=== PATIENT | male | born 1935 | race Caucasian/White ===

== ENCOUNTER → 2016-12-26 | Outpatient (CLI) | payer MEDICARE ==
[2016-03-02 09:12] VITALS: BP 169/89
[~2016-12-26] MED LIST: ALBU8.5H3 IH; ALLO300T PO; AMLO5TAB2 PO; ASPI81TA2 PO; AZIT250T6 PO; BAYER ASPIRIN PO; BENZ100C PO; CEFU500T46 PO; CHOL100013 PO; CRESTOR10 MG PO; DOCU-27 PO; GABA-585 PO; HYDR115S2 PO; IOHEXOL 240 MG/ML 50ML VIAL. ONE; IOHEXOL 300 MG/ML 75 ML VIAL. IV ONE; IPRA3AMP IH; ISOS10TA4 PO; ISOS30TA PO; LEVO500T38 PO; LOSA100T6 PO; MAGN250T9 PO; METF500T4 PO; MULT-658 PO; NAPR500T3 PO; NEBI10TA3 PO; NIAC500T PO; NITR0.4T SL; OMEG1CAP38 PO; POLY17PO5 PO; PRED-220 PO; PRED50TA PO; TORS20TA2 PO; ciprofloxin PO; losartan PO
--- NOTE | 2016-12-26 14:20 | RAD ---
Indication: Abdominal pain. Axial imaging through the abdomen was performed after the administration of intravenous contrast. No prior studies are available for comparison. The lung bases are clear. The liver demonstrates generalized low density consistent with fatty infiltration. No discrete mass is identified. There are multiple small stones within the gallbladder. No biliary ductal dilatation is seen. The pancreas and spleen are unremarkable. No adrenal mass is detected. Kidneys are unremarkable apart from vascular calcifications. Aorta is heavily calcified but nonaneurysmal. The small and large bowel loops are normal caliber. There is a midline ventral hernia containing fat. This is not entirely included on this exam. This is in the lower abdomen and upper pelvis. Impression: 1. Cholelithiasis. 2. Fatty infiltration of the liver. 3. Fat-containing midline ventral hernia. PQRS Compliance Statement: One or more of the following individualized dose reduction techniques were utilized for this examination: 1. Automated exposure control 2. Adjustment of the mA and/or kV according to patient size 3. Use of iterative reconstruction technique
== END | disposition home or self-care (01) ==
LOC: CT 11:34
PROVIDERS: ATTEND Physician Assistant Medical
DX: K80.20 Calculus of gallbladder without cholecystitis without obstruction (principal); K76.0 Fatty (change of) liver, not elsewhere classified; K43.9 Ventral hernia without obstruction or gangrene
CPT/HCPCS: 74160; Q9966; Q9967

== ENCOUNTER 2017-01-05 09:06 | Inpatient (IN) | payer MEDICARE ==
[~2017-01-05] VITALS: Ht 180.3 cm; Wt 86.2 kg
[~2017-01-05 09:06] MED LIST changes: -ALBU8.5H3 IH; +ALBU8.5H8 IH; +ASPI-630 PO; -ASPI81TA2 PO; +DOCU-109 PO; -DOCU-27 PO; -IOHEXOL 240 MG/ML 50ML VIAL. ONE; -IOHEXOL 300 MG/ML 75 ML VIAL. IV ONE; -LEVO500T38 PO; +LEVO500T59 PO
[2017-01-05 09:55] LABS: BASO % 0 % (0-3); EOS # 0.1 x10^3/uL (0.0-0.7); EOS % 1 % (0-3); HEMATOCRIT 38.1 % (39.0-53.0); LYMPH # 1.4 x10^3/uL (1.0-4.8); LYMPH % 11 % (24-48); MEAN CORPUSCULAR HEMOGLOBIN 31 pg (25-35); MEAN CORPUSCULAR HGB CONC 34 g/dL (31-37); MEAN CORPUSCULAR VOLUME 92 fL (79-100); MONO # 1.2 x10^3/uL (0.0-1.1); MONO % 9 % (0-9); NEUT # 9.9 x10^3uL (1.8-7.7); NEUT % 79 % (31-73); PLATELET COUNT 270 x10^3/uL (140-400); RED BLOOD COUNT 4.15 x10^6/uL (4.30-5.70); RED CELL DISTRIBUTION WIDTH 14.2 % (11.5-14.5); WHITE BLOOD COUNT 12.6 x10^3/uL (4.0-11.0)
--- NOTE | 2017-01-05 09:58 | ED.ADGEN ---
Past History Past Medical History: CAD, CHF, COPD Past Surgical History: Appendectomy, Coronary Bypass Surgery, Other Smoking: Quit Greater Than 1 Year Alcohol Use: None Drug Use: None Adult General Chief Complaint Chief Complaint Increased shortness of breath HPI HPI Patient is a 81-year-old male with chronic respiratory failure secondary to COPD , congestive heart failure presents with increasing shortness breath for the past 10 days. Patient is normally on 4 L nasal cannula at night and during the daytime with exertion, but has required 24 hours. Patient said previous pneumonia in the past several months. He contacted his chemical analyst's office and prescribed prednisone and doxycycline which the patient has been taking for the past week. He reports nausea this morning, fatigue, and productive cough with yellow tinged sputum. No signs fevers chills, nausea or vomiting. No other acute symptoms or complaints. Review of Systems Review of Systems ROS as per HPI Current Medications Current Medications Current Medications Medications (Trade) Dose Ordered Sig/Shirley Start Time Stop Time Status Last Admin Dose Admin Furosemide (Lasix) 40 mg 1X ONCE 01/05/17 10:30 01/05/17 10:31 UNV Allergies Allergies Allergies Coded Allergies Type Severity Reaction Last Updated Verified sulfamethoxazole Allergy Intermediate rash 12/01/13 Yes trimethoprim Allergy Intermediate rash 12/01/13 Yes quinine Allergy Mild rash 12/01/13 Yes Physical Exam Physical Exam Constitutional: Well developed, well nourished, no acute distress, non-toxic appearance. HENT: Normocephalic, atraumatic, bilateral external ears normal, oropharynx moist, no oral exudates, nose normal. Eyes: PERRL. Neck: Normal range of motion, supple. Cardiovascular:Heart rate regular rhythm, no murmur. Peripheral edema. Lungs & Thorax: Respiration nonlabored, coarse breath sounds bilaterally with expiratory wheezes. Abdomen: Bowel sounds normal, soft, no tenderness. Skin: Warm, dry. Back: No tenderness. Extremities: No tenderness. Neurologic: Alert and oriented X 3, normal motor function, normal sensory function, no focal deficits noted. Psychologic: Affect normal, judgement normal, mood normal. Current Patient Data Vital Signs Vital Signs Date Time Temp Pulse Resp B/P (MAP) Pulse Ox O2 Delivery O2 Flow Rate FiO2 01/05/17 09:30 97.6 69 20 97 3.0 Lab Results Laboratory Tests Test 5/18/17 09:43 White Blood Count 12.6 x10^3/uL (4.0-11.0) H Red Blood Count 4.15 x10^6/uL (4.30-5.70) L Hemoglobin 13.0 g/dL (13.0-17.5) Hematocrit 38.1 % (39.0-53.0) L Mean Corpuscular Volume 92 fL (79-100) Mean Corpuscular Hemoglobin 31 pg (25-35) Mean Corpuscular Hemoglobin Concent 34 g/dL (31-37) Red Cell Distribution Width 14.2 % (11.5-14.5) Platelet Count 270 x10^3/uL (140-400) Neutrophils (%) (Auto) 79 % (31-73) H Lymphocytes (%) (Auto) 11 % (24-48) L Monocytes (%) (Auto) 9 % (0-9) Eosinophils (%) (Auto) 1 % (0-3) Basophils (%) (Auto) 0 % (0-3) Neutrophils # (Auto) 9.9 x10^3uL (1.8-7.7) H Lymphocytes # (Auto) 1.4 x10^3/uL (1.0-4.8) Monocytes # (Auto) 1.2 x10^3/uL (0.0-1.1) H Eosinophils # (Auto) 0.1 x10^3/uL (0.0-0.7) Basophils # (Auto) 0.0 x10^3/uL (0.0-0.2) Sodium Level 124 mmol/L (136-145) L Potassium Level 4.3 mmol/L (3.5-5.1) Chloride Level 90 mmol/L (98-107) L Carbon Dioxide Level 30 mmol/L (21-32) Anion Gap 4 (6-14) L Blood Urea Nitrogen 18 mg/dL (8-26) Creatinine 0.8 mg/dL (0.7-1.3) Estimated GFR (Cockcroft-Gault) 92.5 BUN/Creatinine Ratio 23 (6-20) H Glucose Level 104 mg/dL (70-99) H Lactic Acid Level 1.3 mmol/L (0.4-2.0) Calcium Level 8.6 mg/dL (8.5-10.1) Total Bilirubin 0.8 mg/dL (0.2-1.0) Aspartate Amino Transferase (AST) 14 U/L (15-37) L Alanine Aminotransferase (ALT) 10 U/L (16-63) L Alkaline Phosphatase 57 U/L (46-116) Creatine Kinase 72 U/L (39-308) Troponin I Quantitative < 0.017 ng/mL (0-0.055) BF-Yey-F-Type Natriuretic Peptide 1757 pg/mL (0-449) H Total Protein 6.6 g/dL (6.4-8.2) Albumin 3.8 g/dL (3.4-5.0) Albumin/Globulin Ratio 1.4 (1.0-1.7) EKG EKG [EKG: ] Radiology/Procedures Radiology/Procedures [CXR: NAD per radiology report] Course & Med Decision Making Course & Med Decision Making Pertinent Labs and Imaging studies reviewed. (See chart for details) [Dyspnea likely multifactorial. Symptoms consistent with CHF exacerbation with COPD. Patient reports recently changing diuretics per his electric meter repairer. IV Lasix , albuterol and Solu-Medrol given. Dr. Maldonado to admit. ] Final Impression Final Impression [1. Dyspnea 2. Acute congestive heart failure 3. COPD exacerbation] Problems: Dragon Disclaimer Dragon Disclaimer This electronic medical record was generated, in whole or in part, using a voice recognition dictation system. MITZY DAVIS DO January 05, 2017 09:58
--- NOTE | 2017-01-05 10:02 | RAD ---
Portable chest, 01/05/2017: History: Shortness of breath, congestion Comparison is made to a study from 02/29/2016. There has been a previous median sternotomy. The heart size and pulmonary vascularity are normal. There are minimal parenchymal scars. No acute infiltrate is seen. There is no evidence of pleural fluid. IMPRESSION: No acute cardiopulmonary abnormality is detected.
[2017-01-05] MEDS ORDERED: CARV25TA2 PO (10:10)
[2017-01-05] MEDS ORDERED: CHLO25TA PO (10:10)
[2017-01-05 10:17] LABS: ALBUMIN 3.8 g/dL (3.4-5.0); ALBUMIN/GLOBULIN RATIO 1.4 (1.0-1.7); CALCIUM 8.6 mg/dL (8.5-10.1); CREATININE 0.8 mg/dL (0.7-1.3); GFR 92.5; POTASSIUM 4.3 mmol/L (3.5-5.1); TOTAL BILIRUBIN 0.8 mg/dL (0.2-1.0); TOTAL PROTEIN 6.6 g/dL (6.4-8.2)
[2017-01-05] MEDS ORDERED: FUROSEMIDE 40 MG/4 ML VIAL IVP ONE (10:45)
[2017-01-05] MEDS ORDERED: methylPREDNISolone SOD SUCC PF 125 MG/2 ML VIAL. IV ONE (11:00)
--- NOTE | 2017-01-05 11:21 | EKG ---
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
[2017-01-05] MEDS ORDERED: DOXY100C2 PO (11:28)
[2017-01-05] MEDS ORDERED: PRED50TA PO (11:28)
[2017-01-05] MEDS ORDERED: IPRATRPIUM/ALBUTEROL 0.5/2.5MG 3 ML NEBU. NEB SCH (12:00)
[2017-01-05 12:19] LABS: BGAS PH 7.43 (7.35-7.46)
--- NOTE | 2017-01-05 12:23 | ACF ---
Admission Criteria Forms HEART FAILURE: COMMON COMPLICATIONS Clinical Indications for Inpatient Care (Place 'X' for any and all applicable criteria): Ongoing inpatient care may be indicated for heart failure with ANY ONE of the following (1)(2)(3)(4)(5): [ ]I. Ongoing need for care for primary condition requiring frequent therapy adjustments because of changes in cardiac function (eg, drug dosage changes for drugs that are renally metabolized) [ ]II. New-onset heart failure [ ]III. Heart failure with decreased urine output not responsive to attempts to optimize volume status [ ]IV. Acute cardiac ischemia causing or associated with failure [X]V. Complications of heart failure, including ANY ONE of the following: [ ]a) Pericardial effusion [ ]b) Symptomatic pleural effusion [ ]c) O2 saturation <90% or PO2 < 60 mm Hg (8.0 kPa) on room air or require baseline supplemental O2 [ ]d) Tachypnea [X]e) Dyspnea [ ]f) Syncope [ ]g) Change in mental status [ ]h) Acute renal insufficiency that is severe (reduction of more than 50% in estimated glomerular filtration rate from baseline) or progressive reduction of more than 25% in estimated glomerular filtration rate from baseline, with creatinine continuing to rise) [ ]i) Hemodynamic instability [ ]j) Anasarca [ ]k) Clinically significant metabolic abnormalities due to heart failure (eg, new-onset metabolic acidosis) Extended stay beyond goal length of stay for primary condition may be needed until ALL of the following are present(1)(3): [ ]a) Stable and effective diuretic regimen established (or patient on stable dialysis regimen if in chronic renal failure) [ ]b) Breathing comfortably at rest [ ]c) Saturation of arterial oxygen greater than 90% or at acceptable baseline [ ]d) Pulmonary edema absent or improved [ ]e) Hemodynamic stability [ ]f) Volume status acceptable on oral medication [ ]g) Peripheral or sacral edema absent or improved [ ]h) Renal function stable and manageable at a lower level of care [ ]i) Complications (eg, pleural effusion) resolved or manageable at a lower level of care [ ]j) Patient or caregiver has received written discharge instructions or educational material addressing activity level, diet, discharge medications, follow-up appointment, weight monitoring, and what to do if symptoms worsen The original [email or web address] content created by [employer] has been revised. The portions of the content which have been revised are identified through the use of italic text or in bold, and [facility] has neither reviewed nor approved the modified material.All other unmodified content is copyright [facility]. Please see references footnoted in the original [facility] edition 2016 Admission Criteria Met?: Yes GABRIELLE ABBASI January 05, 2017 12:23
[2017-01-05 12:40] VITALS: BP 155/79
[2017-01-05 14:26] VITALS: BP 173/69
[2017-01-05] MEDS ORDERED: UMEC1DIS IH (14:27)
[2017-01-05] MEDS ORDERED: MAG355OR35 PO (14:33)
[2017-01-05] MEDS ORDERED: ASPI-612 PO (14:33)
[2017-01-05] MEDS ORDERED: GABA-586 PO (14:33)
[2017-01-05] MEDS ORDERED: NITR0.4T SL (14:34)
[2017-01-05] MEDS ORDERED: TIOT18CA IH (14:36)
[2017-01-05] MEDS: methylPREDNISolone SOD SUCC PF 40 MG/ML VIAL. IV SCH ×2 (15:38→21:41)
[2017-01-05] MEDS: guaiFENesin DM 600/30MG 1 TAB TAB.ER.12H PO SCH ×2 (15:38→21:41)
--- NOTE | 2017-01-05 15:42 | HP ---
ADMIT DATE: 01/05/2017 REASON FOR ADMISSION: Shortness of breath, failed outpatient treatment. HISTORY OF PRESENT ILLNESS: This is an 81-year-old gentleman with pulmonary hypertension, history of congestive heart failure and COPD, who failed outpatient treatment with prednisone burst of 50 mg, which he has taken 4 doses and 4 days of doxycycline, which was prescribed by his rn community health. He presented to the Emergency Room complaining of continued shortness of breath. PAST MEDICAL HISTORY: He has history of coronary artery disease, heart failure with preserved ejection fraction, hyponatremia, severe pulmonary hypertension; requiring night oxygen, coronary artery disease, status post bypass, hypertension, hypercholesterolemia, moderate mitral regurge, ischemic cardiomyopathy, type 2 diabetes. PAST SURGICAL HISTORY: PTCA with stent deployment, coronary artery bypass graft, appendectomy, umbilical hernia repair, bilateral cataract extraction, partial right fourth and fifth toe amputations and TURP x 2. ALLERGIES: SULFA and QUININE. MEDICATIONS: Reviewed and updated. New medications were the prednisone 50 mg burst for 5 days and doxycycline 100 mg twice a day. REVIEW OF SYSTEMS: Positive for upset stomach and has been diagnosed with gallstones. The patient denied fever, sore throat. Positive cough, positive clear sputum production. Positive shortness of breath. No chest pain, mild stomach pain, mild lower extremity edema. FAMILY HISTORY: One brother younger with sick sinus syndrome with permanent pacemaker. Four brothers , one sister , all because of coronary artery disease. Father at age 82 of COPD and myocardial infarction. Mother at 56 of myocardial infarction. SOCIAL HISTORY: He is , ex-smoker and states he quit 40 years ago. Used to be a heavy drinker, but quit in 2013. 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 OBJECTIVE: VITAL SIGNS: Blood pressure 173/69, pulse 76, respirations 20, pulse ox is 96% on 3 liters. Height 71 inches, weight 190 pounds. GENERAL: The patient is slightly hard of hearing. HEENT: His eyes are clear. Nose is patent. Throat clear, no exudate. He does have some mild sputum noted in the posterior pharynx. NECK: Supple, without adenopathy. LUNGS: With diffuse expiratory wheezes. CARDIOVASCULAR: Regular rhythm and rate. ABDOMEN: Soft. He has an abdominal ventral hernia. EXTREMITIES: With 1+ edema. SKIN: He has extensive actinic keratosis and aged sun damaged skin. Chest x-ray is clear with no evidence of pneumonia or pulmonary edema. LABORATORY DATA: White blood cell count 12.6, hemoglobin 13.0, hematocrit 38.1. ABG was normal. Chemistry: Sodium 124, chloride 90, BNP was ; slightly elevated from previous BNP of 1100. His troponin was negative. Lactic acid 1.3. No magnesium. ASSESSMENT: 1. Acute on chronic bronchitis. 2. Acute exacerbation of chronic obstructive pulmonary disease. 3. Possible congestive heart failure. 4. Coronary artery disease. 5. Hyponatremia, is on chronic diuretic. 6. Hypertension, mildly elevated. 7. Actinic keratosis and sun damaged skin. 8. Gallstones. PLAN: IV steroids, IV Lasix, IV antibiotic. Sputum culture and breathing treatments. LASHA DOMINGUEZ DO DR: KEISHA/amy JOB#: [id number] / [id number]
[2017-01-05] MEDS ORDERED: DEXTROSE 50% 25 GM / 50ML DISP.SYRIN. IV PRN (17:30)
[2017-01-05 17:51] VITALS: BP 186/72
[2017-01-05] MEDS ORDERED: FUROSEMIDE 40 MG/4 ML VIAL IVP SCH (21:00)
[2017-01-05] MEDS: INSULIN ASPART 300 UNITS/3 ML INSULN.PEN SQ SCH (21:00)
[2017-01-05] MEDS: FUROSEMIDE 40 MG/4 ML VIAL IVP SCH (21:39)
[2017-01-05] MEDS: FAMOTIDINE 20 MG/2 ML VIAL IVP SCH (21:40)
[2017-01-05 22:43] VITALS: BP 180/70
[2017-01-06 04:31] VITALS: BP 193/77
[2017-01-06] MEDS: methylPREDNISolone SOD SUCC PF 40 MG/ML VIAL. IV SCH ×3 (06:20→20:38)
[2017-01-06] MEDS ORDERED: ALBUTEROL SULFATE 8GM INHALER. IH PRN (07:30)
[2017-01-06] MEDS ORDERED: NITROGLYCERIN SUBLINGUAL 0.4 MG BOTTLE OF 25. SL PRN (07:30)
[2017-01-06] MEDS ORDERED: ALBUTEROL SULFATE 2.5 MG/3 ML NEBU. NEB PRN (08:00)
[2017-01-06] MEDS: CARVEDILOL 25 MG TABLET PO SCH ×2 (08:01→16:58)
[2017-01-06] MEDS: OMEGA-3 FATTY ACIDS/FISH OIL 1,000 MG CAPSULE. PO SCH (08:01)
[2017-01-06] MEDS: ASPIRIN ENTERIC COATED 81 MG TABLET.DR. PO SCH (08:01)
[2017-01-06] MEDS: guaiFENesin DM 600/30MG 1 TAB TAB.ER.12H PO SCH ×2 (08:01→20:39)
[2017-01-06] MEDS: metFORMIN 500 MG TABLET PO SCH ×2 (08:01→16:58)
[2017-01-06] MEDS: GABAPENTIN 300 MG CAPSULE. PO SCH ×2 (08:01→20:39)
[2017-01-06] MEDS: CHOLECALCIFEROL (VITAMIN D3) 1,000 UNIT TABLET PO SCH (08:01)
[2017-01-06] MEDS: FUROSEMIDE 40 MG/4 ML VIAL IVP SCH (08:06)
[2017-01-06] MEDS: FAMOTIDINE 20 MG/2 ML VIAL IVP SCH ×2 (08:06→20:38)
[2017-01-06] MEDS: INSULIN ASPART 300 UNITS/3 ML INSULN.PEN SQ SCH ×4 (08:18→20:39)
[2017-01-06] MEDS ORDERED: NON FORMULARY ITEM (Rosuvastatin Calcium (Crestor) 10 MG) PO SCH (09:00)
[2017-01-06] MEDS ORDERED: NON FORMULARY ITEM (Tiotropium Bromide (Spiriva) 1 CAP) IH SCH (09:00)
[2017-01-06] MEDS ORDERED: guaiFENesin/PS-EPHED 600/60MG 1 TAB TAB.ER.12H PO SCH (09:00)
[2017-01-06] MEDS ORDERED: NON FORMULARY ITEM (Umeclidinium Brm/Vilanterol Tr (Anoro Ellipta 62.5-25 Mcg Inh) 1 PUFF) IH SCH (09:00)
[2017-01-06] MEDS: BUDESONIDE 0.5 MG/2 ML NEBU NEB SCH ×2 (09:02→20:54)
[2017-01-06] MEDS: IPRATRPIUM/ALBUTEROL 0.5/2.5MG 3 ML NEBU. IH SCH ×4 (09:03→20:54)
--- NOTE | 2017-01-06 09:24 | PDOC2 ---
ELIA PAUL BRAKE ASSEMBLER 01/06/17 0924: CONSULT Date of Admission DATE: 01/06/17 TIME: 09:07 Reason for Consult: Congestive heart failure Problem List Problems Medical Problems: (1) Congestive heart failure Status: Acute (2) Dyspnea Status: Acute History of Present Illness This is a pleasant 81-year-old white male who presented to the emergency room yesterday with chief complaint of dyspnea. He has a past medical history of coronary artery disease with previous coronary stents followed by coronary artery bypass surgery x2 in July 2008, hyperlipidemia hypertension, COPD and pulmonary hypertension. Over the last 2 months what he has had 2 courses of azithromycin for bronchitis. Ten days ago it came back again and he was having to use his oxygen more regularly and feeling more short of breath. He called his employment and claims aide and was placed on doxycycline and prednisone. He did not improve and yesterday was extremely dyspneic and had to take about 30 minutes to get dressed in the morning. He denies any chest pain or palpitations. He was having wheezing, cough with occasional white sputum and chills at times. His chest x-ray did not show any vascular congestion however his proBNP is elevated so he was given 40 milligrams of Lasix in the emergency room and started on steroids, antibiotics and nebulizer treatments. This morning his breathing is significantly improved and he is back down on 2 liters. He denies any PND or orthopnea he commonly sleeps on 2 pillows and did not notice a change. Surgical History Appendectomy, CABG - 07/25/2008 - CORONARY ARTERY BYPASS SURGERY (07/25/2008): Coronary artery bypass grafting times two with reverse saphenous vein graft to the left anterior descending, reverse saphenous vein graft to the right coronary artery, endoscopic vein harvest, bypass was performed with cannulation of the left femoral artery that required a patch closure with a piece of saphenous vein. Prostate Surgery, Umbilical hernia repair x2 Past Medical History Coronary Artery Disease: Y Hypertension: Y COPD: Y Allergies: BACTRIM: Anaphylaxis (Severe) - tongue swelling, QUININE: Rash ( Severe) Medications Allopurinol 300 mg tablet one tablet by mouth daily Anoro Ellipta 62.5 mcg-25 mcg/actuation powder for inhalation Inhale 1 puff(s) every day by inhalation route. Asprin Ec Low Dose 81 mg tablet,delayed release Take 1 tablet(s) every day by oral route. carvedilol 25 mg tablet TAKE ONE TABLET BY MOUTH TWICE DAILY chlorthalidone 25 mg tablet Take 1 tablet(s) every day by oral route. gabapentin 300 mg capsule one capsule by mouth twice daily losartan 100 mg tablet one tablet by mouth daily magnesium oxide 250 mg tablet Take 1 tablet(s) every day by oral route. metFORMIN 500 mg tablet one tablet by mouth twice daily naproxen 500 mg tablet one tablet by mouth twice daily Proventil HFA 90 mcg/actuation aerosol inhaler Inhale 2 puff(s) every 4 hours by inhalation route. rosuvastatin 10 mg tablet Take 1 tablet(s) every day by oral route. Spiriva with HandiHaler 18 mcg and inhalation capsules Inhale 1 capsule(s) every day by inhalation route. Social History Occupation: Retired Marital status: Number of children: 4 Diet: Regular Exercise level: None Smoking Status: Former smoker (Notes: 1 08/22 ppd x 30 yrs quit more than 20 yrs ago) Alcohol intake: None Family History Father - Heart disease ( age: 82) - History of emphysema ( age: 82) Mother - Myocardial infarction ( age: 56) - Cardiomyopathy - Disorder of coronary artery Brother - History of emphysema - x4 - Family history of cancer - Rheumatoid arthritis - Disorder of coronary artery Daughter - Diabetes mellitus Review of systems - review of 10 organ systems is negative except for as above Procedure: ECHOCARDIOGRAM IMPRESSION (10/17/2016): The left ventricle is normal in size. There is mild concentric left ventricular hypertrophy. There is paradoxical septal motion consistent with a bundle branch block. The left ventricular systolic function is normal with a visually estimated ejection fraction of 55-60%. There is evidence of left ventricular pseudonormalization suggestive of stage II diastolic dysfunction. The left atrium appears severely dilated per left atrial index. The right atrium appears mildly dilated. The inferior vena cava is dilated but does respond normally to respiration, which is consistent with mildly elevated right atrial pressure. There is mild aortic valve sclerosis. There is mild mitral annular calcification. There is mild mitral, pulmonic, and tricuspid regurgitation. The estimated pulmonary artery systolic pressure is 59 mmHg, consistent with moderate pulmonary hypertension. Compared to the report (images were not available for review) of the study dated 10/14/2015, the dilatation of the left atrium has progressed and the left ventricular hypertrophy is a new finding, The dilatation of the right ventricle is not seen and the pulmonary artery pressure has improved. LEXISCAN NUCLEAR STRESS TEST IMPRESSION (10/14/2015): Normal myocardial perfusion scan with inferior diaphragmatic attenuation artifact. The summed differential score was 0 Normal ventricular systolic function. Ejection fraction: 56%. There was no induced left ventricular dilatation or increase in lung to heart ratio. There were occasional PVCs. There was no stress induced chest pain. Compared to the previous study performed on 03/11/2014, there was no significant change. ECHOCARDIOGRAM IMPRESSION (10/14/2015): The left ventricular systolic function is normal with an estimated ejection fraction of 55%. There is evidence of left ventricular pseudonormalization suggestive of stage II diastolic dysfunction. The right ventricle appears mildly dilated but with normal function. There is mild bi-atrial dilatation. There is mild aortic valve sclerosis. There is moderate mitral regurgitation. There is mild tricuspid regurgitation. The estimated pulmonary artery systolic pressure is 65 mmHg, consistent with severe pulmonary hypertension. Compared to the report (images were not available for review) of the study dated 03/19/2014, the right atrial dilatation and the pulmonary hypertension is a new finding. CARDIAC CATHETERIZATION IMPRESSION (12/11/2009): 1. There was no suggestion of progressive coronary artery disease compared to the previous angiogram and after bypass surgery. There was good flow through both vein grafts. PAN graft was not used intraoperatively after harvesting. 2. 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 The proximal tortuous loop of the large ramus/first obtuse marginal branch could not be visualized well in spite of several views. There may be a hidden lesion. 3. [place] LAD and right coronary artery stents had significant in-stent restenosis as noted prior to bypass surgery. 4. Normal size left ventricle with ejection fraction of approximately 50%. It was improved compared to the previous LV-gram. Again, mild inferior hypokinesis was noted. 5. Both common iliac arteries had proximal 40-50% luminal narrowing. The aorta was unremarkable. 6. Both renal arteries appeared to be small caliber vessels with mild intimal disease. CORONARY ARTERY BYPASS SURGERY (07/25/2008): Coronary artery bypass grafting times two with reverse saphenous vein graft to the left anterior descending, reverse saphenous vein graft to the right coronary artery, endoscopic vein harvest, bypass was performed with cannulation of the left femoral artery that required a patch closure with a piece of saphenous vein. Assessment / Plan Acute on chronic diastolic heart failure - mildly decompensated likely due to exacerbation of COPD and severe hypertension. His sodium level is 124 so will plan to put him on a fluid restriction and add Mucinex for his cough. He is on low-dose Lasix will switch him back to oral and continue to treat his COPD. Hyponatremia -plan to restrict his water. Coronary artery disease, status post revascularization. The patient is doing well without any angina. We will continue optimal medical therapy. Hypertension, uncontrolled. Continue losartan and Coreg and will plan to add low-dose Norvasc. Hypercholesterolemia. His goal LDL is < 100 mg/dL. Continue Crestor. Mitral regurgitation, non-rheumatic. This is moderate. This will need to be followed by echocardiogram once a year. Severe pulmonary hypertension - PA pressure 65 mmHg Current Medications Current Medications Furosemide (Lasix) 40 mg 1X ONCE IVP Last administered on 01/05/17 10:52; Start 01/05/17 at 10:45; Stop 01/05/17 at 10:46; Status DC Albuterol/ Ipratropium (Duoneb) 3 ml RTQID NEB Last administered on 01/05/17 10:52; Start 01/05/17 at 12:00; Stop 01/06/17 at 07:48; Status DC Furosemide (Lasix) 40 mg Q12HR IVP ; Start 01/05/17 at 21:00; Stop 01/05/17 at 21:00; Status DC Methylprednisolone Sodium Succinate (SOLU-Medrol 125MG VIAL) 125 mg 1X ONCE IV Last administered on 01/05/17 10:52; Start 01/05/17 at 11:00; Stop 01/05/17 at 11:01; Status DC Furosemide (Lasix) 20 mg Q12HR IVP Last administered on 01/06/17 08:06; Start 01/05/17 at 21:00 Methylprednisolone Sodium Succinate (SOLU-Medrol 40MG VIAL) 60 mg Q8HRS IV Last administered on 01/06/17 06:20; Start 01/05/17 at 15:00 Ceftriaxone Sodium 1 gm/ Sodium Chloride 50 ml @ 100 mls/hr Q24H IV ; Start at 15:15; Stop 01/05/17 at 15:15; Status DC Guaifenesin (MUCINEX ER with DM) 1 tab BID PO Last administered on 01/06/17 08 :01; Start 01/05/17 at 15:15 Famotidine (Pepcid) 20 mg BID IVP Last administered on 01/06/17 08:06; Start 01/05/17 at 21:00 Ceftriaxone Sodium 1 gm/ Sodium Chloride 50 ml @ 100 mls/hr Q24H IV Last administered on 01/05/17 15:39; Start 01/05/17 at 15:00 Insulin Aspart (NovoLOG) 0-5 UNITS QIDACHS SQ Last administered on 01/06/17 08 :18; Start 01/05/17 at 21:00 Dextrose 12.5 gm PRN Q15MIN PRN IV SEE COMMENTS; Start 01/05/17 at 17:30 Albuterol Sulfate (Ventolin Hfa) 2 puff PRN BID PRN IH SHORTNESS OF BREATH; Start 01/06/17 at 07:30; Stop 01/06/17 at 07:53; Status DC Allopurinol (Zyloprim) 300 mg HS PO ; Start 01/06/17 at 21:00 Aspirin (Aspirin Enteric Coated) 81 mg DAILY PO Last administered on 01/06/17 08:01; Start 01/06/17 at 09:00 Carvedilol (Coreg) 25 mg BIDWMEALS PO Last administered on 01/06/17 08:01; Start 01/06/17 at 08:00 Gabapentin (Neurontin) 300 mg BID PO Last administered on 01/06/17 08:01; Start 01/06/17 at 09:00 Albuterol/ Ipratropium (Duoneb) 3 ml RTQID IH Last administered on 01/06/17 09 :03; Start 01/06/17 at 08:00 Metformin HCl (Glucophage) 500 mg BIDWMEALS PO Last administered on 01/06/17 08:01; Start 01/06/17 at 08:00 Nitroglycerin (Nitrostat) 0.4 mg PRN Q5MIN PRN SL CHEST PAIN; Start 01/06/17 at 07:30 Vitamin D (Vitamin D3) 1,000 unit DAILY PO Last administered on 01/06/17 08:01 ; Start 01/06/17 at 09:00 Losartan Potassium (Cozaar) 100 mg HS PO ; Start 01/06/17 at 21:00 Magnesium Oxide (Magnesium Oxide) 400 mg DAILY PO ; Start 01/06/17 at 09:00 Fish Oil (Fish Oil) 1,000 mg DAILY PO Last administered on 01/06/17 08:01; Start 01/06/17 at 09:00 Non-Formulary Medication 10 mg DAILY PO ; Start 01/06/17 at 09:00; Stop at 09:00; Status DC Non-Formulary Medication 1 cap DAILY IH ; Start 01/06/17 at 09:00; Stop at 09:00; Status DC Non-Formulary Medication 1 puff DAILY IH ; Start 01/06/17 at 09:00; Stop at 09:01; Status DC Albuterol Sulfate (Ventolin) 2.5 mg PRN BID PRN NEB SHORTNESS OF BREATH; Start 01/06/17 at 08:00 Atorvastatin Calcium (Lipitor) 40 mg DAILY PO ; Start 01/06/17 at 09:00 Budesonide (Pulmicort) 0.5 mg RTBID NEB Last administered on 01/06/17 09:02; Start 01/06/17 at 08:00 Guaifenesin (Mucinex D Er 600-60 Mg) 1 tab BID PO ; Start 01/06/17 at 09:00; Status UNV Amlodipine Besylate (Norvasc) 2.5 mg DAILY PO ; Start 01/06/17 at 09:00 Active Scripts Active Reported Spiriva (Tiotropium [place]) 18 Mcg Cap.w.dev 1 Cap IH DAILY Nitrostat (Nitroglycerin) 0.4 Mg Tab.subl 1 Tab SL PRN Q5MIN PRN Acid Gone Antacid Liquid (Mag Carb/Al Hydrox/Alginic Ac) 355 Ml Oral.susp 355 Ml PO PRN PRN Aspirin Ec (Aspirin) 81 Mg Tablet.dr 1 Tab PO DAILY Gabapentin 300 Mg Capsule 300 Mg PO BID Anoro Ellipta 62.5-25 Mcg Inh (Umeclidinium Brm/Vilanterol Tr) 1 Each Disk.w.dev 1 Puff IH DAILY Prednisone 50 Mg Tablet 1 Tab PO DAILY Doxycycline Hyclate 100 Mg Capsule 1 Cap PO BID Carvedilol 25 Mg Tablet 25 Mg PO BID Chlorthalidone 25 Mg Tablet 25 Mg PO DAILY Losartan Potassium 100 Mg Tablet 100 Mg PO HS Duoneb 0.5-3(2.5) Mg/3 Ml (Albuterol/Ipratropium) 3 Ml Ampul.neb 3 Ml IH QID for shortness of breath, nebulizer LAST DOSE: 12/22 am next dose as needed Proair Hfa Inhaler (Albuterol Sulfate) 8.5 Gm Hfa.aer.ad 2 Puff IH PRN BID PRN for shortness of breath last dose: 12/22 am next dose: 12/22 pm Magnesium Oxide 250 Mg Tablet 250 Mg PO DAILY supplement last dose: 12/22 am nxt dose: 12/23 am [place] 3 Fish Oil Softgel ([place]-3 Fatty Acids/Fish Oil) 1 Each Capsule.dr 1,000 Mg PO DAILY supplement last dose: 12/22 nxt dose: 12/23 AM Vitamin D (Cholecalciferol (Vitamin D3)) 1,000 Unit Capsule 1,000 Unit PO DAILY supplement last dose: 12/22 nxt dose: 12/23 am Naproxen 500 Mg Tablet 500 Mg PO BID for pain last dose: prior to admit nxt dose: may resume as needed Metformin Hcl 500 Mg Tablet 500 Mg PO BID for diabetes (high blood sugar) stopped during admission may resume tonight, 5 pm Crestor (Rosuvastatin Calcium) 10 Mg Tablet 10 Mg PO DAILY for high cholesterol on Monday, Monday, Monday @ HS last dose: 12/22 AM next dose: 5/ PM Allopurinol 300 Mg Tablet 300 Mg PO HS for gout last dose: 12/22 am nxt dose: 12/23 am Allergies: Coded Allergies: sulfamethoxazole (Verified Allergy, Intermediate, rash, 12/01/13) trimethoprim (Verified Allergy, Intermediate, rash, 12/01/13) quinine (Verified Allergy, Mild, rash, 12/01/13) VITALS Vital Signs Date Time Temp Pulse Resp B/P (MAP) Pulse Ox O2 Delivery O2 Flow Rate FiO2 01/06/17 08:01 75 193/77 01/06/17 04:31 97.5 20 97 Nasal Cannula 3.0 Labs Laboratory Tests Test 01/05/17 09:43 01/05/17 10:37 01/05/17 16:21 01/05/17 22:26 White Blood Count 12.6 x10^3/uL (4.0-11.0) Red Blood Count 4.15 x10^6/uL (4.30-5.70) Hemoglobin 13.0 g/dL (13.0-17.5) Hematocrit 38.1 % (39.0-53.0) Mean Corpuscular Volume 92 fL (79-100) Mean Corpuscular Hemoglobin 31 pg (25-35) Mean Corpuscular Hemoglobin Concent 34 g/dL (31-37) Red Cell Distribution Width 14.2 % (11.5-14.5) Platelet Count 270 x10^3/uL (140-400) Neutrophils (%) (Auto) 79 % (31-73) Lymphocytes (%) (Auto) 11 % (24-48) Monocytes (%) (Auto) 9 % (0-9) Eosinophils (%) (Auto) 1 % (0-3) Basophils (%) (Auto) 0 % (0-3) Neutrophils # (Auto) 9.9 x10^3uL (1.8-7.7) Lymphocytes # (Auto) 1.4 x10^3/uL (1.0-4.8) Monocytes # (Auto) 1.2 x10^3/uL (0.0-1.1) Eosinophils # (Auto) 0.1 x10^3/uL (0.0-0.7) Basophils # (Auto) 0.0 x10^3/uL (0.0-0.2) Sodium Level 124 mmol/L (136-145) Potassium Level 4.3 mmol/L (3.5-5.1) Chloride Level 90 mmol/L (98-107) Carbon Dioxide Level 30 mmol/L (21-32) Anion Gap 4 (6-14) Blood Urea Nitrogen 18 mg/dL (8-26) Creatinine 0.8 mg/dL (0.7-1.3) Estimated GFR (Cockcroft-Gault) 92.5 BUN/Creatinine Ratio 23 (6-20) Glucose Level 104 mg/dL (70-99) Lactic Acid Level 1.3 mmol/L (0.4-2.0) Calcium Level 8.6 mg/dL (8.5-10.1) Total Bilirubin 0.8 mg/dL (0.2-1.0) Aspartate Amino Transf (AST/SGOT) 14 U/L (15-37) Alanine Aminotransferase (ALT/SGPT) 10 U/L (16-63) Alkaline Phosphatase 57 U/L (46-116) Creatine Kinase 72 U/L (39-308) Troponin I Quantitative < 0.017 ng/mL (0-0.055) VG-Khp-Z-Type Natriuretic Peptide 1757 pg/mL (0-449) Total Protein 6.6 g/dL (6.4-8.2) Albumin 3.8 g/dL (3.4-5.0) Albumin/Globulin Ratio 1.4 (1.0-1.7) Blood Gas pH 7.43 (7.35-7.46) Blood Gas PCO2 41 mmHg (35-46) Blood Gas PO2 82 mmHg (71-100) Blood Gas HCO3 27 mmol/L (21-28) Arterial Bld O2 Saturation (Calc) 96 % (92-99) FiO2 32 % Glucose (Fingerstick) 243 mg/dL (70-99) 228 mg/dL (70-99) Test 01/06/17 07:06 Glucose (Fingerstick) 169 mg/dL (70-99) QING CHAVEZ Jr, MD 01/06/17 1027: CONSULT Reason for Consult: Congestive heart failure. History of Present Illness He is a pleasant 81-year-old male who is well known to our service. He has a history of chronic diastolic congestive heart failure. He was actually recently seen in our office due to increasing shortness of breath. He was placed on antibiotics. He did not seem to get much better. He then called his employment and claims aide who placed him on a different antibiotic and also oral steroids. However, his dyspnea on exertion has continued. Therefore, he came to the hospital for further evaluation. He was admitted to the hospital for intravenous steroids and aggressive pulmonary treatments. His breathing is starting to improve but he still has a cough with occasional white sputum. He denies any fever or chills. He denies any chest pain, paroxysmal nocturnal dyspnea, orthopnea, palpitations, lightheadedness or syncope. He has chronic mild ankle edema which is unchanged. He does report that he was drinking a significant amount of water at home to help raise the sputum. Allergies: Coded Allergies: sulfamethoxazole (Verified Allergy, Intermediate, rash, 12/01/13) trimethoprim (Verified Allergy, Intermediate, rash, 12/01/13) quinine (Verified Allergy, Mild, rash, 12/01/13) Review of System Review of 10 organ systems is as per the history of present illness, otherwise negative. Physical Exam General: He is awake and alert. He is in no acute distress. He appears well nourished and appears as stated age. Head and neck: The patient is normocephalic and atraumatic. Carotid pulsations are 2/2 bilaterally without bruits. Jugular venous pressure does not appear elevated. No thyromegaly appreciated. Eyes: Conjunctivae are clear. Extraocular movements are intact. There are no xanthelasma. Lungs: There is good respiratory effort with symmetrical expansion bilaterally. There are scattered wheezes bilaterally. No crackles or rhonchi appreciated. Cardiovascular: Regular rate and rhythm with normal S1 and S2. There is a 1/6 holosystolic murmur. No rubs or gallops appreciated. Point of maximal impulse is not appear displaced. Abdomen: There are normal bowel sounds and the abdomen is soft and nontender. Lower extremities: There is trace edema bilaterally. The posterior tibial pulses are palpable bilaterally. Skin: There is normal skin turgor. There is no pallor Musculoskeletal: I do not appreciate kyphosis or scoliosis. Neurologic: The patient is alert and oriented x3. Cranial nerves 3-12 appear grossly intact. The patient has good motor tone in to strength in the upper and lower extremities bilaterally. Psychologic: The patient is pleasant and has normal affect. Assessment/Plan CHF, acute on chronic, with preserved ejection fraction. He may have some mild decompensation of his congestive heart failure. He has received intravenous Lasix. He does have hyponatremia which could be caused by drinking too much water at home. I recommend we cut back on his Lasix to 20 mg once a day. This should be oral. He should continue on his other cardiac medications. I suspect the majority of his shortness of breath is due to his chronic obstructive pulmonary disease. Coronary artery disease. He is not having any angina. He should continue on the present medications. Hypertension. His blood pressure has been elevated. Some of this may be due to the intravenous steroids. I recommend we add a low dose of amlodipine. We may be able to stop this medication after he gets off the steroids. Hypercholesterolemia. He should be continued on his present dose of statin medication. Problems: ELIA PAUL APRN January 06, 2017 09:24 QING CHAVEZ Jr, MD January 06, 2017 10:27
[2017-01-06] MEDS: MAGNESIUM OXIDE 400 MG TABLET PO SCH (09:46)
[2017-01-06] MEDS: amLODIPine BESYLATE 2.5 MG TABLET PO SCH (09:47)
[2017-01-06] MEDS: ATORVASTATIN CALCIUM 20 MG TABLET PO SCH (09:47)
[2017-01-06 10:43] VITALS: BP 153/71
[2017-01-06 11:27] LABS: BASO % 0 % (0-3); EOS % 0 % (0-3); HEMATOCRIT 40.4 % (39.0-53.0); HEMOGLOBIN 13.7 g/dL (13.0-17.5); LYMPH # 1.1 x10^3/uL (1.0-4.8); LYMPH % 6 % (24-48); MEAN CORPUSCULAR HEMOGLOBIN 31 pg (25-35); MEAN CORPUSCULAR HGB CONC 34 g/dL (31-37); MEAN CORPUSCULAR VOLUME 91 fL (79-100); MONO # 0.6 x10^3/uL (0.0-1.1); MONO % 4 % (0-9); NEUT # 15.2 x10^3uL (1.8-7.7); NEUT % 90 % (31-73); PLATELET COUNT 293 x10^3/uL (140-400); RED BLOOD COUNT 4.42 x10^6/uL (4.30-5.70); RED CELL DISTRIBUTION WIDTH 14.1 % (11.5-14.5); WHITE BLOOD COUNT 16.9 x10^3/uL (4.0-11.0)
[2017-01-06 11:48] LABS: ALBUMIN 3.7 g/dL (3.4-5.0); ALBUMIN/GLOBULIN RATIO 1.2 (1.0-1.7); CALCIUM 8.6 mg/dL (8.5-10.1); CREATININE 1.1 mg/dL (0.7-1.3); GFR 64.1; MAGNESIUM 1.7 mg/dL (1.8-2.4); POTASSIUM 3.8 mmol/L (3.5-5.1); TOTAL BILIRUBIN 0.6 mg/dL (0.2-1.0); TOTAL PROTEIN 6.8 g/dL (6.4-8.2)
[2017-01-06 12:35] LABS: % BANDS 1 % (0-9); % LYMPHS 23 % (24-48); % MONOS 5 % (0-10); % SEGS 71 % (35-66)
[2017-01-06 12:36] LABS: PLATELET CLUMP PRESENT; PLT ESTIMATE ADEQUATE (ADEQUATE)
[2017-01-06 15:36] VITALS: BP 121/66
[2017-01-06 19:32] VITALS: BP 121/57
[2017-01-06] MEDS ORDERED: ALLOPURINOL 300 MG TABLET. PO SCH (21:00)
[2017-01-06] MEDS ORDERED: LOSARTAN 50 MG TABLET. PO SCH (21:00)
[2017-01-06 22:49] VITALS: BP 103/53
--- NOTE | 2017-01-06 23:50 | PN ---
DATE: 01/06/2017 CURRENT PROBLEMS: Requiring hospitalization for greater than 2 days. 1. Acute exacerbation of COPD. 2. Acute on chronic diastolic heart failure. 3. Hyponatremia. 4. Hypertension. 5. Hypercholesterolemia. 6. Moderate mitral regurgitation. 7. Severe pulmonary hypertension. SUBJECTIVE: The patient is doing a little bit better today. He has been getting IV steroids, antibiotics and had a dose of IV Lasix. He will be switched to p.o. Lasix today and placed on fluid restriction for his hyponatremia. His labs are pending. Overall, he is doing better. OBJECTIVE: VITAL SIGNS: Blood pressure 193/77, temperature 97.5, pulse 75, respirations 20 and pulse ox is 97% on 3 liters. GENERAL: The patient is sitting up and is not dyspneic, not tachypneic. NECK: Supple. LUNGS: With distant breath sounds, but no wheezing today. CARDIOVASCULAR: Regular rhythm and rate. ABDOMEN: Soft, nontender, noted large ventral hernia. EXTREMITIES: Without edema. PLAN: Decrease steroids, fluid restriction, started him on Mucinex, give him his home medications, monitor for hyperglycemia and doing well. LASHA DOMINGUEZ DO DR: KEISHA/amy JOB#: [id number] / [id number]
[2017-01-07] MEDS: methylPREDNISolone SOD SUCC PF 40 MG/ML VIAL. IV SCH (05:24)
[2017-01-07] MEDS: IPRATRPIUM/ALBUTEROL 0.5/2.5MG 3 ML NEBU. IH SCH ×2 (05:39→10:15)
[2017-01-07 06:16] VITALS: BP 132/68
[2017-01-07 06:23] LABS: BASO % 0 % (0-3); EOS % 0 % (0-3); HEMATOCRIT 38.5 % (39.0-53.0); LYMPH # 1.2 x10^3/uL (1.0-4.8); LYMPH % 7 % (24-48); MEAN CORPUSCULAR HEMOGLOBIN 31 pg (25-35); MEAN CORPUSCULAR HGB CONC 34 g/dL (31-37); MEAN CORPUSCULAR VOLUME 91 fL (79-100); MONO # 0.6 x10^3/uL (0.0-1.1); MONO % 4 % (0-9); NEUT # 15.1 x10^3uL (1.8-7.7); NEUT % 89 % (31-73); PLATELET COUNT 303 x10^3/uL (140-400); RED BLOOD COUNT 4.21 x10^6/uL (4.30-5.70); RED CELL DISTRIBUTION WIDTH 14.4 % (11.5-14.5)
[2017-01-07 06:29] LABS: ALBUMIN 3.4 g/dL (3.4-5.0); ALBUMIN/GLOBULIN RATIO 1.2 (1.0-1.7); CALCIUM 8.3 mg/dL (8.5-10.1); CREATININE 0.9 mg/dL (0.7-1.3); GFR 80.8; MAGNESIUM 1.9 mg/dL (1.8-2.4); POTASSIUM 3.5 mmol/L (3.5-5.1); TOTAL BILIRUBIN 0.5 mg/dL (0.2-1.0); TOTAL PROTEIN 6.3 g/dL (6.4-8.2)
[2017-01-07] MEDS: guaiFENesin DM 600/30MG 1 TAB TAB.ER.12H PO SCH (08:38)
[2017-01-07] MEDS: MAGNESIUM OXIDE 400 MG TABLET PO SCH (08:38)
[2017-01-07] MEDS: OMEGA-3 FATTY ACIDS/FISH OIL 1,000 MG CAPSULE. PO SCH (08:38)
[2017-01-07] MEDS: CHOLECALCIFEROL (VITAMIN D3) 1,000 UNIT TABLET PO SCH (08:38)
[2017-01-07] MEDS: GABAPENTIN 300 MG CAPSULE. PO SCH (08:38)
[2017-01-07 08:39] VITALS: BP 132/68
[2017-01-07] MEDS: metFORMIN 500 MG TABLET PO SCH (08:39)
[2017-01-07] MEDS: amLODIPine BESYLATE 2.5 MG TABLET PO SCH (08:39)
[2017-01-07] MEDS: ASPIRIN ENTERIC COATED 81 MG TABLET.DR. PO SCH (08:39)
[2017-01-07] MEDS: CARVEDILOL 25 MG TABLET PO SCH (08:39)
[2017-01-07] MEDS: FAMOTIDINE 20 MG/2 ML VIAL IVP SCH (08:40)
[2017-01-07] MEDS: INSULIN ASPART 300 UNITS/3 ML INSULN.PEN SQ SCH (08:51)
[2017-01-07] MEDS ORDERED: GUAI-107 PO (08:54)
[2017-01-07] MEDS ORDERED: PRED-220 PO (08:54)
[2017-01-07] MEDS ORDERED: AMLO2.5T PO (08:54)
[2017-01-07] MEDS ORDERED: FUROSEMIDE 20 MG TABLET PO SCH (09:00)
[2017-01-07] MEDS: ATORVASTATIN CALCIUM 20 MG TABLET PO SCH (09:00)
--- NOTE | 2017-01-07 10:13 | DS ---
DATE OF DISCHARGE: 01/07/2017 DISCHARGE DIAGNOSES: 1. Acute exacerbation of chronic obstructive pulmonary disease. 2. Acute on chronic diastolic heart failure. 3. Hyponatremia. 4. Hypertension. 5. Hypercholesterolemia. 6. Moderate mitral regurgitation. 7. Severe pulmonary hypertension. HOSPITAL COURSE: An 81-year-old male, who failed outpatient treatment with doxycycline and prednisone prescribed his porter luggage. He presented to the Emergency Room acutely short of breath. He was seen in consultation by Dr. Moore. He did receive some Lasix, breathing treatments, IV steroids and IV ceftriaxone. On the day of discharge, he was doing much better, less short of breath and also Mucinex really helped with as a mucolytic agent for him. PHYSICAL EXAMINATION: VITAL SIGNS: On day of discharge blood pressure 132/68, pulse 83, temperature 97.4, pulse ox is 94% on 2 liters. GENERAL: The patient is resting comfortably in bed. HEENT: His tongue was moist. NECK: Supple. LUNGS: With a few scattered wheezes. CARDIOVASCULAR: Regular rhythm and rate. ABDOMEN: Soft, nontender. EXTREMITIES: Without edema. DISPOSITION: To home. He will finish the doxycycline at home, continue with his breathing treatments, will have a prednisone taper, will be on a fluid restriction until he has labs again on Monday for the hyponatremia and type written instructions were done by myself and medications electronically transmitted to the pharmacy. LASHA DOMINGUEZ DO DR: KEISHA/amy JOB#: [id number] / [id number]
[2017-01-07] MEDS: BUDESONIDE 0.5 MG/2 ML NEBU NEB SCH (10:15)
== END 2017-01-07 12:45 | disposition home or self-care (01) | DRG 190 ==
LOC: ER 09:06 → 1 SOUTH 10:41
PROVIDERS: ADMIT Family Medicine; ATTEND Family Medicine
DX: J44.0 Chronic obstructive pulmonary disease with (acute) lower respiratory infection (principal); I50.33 Acute on chronic diastolic (congestive) heart failure; E87.1 Hypo-osmolality and hyponatremia; J96.10 Chronic respiratory failure, unspecified whether with hypoxia or hypercapnia; I11.0 Hypertensive heart disease with heart failure; J44.1 Chronic obstructive pulmonary disease with (acute) exacerbation; E78.00 Pure hypercholesterolemia, unspecified; E78.5 Hyperlipidemia, unspecified; I25.10 Atherosclerotic heart disease of native coronary artery without angina pectoris; E11.9 Type 2 diabetes mellitus without complications; L57.0 Actinic keratosis; J20.9 Acute bronchitis, unspecified; I34.0 Nonrheumatic mitral (valve) insufficiency; I27.2 Other secondary pulmonary hypertension; I25.5 Ischemic cardiomyopathy; K80.20 Calculus of gallbladder without cholecystitis without obstruction; Z82.49 Family history of ischemic heart disease and other diseases of the circulatory system; Z82.5 Family history of asthma and other chronic lower respiratory diseases; Z87.01 Personal history of pneumonia (recurrent); Z87.891 Personal history of nicotine dependence; Z90.49 Acquired absence of other specified parts of digestive tract; Z95.1 Presence of aortocoronary bypass graft; Z95.5 Presence of coronary angioplasty implant and graft; Z98.41 Cataract extraction status, right eye; Z98.42 Cataract extraction status, left eye; Z80.9 Family history of malignant neoplasm, unspecified
CPT/HCPCS: 36415; 71010; 80053; 82550; 82803; 82947; 83605; 83735; 83880; 84484; 85007; 85027; 87205; 93005; 94640; J0696; J1815; J1940; J2920; J2930; J7620; J7626; S0028; 99285-25

== ENCOUNTER 2017-01-28 05:00 | Inpatient (IN) | payer MEDICARE ==
[~2017-01-28] VITALS: Ht 180.3 cm; Wt 83.2 kg
[2017-01-28] VITALS (16 sets, daily range): BP systolic 109–163; BP diastolic 47–71
[~2017-01-28 05:00] MED LIST changes: +AMLO2.5T PO; +ASPI-612 PO; +CARV25TA2 PO; +CHLO25TA PO; +DOXY100C2 PO; +GABA-586 PO; +GUAI-107 PO; +MAG355OR35 PO; +TIOT18CA IH; +UMEC1DIS IH
--- NOTE | 2017-01-28 05:12 | PHYS DOC ---
Past History Past Medical History: CAD, CHF, COPD Past Surgical History: Appendectomy, Coronary Bypass Surgery, Other Smoking: Quit Greater Than 1 Year Alcohol Use: None Drug Use: None Adult General Chief Complaint Chief Complaint: SHORTNESS OF BREATH HPI HPI Patient is a 81 year old M who presents with with acute onset of shortness of breath. Patient woke up short of breath therefore called 911 and when EMS got there patient was oxygenating 85% on his normal 5 L nasal cannula. Patient was transported to the emergency room in acute respiratory distress. Patient states he has a history of CHF and has been having increased leg swelling bilaterally. Patient denies any fevers. Patient denies any chest pain. Patient denies any abdominal pain. Patient denies any nausea/vomiting/diarrhea. Patient has no other complaints. Pertinent exam findings: Decreased breath sounds bilaterally, tachypnea Heart was regular rhythm without murmurs +1 pitting edema to the extremity is bilaterally ED course: Patient was seen and examined upon arrival to emergency room, CBC, CMP, troponin , chest x-ray, and EKG were ordered 0510: Patient was placed on BiPAP to help his work of breathing 0530: Discussed CC/HP/PMH with Dr. Caraballo and recommends admit to the ICU Pertinent results: Chest x-ray shows bilateral pulmonary edema consistent with CHF 0531: EKG shows normal sinus rhythm rate of 74 no STEMI Arterial blood gas shows a pH of 7.4, PCO2 of 38.8, PO2 of 78 MDM: After reviewing the chart, CC/HPI/PMH, physical exam, [lab results], [ radiological results], believe the patient have an acute CHF exacerbation requiring BiPAP and IV Lasix and admission to the ICU. Per the and patient he's had no signs of infectious process so I have a low suspicion for underlying pneumonia. Review of Systems Review of Systems GEN: Denies fevers, chills, sweats HEENT: Denies blurred vision, sore throat CV: Denies chest pain RESP: Shortness of breath GI: Denies n/v/d NEURO: Denies confusion, dizziness MSK: Denies weakness, joint pain/swelling Allergies Allergies Allergies Coded Allergies Type Severity Reaction Last Updated Verified sulfamethoxazole Allergy Intermediate rash 12/01/13 Yes trimethoprim Allergy Intermediate rash 12/01/13 Yes quinine Allergy Mild rash 12/01/13 Yes Physical Exam Physical Exam GEN.: No apparent distress. Alert and oriented. HEENT: Head is normocephalic, atraumatic NECK: Supple. LUNGS: Decreased breath sounds bilaterally, tachypnea HEART: RRR, S1, S2 present. Peripheral pulses intact ABDOMEN: Soft, nontender. Positive bowel sounds. EXTREMITIES: Without any cyanosis, +1 pitting edema to lower show many bilaterally NEUROLOGIC: Normal speech, normal tone PSYCHIATRIC: Normal affect, normal mood. SKIN: No ulcerations Current Patient Data Lab Results Laboratory Tests Test 01/28/17 05:25 Blood Gas pH 7.42 Blood Gas PCO2 39 mmHg Blood Gas PO2 78 mmHg Blood Gas HCO3 25 mmol/L Arterial Bld O2 Saturation (Calc) 96 % FiO2 40 % Current Medications Medications (Trade) Dose Ordered Sig/Shirley Route PRN Reason Start Time Stop Time Status Last Admin Dose Admin Furosemide (Lasix) 80 mg 1X ONCE IVP 01/28/17 05:45 01/28/17 05:46 DC 01/28/17 05:39 Ondansetron HCl (Zofran) 4 mg PRN Q4HRS PRN IV NAUSEA/VOMITING 01/28/17 05:45 01/29/17 05:44 Morphine Sulfate (Morphine 2mg Syringe) 2 mg PRN Q2HR PRN IV SEVERE PAIN 01/28/17 05:45 01/29/17 05:44 Acetaminophen (Tylenol) 650 mg PRN Q4HRS PRN PO FEVER 01/28/17 05:45 01/29/17 05:44 Nitroglycerin (Nitrostat) 0.4 mg PRN Q5MIN PRN SL CHEST PAIN 01/28/17 05:45 01/29/17 05:44 EKG EKG EKG shows normal sinus rhythm rate of 74 no STEMI [] Radiology/Procedures Radiology/Procedures Portable chest x-ray shows bilateral pulmonary edema [] Course & Med Decision Making Course & Med Decision Making Pertinent Labs and Imaging studies reviewed. (See chart for details) Critical care time was 35 minutes exclusive of procedures. [] Dragon Disclaimer Dragon Disclaimer This chart was dictated in whole or in part using Voice Recognition software in a busy, high-work load, and often noisy Emergency Department environment. It may contain unintended and wholly unrecognized errors or omissions. Departure Departure: Impression: Primary Impression: Congestive heart failure Additional Impression: Pulmonary edema Disposition: ADMITTED INPATIENT Admitting Physician: Rogelio Caraballo Condition: IMPROVED Referrals: ERLIN YEH (PCP) Problem Qualifiers Primary Impression: Congestive heart failure Congestive heart failure type: unspecified congestive heart failure type Congestive heart failure chronicity: unspecified congestive heart failure chronicity Qualified Codes: I50.9 - Heart failure, unspecified Additional Impression: Pulmonary edema Chronicity: acute Qualified Codes: J81.0 - Acute pulmonary edema LOY DONALD DO Jan 28, 2017 05:12
[2017-01-28] MEDS ORDERED: NITROGLYCERIN SUBLINGUAL 0.4 MG BOTTLE OF 25. SL PRN ×2 (05:45→13:00)
[2017-01-28] MEDS ORDERED: ACETAMINOPHEN 325 MG TABLET PO PRN (05:45)
[2017-01-28] MEDS ORDERED: MORPHINE SULFATE 2 MG/ML DISP.SYRIN. IV PRN (05:45)
[2017-01-28] MEDS ORDERED: FUROSEMIDE 40 MG/4 ML VIAL IVP ONE (05:45)
[2017-01-28] MEDS ORDERED: ONDANSETRON PF 4 MG/2 ML VIAL. IV PRN (05:45)
[2017-01-28 05:51] LABS: BGAS PH 7.42 (7.35-7.46)
[2017-01-28 05:53] LABS: BASO # 0.1 x10^3/uL (0.0-0.2); BASO % 1 % (0-3); EOS # 0.2 x10^3/uL (0.0-0.7); EOS % 3 % (0-3); HEMATOCRIT 33.2 % (39.0-53.0); HEMOGLOBIN 10.8 g/dL (13.0-17.5); LYMPH # 1.1 x10^3/uL (1.0-4.8); LYMPH % 12 % (24-48); MEAN CORPUSCULAR HEMOGLOBIN 31 pg (25-35); MEAN CORPUSCULAR HGB CONC 33 g/dL (31-37); MEAN CORPUSCULAR VOLUME 95 fL (79-100); MONO # 1.2 x10^3/uL (0.0-1.1); MONO % 14 % (0-9); NEUT # 6.1 x10^3uL (1.8-7.7); NEUT % 71 % (31-73); PLATELET COUNT 215 x10^3/uL (140-400); RED BLOOD COUNT 3.49 x10^6/uL (4.30-5.70); WHITE BLOOD COUNT 8.7 x10^3/uL (4.0-11.0)
[2017-01-28 06:03] LABS: ALBUMIN/GLOBULIN RATIO 0.9 (1.0-1.7); CALCIUM 8.2 mg/dL (8.5-10.1); CREATININE 0.6 mg/dL (0.7-1.3); POTASSIUM 5.1 mmol/L (3.5-5.1); TOTAL BILIRUBIN 0.9 mg/dL (0.2-1.0); TOTAL PROTEIN 6.5 g/dL (6.4-8.2)
--- NOTE | 2017-01-28 07:50 | RAD ---
Indication shortness of air. A single view of the chest was obtained. Comparison is made to an examination 01/05/2017. Postoperative changes are noted.. There is volume loss at the lung bases new relative to the previous exam compatible with atelectasis or pneumonia. IMPRESSION: Patchy areas of volume loss at the lung bases compatible with atelectasis or pneumonia
[2017-01-28] MEDS ORDERED: NEBI10TA3 PO (08:10)
[2017-01-28] MEDS ORDERED: NIAC500T PO (08:10)
[2017-01-28] MEDS ORDERED: TORS20TA2 PO (08:10)
[2017-01-28] MEDS: METOPROLOL TART IMMED RELEASE 50 MG TABLET PO SCH ×2 (09:45→22:03)
[2017-01-28] MEDS: ASPIRIN ENTERIC COATED 81 MG TABLET.DR. PO SCH (09:45)
[2017-01-28] MEDS: GABAPENTIN 300 MG CAPSULE. PO SCH ×2 (09:46→22:02)
[2017-01-28] MEDS: OMEGA-3 FATTY ACIDS/FISH OIL 1,000 MG CAPSULE. PO SCH (09:46)
[2017-01-28] MEDS: NIACIN ER 500 MG TABLET.ER PO SCH ×2 (09:46→22:02)
[2017-01-28] MEDS: IPRATRPIUM/ALBUTEROL 0.5/2.5MG 3 ML NEBU. IH SCH (11:15)
[2017-01-28] MEDS ORDERED: ALBUTEROL SULFATE 8GM INHALER. IH PRN (13:00)
[2017-01-28] MEDS ORDERED: MAGNESIUM CARBONATE PO PRN (13:00)
[2017-01-28] MEDS ORDERED: ALGINIC ACID PO PRN (13:00)
[2017-01-28] MEDS ORDERED: ALUMINUM HYDROXIDE PO PRN (13:00)
--- NOTE | 2017-01-28 13:26 | ACF ---
Admission Criteria Forms HEART FAILURE: COMMON COMPLICATIONS Clinical Indications for Inpatient Care (Place 'X' for any and all applicable criteria): Ongoing inpatient care may be indicated for heart failure with 1 or more of the following (1)(2)(3)(4)(5)(6)(7)(8): [ ]I. New-onset heart failure [ ]II. Acute cardiac ischemia causing or associated with failure [ ]III. Ongoing need for care for primary condition requiring frequent therapy adjustments because of changes in cardiac function (eg, drug dosage changes for drugs that are renally metabolized) [X ]IV. Complications of heart failure, including 1 or more of the following: [ ]a) Hemodynamic instability [ ]b) Pericardial effusion [ ]c) Symptomatic pleural effusion [ ]d) Hypoxemia [ ]e) Tachypnea [X ]f) Dyspnea [ ]g) Syncope [ ]h) Altered mental status [ ]i) Acute renal insufficiency that is severe (reduction of more than 50% in estimated glomerular filtration rate from baseline) or progressive reduction of more than 25% in estimated glomerular filtration rate from baseline, with creatinine continuing to rise) [ ]j) Debilitating anasarca (eg tissue breakdown with infection, inability to void due to edema) (E) [ ]k) Clinically significant metabolic abnormalities due to heart failure (eg, new-onset metabolic acidosis) Extended stay may be needed until ALL of the following are present (1)(3)(18)(41 )(55) [ ]a) Hemodynamic stability [ ]b) Stable and effective diuretic regimen established (or patient on stable dialysis regimen if in chronic renal failure) [ ]c) Volume status acceptable on oral medication [ ]d) Breathing comfortably at rest [ ]e) Saturation of arterial oxygen greater than 90% or at acceptable baseline [ ]f) Pulmonary edema absent or improved [ ]g) Peripheral or sacral edema absent or improved [ ]h) Renal function stable and manageable at a lower level of care [ ]i) Complications (eg, pleural effusion) resolved or manageable at a lower level of care [ ]g) Patient or caregiver has received written discharge instructions or educational material addressing activity level, diet, discharge medications, follow-up appointment, weight monitoring, and what to do if symptoms worsen.(25)(26) The original [facility] [employer] content created by [facility] [employer] has been revised. The portions of the content which have been revised are identified through the use of italic text, and [facility] has neither reviewed nor approved the modified material.All other unmodified content is copyright [facility]. Please see references footnoted in the original [facility] edition 2015 Admission Criteria Met?: Yes FANNY SANTAMARIA Jan 28, 2017 13:26
[2017-01-28] MEDS ORDERED: ALBUTEROL SULFATE 2.5 MG/3 ML NEBU. NEB PRN (13:30)
--- NOTE | 2017-01-28 15:06 | HP ---
ADMIT DATE: 01/28/2017 HISTORY OF PRESENT ILLNESS: The patient is an 81-year-old male patient, who presented to the Emergency Room with acute onset of shortness of breath. He woke up this morning short of breath and therefore he called 911. The Emergency medical services got there the patient was oxygenating only at 85%, while on 5 liters of oxygen by nasal cannula. He was in acute respiratory distress, but denied any chest pain. He did complain of orthopnea and paroxysmal nocturnal dyspnea and he did have marked swelling of both lower extremities. Denied any chills, rigors or fever. He was in the Emergency Room and has had EKG, which showed that he was in normal sinus rhythm at a rate of [address] segment elevation or depression. His chest x-ray was consistent with pulmonary edema. He was given 80 mg of Lasix IV and started on BiPAP because of hypoxemia, was admitted to the ICU for further evaluation to do 2 more sets of cardiac enzymes to rule out myocardial infarction and to consult the cardiology team. PAST MEDICAL HISTORY: Significant for hypertension, type 2 diabetes mellitus, coronary artery disease, status post myocardial infarction treated with PTCA and stent deployment. He eventually had had open heart surgery about 7 years ago. He is known to have hyperlipidemia, chronic obstructive pulmonary disease, recurrent urinary tract infection, benign prostatic hypertrophy, congestive heart failure due to ischemic cardiomyopathy. 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 ALLERGIES: He is allergic to QUININE, SULFAMETHOXAZOLE, TRIMETHOPRIM. MEDICATIONS: He is currently on following medications: He is on albuterol sulfate 2 puffs twice a day, allopurinol 300 mg at bedtime, aspirin 81 mg once a day, cholecalciferol, vitamin D3 1000 units once a day, gabapentin 300 mg p.o. b.i.d., Mucinex DM 600/30 one tablet twice a day, ipratropium bromide, albuterol inhaler 4 times a day, losartan potassium 100 mg p.o. at bedtime, antacid 30 mL as needed, magnesium oxide 250 mg once a day, metformin 500 mg p.o. b.i.d., naproxen 500 mg p.o. b.i.d., Bystolic 10 mg once a day, niacin extended release 500 mg twice a day, nitroglycerin 0.4 mg sublingually every 5 minutes x 3, omega 3 fatty acid 1000 mg daily, Crestor 10 mg at bedtime, torsemide 10 mg once a day and Anoro Ellipta 62.5/25 mcg 1 puff once a day. FAMILY HISTORY: He has one brother younger and known to have sick sinus syndrome for which he has a permanent pacemaker. His 4 brothers and 1 sister , all because of coronary artery disease. His father at the age of 82 because of chronic obstructive pulmonary disease and myocardial infarction. Mother at age of 56 because of myocardial infarction. SOCIAL HISTORY: He is and lives on his own. He is an ex-smoker, quit 20 years ago. He has also used to be a heavy drinker, but quit 2 years ago. 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 REVIEW OF SYSTEMS: The patient denied any blurring of vision, cataract, glaucoma or macular degeneration. Denied any earache, tinnitus or sensorineural deafness. Denied any nosebleeds, stuffy nose or postnasal drip. Denied any sore throat, sore tongue, toothache, hoarseness of voice or difficulty swallowing. No nausea, no vomiting, no diarrhea or constipation. No hematemesis, melena or hematochezia. Denied any dysuria, frequency or hematuria. Denied any chest pain. Did complain of shortness of breath, orthopnea, paroxysmal nocturnal dyspnea. He denied any chest pain, shortness of breath, cough, phlegm or hemoptysis. Denied any chills, rigors or fever. Denied any dizziness, lightheadedness or vertigo. PHYSICAL EXAMINATION: GENERAL: On arrival to the Emergency Room; he was clearly tachypneic, pale, but not jaundiced, cyanosis, or thyromegaly. No jugular distention with marked bilateral lower limb edema. VITAL SIGNS: His heart rate was 75, blood pressure was 95/37, temperature was 97.6, respiratory rate was 36 and oxygen saturation was 91% on 5 liters by nasal cannula. HEAD, EYES, EARS, NOSE AND THROAT: Showed normocephalic, atraumatic. NECK: Supple. HEART: Showed normal first and second heart sounds with no gallop, rub or murmur. CHEST: Showed central trachea, equally reduced expansion, reduced air entry, vesicular sounds. I could not really appreciate any crepitation or rhonchi. ABDOMEN: Distended, soft, nontender. No guarding or rigidity. No organomegaly. All hernial orifices intact. Bowel sounds normal. NEUROLOGIC: He was hard of hearing, but otherwise, all cranial nerves intact. EXTREMITIES: He moves extremities without difficulty. He ambulates with a walker. LABORATORY DATA: On arrival to the Emergency Room, he has lab work done, which showed a white cell count of 8,700, hemoglobin 11, hematocrit 33, MCV 95, and platelet count 215,000. His chemistry showed a serum sodium 136, potassium 5.1, chloride 101, bicarbonate 28, anion gap of 7, BUN 22, creatinine 0.6, estimated GFR was 129 mL per minute. His glucose was 181, calcium was 8.2. Total bilirubin, AST, ALT, alkaline phosphatase were normal. His beta natriuretic peptide was 1743. Total protein was 6.5, albumin 3. His blood gases showed a pH of 7.42, pCO2 of 39, pO2 of 78, bicarbonate was 25 and oxygen saturation was 96% on FiO2 of 40%. He did have an EKG, which showed that he was in sinus rhythm with no evidence of ST segment elevation or depression. His troponin was less than . ASSESSMENT AND PLAN: The patient was given 80 mg of Lasix IV, was started on BiPAP machine, was admitted to ICU to do 2 more sets of cardiac enzymes, check his fasting lipid profile tomorrow and get the Cardiology consult. I am concerned that the naproxen is might be the reason why he is retaining fluid and I did hold that. I am not sure, I was able to convince him to quit that. I will check his uric acid tomorrow and if it is within normal range or low, then we will probably discontinue the naproxen altogether. The other possibility that pushes him into heart failure is probably dietary indiscretion as he cooks his own food and he stated that he used salt only sparingly, but we might have to speak with his family to verify those fact. DEIDRE HANEY MD DR: HUMBERTO/amy JOB#: [id number] / [id number]
--- NOTE | 2017-01-28 15:41 | PDOC2 ---
CONSULT Date of Admission DATE: 01/28/17 TIME: 15:34 Reason for Consult: heart failure Referring Physician: Dr. Caraballo Chief Complaint Shortness of breath Source: Patient Problem List Problems Medical Problems: (1) Congestive heart failure Status: Acute (2) Pulmonary edema Status: Acute History of Present Illness The patient is a pleasant 81-year-old male who is admitted with significantly increased shortness of breath over the past several days. Patient uses 5 L of home oxygen and in the emergency room the patient was treated with IV Lasix. Chest x-ray showed bilateral pulmonary edema. EKG showed no acute ST elevation. The patient was treated with home medications as well as diuresis. This morning he reports feeling much better. His shortness of breath has largely resolved. He denies any chest pain. Cardiovascular: CAD, CHF, HTN, [place] Pulmonary: COPD Musculoskeletal: Osteoarthritis Renal/: Benign prostatic enlarg. Endocrine: Diabetes Past Surgical History: Appendectomy, CABG, Hernia Repair, Other (coronary stents and toe amputations.) Family History: Coronary Artery Disease, Heart Disease Smoke: Quit (the patient was reportedly quit smoking) ALCOHOL: none Current Medications Current Medications Furosemide (Lasix) 80 mg 1X ONCE IVP Last administered on 01/28/17 05:39; Start 01/28/17 at 05:45; Stop 01/28/17 at 05:46; Status DC Ondansetron HCl (Zofran) 4 mg PRN Q4HRS PRN IV NAUSEA/VOMITING; Start 01/28/17 at 05:45; Stop 01/29/17 at 05:44 Morphine Sulfate (Morphine 2mg Syringe) 2 mg PRN Q2HR PRN IV SEVERE PAIN; Start 01/28/17 at 05:45; Stop 01/29/17 at 05:44 Acetaminophen (Tylenol) 650 mg PRN Q4HRS PRN PO FEVER; Start 01/28/17 at 05:45 ; Stop 01/29/17 at 05:44 Nitroglycerin (Nitrostat) 0.4 mg PRN Q5MIN PRN SL CHEST PAIN; Start 01/28/17 at 05:45; Stop 01/29/17 at 05:44 Aspirin (Aspirin Enteric Coated) 81 mg DAILY PO Last administered on 01/28/17 09:45; Start 01/28/17 at 09:00 Gabapentin (Neurontin) 300 mg BID PO Last administered on 01/28/17 09:46; Start 01/28/17 at 09:00 Albuterol/ Ipratropium (Duoneb) 3 ml QID IH Last administered on 01/28/17 11: 15; Start 01/28/17 at 09:00; Stop 01/28/17 at 13:46; Status DC Niacin (Slo-Niacin) 500 mg BID PO Last administered on 01/28/17 09:46; Start 01/28/17 at 09:00 Metoprolol Tartrate (Lopressor) 50 mg BID PO Last administered on 01/28/17 09: 45; Start 01/28/17 at 09:15 Fish Oil (Fish Oil) 1,000 mg DAILY PO Last administered on 01/28/17 09:46; Start 01/28/17 at 09:15 Albuterol Sulfate (Ventolin Hfa) 2 puff PRN BID PRN IH SHORTNESS OF BREATH; Start 01/28/17 at 13:00; Status UNV Allopurinol (Zyloprim) 300 mg HS PO ; Start 01/28/17 at 21:00 Guaifenesin (MUCINEX ER with DM) 1 tab BID PO ; Start 01/28/17 at 21:00 Al Hydroxide/Mg Carbonate (Gaviscon) 30 ml PRN Q4HRS PRN PO HEARTBURN / GAS; Start 01/28/17 at 13:00 Metformin HCl (Glucophage) 500 mg BIDWMEALS PO ; Start 01/28/17 at 17:00 Nitroglycerin (Nitrostat) 0.4 mg PRN Q5MIN PRN SL CHEST PAIN; Start 01/28/17 at 13:00 Vitamin D (Vitamin D3) 1,000 unit DAILY PO ; Start 01/29/17 at 09:00 Magnesium Oxide (Magnesium Oxide) 400 mg DAILY PO ; Start 01/29/17 at 09:00 Atorvastatin Calcium (Lipitor) 40 mg DAILY PO ; Start 01/29/17 at 09:00 Non-Formulary Medication 1 cap DAILY IH ; Start 01/29/17 at 09:00; Status UNV Non-Formulary Medication 1 puff DAILY IH ; Start 01/29/17 at 09:00; Status UNV Albuterol/ Ipratropium (Duoneb) 3 ml RTQID NEB ; Start 01/28/17 at 16:00 Albuterol Sulfate (Ventolin) 2.5 mg PRN Q6HRS PRN NEB SHORTNESS OF BREATH; Start 01/28/17 at 13:30 Budesonide (Pulmicort) 0.5 mg RTBID NEB ; Start 01/28/17 at 20:00 Active Scripts Active Mucinex Dm Er 600-30 Mg Tablet (Guaifenesin/Dextromethorphan) 1 Each Tab.er.12h 1 Tab PO BID 60 Days Reported Torsemide 20 Mg Tablet 0.5 Tab PO DAILY Niaspan (Niacin) 500 Mg Tab.er.24h 1 Tab PO BID Bystolic (Nebivolol Hcl) 10 Mg Tablet 1 Tab PO DAILY Spiriva (Tiotropium [place]) 18 Mcg Cap.w.dev 1 Cap IH DAILY last dose this am next dose 5-21 am Nitrostat (Nitroglycerin) 0.4 Mg Tab.subl 1 Tab SL PRN Q5MIN PRN next dose anytime Acid Gone Antacid Liquid (Mag Carb/Al Hydrox/Alginic Ac) 355 Ml Oral.susp 30 Ml PO PRN PRN next dose anytime Aspirin Ec (Aspirin) 81 Mg Tablet. 1 Tab PO DAILY last dose today next dose tomorrow Gabapentin 300 Mg Capsule 300 Mg PO BID last dose this am next dose this pm Anoro Ellipta 62.5-25 Mcg Inh (Umeclidinium Brm/Vilanterol Tr) 1 Each Disk.w.dev 1 Puff IH DAILY last dose today next dose 5-21 am Losartan Potassium 100 Mg Tablet 100 Mg PO HS last dose yesterday pm next dose this pm Duoneb 0.5-3(2.5) Mg/3 Ml (Albuterol/Ipratropium) 3 Ml Ampul.neb 3 Ml IH QID next dose as needed LAST DOSE: 5/4 am next dose as needed Proair Hfa Inhaler (Albuterol Sulfate) 8.5 Gm Hfa.aer.ad 2 Puff IH PRN BID PRN last dose today next dose this evening or as needed next dose: 5/4 pm Magnesium Oxide 250 Mg Tablet 250 Mg PO DAILY last dose this am next dose 5-21 am nxt dose: 5/5 am [place] 3 Fish Oil Softgel ([place]-3 Fatty Acids/Fish Oil) 1 Each Capsule. 1,000 Mg PO DAILY last dose 5-20 am next dose 01-08 am nxt dose: 12/23 AM Vitamin D (Cholecalciferol (Vitamin D3)) 1,000 Unit Capsule 1,000 Unit PO DAILY last dose today next dose tomorrow nxt dose: 12/23 am Naproxen 500 Mg Tablet 500 Mg PO BID for pain last dose: prior to admit nxt dose: may resume as needed Metformin Hcl 500 Mg Tablet 500 Mg PO BID last dose this am next dose this pm - may resume tonight, 12/22 pm Crestor (Rosuvastatin Calcium) 10 Mg Tablet 10 Mg PO DAILY for high cholesterol on Monday, Monday, Monday @ HS last dose: 01-06 next dose 01-09 Allopurinol 300 Mg Tablet 300 Mg PO HS last dose - pm next dose - pm nxt dose: 12/23 am Allergies: Coded Allergies: sulfamethoxazole (Verified Allergy, Intermediate, rash, 12/01/13) trimethoprim (Verified Allergy, Intermediate, rash, 12/01/13) quinine (Verified Allergy, Mild, rash, 12/01/13) Respiratory: YES: Shortness of breath, SOB with excertion General: mild distress HEENT: Atraumatic Lungs: Other (decreased breath sounds) Heart: Regular rate Abdomen: Normal bowel sounds VITALS Vital Signs Date Time Temp Pulse Resp B/P (MAP) Pulse Ox O2 Delivery O2 Flow Rate FiO2 01/28/17 15:00 58 22 135/56 (82) 96 Nasal Cannula 5.0 01/28/17 07:00 97.1 Labs Laboratory Tests Test 01/28/17 05:20 01/28/17 05:25 01/28/17 07:28 01/28/17 11:33 White Blood Count 8.7 x10^3/uL (4.0-11.0) Red Blood Count 3.49 x10^6/uL (4.30-5.70) Hemoglobin 10.8 g/dL (13.0-17.5) Hematocrit 33.2 % (39.0-53.0) Mean Corpuscular Volume 95 fL (79-100) Mean Corpuscular Hemoglobin 31 pg (25-35) Mean Corpuscular Hemoglobin Concent 33 g/dL (31-37) Red Cell Distribution Width 15.0 % (11.5-14.5) Platelet Count 215 x10^3/uL (140-400) Neutrophils (%) (Auto) 71 % (31-73) Lymphocytes (%) (Auto) 12 % (24-48) Monocytes (%) (Auto) 14 % (0-9) Eosinophils (%) (Auto) 3 % (0-3) Basophils (%) (Auto) 1 % (0-3) Neutrophils # (Auto) 6.1 x10^3uL (1.8-7.7) Lymphocytes # (Auto) 1.1 x10^3/uL (1.0-4.8) Monocytes # (Auto) 1.2 x10^3/uL (0.0-1.1) Eosinophils # (Auto) 0.2 x10^3/uL (0.0-0.7) Basophils # (Auto) 0.1 x10^3/uL (0.0-0.2) Sodium Level 136 mmol/L (136-145) Potassium Level 5.1 mmol/L (3.5-5.1) Chloride Level 101 mmol/L (98-107) Carbon Dioxide Level 28 mmol/L (21-32) Anion Gap 7 (6-14) Blood Urea Nitrogen 22 mg/dL (8-26) Creatinine 0.6 mg/dL (0.7-1.3) Estimated GFR (Cockcroft-Gault) 129.0 BUN/Creatinine Ratio 37 (6-20) Glucose Level 181 mg/dL (70-99) Calcium Level 8.2 mg/dL (8.5-10.1) Total Bilirubin 0.9 mg/dL (0.2-1.0) Aspartate Amino Transf (AST/SGOT) 29 U/L (15-37) Alanine Aminotransferase (ALT/SGPT) 12 U/L (16-63) Alkaline Phosphatase 61 U/L (46-116) Troponin I Quantitative < 0.017 ng/mL (0-0.055) 0.022 ng/mL (0-0.055) FU-[id number]-V-Type Natriuretic Peptide 1743 pg/mL (0-449) Total Protein 6.5 g/dL (6.4-8.2) Albumin 3.0 g/dL (3.4-5.0) Albumin/Globulin Ratio 0.9 (1.0-1.7) Lipase 56 U/L (73-393) Blood Gas pH 7.42 (7.35-7.46) Blood Gas PCO2 39 mmHg (35-46) Blood Gas PO2 78 mmHg (71-100) Blood Gas HCO3 25 mmol/L (21-28) Arterial Bld O2 Saturation (Calc) 96 % (92-99) FiO2 40 % Glucose (Fingerstick) 128 mg/dL (70-99) Test 01/28/17 12:04 Glucose (Fingerstick) 110 mg/dL (70-99) Images Chest x-ray shows bilateral pulmonary edema. Assessment/Plan 1. Acute on chronic probable systolic heart failure. Patient is significantly improved with diuresis. He has a history of bypass surgery and apparently extensive coronary artery disease. However he is feeling much better. At this time will continue present medications and monitor. Patient has been followed a long-term basis by the [facility] cardiology group. 2. Acute respiratory failure on the basis of heart failure and probable underlying pulmonary disease. Patient is significantly improved. Continue present treatments. 3. Coronary artery disease with a history of stenting and bypass surgery. Patient denies chest pain. We'll continue present medications and rule out for myocardial infarction. 4. COPD. Continue pulmonary medications as above. 5. Hypertension. Controlled with present medications. 6. Diabetes mellitus. As per the primary service. 7. Benign prostatic hypertrophy. Continue medical treatment. Thank you for allowing us to participate in the care of your pleasant patient. Problems: JOSY TORRES MD Jan 28, 2017 15:40
[2017-01-28] MEDS: IPRATRPIUM/ALBUTEROL 0.5/2.5MG 3 ML NEBU. NEB SCH ×2 (16:19→20:46)
[2017-01-28] MEDS: metFORMIN 500 MG TABLET PO SCH (16:56)
--- NOTE | 2017-01-28 19:06 | EKG ---
[address] [address] Test Date: 2017-01-28 Test Time: 05:22:40 Pat Name: ANASTASIA MARMOLEJO Department: Room: [facility]03 1 Gender: M [employer]: ELIAN : 1935 Requested By: LOY DONALD Order Number: [id number] Reading MD: Aron Ortiz Measurements Intervals [place] Rate: 74 P: 42 NE: 196 QRS: 122 QRSD: 106 T: 54 QT: 384 QTc: 431 Interpretive Statements SINUS RHYTHM ABNORMAL RIGHT AXIS DEVIATION Electronically Signed On 01-31-2017 8:30:00 CDT by Aron Ortiz
[2017-01-28] MEDS: BUDESONIDE 0.5 MG/2 ML NEBU NEB SCH (20:46)
[2017-01-28] MEDS: guaiFENesin DM 600/30MG 1 TAB TAB.ER.12H PO SCH (22:02)
[2017-01-28] MEDS: ALLOPURINOL 300 MG TABLET. PO SCH (22:02)
[2017-01-29] VITALS (14 sets, daily range): BP systolic 114–168; BP diastolic 49–91
[2017-01-29] MEDS: IPRATRPIUM/ALBUTEROL 0.5/2.5MG 3 ML NEBU. NEB SCH ×4 (05:54→20:38)
[2017-01-29 06:44] LABS: BASO % 1 % (0-3); EOS # 0.2 x10^3/uL (0.0-0.7); EOS % 4 % (0-3); HEMATOCRIT 31.5 % (39.0-53.0); HEMOGLOBIN 10.6 g/dL (13.0-17.5); LYMPH # 1.2 x10^3/uL (1.0-4.8); LYMPH % 24 % (24-48); MEAN CORPUSCULAR HEMOGLOBIN 31 pg (25-35); MEAN CORPUSCULAR HGB CONC 34 g/dL (31-37); MEAN CORPUSCULAR VOLUME 93 fL (79-100); MONO # 0.9 x10^3/uL (0.0-1.1); MONO % 18 % (0-9); NEUT # 2.8 x10^3uL (1.8-7.7); NEUT % 54 % (31-73); PLATELET COUNT 219 x10^3/uL (140-400); RED BLOOD COUNT 3.38 x10^6/uL (4.30-5.70); RED CELL DISTRIBUTION WIDTH 14.9 % (11.5-14.5); WHITE BLOOD COUNT 5.1 x10^3/uL (4.0-11.0)
[2017-01-29 07:10] LABS: ALBUMIN 2.8 g/dL (3.4-5.0); ALBUMIN/GLOBULIN RATIO 0.8 (1.0-1.7); CREATININE 0.8 mg/dL (0.7-1.3); GFR 92.5; POTASSIUM 3.7 mmol/L (3.5-5.1); TOTAL BILIRUBIN 0.6 mg/dL (0.2-1.0); TOTAL PROTEIN 6.2 g/dL (6.4-8.2)
[2017-01-29] MEDS: metFORMIN 500 MG TABLET PO SCH ×2 (07:50→16:49)
[2017-01-29] MEDS: ASPIRIN ENTERIC COATED 81 MG TABLET.DR. PO SCH (08:43)
[2017-01-29] MEDS: OMEGA-3 FATTY ACIDS/FISH OIL 1,000 MG CAPSULE. PO SCH (08:44)
[2017-01-29] MEDS: ATORVASTATIN CALCIUM 20 MG TABLET PO SCH (08:44)
[2017-01-29] MEDS: MAGNESIUM OXIDE 400 MG TABLET PO SCH (08:45)
[2017-01-29] MEDS: METOPROLOL TART IMMED RELEASE 50 MG TABLET PO SCH ×2 (08:45→20:00)
[2017-01-29] MEDS: CHOLECALCIFEROL (VITAMIN D3) 1,000 UNIT TABLET PO SCH (08:46)
[2017-01-29] MEDS: guaiFENesin DM 600/30MG 1 TAB TAB.ER.12H PO SCH ×2 (08:46→20:01)
[2017-01-29] MEDS: GABAPENTIN 300 MG CAPSULE. PO SCH ×2 (08:46→20:00)
[2017-01-29] MEDS: NIACIN ER 500 MG TABLET.ER PO SCH ×2 (08:46→20:01)
[2017-01-29] MEDS ORDERED: NON FORMULARY ITEM (Tiotropium Bromide (Spiriva) 1 CAP) IH SCH (09:00)
[2017-01-29] MEDS ORDERED: NON FORMULARY ITEM (Umeclidinium Brm/Vilanterol Tr (Anoro Ellipta 62.5-25 Mcg Inh) 1 PUFF) IH SCH (09:00)
[2017-01-29] MEDS: BUDESONIDE 0.5 MG/2 ML NEBU NEB SCH ×2 (11:18→20:38)
[2017-01-29] MEDS ORDERED: ENOXAPARIN 40 MG/0.4 ML DISP.SYRIN. SQ SCH (12:00)
[2017-01-29] MEDS ORDERED: FUROSEMIDE 40 MG/4 ML VIAL IVP ONE (12:00)
--- NOTE | 2017-01-29 13:19 | PDOC ---
PROGRESS NOTES Diagnosis Problem Problems Medical Problems: (1) Congestive heart failure Status: Acute (2) Pulmonary edema Status: Acute Assessment Problems Medical Problems: (1) Congestive heart failure Status: Acute (2) Pulmonary edema Status: Acute Assessment/Plan 1. Acute on chronic probable systolic heart failure. Patient continues to improve with diuresis. He has a history of bypass surgery and apparently extensive coronary artery disease. However he continues to feel much better. Will continue present medications and increase activity. Patient has been followed a long-term basis by the [facility] cardiology group. 2. Acute respiratory failure on the basis of heart failure and probable underlying pulmonary disease. Patient is significantly improved. Continue present treatments. 3. Coronary artery disease with a history of stenting and bypass surgery. Patient denies chest pain. We'll continue present medications. 4. COPD. Continue pulmonary medications as above. 5. Hypertension. Controlled with present medications. 6. Diabetes mellitus. As per the primary service. 7. Benign prostatic hypertrophy. Continue medical treatment. Subjective The patient looks and feels better today. No chest pain and less short of breath Objective Vital Signs Date Time Temp Pulse Resp B/P (MAP) Pulse Ox O2 Delivery O2 Flow Rate FiO2 01/29/17 12:10 67 23 143/69 (93) 96 Nasal Cannula 5.0 01/29/17 05:00 98.7 Intake and Output 01/29/17 07:00 Intake Total 695 ml Output Total 2300 ml Balance -1605 ml Intake Oral 695 ml Output Urine Total 2300 ml Physical Exam Neck has no JVD or bruit. Chest has mildly decreased breath sounds in the bases. CV is regular rate and rhythm. Abdomen is soft without mass or tenderness. Review of Relevant I have reviewed the following items maribell (where applicable) has been applied. Labs Laboratory Tests Test 01/28/17 05:20 01/28/17 05:25 01/28/17 07:00 01/28/17 07:28 White Blood Count 8.7 x10^3/uL (4.0-11.0) Red Blood Count 3.49 x10^6/uL (4.30-5.70) Hemoglobin 10.8 g/dL (13.0-17.5) Hematocrit 33.2 % (39.0-53.0) Mean Corpuscular Volume 95 fL (79-100) Mean Corpuscular Hemoglobin 31 pg (25-35) Mean Corpuscular Hemoglobin Concent 33 g/dL (31-37) Red Cell Distribution Width 15.0 % (11.5-14.5) Platelet Count 215 x10^3/uL (140-400) Neutrophils (%) (Auto) 71 % (31-73) Lymphocytes (%) (Auto) 12 % (24-48) Monocytes (%) (Auto) 14 % (0-9) Eosinophils (%) (Auto) 3 % (0-3) Basophils (%) (Auto) 1 % (0-3) Neutrophils # (Auto) 6.1 x10^3uL (1.8-7.7) Lymphocytes # (Auto) 1.1 x10^3/uL (1.0-4.8) Monocytes # (Auto) 1.2 x10^3/uL (0.0-1.1) Eosinophils # (Auto) 0.2 x10^3/uL (0.0-0.7) Basophils # (Auto) 0.1 x10^3/uL (0.0-0.2) Sodium Level 136 mmol/L (136-145) Potassium Level 5.1 mmol/L (3.5-5.1) Chloride Level 101 mmol/L (98-107) Carbon Dioxide Level 28 mmol/L (21-32) Anion Gap 7 (6-14) Blood Urea Nitrogen 22 mg/dL (8-26) Creatinine 0.6 mg/dL (0.7-1.3) Estimated GFR (Cockcroft-Gault) 129.0 BUN/Creatinine Ratio 37 (6-20) Glucose Level 181 mg/dL (70-99) Calcium Level 8.2 mg/dL (8.5-10.1) Total Bilirubin 0.9 mg/dL (0.2-1.0) Aspartate Amino Transf (AST/SGOT) 29 U/L (15-37) Alanine Aminotransferase (ALT/SGPT) 12 U/L (16-63) Alkaline Phosphatase 61 U/L (46-116) Troponin I Quantitative < 0.017 ng/mL (0-0.055) RX-Itq-N-Type Natriuretic Peptide 1743 pg/mL (0-449) Total Protein 6.5 g/dL (6.4-8.2) Albumin 3.0 g/dL (3.4-5.0) Albumin/Globulin Ratio 0.9 (1.0-1.7) Lipase 56 U/L (73-393) Blood Gas pH 7.42 (7.35-7.46) Blood Gas PCO2 39 mmHg (35-46) Blood Gas PO2 78 mmHg (71-100) Blood Gas HCO3 25 mmol/L (21-28) Arterial Bld O2 Saturation (Calc) 96 % (92-99) FiO2 40 % Nasal Screen MRSA (PCR) Negative (Negative) Glucose (Fingerstick) 128 mg/dL (70-99) Test 01/28/17 11:33 01/28/17 12:04 01/28/17 15:45 01/28/17 16:37 Troponin I Quantitative 0.022 ng/mL (0-0.055) 0.020 ng/mL (0-0.055) Glucose (Fingerstick) 110 mg/dL (70-99) 100 mg/dL (70-99) Test 01/29/17 06:25 White Blood Count 5.1 x10^3/uL (4.0-11.0) Red Blood Count 3.38 x10^6/uL (4.30-5.70) Hemoglobin 10.6 g/dL (13.0-17.5) Hematocrit 31.5 % (39.0-53.0) Mean Corpuscular Volume 93 fL (79-100) Mean Corpuscular Hemoglobin 31 pg (25-35) Mean Corpuscular Hemoglobin Concent 34 g/dL (31-37) Red Cell Distribution Width 14.9 % (11.5-14.5) Platelet Count 219 x10^3/uL (140-400) Neutrophils (%) (Auto) 54 % (31-73) Lymphocytes (%) (Auto) 24 % (24-48) Monocytes (%) (Auto) 18 % (0-9) Eosinophils (%) (Auto) 4 % (0-3) Basophils (%) (Auto) 1 % (0-3) Neutrophils # (Auto) 2.8 x10^3uL (1.8-7.7) Lymphocytes # (Auto) 1.2 x10^3/uL (1.0-4.8) Monocytes # (Auto) 0.9 x10^3/uL (0.0-1.1) Eosinophils # (Auto) 0.2 x10^3/uL (0.0-0.7) Basophils # (Auto) 0.0 x10^3/uL (0.0-0.2) Sodium Level 133 mmol/L (136-145) Potassium Level 3.7 mmol/L (3.5-5.1) Chloride Level 97 mmol/L (98-107) Carbon Dioxide Level 29 mmol/L (21-32) Anion Gap 7 (6-14) Blood Urea Nitrogen 19 mg/dL (8-26) Creatinine 0.8 mg/dL (0.7-1.3) Estimated GFR (Cockcroft-Gault) 92.5 BUN/Creatinine Ratio 24 (6-20) Glucose Level 107 mg/dL (70-99) Uric Acid 2.9 mg/dL (3.5-7.2) Calcium Level 8.0 mg/dL (8.5-10.1) Magnesium Level 1.8 mg/dL (1.8-2.4) Total Bilirubin 0.6 mg/dL (0.2-1.0) Aspartate Amino Transf (AST/SGOT) 12 U/L (15-37) Alanine Aminotransferase (ALT/SGPT) 11 U/L (16-63) Alkaline Phosphatase 58 U/L (46-116) Troponin I Quantitative 0.019 ng/mL (0-0.055) Total Protein 6.2 g/dL (6.4-8.2) Albumin 2.8 g/dL (3.4-5.0) Albumin/Globulin Ratio 0.8 (1.0-1.7) Triglycerides Level 56 mg/dL (0-150) Cholesterol Level 117 mg/dL (0-200) LDL Cholesterol, Calculated 67 mg/dL (0-100) VLDL Cholesterol, Calculated 11 mg/dL (0-40) Non-HDL Cholesterol Calculated 78 mg/dL (0-129) HDL Cholesterol 39 mg/dL (40-60) Cholesterol/HDL Ratio 3.0 Microbiology 01/28/17 Blood Culture - Preliminary, Resulted NO GROWTH AFTER 1 DAY Medications Current Medications Furosemide (Lasix) 80 mg 1X ONCE IVP Last administered on 01/28/17t 05:39; Start 01/28/17 at 05:45; Stop 01/28/17 at 05:46; Status DC Ondansetron HCl (Zofran) 4 mg PRN Q4HRS PRN IV NAUSEA/VOMITING; Start 01/28/17 at 05:45; Stop 01/29/17 at 05:45; Status DC Morphine Sulfate (Morphine 2mg Syringe) 2 mg PRN Q2HR PRN IV SEVERE PAIN; Start 01/28/17 at 05:45; Stop 01/29/17 at 05:45; Status DC Acetaminophen (Tylenol) 650 mg PRN Q4HRS PRN PO FEVER; Start 01/28/17 at 05:45 ; Stop 01/29/17 at 05:45; Status DC Nitroglycerin (Nitrostat) 0.4 mg PRN Q5MIN PRN SL CHEST PAIN; Start 01/28/17 at 05:45; Stop 01/29/17 at 05:45; Status DC Aspirin (Aspirin Enteric Coated) 81 mg DAILY PO Last administered on 01/29/17 08:43; Start 01/28/17 at 09:00 Gabapentin (Neurontin) 300 mg BID PO Last administered on 01/29/17 08:46; Start 01/28/17 at 09:00 Albuterol/ Ipratropium (Duoneb) 3 ml QID IH Last administered on 01/28/17 11: 15; Start 01/28/17 at 09:00; Stop 01/28/17 at 13:46; Status DC Niacin (Slo-Niacin) 500 mg BID PO Last administered on 01/29/17 08:46; Start 01/28/17 at 09:00 Metoprolol Tartrate (Lopressor) 50 mg BID PO Last administered on 01/29/17 08: 45; Start 01/28/17 at 09:15 Fish Oil (Fish Oil) 1,000 mg DAILY PO Last administered on 01/29/17 08:44; Start 01/28/17 at 09:15 Albuterol Sulfate (Ventolin Hfa) 2 puff PRN BID PRN IH SHORTNESS OF BREATH; Start 01/28/17 at 13:00; Status UNV Allopurinol (Zyloprim) 300 mg HS PO Last administered on 01/28/17 22:02; Start 01/28/17 at 21:00 Guaifenesin (MUCINEX ER with DM) 1 tab BID PO Last administered on 01/29/17 08 :46; Start 01/28/17 at 21:00 Al Hydroxide/Mg Carbonate (Gaviscon) 30 ml PRN Q4HRS PRN PO HEARTBURN / GAS; Start 01/28/17 at 13:00 Metformin HCl (Glucophage) 500 mg BIDWMEALS PO Last administered on 01/29/17 07:50; Start 01/28/17 at 17:00 Nitroglycerin (Nitrostat) 0.4 mg PRN Q5MIN PRN SL CHEST PAIN; Start 01/28/17 at 13:00 Vitamin D (Vitamin D3) 1,000 unit DAILY PO Last administered on 01/29/17 08:46 ; Start 01/29/17 at 09:00 Magnesium Oxide (Magnesium Oxide) 400 mg DAILY PO Last administered on 08:45; Start 01/29/17 at 09:00 Atorvastatin Calcium (Lipitor) 40 mg DAILY PO Last administered on 01/29/17 08 :44; Start 01/29/17 at 09:00 Non-Formulary Medication 1 cap DAILY IH ; Start 01/29/17 at 09:00; Status UNV Non-Formulary Medication 1 puff DAILY IH ; Start 01/29/17 at 09:00; Status UNV Albuterol/ Ipratropium (Duoneb) 3 ml RTQID NEB Last administered on 01/29/17 11:18; Start 01/28/17 at 16:00 Albuterol Sulfate (Ventolin) 2.5 mg PRN Q6HRS PRN NEB SHORTNESS OF BREATH; Start 01/28/17 at 13:30 Budesonide (Pulmicort) 0.5 mg RTBID NEB Last administered on 01/29/17 11:18; Start 01/28/17 at 20:00 Enoxaparin Sodium (Lovenox) 40 mg Q24H SQ Last administered on 01/29/17 12:24 ; Start 01/29/17 at 12:00 Furosemide (Lasix) 40 mg 1X ONCE IVP Last administered on 01/29/17 12:24; Start 01/29/17 at 12:00; Stop 01/29/17 at 12:02; Status DC Active Scripts Active Mucinex Dm Er 600-30 Mg Tablet (Guaifenesin/Dextromethorphan) 1 Each Tab.er.12h 1 Tab PO BID 60 Days Reported Torsemide 20 Mg Tablet 0.5 Tab PO DAILY Niaspan (Niacin) 500 Mg Tab.er.24h 1 Tab PO BID Bystolic (Nebivolol Hcl) 10 Mg Tablet 1 Tab PO DAILY Spiriva (Tiotropium [facility]) 18 Mcg Cap.w.dev 1 Cap IH DAILY last dose this am next dose 5-21 am Nitrostat (Nitroglycerin) 0.4 Mg Tab.subl 1 Tab SL PRN Q5MIN PRN next dose anytime Acid Gone Antacid Liquid (Mag Carb/Al Hydrox/Alginic Ac) 355 Ml Oral.susp 30 Ml PO PRN PRN next dose anytime Aspirin Ec (Aspirin) 81 Mg Tablet. 1 Tab PO DAILY last dose today next dose tomorrow Gabapentin 300 Mg Capsule 300 Mg PO BID last dose this am next dose this pm Anoro Ellipta 62.5-25 Mcg Inh (Umeclidinium Brm/Vilanterol Tr) 1 Each Disk.w.dev 1 Puff IH DAILY last dose today next dose 5-21 am Losartan Potassium 100 Mg Tablet 100 Mg PO HS last dose yesterday pm next dose this pm Duoneb 0.5-3(2.5) Mg/3 Ml (Albuterol/Ipratropium) 3 Ml Ampul.neb 3 Ml IH QID next dose as needed LAST DOSE: 5/4 am next dose as needed Proair Hfa Inhaler (Albuterol Sulfate) 8.5 Gm Hfa.aer.ad 2 Puff IH PRN BID PRN last dose today next dose this evening or as needed next dose: 5/4 pm Magnesium Oxide 250 Mg Tablet 250 Mg PO DAILY last dose this am next dose 5-21 am nxt dose: 5/5 am Perry 3 Fish Oil Softgel (Perry-3 Fatty Acids/Fish Oil) 1 Each Capsule.dr 1,000 Mg PO DAILY last dose 5-20 am next dose 5-21 am nxt dose: 5/5 AM Vitamin D (Cholecalciferol (Vitamin D3)) 1,000 Unit Capsule 1,000 Unit PO DAILY last dose today next dose tomorrow nxt dose: 5/5 am Naproxen 500 Mg Tablet 500 Mg PO BID for pain last dose: prior to admit nxt dose: may resume as needed Metformin Hcl 500 Mg Tablet 500 Mg PO BID last dose this am next dose this pm 5-20 may resume tonight, 5/ pm Crestor (Rosuvastatin Calcium) 10 Mg Tablet 10 Mg PO DAILY for high cholesterol on Monday, Monday, Monday @ HS last dose: - next dose mon- Allopurinol 300 Mg Tablet 300 Mg PO HS last dose 5- pm next dose 5-20 pm nxt dose: 5 am Vitals/I & O Vital Sign - Last 24 Hours 01/28/17 01/28/17 01/28/17 01/28/17 14:00 15:00 16:00 16:10 Pulse 58 58 72 Resp 25 22 22 B/P (MAP) 137/57 (83) 135/56 (82) 149/62 (91) Pulse Ox 98 96 96 O2 Delivery Nasal Cannula Nasal Cannula Nasal Cannula Nasal Cannula O2 Flow Rate 5.0 5.0 5.0 5.0 01/28/17 01/28/17 01/28/17 01/28/17 16:20 17:00 18:00 19:00 Temp 98.7 Pulse 69 65 68 Resp 22 22 20 B/P (MAP) 140/47 (78) 126/47 (73) 116/53 (74) Pulse Ox 94 95 95 95 O2 Delivery Nasal Cannula Nasal Cannula Nasal Cannula Nasal Cannula O2 Flow Rate 2.5 5.0 5.0 5.0 01/28/17 01/28/17 01/28/17 01/28/17 20:00 20:00 20:45 20:50 Pulse 65 Resp 22 B/P (MAP) 136/62 (86) Pulse Ox 98 93 O2 Delivery Nasal Cannula Nasal Cannula Nasal Cannula Nasal Cannula O2 Flow Rate 5.0 5.0 2.0 2.0 01/28/17 01/28/17 01/28/17 01/28/17 21:00 22:00 22:03 23:00 Pulse 70 72 77 66 Resp 18 18 18 B/P (MAP) 163/66 (98) 150/58 (88) 165/69 133/47 (75) Pulse Ox 95 98 95 O2 Delivery Nasal Cannula Nasal Cannula Nasal Cannula O2 Flow Rate 5.0 5.0 5.0 01/28/17 01/29/17 01/29/17 01/29/17 23:59 00:00 01:00 02:00 Temp 98.5 98.5 Pulse 65 67 65 Resp 22 20 22 B/P (MAP) 126/49 (74) 117/49 (71) 126/49 (74) Pulse Ox 95 95 95 O2 Delivery Nasal Cannula Nasal Cannula Nasal Cannula Nasal Cannula O2 Flow Rate 5.0 5.0 5.0 5.0 01/29/17 01/29/17 01/29/17 01/29/17 03:00 04:00 04:00 05:00 Temp 98.7 Pulse 59 65 66 Resp 20 16 16 B/P (MAP) 114/57 (76) 168/60 (96) 128/64 (85) Pulse Ox 96 96 95 O2 Delivery Nasal Cannula Nasal Cannula Nasal Cannula Nasal Cannula O2 Flow Rate 5.0 5.0 5.0 5.0 01/29/17 01/29/17 01/29/17 01/29/17 05:55 06:00 07:00 08:00 Pulse 72 64 Resp 16 20 B/P (MAP) 128/64 (85) 136/63 (87) Pulse Ox 95 96 96 O2 Delivery Nasal Cannula Nasal Cannula Nasal Cannula Nasal Cannula O2 Flow Rate 2.0 5.0 5.0 5.0 01/29/17 01/29/17 01/29/17 01/29/17 08:10 08:45 09:10 10:10 Pulse 64 71 69 66 Resp 17 16 19 B/P (MAP) 135/54 (81) 135/54 142/91 (108) 119/58 (78) Pulse Ox 96 95 95 O2 Delivery Nasal Cannula Nasal Cannula Nasal Cannula O2 Flow Rate 5.0 5.0 5.0 01/29/17 01/29/17 01/29/17 01/29/17 11:10 11:18 11:20 12:00 Pulse 66 Resp 19 B/P (MAP) 143/62 (89) Pulse Ox 100 96 96 O2 Delivery Nasal Cannula Nasal Cannula Nasal Cannula Nasal Cannula O2 Flow Rate 5.0 2.0 2.0 5.0 01/29/17 12:10 Pulse 67 Resp 23 B/P (MAP) 143/69 (93) Pulse Ox 96 O2 Delivery Nasal Cannula O2 Flow Rate 5.0 Intake and Output 01/28/17 01/28/17 01/29/17 15:00 23:00 07:00 Intake Total 440 ml 180 ml 75 ml Output Total 1400 ml 450 ml 450 ml Balance -960 ml -270 ml -375 ml JOSY TORRES MD Jan 29, 2017 13:19
[2017-01-29] MEDS: ALLOPURINOL 300 MG TABLET. PO SCH (20:00)
--- NOTE | 2017-01-30 02:48 | PN ---
DATE: 01/29/2017 SUBJECTIVE: The patient is resting, slightly propped up in bed, no apparent distress, feeling generally much better. He continued to have bilateral lower extremity edema. His oxygen requirement is somewhat much better. I had a lengthy discussion with him regarding his naproxen. His uric acid was only 2.7, on allopurinol. He is working his pain, it is not due to gout and most likely due to diabetic peripheral neuropathy or osteoarthritis and might attempt to use some other pain medication that does not cause retention of fluid. OBJECTIVE: GENERAL: When I examined him this afternoon, he looked well and was slightly tachypneic but there was no pallor, jaundice, cyanosis, or thyromegaly. No jugular distention, but bilateral lower limb edema. VITAL SIGNS: His heart rate was 66, blood pressure 143/62, temperature was 98.7, respiratory rate was 19, and oxygen saturation was 96% on 2 liters of oxygen. HEAD, EYES, EARS, NOSE AND THROAT: Showed normocephalic, atraumatic. NECK: Supple. HEART: Showed normal first and second heart sounds with no gallop, rub or murmur. CHEST: Showed central trachea, equal ____ entry. There are a few bilateral basal crepitation. I could not appreciate any rhonchi. ABDOMEN: Distended, soft, nontender. NEUROLOGIC: He was hard of hearing. Otherwise, cranial nerves intact. He moves extremities without difficulty. He ambulates without assistance or assistive devices. His intake over the last 24 hours was 695, output was 2300. LABORATORY DATA: As of this morning, his serum white cell count was 5100, hemoglobin 10.6, hematocrit 31.5, MCV 93, and platelet count 119,000. His serum sodium 133, potassium 3.7, chloride 97, bicarbonate 29, anion gap of 7, BUN 19, creatinine 0.8, estimated GFR was 92 mL per minute. His glucose was 107. Uric acid was only 2.9 mg/dL, calcium was 8, magnesium was 1.8. Total bilirubin, AST, ALT, alkaline phosphatase were normal. Total protein was 6.2, albumin was 2.8. Serum triglyceride was 56, total cholesterol was 117, LDL was 67, VLDL was 11, HDL cholesterol was 39, and the ratio was 3. ASSESSMENT: 1. Acute on chronic diastolic congestive heart. 2. Acute hypoxic respiratory failure due to pulmonary edema, improved. Her oxygen requirement is down from 5 L to 2 L. 3. Coronary artery disease, with history of stenting and bypass surgery. The patient is chest pain free. He has 2 sets of cardiac enzymes with troponin that is slightly elevated. 4. Hypertension, currently well controlled. 5. Type 2 diabetes mellitus, also well controlled. 6. Benign prostatic hypertrophy, on Flomax. 7. Hyperlipidemia, on atorvastatin calcium. 8. Chronic obstructive pulmonary disease for which he is on DuoNeb 4 times a day. 9. Gout for which he is on allopurinol and his serum uric acid is only 2.7. I had a lengthy discussion with the patient and explained that he does not need the naproxen as it might be the reason of his fluid retention. Other possibilities obviously include dietary indiscretion. PLAN: My plan is to discontinue naproxen altogether and start him on Tylenol and perhaps Tylenol Arthritis would be a better option when he goes home. We will evaluate him tomorrow and his Cardiology team from [facility] will see him and decide on further management accordingly. DEIDRE HANEY MD DR: HUMBERTO/amy JOB#: [id number] / [id number]
[2017-01-30] MEDS: IPRATRPIUM/ALBUTEROL 0.5/2.5MG 3 ML NEBU. NEB SCH (05:15)
[2017-01-30 06:04] LABS: CREATININE 0.8 mg/dL (0.7-1.3); GFR 92.5; POTASSIUM 3.7 mmol/L (3.5-5.1)
[2017-01-30 06:40] VITALS: BP 132/53
[2017-01-30] MEDS: NIACIN ER 500 MG TABLET.ER PO SCH (08:48)
[2017-01-30] MEDS: MAGNESIUM OXIDE 400 MG TABLET PO SCH (08:48)
[2017-01-30 08:49] VITALS: BP 132/53
[2017-01-30] MEDS: ATORVASTATIN CALCIUM 20 MG TABLET PO SCH (08:49)
[2017-01-30] MEDS: CHOLECALCIFEROL (VITAMIN D3) 1,000 UNIT TABLET PO SCH (08:49)
[2017-01-30] MEDS: OMEGA-3 FATTY ACIDS/FISH OIL 1,000 MG CAPSULE. PO SCH (08:49)
[2017-01-30] MEDS: ASPIRIN ENTERIC COATED 81 MG TABLET.DR. PO SCH (08:49)
[2017-01-30] MEDS: metFORMIN 500 MG TABLET PO SCH (08:49)
[2017-01-30] MEDS: GABAPENTIN 300 MG CAPSULE. PO SCH (08:49)
[2017-01-30] MEDS: guaiFENesin DM 600/30MG 1 TAB TAB.ER.12H PO SCH (08:49)
[2017-01-30] MEDS: METOPROLOL TART IMMED RELEASE 50 MG TABLET PO SCH (08:49)
--- NOTE | 2017-01-30 09:32 | PDOC ---
ELIA PAUL SOLAR APPLICATIONS DEVELOPMENT ENGINEER 01/30/17 0932: PROGRESS NOTES Diagnosis Problem Problems Medical Problems: (1) Congestive heart failure Status: Acute (2) Pulmonary edema Status: Acute Assessment We are seeing the patient for congestive heart failure 1. Chronic systolic heart failure. Clinically back to baseline. Plan for discharge today. He has a follow-up scheduled on the 14 of February 2. Coronary artery disease with a history of stenting and bypass surgery. Asymptomatic. We'll continue present medications. 3. Hypertension. Controlled with present medications. 4. Hyperlipidemia, continue statin therapy 5. Mitral regurgitation, non-rheumatic. This is moderate. This will need to be followed by echocardiogram once a year. 6. Severe pulmonary hypertension - PA pressure 65 mmHg 5. Diabetes mellitus. As per the primary service. Problems: Subjective His breathing has significantly improved and he is up in the room without difficulty. He feels like his breathing is back to baseline and he denies any chest pain or palpitations. Objective Vital Signs Date Time Temp Pulse Resp B/P (MAP) Pulse Ox O2 Delivery O2 Flow Rate FiO2 01/30/17 08:49 62 132/53 01/30/17 06:40 98.0 18 95 Nasal Cannula 2.0 Intake and Output 01/30/17 07:00 Intake Total 710 ml Output Total 1300 ml Balance -590 ml Intake Oral 710 ml Output Urine Total 1300 ml Abdomen: Normal bowel sounds, Soft, No tenderness Heart: Regular rate, Normal S1, Normal S2, No murmurs, Gallops Extremities: No edema, Normal pulses General: Alert, Oriented X3, Cooperative HEENT: Mucous membr. moist/pink Lungs: Clear to auscultation Psych/Mental Status: Mental status NL, Mood NL Review of Relevant I have reviewed the following items maribell (where applicable) has been applied. Labs Laboratory Tests Test 01/28/17 11:33 01/28/17 12:04 01/28/17 15:45 01/28/17 16:37 Troponin I Quantitative 0.022 ng/mL (0-0.055) 0.020 ng/mL (0-0.055) Glucose (Fingerstick) 110 mg/dL (70-99) 100 mg/dL (70-99) Test 01/29/17 06:25 01/29/17 16:43 01/29/17 20:56 6/12/17 05:40 White Blood Count 5.1 x10^3/uL (4.0-11.0) Red Blood Count 3.38 x10^6/uL (4.30-5.70) Hemoglobin 10.6 g/dL (13.0-17.5) Hematocrit 31.5 % (39.0-53.0) Mean Corpuscular Volume 93 fL (79-100) Mean Corpuscular Hemoglobin 31 pg (25-35) Mean Corpuscular Hemoglobin Concent 34 g/dL (31-37) Red Cell Distribution Width 14.9 % (11.5-14.5) Platelet Count 219 x10^3/uL (140-400) Neutrophils (%) (Auto) 54 % (31-73) Lymphocytes (%) (Auto) 24 % (24-48) Monocytes (%) (Auto) 18 % (0-9) Eosinophils (%) (Auto) 4 % (0-3) Basophils (%) (Auto) 1 % (0-3) Neutrophils # (Auto) 2.8 x10^3uL (1.8-7.7) Lymphocytes # (Auto) 1.2 x10^3/uL (1.0-4.8) Monocytes # (Auto) 0.9 x10^3/uL (0.0-1.1) Eosinophils # (Auto) 0.2 x10^3/uL (0.0-0.7) Basophils # (Auto) 0.0 x10^3/uL (0.0-0.2) Sodium Level 133 mmol/L (136-145) 132 mmol/L (136-145) Potassium Level 3.7 mmol/L (3.5-5.1) 3.7 mmol/L (3.5-5.1) Chloride Level 97 mmol/L (98-107) 98 mmol/L (98-107) Carbon Dioxide Level 29 mmol/L (21-32) 28 mmol/L (21-32) Anion Gap 7 (6-14) 6 (6-14) Blood Urea Nitrogen 19 mg/dL (8-26) 15 mg/dL (8-26) Creatinine 0.8 mg/dL (0.7-1.3) 0.8 mg/dL (0.7-1.3) Estimated GFR (Cockcroft-Gault) 92.5 92.5 BUN/Creatinine Ratio 24 (6-20) Glucose Level 107 mg/dL (70-99) 104 mg/dL (70-99) Uric Acid 2.9 mg/dL (3.5-7.2) Calcium Level 8.0 mg/dL (8.5-10.1) 8.0 mg/dL (8.5-10.1) Magnesium Level 1.8 mg/dL (1.8-2.4) Total Bilirubin 0.6 mg/dL (0.2-1.0) Aspartate Amino Transf (AST/SGOT) 12 U/L (15-37) Alanine Aminotransferase (ALT/SGPT) 11 U/L (16-63) Alkaline Phosphatase 58 U/L (46-116) Troponin I Quantitative 0.019 ng/mL (0-0.055) Total Protein 6.2 g/dL (6.4-8.2) Albumin 2.8 g/dL (3.4-5.0) Albumin/Globulin Ratio 0.8 (1.0-1.7) Triglycerides Level 56 mg/dL (0-150) Cholesterol Level 117 mg/dL (0-200) LDL Cholesterol, Calculated 67 mg/dL (0-100) VLDL Cholesterol, Calculated 11 mg/dL (0-40) Non-HDL Cholesterol Calculated 78 mg/dL (0-129) HDL Cholesterol 39 mg/dL (40-60) Cholesterol/HDL Ratio 3.0 Glucose (Fingerstick) 142 mg/dL (70-99) 114 mg/dL (70-99) Test 01/30/17 07:35 Glucose (Fingerstick) 113 mg/dL (70-99) Microbiology 01/28/17 Blood Culture - Preliminary, Resulted NO GROWTH AFTER 2 DAYS Medications Current Medications Furosemide (Lasix) 80 mg 1X ONCE IVP Last administered on 01/28/17t 05:39; Start 01/28/17 at 05:45; Stop 01/28/17 at 05:46; Status DC Ondansetron HCl (Zofran) 4 mg PRN Q4HRS PRN IV NAUSEA/VOMITING; Start 01/28/17 at 05:45; Stop 01/29/17 at 05:45; Status DC Morphine Sulfate (Morphine 2mg Syringe) 2 mg PRN Q2HR PRN IV SEVERE PAIN; Start 01/28/17 at 05:45; Stop 01/29/17 at 05:45; Status DC Acetaminophen (Tylenol) 650 mg PRN Q4HRS PRN PO FEVER; Start 01/28/17 at 05:45 ; Stop 01/29/17 at 05:45; Status DC Nitroglycerin (Nitrostat) 0.4 mg PRN Q5MIN PRN SL CHEST PAIN; Start 01/28/17 at 05:45; Stop 01/29/17 at 05:45; Status DC Aspirin (Aspirin Enteric Coated) 81 mg DAILY PO Last administered on 01/30/17 08:49; Start 01/28/17 at 09:00 Gabapentin (Neurontin) 300 mg BID PO Last administered on 01/30/17 08:49; Start 01/28/17 at 09:00 Albuterol/ Ipratropium (Duoneb) 3 ml QID IH Last administered on 01/28/17 11: 15; Start 01/28/17 at 09:00; Stop 01/28/17 at 13:46; Status DC Niacin (Slo-Niacin) 500 mg BID PO Last administered on 01/30/17 08:48; Start 01/28/17 at 09:00 Metoprolol Tartrate (Lopressor) 50 mg BID PO Last administered on 01/30/17 08: 49; Start 01/28/17 at 09:15 Fish Oil (Fish Oil) 1,000 mg DAILY PO Last administered on 01/30/17 08:49; Start 01/28/17 at 09:15 Albuterol Sulfate (Ventolin Hfa) 2 puff PRN BID PRN IH SHORTNESS OF BREATH; Start 01/28/17 at 13:00; Status UNV Allopurinol (Zyloprim) 300 mg HS PO Last administered on 01/29/17 20:00; Start 01/28/17 at 21:00 Guaifenesin (MUCINEX ER with DM) 1 tab BID PO Last administered on 01/30/17 08 :49; Start 01/28/17 at 21:00 Al Hydroxide/Mg Carbonate (Gaviscon) 30 ml PRN Q4HRS PRN PO HEARTBURN / GAS; Start 01/28/17 at 13:00 Metformin HCl (Glucophage) 500 mg BIDWMEALS PO Last administered on 01/30/17 08:49; Start 01/28/17 at 17:00 Nitroglycerin (Nitrostat) 0.4 mg PRN Q5MIN PRN SL CHEST PAIN; Start 01/28/17 at 13:00 Vitamin D (Vitamin D3) 1,000 unit DAILY PO Last administered on 01/30/17 08:49 ; Start 01/29/17 at 09:00 Magnesium Oxide (Magnesium Oxide) 400 mg DAILY PO Last administered on 08:48; Start 01/29/17 at 09:00 Atorvastatin Calcium (Lipitor) 40 mg DAILY PO Last administered on 01/30/17 08 :49; Start 01/29/17 at 09:00 Non-Formulary Medication 1 cap DAILY IH ; Start 01/29/17 at 09:00; Status UNV Non-Formulary Medication 1 puff DAILY IH ; Start 01/29/17 at 09:00; Status UNV Albuterol/ Ipratropium (Duoneb) 3 ml RTQID NEB Last administered on 01/30/17 05:15; Start 01/28/17 at 16:00 Albuterol Sulfate (Ventolin) 2.5 mg PRN Q6HRS PRN NEB SHORTNESS OF BREATH; Start 01/28/17 at 13:30 Budesonide (Pulmicort) 0.5 mg RTBID NEB Last administered on 01/29/17 20:38; Start 01/28/17 at 20:00 Enoxaparin Sodium (Lovenox) 40 mg Q24H SQ Last administered on 01/29/17 12:24 ; Start 01/29/17 at 12:00 Furosemide (Lasix) 40 mg 1X ONCE IVP Last administered on 01/29/17 12:24; Start 01/29/17 at 12:00; Stop 01/29/17 at 12:02; Status DC Active Scripts Active Mucinex Dm Er 600-30 Mg Tablet (Guaifenesin/Dextromethorphan) 1 Each Tab.er.12h 1 Tab PO BID 60 Days Reported Torsemide 20 Mg Tablet 0.5 Tab PO DAILY Niaspan (Niacin) 500 Mg Tab.er.24h 1 Tab PO BID Bystolic (Nebivolol Hcl) 10 Mg Tablet 1 Tab PO DAILY Spiriva (Tiotropium [place]) 18 Mcg Cap.w.dev 1 Cap IH DAILY last dose this am next dose 5-21 am Nitrostat (Nitroglycerin) 0.4 Mg Tab.subl 1 Tab SL PRN Q5MIN PRN next dose anytime Acid Gone Antacid Liquid (Mag Carb/Al Hydrox/Alginic Ac) 355 Ml Oral.susp 30 Ml PO PRN PRN next dose anytime Aspirin Ec (Aspirin) 81 Mg Tablet.dr 1 Tab PO DAILY last dose today next dose tomorrow Gabapentin 300 Mg Capsule 300 Mg PO BID last dose this am next dose this pm Anoro Ellipta 62.5-25 Mcg Inh (Umeclidinium Brm/Vilanterol Tr) 1 Each Disk.w.dev 1 Puff IH DAILY last dose today next dose 5- am Losartan Potassium 100 Mg Tablet 100 Mg PO HS last dose yesterday pm next dose this pm Duoneb 0.5-3(2.5) Mg/3 Ml (Albuterol/Ipratropium) 3 Ml Ampul.neb 3 Ml IH QID next dose as needed LAST DOSE: 5 am next dose as needed Proair Hfa Inhaler (Albuterol Sulfate) 8.5 Gm Hfa.aer.ad 2 Puff IH PRN BID PRN last dose today next dose this evening or as needed next dose: 5/ pm Magnesium Oxide 250 Mg Tablet 250 Mg PO DAILY last dose this am next dose 5- am nxt dose: 5/5 am Jasper 3 Fish Oil Softgel (Jasper-3 Fatty Acids/Fish Oil) 1 Each Capsule.dr 1,000 Mg PO DAILY last dose 5- am next dose 5- am nxt dose: 5 AM Vitamin D (Cholecalciferol (Vitamin D3)) 1,000 Unit Capsule 1,000 Unit PO DAILY last dose today next dose tomorrow nxt dose: 55 am Naproxen 500 Mg Tablet 500 Mg PO BID for pain last dose: prior to admit nxt dose: may resume as needed Metformin Hcl 500 Mg Tablet 500 Mg PO BID last dose this am next dose this pm 5- may resume tonight, 5/ pm Crestor (Rosuvastatin Calcium) 10 Mg Tablet 10 Mg PO DAILY for high cholesterol on Monday, Monday, Monday @ HS last dose: 01-06 next dose mon- Allopurinol 300 Mg Tablet 300 Mg PO HS last dose 5-19 pm next dose 5-20 pm nxt dose: 5/5 am Vitals/I & O Vital Sign - Last 24 Hours 01/29/17 01/29/17 01/29/17 01/29/17 10:10 11:10 11:18 11:20 Pulse 66 66 Resp 19 19 B/P (MAP) 119/58 (78) 143/62 (89) Pulse Ox 95 100 96 96 O2 Delivery Nasal Cannula Nasal Cannula Nasal Cannula Nasal Cannula O2 Flow Rate 5.0 5.0 2.0 2.0 01/29/17 01/29/17 01/29/17 01/29/17 12:00 12:10 16:23 19:30 Pulse 67 Resp 23 B/P (MAP) 143/69 (93) Pulse Ox 96 96 O2 Delivery Nasal Cannula Nasal Cannula Nasal Cannula Nasal Cannula O2 Flow Rate 5.0 5.0 2.0 2.0 01/29/17 01/29/17 01/29/17 01/29/17 20:00 20:11 20:40 20:44 Temp 98.1 Pulse 67 70 Resp 20 B/P (MAP) 143/69 140/56 (84) Pulse Ox 94 93 O2 Delivery Nasal Cannula Nasal Cannula Nasal Cannula O2 Flow Rate 2.0 2.0 2.0 01/30/17 01/30/17 01/30/17 05:20 06:40 08:49 Temp 98.0 Pulse 62 62 Resp 18 B/P (MAP) 132/53 (79) 132/53 Pulse Ox 94 95 O2 Delivery Nasal Cannula Nasal Cannula O2 Flow Rate 2.0 2.0 Intake and Output 01/29/17 01/29/17 01/30/17 15:00 23:00 07:00 Intake Total 510 ml 200 ml Output Total 400 ml 900 ml Balance 110 ml -900 ml 200 ml QING CHAVEZ Jr, MD 01/30/17 1031: PROGRESS NOTES Assessment CHF, acute on chronic, systolic. He seems to be back at his baseline. This may have been due to dietary indiscretion. I recommend he continue on the present medications. He has a follow-up visit scheduled in our office in the near future. From a cardiac standpoint, the patient can probably be discharged home today. Coronary artery disease. He is not having any angina. He should continue on the present medications. Essential hypertension. Blood pressure appears to be adequately controlled with the present medications. These should be continued. Hypercholesterolemia. Continue statin medication. Respiratory failure, acute, resolved. This may have been due to some component of congestive heart failure as well has his chronic underlying obstructive pulmonary disease. Problems: Subjective We are seeing him for CHF. S: His shortness of breath resolved. He denies chest pain, palpitations, syncope. He has mild ankle edema which is chronic and unchanged. Abdomen: Normal bowel sounds, Soft, No tenderness Heart: Regular rate, Normal S1, Normal S2, Other (1/6 systolic ejection murmur) Extremities: No clubbing, No cyanosis, Normal pulses, Other ( 1+ bilateral pretibial edema) General: Alert, Oriented X3, Cooperative, No acute distress HEENT: Atraumatic, EOMI, Mucous membr. moist/pink Lungs: Clear to auscultation, Normal air movement Neck: No JVD, +2 carotid pulse wo bruit Neuro: Normal gait, Normal speech, Strength at 5/5 X4 ext, Normal tone, Cranial nerves 3-12 NL Psych/Mental Status: Mental status NL, Mood NL Skin: No rashes, No breakdown, No significant lesion ELIA PAUL APRN Jan 30, 2017 09:32 QING CHAVEZ Jr, MD Jan 30, 2017 10:31
--- NOTE | 2017-01-30 20:08 | DS ---
DATE OF DISCHARGE: 01/30/2017 DISCHARGE DIAGNOSES: 1. [id number] diastolic heart failure. 2. Coronary artery disease. 3. Hypertension. 4. Hyperlipidemia. 5. Mitral regurgitation. 6. Severe pulmonary hypertension. 7. Diabetes. 8. Chronic obstructive pulmonary disease. 9. Gout. 10. Chronic use of nonsteroidals. 11. Acute hypoxic respiratory failure due to pulmonary edema. 12. Deep venous thrombosis prophylaxis. HOSPITAL COURSE: An 81-year-old male who became acutely short of breath and was admitted for treatment of congestive heart failure. He received IV Lasix and was seen in consultation by Renée Cohen and and they have already made a followup appointment with him. The IV Lasix relieved lot of his symptoms and he was feeling well enough to be discharged. PHYSICAL EXAMINATION: VITAL SIGNS: On the day of discharge 132/53, pulse 62, respirations 18, pulse ox 95% on 2 liters, temperature 98. GENERAL: His color is good. HEENT: His tongue was moist. NECK: Supple. LUNGS: Clear. CARDIOVASCULAR: Regular rhythm and rate. EXTREMITIES: With about edema. DISPOSITION: To home. DISCHARGE MEDICATIONS: Medications have been reconciled. Follow up with his regular shirt bander and he will no longer be taking naproxen. I discussed that with him as well as Dr. Caraballo. LASHA DOMINGUEZ DO DR: KEISHA/amy JOB#: [id number] / [id number]
== END 2017-01-30 11:23 | disposition home or self-care (01) | DRG 291 ==
LOC: ER 05:00 → ICU 05:41 → 1 SOUTH 01-29 14:52
PROVIDERS: ADMIT Internal Medicine; ATTEND Internal Medicine
PROC: 5A09357 Assistance with Respiratory Ventilation, Less than 24 Consecutive Hours, Continuous Positive Airway Pressure (ICD-10-PCS; principal; 2017-01-28)
DX: I50.43 Acute on chronic combined systolic (congestive) and diastolic (congestive) heart failure (principal); J96.01 Acute respiratory failure with hypoxia; I11.0 Hypertensive heart disease with heart failure; E11.42 Type 2 diabetes mellitus with diabetic polyneuropathy; E78.00 Pure hypercholesterolemia, unspecified; E78.5 Hyperlipidemia, unspecified; I25.10 Atherosclerotic heart disease of native coronary artery without angina pectoris; I25.5 Ischemic cardiomyopathy; I27.2 Other secondary pulmonary hypertension; J44.9 Chronic obstructive pulmonary disease, unspecified; M10.9 Gout, unspecified; M19.90 Unspecified osteoarthritis, unspecified site; I34.0 Nonrheumatic mitral (valve) insufficiency; N40.0 Benign prostatic hyperplasia without lower urinary tract symptoms; Z82.49 Family history of ischemic heart disease and other diseases of the circulatory system; Z82.5 Family history of asthma and other chronic lower respiratory diseases; I25.2 Old myocardial infarction; Z87.440 Personal history of urinary (tract) infections; Z87.891 Personal history of nicotine dependence; Z95.1 Presence of aortocoronary bypass graft; Z95.5 Presence of coronary angioplasty implant and graft; Z98.41 Cataract extraction status, right eye; Z98.42 Cataract extraction status, left eye; Z89.421 Acquired absence of other right toe(s); Z88.2 Allergy status to sulfonamides; Z88.8 Allergy status to other drugs, medicaments and biological substances; Z88.1 Allergy status to other antibiotic agents; Z90.49 Acquired absence of other specified parts of digestive tract; Z79.1 Long term (current) use of non-steroidal anti-inflammatories (NSAID)
CPT/HCPCS: 36415; 36600; 71010; 80048; 80053; 80061; 82803; 82947; 83690; 83735; 83880; 84484; 84550; 85027; 87040; 87641; 93005; 94640; 94660; 96374; J1650; J1940; J7620; J7626; 99291-25

== ENCOUNTER 2017-04-25 21:29 | Emergency (ER) | payer MEDICARE ==
[~2017-04-25] VITALS: Ht 180.3 cm; Wt 83.0 kg
[2017-04-26] MEDS ORDERED: CEPH-264 PO (00:49)
--- NOTE | 2017-04-26 00:49 | PHYS DOC ---
Past History Past Medical History: CHF, COPD, Diabetes, High Cholesterol, Hypertension, Other Past Surgical History: Other Smoking: Quit Greater Than 1 Year Alcohol Use: None Drug Use: None Adult General Chief Complaint Chief Complaint: PENIS PROBLEM HPI HPI Patient is a 81 year old male who presents with lesion on his penis. The patient states last evening he noted a painful sore on his penis. The area is more painful tonight. Denies fevers/chills, nausea/vomiting, dysuria, discharge , difficulty urinating. He has history of BPH. He has a urologist in [facility]. Review of Systems Review of Systems Constitutional: Denies fever or chills Respiratory: Denies cough or shortness of breath Cardiovascular: Denies chest pain GI: Denies abdominal pain, nausea, vomiting : Denies dysuria or hematuria, reports lesion on penis Musculoskeletal: Denies back pain Integument: Reports lesion on penis Neurologic: Denies headache Allergies Allergies Allergies Coded Allergies Type Severity Reaction Last Updated Verified sulfamethoxazole Allergy Intermediate rash 12/01/13 Yes trimethoprim Allergy Intermediate rash 12/01/13 Yes quinine Allergy Mild rash 12/01/13 Yes Physical Exam Physical Exam Constitutional: Well developed, well nourished, no acute distress, non-toxic appearance. HENT: Normocephalic, atraumatic, bilateral external ears normal, oropharynx moist, nose normal. Eyes: conjunctiva normal, no discharge. Cardiovascular: no edema. Lungs & Thorax: wearing oxygen by nasal cannula with home tank, no respiratory distress. Abdomen: nondistended. : over distal foreskin overlying the glans on the left lateral aspect, there is a 2 cm raised area which is mildly erythematous, no surrounding cellulitis, tender with palpation, not fluctuant but slightly indurated. uncircumcised penis. Skin: penile lesion as above Extremities: No deformity Neurologic: Alert and oriented X 3 Current Patient Data Vital Signs Vital Signs Date Time Temp Pulse Resp B/P (MAP) Pulse Ox O2 Delivery O2 Flow Rate FiO2 04/25/17 23:20 97.4 66 20 93 Room Air EKG EKG [] Radiology/Procedures Radiology/Procedures [] Course & Med Decision Making Course & Med Decision Making Pertinent Labs and Imaging studies reviewed. (See chart for details) The patient presents with penile lesion. May be insect bite with local inflammatory reaction. Suggested cautious use of benadryl. I also provided prescription for keflex as this could be early small abscess. Not amenable to drainage in the ED & might require biopsy if persistent. Recommend that he call his urologist in the morning for appointment for further evaluation. Come back for high fever, inability to urinate, spreading erythema/warmth/swelling, any otherwise worsening condition. Discharged home in stable condition. [] Dragon Disclaimer Dragon Disclaimer This chart was dictated in whole or in part using Voice Recognition software in a busy, high-work load, and often noisy Emergency Department environment. It may contain unintended and wholly unrecognized errors or omissions. Departure Departure: Impression: Primary Impression: Sore of penis Disposition: HOME, SELF-CARE Condition: STABLE Referrals: ERLIN YEH (PCP) Patient Instructions: Abscess, [id number], Insect Bite, [id number] Additional Instructions: You were seen in the emergency department today for sore on your penis. This could be an insect bite with a local allergic reaction. Try taking Benadryl. There is a possibility that this could be infection. You may need to have drainage performed by a urologist. Take the prescribed antibiotic. Call your urologist in the morning. You should be seen within one to 2 days for further evaluation. Return to the emergency department for high fever, uncontrolled vomiting, spreading redness/swelling, inability to urinate, any otherwise worsening condition. Scripts Cephalexin (KEFLEX) 500 Mg Capsule 1 CAP PO BID, #14 CAP Prov: SUELLEN WILLIAMSON MD 04/26/17 SUELLEN WILLIAMSON MD Apr 26, 2017 00:49
[2017-04-26] MEDS ORDERED: CEPHALEXIN 250 MG CAPSULE PO ONE (01:00)
[2017-04-26 01:10] VITALS: BP 133/72
== END 2017-04-26 01:25 | disposition home or self-care (01) ==
LOC: ER 21:29
DX: N48.89 Other specified disorders of penis (principal); I11.0 Hypertensive heart disease with heart failure; I50.9 Heart failure, unspecified; E11.9 Type 2 diabetes mellitus without complications; J44.9 Chronic obstructive pulmonary disease, unspecified; E78.00 Pure hypercholesterolemia, unspecified; Z87.891 Personal history of nicotine dependence; Z88.1 Allergy status to other antibiotic agents; Z88.8 Allergy status to other drugs, medicaments and biological substances
CPT/HCPCS: 99283

== ENCOUNTER 2017-11-02 08:15 | Emergency (ER) | payer MEDICARE ==
[~2017-11-02] VITALS: Ht 172.7 cm; Wt 83.5 kg
[~2017-11-02 08:15] MED LIST changes: +CEPH-264 PO; -GUAI-107 PO; +GUAI-108 PO; +NAPR-514 PO; -NAPR500T3 PO
[2017-11-02] MEDS ORDERED: IPRATRPIUM/ALBUTEROL 0.5/2.5MG 3 ML NEBU. NEB ONE (09:00)
--- NOTE | 2017-11-02 09:01 | PHYS DOC ---
General Chief Complaint: SHORTNESS OF BREATH Stated Complaint: DIFFICULTING BREATHING Time Seen by MD: 08:20 Source: patient, old records Exam Limitations: no limitations Problems: History of Present Illness Initial Comments 82-year-old male with chronic respiratory failure uses 3 L of O2 at home comes to the ED complaining of cough. Patient states that the past couple nights he's had a cough primarily at night. He's had mildly increased dyspnea on exertion no increase in dyspnea at rest no chest pain fever chills. He states that "I have a cold, cold always go down into my chest." On arrival his vital signs are stable is 95% on his home O2. He is very talkative and has no conversational dyspnea. He is in no distress denies any pain. Timing/Duration: other Severity: moderate Modifying Factors: worse with movement, improves with rest Associated Symptoms: cough, shortness of breath Allergies: Coded Allergies: sulfamethoxazole (Verified Allergy, Intermediate, rash, 12/01/13) trimethoprim (Verified Allergy, Intermediate, rash, 12/01/13) quinine (Verified Allergy, Mild, rash, 12/01/13) Past Medical History Medical History: COPD, diabetes, heart disease, high cholesterol, hypertension Surgical History: angioplasty, appendectomy, coronary bypass surgery, other Family History Significant Family History: no pertinent family hx Social History Smoker: quit greater than 1 year Alcohol: none Drugs: none Review of Systems Constitutional: denies chills, denies fever Respiratory: see HPI Cardiovascular: see HPI Gastrointestinal: denies abdominal pain, denies nausea, denies vomiting Musculoskeletal: denies back pain, denies joint swelling, denies neck pain Psychiatric/Neurological: denies headache, denies numbness, denies paresthesia Hematologic/Lymphatic: denies blood clots, denies easy bleeding, denies easy bruising Physical Exam General Appearance: WD/WN, no apparent distress Ear, Nose, Throat: hearing grossly normal, normal ENT inspection, normal pharynx Neck: non-tender, supple Respiratory: chest non-tender, other (wheezes bilaterally with good air movement no accessory muscle use no respiratory distress) Cardiovascular: normal peripheral pulses, regular rate, rhythm Gastrointestinal: non tender, soft Extremities: non-tender, normal inspection 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 Interpreted by me Chest x-ray PA and lateral: Mild CHF changes interpreted by me Labs reassuring urine grossly positive for infection Patient rechecked after Solu-Medrol and DuoNeb. He is now sitting up on the edge of the bed obviously feeling much better. He is requesting discharge home. Departure Time of Disposition: 10:45 Disposition: 01 HOME, SELF-CARE Diagnosis: UTI, COPD exac, Mild CHF Condition: IMPROVED Patient Instructions: Urinary Tract Infection, [id number] Additional Instructions: Please review the patient education materials given by ED staff. Continue current medications. Increase current furosemide 10 mg from once daily to twice daily for the next 3 days. Increase albuterol nebulizer treatments from 1-2 daily to one every 4 hours. Prescription: Cefdinir, Paul Hernández Follow-up with Luis Schneider tomorrow for recheck, call today to schedule. Return to ED with new or changing symptoms. HALLIE TOVAR DO Nov 02, 2017 09:01
[2017-11-02] MEDS ORDERED: IPRATRPIUM/ALBUTEROL 0.5/2.5MG 3 ML NEBU. ONE (09:08)
[2017-11-02 09:14] LABS: BASO # 0.1 x10^3/uL (0.0-0.2); BASO % 1 % (0-3); EOS # 0.2 x10^3/uL (0.0-0.7); EOS % 3 % (0-3); HEMATOCRIT 36.7 % (39.0-53.0); HEMOGLOBIN 12.4 g/dL (13.0-17.5); LYMPH # 0.9 x10^3/uL (1.0-4.8); LYMPH % 11 % (24-48); MEAN CORPUSCULAR HEMOGLOBIN 32 pg (25-35); MEAN CORPUSCULAR HGB CONC 34 g/dL (31-37); MEAN CORPUSCULAR VOLUME 94 fL (79-100); MONO # 0.9 x10^3/uL (0.0-1.1); MONO % 12 % (0-9); NEUT # 5.9 x10^3uL (1.8-7.7); NEUT % 74 % (31-73); PLATELET COUNT 193 x10^3/uL (140-400); RED CELL DISTRIBUTION WIDTH 14.6 % (11.5-14.5)
[2017-11-02] MEDS ORDERED: methylPREDNISolone SOD SUCC PF 125 MG/2 ML VIAL. IV ONE (09:30)
[2017-11-02 09:33] LABS: ALBUMIN 3.5 g/dL (3.4-5.0); ALBUMIN/GLOBULIN RATIO 1.1 (1.0-1.7); CALCIUM 8.8 mg/dL (8.5-10.1); CREATININE 0.8 mg/dL (0.7-1.3); GFR 92.3; POTASSIUM 4.4 mmol/L (3.5-5.1); TOTAL BILIRUBIN 0.6 mg/dL (0.2-1.0); TOTAL PROTEIN 6.8 g/dL (6.4-8.2)
--- NOTE | 2017-11-02 09:41 | RAD ---
PA and lateral chest radiographs November 02, 2017 CLINICAL HISTORY: Cough, congestion and shortness of breath. PA and lateral digital radiographs of the chest were obtained. Comparison study is dated 01/28/2017. Surgical changes are seen consistent with a CABG procedure. The cardiac silhouette is borderline enlarged. Atherosclerotic calcification of the thoracic aorta is seen. The thoracic aorta is minimally tortuous. Emphysematous changes are seen involving both lungs. Slight prominence of pulmonary vasculature is seen. Septal lines (David B-lines) are seen within the lung bases suggestive of interstitial pulmonary edema. These findings are felt to most likely reflect CHF. Left midlung subsegmental atelectasis and/or scarring is noted. No area of consolidation is seen. No pleural effusion or pneumothorax is noted. Degenerative changes are seen involving the thoracic spine. IMPRESSION: Findings are seen suggesting CHF. Electronically signed by: Teodoro Goodson MD (11/02/2017 9:38 AM) [id number]
[2017-11-02] MEDS ORDERED: IV NORMAL SALINE 1,000ML 500 ML IV SCH (09:52)
[2017-11-02 09:58] LABS: INFLUENZA A PATIENT NEGATIVE (NEGATIVE); INFLUENZA B PATIENT NEGATIVE (NEGATIVE)
[2017-11-02 10:18] LABS: BACTERIA,URINE 0 /HPF (0-FEW); BILIRUBIN,URINE NEG (NEG); CLARITY,URINE HAZY; COLOR,URINE YELLOW; GLUCOSE,URINE NEG (NEG); NITRITE,URINE NEG (NEG); SQUAMOUS EPITHELIAL CELL,UR FEW /LPF; UROBILINOGEN,URINE 0.2 mg/dL (0.2 mg/dL)
[2017-11-02] MEDS ORDERED: PENICILLIN G BENZATHINE LA 1,200,000 UNIT/2 ML DISP.SYRIN. IM ONE (10:30)
[2017-11-02] MEDS ORDERED: LIDO:MAALOX 1:1 20 ML SINGLE DOSE PO ONE (10:30)
[2017-11-02] MEDS ORDERED: BENZ100C PO (10:43)
[2017-11-02] MEDS ORDERED: CEFD300C PO (10:43)
[2017-11-02 11:00] VITALS: BP 150/47
[2017-11-02] MEDS ORDERED: FUROSEMIDE 40 MG TABLET PO ONE (11:10)
== END 2017-11-02 11:18 | disposition home or self-care (01) ==
LOC: ER 08:15
DX: J44.1 Chronic obstructive pulmonary disease with (acute) exacerbation (principal); I11.0 Hypertensive heart disease with heart failure; I50.9 Heart failure, unspecified; N39.0 Urinary tract infection, site not specified; E11.9 Type 2 diabetes mellitus without complications; E78.00 Pure hypercholesterolemia, unspecified; Z87.891 Personal history of nicotine dependence; Z88.2 Allergy status to sulfonamides; Z88.1 Allergy status to other antibiotic agents; Z88.8 Allergy status to other drugs, medicaments and biological substances
CPT/HCPCS: 36415; 71046; 80053; 81001; 82550; 83880; 84484; 85025; 85610; 85730; 87086; 87186; 87804; 94640; 96361; 96374; 99285; J2930; J7620; J7030

== ENCOUNTER 2017-11-10 21:25 | Inpatient (IN) | payer MEDICARE ==
[~2017-11-10] VITALS: Ht 177.8 cm; Wt 83.0 kg
[~2017-11-10 21:25] MED LIST changes: +CEFD300C PO
[2017-11-10] MEDS ORDERED: methylPREDNISolone SOD SUCC PF 125 MG/2 ML VIAL. IV ONE (22:00)
[2017-11-10] MEDS ORDERED: IPRATRPIUM/ALBUTEROL 0.5/2.5MG 3 ML NEBU. NEB ONE (22:00)
[2017-11-10 22:06] LABS: BASO # 0.1 x10^3/uL (0.0-0.2); BASO % 1 % (0-3); EOS # 0.4 x10^3/uL (0.0-0.7); EOS % 5 % (0-3); HEMATOCRIT 36.9 % (39.0-53.0); HEMOGLOBIN 12.6 g/dL (13.0-17.5); LYMPH # 1.5 x10^3/uL (1.0-4.8); LYMPH % 20 % (24-48); MEAN CORPUSCULAR HEMOGLOBIN 32 pg (25-35); MEAN CORPUSCULAR HGB CONC 34 g/dL (31-37); MEAN CORPUSCULAR VOLUME 94 fL (79-100); MONO # 0.7 x10^3/uL (0.0-1.1); MONO % 10 % (0-9); NEUT # 4.6 x10^3uL (1.8-7.7); NEUT % 63 % (31-73); PLATELET COUNT 213 x10^3/uL (140-400); RED BLOOD COUNT 3.93 x10^6/uL (4.30-5.70); RED CELL DISTRIBUTION WIDTH 14.7 % (11.5-14.5); WHITE BLOOD COUNT 7.2 x10^3/uL (4.0-11.0)
[2017-11-10 22:48] LABS: ALBUMIN 3.2 g/dL (3.4-5.0); CALCIUM 8.6 mg/dL (8.5-10.1); GFR 71.4; MAGNESIUM 1.7 mg/dL (1.8-2.4); TOTAL BILIRUBIN 0.3 mg/dL (0.2-1.0); TOTAL PROTEIN 6.4 g/dL (6.4-8.2)
[2017-11-10] MEDS ORDERED: ONDANSETRON PF 4 MG/2 ML VIAL. IV PRN (23:15)
--- NOTE | 2017-11-10 23:57 | PHYS DOC ---
Past History Past Medical History: CHF, COPD, Diabetes, High Cholesterol, Hypertension, Other Past Surgical History: Coronary Bypass Surgery, Other Smoking: Quit Greater Than 1 Year Alcohol Use: None Drug Use: None Adult General Chief Complaint Chief Complaint: SHORTNESS OF BREATH HPI HPI Patient is an 82-year-old male presenting to the emergency department for evaluation of shortness of breath that has been worsening over the past one week. Patient was seen here on the and diagnosed with fluid overloaded and sent home. Patient says that he has been coughing more although the sputum is nonproductive. He denies any fevers. Patient also denies any chest pain or worsening edema. Patient has a history of COPD for which she uses nebulized treatments in addition he has congestive heart failure. He says he can only walk 10 steps before he becomes severely short of breath and has to stop walking. He lives by himself [place] [address] [place]. Review of Systems Review of Systems Constitutional: Denies fever or chills [] Eyes: Denies change in visual acuity, redness, or eye pain [] HENT: Denies nasal congestion or sore throat [] Respiratory: + cough, shortness of breath [] Cardiovascular: No additional information not addressed in HPI [] GI: Denies abdominal pain, nausea, vomiting, bloody stools or diarrhea [] : Denies dysuria or hematuria [] Musculoskeletal: Denies back pain or joint pain [] Integument: Denies rash or skin lesions [] Neurologic: Denies headache, focal weakness or sensory changes [] All other systems were reviewed and found to be within normal limits, except as documented in this note. Current Medications Current Medications Current Medications Medications (Trade) Dose Ordered Sig/Shirley Start Time Stop Time Status Last Admin Dose Admin Albuterol/ Ipratropium (Duoneb) 3 ml 1X ONCE 11/10/17 22:00 11/10/17 22:01 DC 11/10/17 22:06 3 ML Fentanyl Citrate (Fentanyl 2ml Vial) 50 mcg PRN Q2HR PRN 11/10/17 23:15 11/11/17 23:14 Levofloxacin/ Dextrose 100 ml @ 100 mls/hr 1X ONCE 11/10/17 23:45 11/11/17 00:44 UNV Methylprednisolone Sodium Succinate (SOLU-Medrol 125MG VIAL) 125 mg 1X ONCE 11/10/17 22:00 3/23/18 22:01 DC 11/10/17 22:05 125 MG Ondansetron HCl (Zofran) 4 mg PRN Q4HRS PRN 11/10/17 23:15 11/11/17 23:14 Allergies Allergies Allergies Coded Allergies Type Severity Reaction Last Updated Verified sulfamethoxazole Allergy Intermediate rash 12/01/13 Yes trimethoprim Allergy Intermediate rash 12/01/13 Yes quinine Allergy Mild rash 12/01/13 Yes Physical Exam Physical Exam Constitutional: Well developed, well nourished, no acute distress, non-toxic appearance. [] HENT: Normocephalic, atraumatic, bilateral external ears normal, oropharynx moist, no oral exudates, nose normal. [] Eyes: PERRLA, EOMI, conjunctiva normal, no discharge. [] Neck: Normal range of motion, no tenderness, supple, no stridor. [] Cardiovascular:Heart rate regular rhythm, no murmur [] Lungs & Thorax: Diminished aeration in both lungs with his pictorial expiratory wheezing in addition to crackles at the bases Abdomen: Bowel sounds normal, soft, no tenderness, no masses, no pulsatile masses. [] Skin: Warm, dry, no erythema, no rash. [] Back: No tenderness, no CVA tenderness. [] Extremities: No tenderness, no cyanosis, no clubbing, ROM intact, 1-2+ edema BL. [] Neurologic: Alert and oriented X 3, normal motor function, normal sensory function, no focal deficits noted. [] Current Patient Data Vital Signs Vital Signs Date Time Temp Pulse Resp B/P (MAP) Pulse Ox O2 Delivery O2 Flow Rate FiO2 11/10/17 22:15 94 Nasal Cannula 2.0 11/10/17 21:25 98.1 70 22 Lab Results Laboratory Tests Test 11/10/17 21:50 11/10/17 22:12 White Blood Count 7.2 x10^3/uL (4.0-11.0) Red Blood Count 3.93 x10^6/uL (4.30-5.70) L Hemoglobin 12.6 g/dL (13.0-17.5) L Hematocrit 36.9 % (39.0-53.0) L Mean Corpuscular Volume 94 fL (79-100) Mean Corpuscular Hemoglobin 32 pg (25-35) Mean Corpuscular Hemoglobin Concent 34 g/dL (31-37) Red Cell Distribution Width 14.7 % (11.5-14.5) H Platelet Count 213 x10^3/uL (140-400) Neutrophils (%) (Auto) 63 % (31-73) Lymphocytes (%) (Auto) 20 % (24-48) L Monocytes (%) (Auto) 10 % (0-9) H Eosinophils (%) (Auto) 5 % (0-3) H Basophils (%) (Auto) 1 % (0-3) Neutrophils # (Auto) 4.6 x10^3uL (1.8-7.7) Lymphocytes # (Auto) 1.5 x10^3/uL (1.0-4.8) Monocytes # (Auto) 0.7 x10^3/uL (0.0-1.1) Eosinophils # (Auto) 0.4 x10^3/uL (0.0-0.7) Basophils # (Auto) 0.1 x10^3/uL (0.0-0.2) Sodium Level 133 mmol/L (136-145) L Potassium Level 4.0 mmol/L (3.5-5.1) Chloride Level 97 mmol/L (98-107) L Carbon Dioxide Level 29 mmol/L (21-32) Anion Gap 7 (6-14) Blood Urea Nitrogen 18 mg/dL (8-26) Creatinine 1.0 mg/dL (0.7-1.3) Estimated GFR (Cockcroft-Gault) 71.4 BUN/Creatinine Ratio 18 (6-20) Glucose Level 122 mg/dL (70-99) H Calcium Level 8.6 mg/dL (8.5-10.1) Magnesium Level 1.7 mg/dL (1.8-2.4) L Total Bilirubin 0.3 mg/dL (0.2-1.0) Aspartate Amino Transferase (AST) 15 U/L (15-37) Alanine Aminotransferase (ALT) 10 U/L (16-63) L Alkaline Phosphatase 58 U/L (46-116) Troponin I Quantitative < 0.017 ng/mL (0-0.055) IE-Cjn-I-Type Natriuretic Peptide 666 pg/mL (0-449) H Total Protein 6.4 g/dL (6.4-8.2) Albumin 3.2 g/dL (3.4-5.0) L Albumin/Globulin Ratio 1.0 (1.0-1.7) EKG EKG Sinus rhythm at 63 beats her minutes with normal axis no obvious ST elevation or depression and normal T waves. One PVC noted Radiology/Procedures Radiology/Procedures Normal mediastinum with normal heart size with questionable right perihilar infiltrate but no free air or pneumothorax with pleural effusion on the left Course & Med Decision Making Course & Med Decision Making Patient's BNP is improving and his symptoms are more consistent with COPD exacerbation and he is improved with DuoNeb and soluMedrol. Given patient failed outpatient treatment before and is worsening and not doing well at home he will be admitted for further observation and treatment. Patient admitted in guarded condition. Dragon Disclaimer Dragon Disclaimer This electronic medical record was generated, in whole or in part, using a voice recognition dictation system. Departure Departure: Impression: Primary Impression: COPD exacerbation Additional Impressions: Pneumonia Dyspnea Disposition: ADMITTED INPATIENT Admitting Physician: Alejo Atkins Condition: GUARDED Referrals: PATRICIO MCLEAN (PCP) Problem Qualifiers QING CHAVES DO Nov 10, 2017 23:57
[2017-11-11] VITALS (7 sets, daily range): BP systolic 122–174; BP diastolic 63–74
[2017-11-11] MEDS ORDERED: AMLO2.5T PO (02:02)
[2017-11-11] MEDS ORDERED: ACET325T9 PO (02:02)
[2017-11-11] MEDS ORDERED: ALBU18HF IH (02:02)
[2017-11-11] MEDS ORDERED: TORS20TA2 PO (02:02)
[2017-11-11] MEDS ORDERED: CARV25TA2 PO (02:02)
[2017-11-11] MEDS ORDERED: MAGN400C PO (02:02)
[2017-11-11] MEDS ORDERED: MOME13HF2 IH (02:03)
--- NOTE | 2017-11-11 03:16 | EKG ---
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
[2017-11-11 04:41] LABS: BASO % 0 % (0-3); EOS % 1 % (0-3); HEMATOCRIT 36.7 % (39.0-53.0); HEMOGLOBIN 12.5 g/dL (13.0-17.5); LYMPH # 0.8 x10^3/uL (1.0-4.8); LYMPH % 14 % (24-48); MEAN CORPUSCULAR HEMOGLOBIN 31 pg (25-35); MEAN CORPUSCULAR HGB CONC 34 g/dL (31-37); MEAN CORPUSCULAR VOLUME 93 fL (79-100); MONO # 0.1 x10^3/uL (0.0-1.1); MONO % 1 % (0-9); NEUT # 4.6 x10^3uL (1.8-7.7); NEUT % 84 % (31-73); PLATELET COUNT 187 x10^3/uL (140-400); RED BLOOD COUNT 3.96 x10^6/uL (4.30-5.70); WHITE BLOOD COUNT 5.5 x10^3/uL (4.0-11.0)
[2017-11-11 04:50] LABS: ALBUMIN 3.3 g/dL (3.4-5.0); ALBUMIN/GLOBULIN RATIO 1.2 (1.0-1.7); CALCIUM 8.6 mg/dL (8.5-10.1); CREATININE 0.9 mg/dL (0.7-1.3); GFR 80.6; POTASSIUM 4.2 mmol/L (3.5-5.1); TOTAL BILIRUBIN 0.3 mg/dL (0.2-1.0); TOTAL PROTEIN 6.1 g/dL (6.4-8.2)
[2017-11-11] MEDS: IPRATRPIUM/ALBUTEROL 0.5/2.5MG 3 ML NEBU. NEB SCH ×4 (05:44→21:42)
[2017-11-11] MEDS: DOXYCYCLINE HYCLATE 100 MG TABLET PO SCH ×2 (06:17→17:29)
--- NOTE | 2017-11-11 08:30 | RAD ---
Portable chest, 11/10/2017: History: Shortness of breath Comparison is made to a study from 11/02/2017. There has been a previous median sternotomy. The heart size and pulmonary vascularity are normal. There is calcific plaquing of the aorta. There are scattered parenchymal scars. No acute infiltrate is seen. There is no evidence of pleural fluid. IMPRESSION: No acute cardiopulmonary abnormality is detected.
[2017-11-11] MEDS: methylPREDNISolone SOD SUCC PF 125 MG/2 ML VIAL. IV SCH ×2 (09:01→20:18)
[2017-11-11] MEDS: HEPARIN PF for SUB-Q USE 5,000 UNIT/0.5 ML VIAL. SQ SCH ×2 (09:11→20:28)
--- NOTE | 2017-11-11 11:37 | PDOC1 ---
History of Present Illness Reason for Visit: SOA History of Present Illness Pt states that he had a cold recently. States that he started to feel SOA not long after and his cough got worse. Denies recent weight gain or increased leg swelling. States he sees a studio artist at [place] [address]. He is normally on Anoro and Duoneb. Denies recent abx use. States he wears 4 liters of O2 at home because his tube from his concentrator is so long. Pt states he feels much better this morning, that the IV steroids really helped. He denies n /v, diarrhea, rash, dizzziness, LADD, chest pain, palpitations, vision changes, sore throat, or difficulty sleeping. States he has not smoked in decades. Denies alcohol intake, quit 3 years ago. Chief Complaint: SHORTNESS OF BREATH Allergies: Coded Allergies: sulfamethoxazole (Verified Allergy, Intermediate, rash, 12/01/13) trimethoprim (Verified Allergy, Intermediate, rash, 12/01/13) quinine (Verified Allergy, Mild, rash, 12/01/13) Past Medical History Cardiac: CAD, CHF, HTN, MT, hyperipidemia Pulmonary: COPD Renal/: Benign prostatic enlarg. 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 See HPI for pertinent positives and negative responses, other gupta all other systems are negative, non pertinent or non contributory Allergies: Coded Allergies: sulfamethoxazole (Verified Allergy, Intermediate, rash, 12/01/13) trimethoprim (Verified Allergy, Intermediate, rash, 12/01/13) quinine (Verified Allergy, Mild, rash, 12/01/13) Medications Current Medications Albuterol/ Ipratropium (Duoneb) 3 ml 1X ONCE NEB Last administered on at 22:06; Start 11/10/17 at 22:00; Stop 11/10/17 at 22:01; Status DC Methylprednisolone Sodium Succinate (SOLU-Medrol 125MG VIAL) 125 mg 1X ONCE IV Last administered on 11/10/17at 22:05; Start 11/10/17 at 22:00; Stop 11/10/17 at 22:01; Status DC Ondansetron HCl (Zofran) 4 mg PRN Q4HRS PRN IV NAUSEA/VOMITING; Start 11/10/17 at 23:15; Stop 11/11/17 at 23:14 Fentanyl Citrate (Fentanyl 2ml Vial) 50 mcg PRN Q2HR PRN IV PAIN; Start at 23:15; Stop 11/11/17 at 23:14 Levofloxacin/ Dextrose 100 ml @ 100 mls/hr 1X ONCE IV ; Start 11/10/17 at 23: 45; Stop 11/11/17 at 00:11; Status DC Levofloxacin/ Dextrose 100 ml @ 100 mls/hr 1X ONCE IV Last administered on at 01:11; Start 11/11/17 at 01:00; Stop 11/11/17 at 01:59; Status DC Albuterol/ Ipratropium (Duoneb) 3 ml RTQID NEB Last administered on 11/11/17at 09:39; Start 11/11/17 at 08:00 Methylprednisolone Sodium Succinate (SOLU-Medrol 125MG VIAL) 125 mg Q12HR IV Last administered on 11/11/17at 09:01; Start 11/11/17 at 09:00 Doxycycline Hyclate (Vibra-Tab) 100 mg [id number] PO Last administered on 11/11/17at 06:17; Start 11/11/17 at 07:00 Heparin Sodium (Porcine) (Heparin Sq) 5,000 unit Q12HR SQ Last administered on 11/11/17at 09:11; Start 11/11/17 at 09:00 Lactobacillus Rhamnosus (Culturelle) 1 cap BID PO ; Start 11/11/17 at 09:00 Active Scripts Active Reported Dulera 100 Mcg/5 Mcg Inhaler (Mometasone/Formoterol) 13 Gm Hfa.aer.ad 13 Gm IH Ventolin Hfa Inhaler (Albuterol Sulfate) 18 Gm Hfa.aer.ad 1 Puff IH PRN Q4HRS PRN Magnesium (Magnesium Oxide) 400 Mg Capsule 400 Mg PO DAILY Tylenol (Acetaminophen) 325 Mg Tablet 650 Mg PO BID Torsemide 20 Mg Tablet 20 Mg PO DAILY Carvedilol 25 Mg Tablet 25 Mg PO BID Amlodipine Besylate 2.5 Mg Tablet 2.5 Mg PO DAILY Aspirin Ec (Aspirin) 81 Mg Tablet. 1 Tab PO DAILY last dose today next dose tomorrow Gabapentin 300 Mg Capsule 300 Mg PO BID last dose this am next dose this pm Anoro Ellipta 62.5-25 Mcg Inh (Umeclidinium Brm/Vilanterol Tr) 1 Each Disk.w.dev 1 Puff IH DAILY resume today or tomorrow hospital does not carry Losartan Potassium 100 Mg Tablet 100 Mg PO HS last dose yesterday pm next dose this pm Duoneb 0.5-3(2.5) Mg/3 Ml (Albuterol/Ipratropium) 3 Ml Ampul.neb 3 Ml IH QID next dose as needed LAST DOSE: 5 am next dose as needed Proair Hfa Inhaler (Albuterol Sulfate) 8.5 Gm Hfa.aer.ad 2 Puff IH PRN BID PRN last dose today next dose this evening or as needed [place] 3 Fish Oil Softgel ([place]-3 Fatty Acids/Fish Oil) 1 Each Capsule. 1,000 Mg PO DAILY last dose this morning next dose tomorrow nxt dose: 12/23 AM Vitamin D (Cholecalciferol (Vitamin D3)) 1,000 Unit Capsule 1,000 Unit PO DAILY last dose today next dose tomorrow Metformin Hcl 500 Mg Tablet 500 Mg PO BID last dose this am next dose this pm Crestor (Rosuvastatin Calcium) 10 Mg Tablet 10 Mg PO QM-F last dose this morning (atorvastatin) next dose Monday last dose: 01-06 next dose mon 01-09 Allopurinol 300 Mg Tablet 300 Mg PO DAILY last dose last night next dose tonight nxt dose: 5 am Exam Vital Signs Vital Signs Date Time Temp Pulse Resp B/P (MAP) Pulse Ox O2 Delivery O2 Flow Rate FiO2 11/11/17 10:25 97.8 77 18 149/63 (91) 96 Nasal Cannula 2.0 General Appearance: Alert, Oriented X3, Cooperative, No acute distress HEENT: Atraumatic, PERRLA, EOMI, Mucous membr. moist/pink, Other (Neck supple, no JVD< no LAD, no bruits) Respiratory: Other (Scattered expiratory wheezes, no crackles, resp effort non- labored, on 2 liters O2) Heart: Regular rate, Normal S1, Normal S2 Abdominal: Normal bowel sounds, Soft, No tenderness, No hepatospenomegaly, No masses Extremities: No edema, Normal pulses, No tenderness/swelling Skin: No rashes, No breakdown Neuro: Normal speech, Strength at 5/5 X4 ext, Normal tone, Sensation intact, Cranial nerves 3-12 NL, Reflexes 2+ Psych/Mental Status: Mental status NL, Mood NL Assessment/Plan Assessment/Plan 1. Acute COPD exacerbation: Pt on nebs, O2 (only 2 liters), IV steroids, abx. If still doing well in AM will consider d/c home. 2. CHF: No evidence of heart failure. Stable, euvolemic. 3. CAD: NO chest pain, continue home meds. 4. Mild PEM: Encourage healthy diet. 5. DM2: Cont home meds. Monitor for need of SSI while on steroids. 6. DVT proph: Heparin. 7. Disp: Hopeful for d/c tomorrow if doing well. COURSE Allergies Coded Allergies Type Severity Reaction Last Updated Verified sulfamethoxazole Allergy Intermediate rash 12/01/13 Yes trimethoprim Allergy Intermediate rash 12/01/13 Yes quinine Allergy Mild rash 12/01/13 Yes Laboratory Tests Test 11/10/17 21:50 11/10/17 22:12 11/11/17 04:15 11/11/17 07:38 White Blood Count 7.2 x10^3/uL (4.0-11.0) 5.5 x10^3/uL (4.0-11.0) Red Blood Count 3.93 x10^6/uL (4.30-5.70) 3.96 x10^6/uL (4.30-5.70) Hemoglobin 12.6 g/dL (13.0-17.5) 12.5 g/dL (13.0-17.5) Hematocrit 36.9 % (39.0-53.0) 36.7 % (39.0-53.0) Mean Corpuscular Volume 94 fL (79-100) 93 fL (79-100) Mean Corpuscular Hemoglobin 32 pg (25-35) 31 pg (25-35) Mean Corpuscular Hemoglobin Concent 34 g/dL (31-37) 34 g/dL (31-37) Red Cell Distribution Width 14.7 % (11.5-14.5) 14.0 % (11.5-14.5) Platelet Count 213 x10^3/uL (140-400) 187 x10^3/uL (140-400) Neutrophils (%) (Auto) 63 % (31-73) 84 % (31-73) Lymphocytes (%) (Auto) 20 % (24-48) 14 % (24-48) Monocytes (%) (Auto) 10 % (0-9) 1 % (0-9) Eosinophils (%) (Auto) 5 % (0-3) 1 % (0-3) Basophils (%) (Auto) 1 % (0-3) 0 % (0-3) Neutrophils # (Auto) 4.6 x10^3uL (1.8-7.7) 4.6 x10^3uL (1.8-7.7) Lymphocytes # (Auto) 1.5 x10^3/uL (1.0-4.8) 0.8 x10^3/uL (1.0-4.8) Monocytes # (Auto) 0.7 x10^3/uL (0.0-1.1) 0.1 x10^3/uL (0.0-1.1) Eosinophils # (Auto) 0.4 x10^3/uL (0.0-0.7) 0.0 x10^3/uL (0.0-0.7) Basophils # (Auto) 0.1 x10^3/uL (0.0-0.2) 0.0 x10^3/uL (0.0-0.2) Prothrombin Time 10.1 SEC (9.4-11.4) Prothromb Time International Ratio 1.0 (0.9-1.1) Activated Partial Thromboplast Time 25 SEC (23-33) Sodium Level 133 mmol/L (136-145) 134 mmol/L (136-145) Potassium Level 4.0 mmol/L (3.5-5.1) 4.2 mmol/L (3.5-5.1) Chloride Level 97 mmol/L (98-107) 97 mmol/L (98-107) Carbon Dioxide Level 29 mmol/L (21-32) 26 mmol/L (21-32) Anion Gap 7 (6-14) 11 (6-14) Blood Urea Nitrogen 18 mg/dL (8-26) 18 mg/dL (8-26) Creatinine 1.0 mg/dL (0.7-1.3) 0.9 mg/dL (0.7-1.3) Estimated GFR (Cockcroft-Gault) 71.4 80.6 BUN/Creatinine Ratio 18 (6-20) 20 (6-20) Glucose Level 122 mg/dL (70-99) 173 mg/dL (70-99) Calcium Level 8.6 mg/dL (8.5-10.1) 8.6 mg/dL (8.5-10.1) Magnesium Level 1.7 mg/dL (1.8-2.4) Total Bilirubin 0.3 mg/dL (0.2-1.0) 0.3 mg/dL (0.2-1.0) Aspartate Amino Transf (AST/SGOT) 15 U/L (15-37) 16 U/L (15-37) Alanine Aminotransferase (ALT/SGPT) 10 U/L (16-63) 10 U/L (16-63) Alkaline Phosphatase 58 U/L (46-116) 61 U/L (46-116) Troponin I Quantitative < 0.017 ng/mL (0-0.055) < 0.017 ng/mL (0-0.055) PU-Wxd-T-Type Natriuretic Peptide 666 pg/mL (0-449) Total Protein 6.4 g/dL (6.4-8.2) 6.1 g/dL (6.4-8.2) Albumin 3.2 g/dL (3.4-5.0) 3.3 g/dL (3.4-5.0) Albumin/Globulin Ratio 1.0 (1.0-1.7) 1.2 (1.0-1.7) Glucose (Fingerstick) 189 mg/dL (70-99) Current Medications Medications (Trade) Dose Ordered Sig/Shirley Route PRN Reason Start Time Stop Time Status Last Admin Dose Admin Albuterol/ Ipratropium (Duoneb) 3 ml 1X ONCE NEB 11/10/17 22:00 11/10/17 22:01 DC 11/10/17 22:06 Methylprednisolone Sodium Succinate (SOLU-Medrol 125MG VIAL) 125 mg 1X ONCE IV 11/10/17 22:00 11/10/17 22:01 DC 11/10/17 22:05 Ondansetron HCl (Zofran) 4 mg PRN Q4HRS PRN IV NAUSEA/VOMITING 11/10/17 23:15 11/11/17 23:14 Fentanyl Citrate (Fentanyl 2ml Vial) 50 mcg PRN Q2HR PRN IV PAIN 11/10/17 23:15 11/11/17 23:14 Levofloxacin/ Dextrose 100 ml @ 100 mls/hr 1X ONCE IV 11/10/17 23:45 11/11/17 00:11 DC Levofloxacin/ Dextrose 100 ml @ 100 mls/hr 1X ONCE IV 11/11/17 01:00 11/11/17 01:59 DC 11/11/17 01:11 Albuterol/ Ipratropium (Duoneb) 3 ml RTQID NEB 11/11/17 08:00 11/11/17 09:39 Methylprednisolone Sodium Succinate (SOLU-Medrol 125MG VIAL) 125 mg Q12HR IV 11/11/17 09:00 11/11/17 09:01 Doxycycline Hyclate (Vibra-Tab) 100 mg [id number] PO 11/11/17 07:00 11/11/17 06:17 Heparin Sodium (Porcine) (Heparin Sq) 5,000 unit Q12HR SQ 11/11/17 09:00 11/11/17 09:11 Lactobacillus Rhamnosus (Culturelle) 1 cap BID PO 11/11/17 09:00 Vital Signs Date Time Temp Pulse Resp B/P (MAP) Pulse Ox O2 Delivery O2 Flow Rate FiO2 11/11/17 10:25 97.8 77 18 149/63 (91) 96 Nasal Cannula 2.0 LANDON YBARRA MD Nov 11, 2017 11:37
[2017-11-11] MEDS ORDERED: DEXTROSE 50% 25 GM / 50ML DISP.SYRIN. IV PRN (11:45)
[2017-11-11] MEDS: LACTOBACILLUS RHAMNOSUS GG 1 CAPSULE. PO SCH ×2 (14:46→20:18)
[2017-11-11] MEDS: GABAPENTIN 300 MG CAPSULE. PO SCH ×2 (14:46→20:17)
[2017-11-11] MEDS: TORSEMIDE 20 MG TABLET. PO SCH (14:46)
[2017-11-11] MEDS: MAGNESIUM OXIDE 400 MG TABLET PO SCH (14:47)
[2017-11-11] MEDS: ACETAMINOPHEN 325 MG TABLET PO SCH ×2 (14:47→20:18)
[2017-11-11] MEDS: amLODIPine BESYLATE 2.5 MG TABLET PO SCH (14:48)
[2017-11-11] MEDS: ALLOPURINOL 300 MG TABLET. PO SCH (14:48)
[2017-11-11] MEDS: CHOLECALCIFEROL (VITAMIN D3) 1,000 UNIT TABLET PO SCH (14:48)
[2017-11-11] MEDS: ASPIRIN ENTERIC COATED 81 MG TABLET.DR. PO SCH (14:48)
[2017-11-11] MEDS: ALBUTEROL SULFATE 2.5 MG/3 ML NEBU. NEB SCH ×2 (15:38→23:44)
[2017-11-11] MEDS: CARVEDILOL 12.5 MG TABLET PO SCH (17:28)
[2017-11-11] MEDS: metFORMIN 500 MG TABLET PO SCH (17:28)
[2017-11-11] MEDS: INSULIN ASPART 300 UNITS/3 ML INSULN.PEN SQ SCH ×2 (17:34→20:27)
[2017-11-11] MEDS: BUDESONIDE 0.5 MG/2 ML NEBU NEB SCH (21:42)
[2017-11-12] MEDS: ALBUTEROL SULFATE 2.5 MG/3 ML NEBU. NEB SCH (05:32)
[2017-11-12] MEDS: IPRATRPIUM/ALBUTEROL 0.5/2.5MG 3 ML NEBU. NEB SCH ×2 (05:52→09:38)
[2017-11-12] MEDS: DOXYCYCLINE HYCLATE 100 MG TABLET PO SCH (06:10)
[2017-11-12 06:46] LABS: ALBUMIN 3.3 g/dL (3.4-5.0); CALCIUM 8.7 mg/dL (8.5-10.1); CREATININE 0.9 mg/dL (0.7-1.3); GFR 80.6; TOTAL BILIRUBIN 0.3 mg/dL (0.2-1.0); TOTAL PROTEIN 6.5 g/dL (6.4-8.2)
[2017-11-12 06:51] LABS: BASO % 0 % (0-3); EOS % 0 % (0-3); HEMATOCRIT 36.3 % (39.0-53.0); LYMPH # 1.1 x10^3/uL (1.0-4.8); LYMPH % 7 % (24-48); MEAN CORPUSCULAR HEMOGLOBIN 31 pg (25-35); MEAN CORPUSCULAR HGB CONC 33 g/dL (31-37); MEAN CORPUSCULAR VOLUME 93 fL (79-100); MONO # 0.4 x10^3/uL (0.0-1.1); MONO % 2 % (0-9); NEUT # 15.3 x10^3uL (1.8-7.7); NEUT % 91 % (31-73); PLATELET COUNT 248 x10^3/uL (140-400); RED BLOOD COUNT 3.91 x10^6/uL (4.30-5.70); RED CELL DISTRIBUTION WIDTH 14.2 % (11.5-14.5); WHITE BLOOD COUNT 16.8 x10^3/uL (4.0-11.0)
[2017-11-12 06:58] VITALS: BP 156/73
[2017-11-12] MEDS: ALLOPURINOL 300 MG TABLET. PO SCH (08:17)
[2017-11-12] MEDS: LACTOBACILLUS RHAMNOSUS GG 1 CAPSULE. PO SCH (08:18)
[2017-11-12] MEDS: MAGNESIUM OXIDE 400 MG TABLET PO SCH (08:18)
[2017-11-12] MEDS: GABAPENTIN 300 MG CAPSULE. PO SCH (08:18)
[2017-11-12] MEDS: CHOLECALCIFEROL (VITAMIN D3) 1,000 UNIT TABLET PO SCH (08:18)
[2017-11-12] MEDS: ACETAMINOPHEN 325 MG TABLET PO SCH (08:18)
[2017-11-12 08:19] VITALS: BP 156/73
[2017-11-12] MEDS: amLODIPine BESYLATE 2.5 MG TABLET PO SCH (08:19)
[2017-11-12] MEDS: metFORMIN 500 MG TABLET PO SCH (08:19)
[2017-11-12] MEDS: CARVEDILOL 12.5 MG TABLET PO SCH (08:19)
[2017-11-12] MEDS: TORSEMIDE 20 MG TABLET. PO SCH (08:19)
[2017-11-12] MEDS: ASPIRIN ENTERIC COATED 81 MG TABLET.DR. PO SCH (08:20)
[2017-11-12] MEDS: methylPREDNISolone SOD SUCC PF 125 MG/2 ML VIAL. IV SCH (08:20)
[2017-11-12] MEDS: HEPARIN PF for SUB-Q USE 5,000 UNIT/0.5 ML VIAL. SQ SCH (08:24)
[2017-11-12 08:27] LABS: % BANDS 4 % (0-9); % LYMPHS 11 % (24-48); % MONOS 3 % (0-10); % SEGS 82 % (35-66); ANISOCYTOSIS SLIGHT; MICROCYTOSIS SLIGHT; OVALOCYTES OCC; PLT ESTIMATE ADEQUATE (ADEQUATE); TEAR DROP CELLS OCC
[2017-11-12 08:28] LABS: SMUDGE CELLS PRESENT
[2017-11-12] MEDS: INSULIN ASPART 300 UNITS/3 ML INSULN.PEN SQ SCH (08:35)
[2017-11-12] MEDS ORDERED: LOSARTAN 50 MG TABLET. PO SCH ×2 (09:00→21:00)
[2017-11-12] MEDS ORDERED: NON FORMULARY ITEM (Umeclidinium Brm/Vilanterol Tr (Anoro Ellipta 62.5-25 Mcg Inh) 1 PUFF) IH SCH (09:00)
[2017-11-12] MEDS: BUDESONIDE 0.5 MG/2 ML NEBU NEB SCH (09:38)
--- NOTE | 2017-11-12 09:46 | PDOC ---
PROGRESS NOTES Assessment 1. Acute COPD exacerbation: Pt on nebs, O2 (only 2 liters), IV steroids, abx. Consider d/c if pt feels able. Labs stable. 2. CHF: No evidence of heart failure. Stable, euvolemic. 3. CAD: NO chest pain, continue home meds. 4. Mild PEM: Encourage healthy diet. 5. DM2: Cont home meds. Sugars should improve as steroids are tapered. 6. DVT proph: Heparin. 7. Disp: Will d/w family about discharge planning. Problems: Plan of Care: see other orders Subjective Pt states he is feeling "pretty good." Ate a good breakfast this morning. Breathing is good. Denies chest pain, fever, n/v, diarrhea, rash, or dizziness. Pt states his daughter will be here soon and would like me to speak to her. Objective Vital Signs Date Time Temp Pulse Resp B/P (MAP) Pulse Ox O2 Delivery O2 Flow Rate FiO2 11/12/17 09:40 97 Nasal Cannula 2.0 11/12/17 08:19 92 156/73 11/12/17 06:58 98.2 20 Intake and Output 11/12/17 07:00 Intake Total 1500 ml Balance 1500 ml Intake Oral 1500 ml # Voids 3 Abdomen: Soft, No tenderness, No hepatospenomegaly, No masses Heart: Regular rate, Normal S1, Normal S2, No murmurs Extremities: No edema, Normal pulses, No tenderness/swelling General: Alert, Oriented X3, Cooperative, No acute distress HEENT: PERRLA, EOMI, Mucous membr. moist/pink Lungs: Other (Scattered exp wheezes, no crackles, resp effort non-labored.) Neck: No JVD, No thyromegaly, No LAD Neuro: Normal speech, Normal tone, Cranial nerves 3-12 NL Psych/Mental Status: Mental status NL, Mood NL Skin: No rashes, No breakdown Review of Relevant I have reviewed the following items maribell (where applicable) has been applied. Labs Laboratory Tests Test 11/10/17 21:50 11/10/17 22:12 11/11/17 04:15 11/11/17 07:38 White Blood Count 7.2 x10^3/uL (4.0-11.0) 5.5 x10^3/uL (4.0-11.0) Red Blood Count 3.93 x10^6/uL (4.30-5.70) 3.96 x10^6/uL (4.30-5.70) Hemoglobin 12.6 g/dL (13.0-17.5) 12.5 g/dL (13.0-17.5) Hematocrit 36.9 % (39.0-53.0) 36.7 % (39.0-53.0) Mean Corpuscular Volume 94 fL (79-100) 93 fL (79-100) Mean Corpuscular Hemoglobin 32 pg (25-35) 31 pg (25-35) Mean Corpuscular Hemoglobin Concent 34 g/dL (31-37) 34 g/dL (31-37) Red Cell Distribution Width 14.7 % (11.5-14.5) 14.0 % (11.5-14.5) Platelet Count 213 x10^3/uL (140-400) 187 x10^3/uL (140-400) Neutrophils (%) (Auto) 63 % (31-73) 84 % (31-73) Lymphocytes (%) (Auto) 20 % (24-48) 14 % (24-48) Monocytes (%) (Auto) 10 % (0-9) 1 % (0-9) Eosinophils (%) (Auto) 5 % (0-3) 1 % (0-3) Basophils (%) (Auto) 1 % (0-3) 0 % (0-3) Neutrophils # (Auto) 4.6 x10^3uL (1.8-7.7) 4.6 x10^3uL (1.8-7.7) Lymphocytes # (Auto) 1.5 x10^3/uL (1.0-4.8) 0.8 x10^3/uL (1.0-4.8) Monocytes # (Auto) 0.7 x10^3/uL (0.0-1.1) 0.1 x10^3/uL (0.0-1.1) Eosinophils # (Auto) 0.4 x10^3/uL (0.0-0.7) 0.0 x10^3/uL (0.0-0.7) Basophils # (Auto) 0.1 x10^3/uL (0.0-0.2) 0.0 x10^3/uL (0.0-0.2) Prothrombin Time 10.1 SEC (9.4-11.4) Prothromb Time International Ratio 1.0 (0.9-1.1) Activated Partial Thromboplast Time 25 SEC (23-33) Sodium Level 133 mmol/L (136-145) 134 mmol/L (136-145) Potassium Level 4.0 mmol/L (3.5-5.1) 4.2 mmol/L (3.5-5.1) Chloride Level 97 mmol/L (98-107) 97 mmol/L (98-107) Carbon Dioxide Level 29 mmol/L (21-32) 26 mmol/L (21-32) Anion Gap 7 (6-14) 11 (6-14) Blood Urea Nitrogen 18 mg/dL (8-26) 18 mg/dL (8-26) Creatinine 1.0 mg/dL (0.7-1.3) 0.9 mg/dL (0.7-1.3) Estimated GFR (Cockcroft-Gault) 71.4 80.6 BUN/Creatinine Ratio 18 (6-20) 20 (6-20) Glucose Level 122 mg/dL (70-99) 173 mg/dL (70-99) Calcium Level 8.6 mg/dL (8.5-10.1) 8.6 mg/dL (8.5-10.1) Magnesium Level 1.7 mg/dL (1.8-2.4) Total Bilirubin 0.3 mg/dL (0.2-1.0) 0.3 mg/dL (0.2-1.0) Aspartate Amino Transf (AST/SGOT) 15 U/L (15-37) 16 U/L (15-37) Alanine Aminotransferase (ALT/SGPT) 10 U/L (16-63) 10 U/L (16-63) Alkaline Phosphatase 58 U/L (46-116) 61 U/L (46-116) Troponin I Quantitative < 0.017 ng/mL (0-0.055) < 0.017 ng/mL (0-0.055) YQ-Zkn-[id number]-Type Natriuretic Peptide 666 pg/mL (0-449) Total Protein 6.4 g/dL (6.4-8.2) 6.1 g/dL (6.4-8.2) Albumin 3.2 g/dL (3.4-5.0) 3.3 g/dL (3.4-5.0) Albumin/Globulin Ratio 1.0 (1.0-1.7) 1.2 (1.0-1.7) Glucose (Fingerstick) 189 mg/dL (70-99) Test 11/11/17 11:27 11/11/17 16:22 11/11/17 19:47 11/12/17 06:13 Glucose (Fingerstick) 234 mg/dL (70-99) 171 mg/dL (70-99) 170 mg/dL (70-99) White Blood Count 16.8 x10^3/uL (4.0-11.0) Red Blood Count 3.91 x10^6/uL (4.30-5.70) Hemoglobin 12.0 g/dL (13.0-17.5) Hematocrit 36.3 % (39.0-53.0) Mean Corpuscular Volume 93 fL (79-100) Mean Corpuscular Hemoglobin 31 pg (25-35) Mean Corpuscular Hemoglobin Concent 33 g/dL (31-37) Red Cell Distribution Width 14.2 % (11.5-14.5) Platelet Count 248 x10^3/uL (140-400) Neutrophils (%) (Auto) 91 % (31-73) Lymphocytes (%) (Auto) 7 % (24-48) Monocytes (%) (Auto) 2 % (0-9) Eosinophils (%) (Auto) 0 % (0-3) Basophils (%) (Auto) 0 % (0-3) Neutrophils # (Auto) 15.3 x10^3uL (1.8-7.7) Lymphocytes # (Auto) 1.1 x10^3/uL (1.0-4.8) Monocytes # (Auto) 0.4 x10^3/uL (0.0-1.1) Eosinophils # (Auto) 0.0 x10^3/uL (0.0-0.7) Basophils # (Auto) 0.0 x10^3/uL (0.0-0.2) Segmented Neutrophils % 82 % (35-66) Band Neutrophils % 4 % (0-9) Lymphocytes % 11 % (24-48) Monocytes % 3 % (0-10) Smudge Cells Present Platelet Estimate Adequate (ADEQUATE) Anisocytosis Slight Microcytosis Slight Tear Drop Cells Occ Ovalocytes Occ Sodium Level 134 mmol/L (136-145) Potassium Level 4.0 mmol/L (3.5-5.1) Chloride Level 96 mmol/L (98-107) Carbon Dioxide Level 26 mmol/L (21-32) Anion Gap 12 (6-14) Blood Urea Nitrogen 20 mg/dL (8-26) Creatinine 0.9 mg/dL (0.7-1.3) Estimated GFR (Cockcroft-Gault) 80.6 BUN/Creatinine Ratio 22 (6-20) Glucose Level 175 mg/dL (70-99) Calcium Level 8.7 mg/dL (8.5-10.1) Total Bilirubin 0.3 mg/dL (0.2-1.0) Aspartate Amino Transf (AST/SGOT) 13 U/L (15-37) Alanine Aminotransferase (ALT/SGPT) 10 U/L (16-63) Alkaline Phosphatase 53 U/L (46-116) Total Protein 6.5 g/dL (6.4-8.2) Albumin 3.3 g/dL (3.4-5.0) Albumin/Globulin Ratio 1.0 (1.0-1.7) Test 11/12/17 07:36 Glucose (Fingerstick) 182 mg/dL (70-99) Medications Current Medications Albuterol/ Ipratropium (Duoneb) 3 ml 1X ONCE NEB Last administered on at 22:06; Start 11/10/17 at 22:00; Stop 11/10/17 at 22:01; Status DC Methylprednisolone Sodium Succinate (SOLU-Medrol 125MG VIAL) 125 mg 1X ONCE IV Last administered on 11/10/17at 22:05; Start 11/10/17 at 22:00; Stop 11/10/17 at 22:01; Status DC Ondansetron HCl (Zofran) 4 mg PRN Q4HRS PRN IV NAUSEA/VOMITING; Start 11/10/17 at 23:15; Stop 11/11/17 at 23:14; Status DC Fentanyl Citrate (Fentanyl 2ml Vial) 50 mcg PRN Q2HR PRN IV PAIN; Start at 23:15; Stop 11/11/17 at 23:14; Status DC Levofloxacin/ Dextrose 100 ml @ 100 mls/hr 1X ONCE IV ; Start 11/10/17 at 23: 45; Stop 11/11/17 at 00:11; Status DC Levofloxacin/ Dextrose 100 ml @ 100 mls/hr 1X ONCE IV Last administered on at 01:11; Start 11/11/17 at 01:00; Stop 11/11/17 at 01:59; Status DC Albuterol/ Ipratropium (Duoneb) 3 ml RTQID NEB Last administered on 11/12/17at 09:38; Start 11/11/17 at 08:00 Methylprednisolone Sodium Succinate (SOLU-Medrol 125MG VIAL) 125 mg Q12HR IV Last administered on 11/12/17at 08:20; Start 11/11/17 at 09:00 Doxycycline Hyclate (Vibra-Tab) 100 mg [id number] PO Last administered on 11/12/17at 06:10; Start 11/11/17 at 07:00 Heparin Sodium (Porcine) (Heparin Sq) 5,000 unit Q12HR SQ Last administered on 11/12/17at 08:24; Start 11/11/17 at 09:00 Lactobacillus Rhamnosus (Culturelle) 1 cap BID PO Last administered on at 08:18; Start 11/11/17 at 09:00 Acetaminophen (Tylenol) 650 mg BID PO Last administered on 11/12/17at 08:18; Start 11/11/17 at 13:00 Allopurinol (Zyloprim) 300 mg DAILY PO Last administered on 11/12/17 08:17; Start 11/11/17 at 13:00 Amlodipine Besylate (Norvasc) 2.5 mg DAILY PO Last administered on 11/12/17 08 :19; Start 11/11/17 at 13:00 Aspirin (Aspirin Enteric Coated) 81 mg DAILY PO Last administered on 11/12/17at 08:20; Start 11/11/17 at 13:00 Gabapentin (Neurontin) 300 mg BID PO Last administered on 11/12/17at 08:18; Start 11/11/17 at 13:00 Metformin HCl (Glucophage) 500 mg BIDWMEALS PO Last administered on 11/12/17 08:19; Start 11/11/17 at 17:00 Torsemide (Demadex) 20 mg DAILY PO Last administered on 11/12/17 08:19; Start 11/11/17 at 13:00 Carvedilol (Coreg) 25 mg BIDWMEALS PO Last administered on 11/12/17 08:19; Start 11/11/17 at 17:00 Vitamin D (Vitamin D3) 1,000 unit DAILY PO Last administered on 11/12/17at 08:18 ; Start 11/11/17 at 13:00 Losartan Potassium (Cozaar) 100 mg QHS PO ; Start 11/12/17 at 09:00; Status Cancel Magnesium Oxide (Magnesium Oxide) 400 mg DAILY PO Last administered on at 08:18; Start 11/11/17 at 13:00 Atorvastatin Calcium (Lipitor) 70 mg QM-F PO ; Start 11/13/17 at 16:00 Non-Formulary Medication (Umeclidinium Brm/Vilanterol Tr (Anoro Ellipta 62.5-25 Mcg Inh)) 1 puff DAILY IH ; Start 11/12/17 at 09:00; Status UNV Insulin Aspart (NovoLOG) 0-5 UNITS QIDACHS SQ Last administered on 11/12/17at 08 :35; Start 11/11/17 at 16:30 Dextrose 12.5 gm PRN Q15MIN PRN IV SEE COMMENTS; Start 11/11/17 at 11:45 Albuterol Sulfate (Ventolin) 2.5 mg Q6HRS NEB Last administered on 11/11/17at 23 :44; Start 11/11/17 at 18:00 Budesonide (Pulmicort) 0.5 mg RTBID NEB Last administered on 11/12/17at 09:38; Start 11/11/17 at 20:00 Losartan Potassium (Cozaar) 100 mg QHS PO ; Start 11/12/17 at 21:00 Active Scripts Active Reported Dulera 100 Mcg/5 Mcg Inhaler (Mometasone/Formoterol) 13 Gm Hfa.aer.ad 13 Gm IH Ventolin Hfa Inhaler (Albuterol Sulfate) 18 Gm Hfa.aer.ad 1 Puff IH PRN Q4HRS PRN Magnesium (Magnesium Oxide) 400 Mg Capsule 400 Mg PO DAILY Tylenol (Acetaminophen) 325 Mg Tablet 650 Mg PO BID Torsemide 20 Mg Tablet 20 Mg PO DAILY Carvedilol 25 Mg Tablet 25 Mg PO BID Amlodipine Besylate 2.5 Mg Tablet 2.5 Mg PO DAILY Aspirin Ec (Aspirin) 81 Mg Tablet. 1 Tab PO DAILY last dose today next dose tomorrow Gabapentin 300 Mg Capsule 300 Mg PO BID last dose this am next dose this pm Anoro Ellipta 62.5-25 Mcg Inh (Umeclidinium Brm/Vilanterol Tr) 1 Each Disk.w.dev 1 Puff IH DAILY resume today or tomorrow hospital does not carry Losartan Potassium 100 Mg Tablet 100 Mg PO HS last dose yesterday pm next dose this pm Duoneb 0.5-3(2.5) Mg/3 Ml (Albuterol/Ipratropium) 3 Ml Ampul.neb 3 Ml IH QID next dose as needed LAST DOSE: 5 am next dose as needed Proair Hfa Inhaler (Albuterol Sulfate) 8.5 Gm Hfa.aer.ad 2 Puff IH PRN BID PRN last dose today next dose this evening or as needed [place] 3 Fish Oil Softgel ([place]-3 Fatty Acids/Fish Oil) 1 Each Capsule. 1,000 Mg PO DAILY last dose this morning next dose tomorrow nxt dose: 5 AM Vitamin D (Cholecalciferol (Vitamin D3)) 1,000 Unit Capsule 1,000 Unit PO DAILY last dose today next dose tomorrow Metformin Hcl 500 Mg Tablet 500 Mg PO BID last dose this am next dose this pm Crestor (Rosuvastatin Calcium) 10 Mg Tablet 10 Mg PO QM-F last dose this morning (atorvastatin) next dose Monday last dose: 5- next dose mon- Allopurinol 300 Mg Tablet 300 Mg PO DAILY last dose last night next dose tonight nxt dose: 5/5 am Vitals/I & O Vital Sign - Last 24 Hours 11/11/17 11/11/17 11/11/17 11/11/17 10:25 14:42 14:48 15:39 Temp 97.8 97.4 Pulse 77 84 84 Resp 18 20 B/P (MAP) 149/63 (91) 170/68 (102) 170/68 Pulse Ox 96 95 95 O2 Delivery Nasal Cannula Nasal Cannula Nasal Cannula O2 Flow Rate 2.0 2.0 2.0 11/11/17 11/11/17 11/11/17 11/11/17 17:28 19:15 19:50 20:53 Temp 98.0 Pulse 84 83 Resp 20 B/P (MAP) 170/68 138/71 (93) Pulse Ox 95 98 O2 Delivery Nasal Cannula Nasal Cannula Nasal Cannula O2 Flow Rate 2.0 2.0 2.0 11/11/17 11/12/17 11/12/17 11/12/17 23:27 05:31 06:58 08:19 Temp 97.7 98.2 Pulse 76 92 92 Resp 20 20 B/P (MAP) 143/63 (89) 156/73 (100) 156/73 Pulse Ox 95 94 O2 Delivery Nasal Cannula Nasal Cannula Nasal Cannula O2 Flow Rate 2.0 2.0 2.0 11/12/17 11/12/17 08:19 09:40 Pulse 92 B/P (MAP) 156/73 Pulse Ox 97 O2 Delivery Nasal Cannula O2 Flow Rate 2.0 Intake and Output 11/11/17 11/11/17 11/12/17 15:00 23:00 07:00 Intake Total 960 ml 240 ml 300 ml Balance 960 ml 240 ml 300 ml LANDON YBARRA MD Nov 12, 2017 09:46
[2017-11-12] MEDS ORDERED: PRED-220 PO (09:59)
[2017-11-12] MEDS ORDERED: DOXY100T PO (09:59)
--- NOTE | 2017-11-12 10:01 | DISCH ---
DISCHARGE INSTRUCTIONS-DC Condition on Discharge Condition on Discharge: Stable Problems: Activity after Discharge Activity Instructions for Disc: Activity as tolerated Diet after Discharge Diet after Discharge: Diabetic No Calorie Level Checks after Discharge Checks after discharge: Check blood sugar, ac/hs Contacting the DRMaritza after DC Call your doctor for: If your condition worsens Follow-Up Follow up with: PCP in 1-2 weeks Follow up with: Dr. Morgan (pulmonology) in 1-2 weeks LANDON YBARRA MD Nov 12, 2017 10:01
--- NOTE | 2017-11-12 10:05 | PDOC3 ---
Discharge Summary Discharge Summary Date of Admission Date of Admission: Nov 10, 2017 at 23:12 Admitting Diagnosis 1. Acute COPD exacerbation 2. Diabetes, Type 2 3. CAD 4. Mild PEM 5. HTN 6. Leukocytosis (steroid-induced) Date of Discharge: Nov 12, 2017 Discharge Diagnosis 1. Acute COPD exacerbation 2. Diabetes, Type 2 3. CAD 4. Mild PEM 5. HTN 6. Leukocytosis (steroid-induced) Laboratory Findings Laboratory Tests Test 11/10/17 21:50 11/10/17 22:12 11/11/17 04:15 11/11/17 07:38 White Blood Count 7.2 x10^3/uL (4.0-11.0) 5.5 x10^3/uL (4.0-11.0) Red Blood Count 3.93 x10^6/uL (4.30-5.70) 3.96 x10^6/uL (4.30-5.70) Hemoglobin 12.6 g/dL (13.0-17.5) 12.5 g/dL (13.0-17.5) Hematocrit 36.9 % (39.0-53.0) 36.7 % (39.0-53.0) Mean Corpuscular Volume 94 fL (79-100) 93 fL (79-100) Mean Corpuscular Hemoglobin 32 pg (25-35) 31 pg (25-35) Mean Corpuscular Hemoglobin Concent 34 g/dL (31-37) 34 g/dL (31-37) Red Cell Distribution Width 14.7 % (11.5-14.5) 14.0 % (11.5-14.5) Platelet Count 213 x10^3/uL (140-400) 187 x10^3/uL (140-400) Neutrophils (%) (Auto) 63 % (31-73) 84 % (31-73) Lymphocytes (%) (Auto) 20 % (24-48) 14 % (24-48) Monocytes (%) (Auto) 10 % (0-9) 1 % (0-9) Eosinophils (%) (Auto) 5 % (0-3) 1 % (0-3) Basophils (%) (Auto) 1 % (0-3) 0 % (0-3) Neutrophils # (Auto) 4.6 x10^3uL (1.8-7.7) 4.6 x10^3uL (1.8-7.7) Lymphocytes # (Auto) 1.5 x10^3/uL (1.0-4.8) 0.8 x10^3/uL (1.0-4.8) Monocytes # (Auto) 0.7 x10^3/uL (0.0-1.1) 0.1 x10^3/uL (0.0-1.1) Eosinophils # (Auto) 0.4 x10^3/uL (0.0-0.7) 0.0 x10^3/uL (0.0-0.7) Basophils # (Auto) 0.1 x10^3/uL (0.0-0.2) 0.0 x10^3/uL (0.0-0.2) Prothrombin Time 10.1 SEC (9.4-11.4) Prothromb Time International Ratio 1.0 (0.9-1.1) Activated Partial Thromboplast Time 25 SEC (23-33) Sodium Level 133 mmol/L (136-145) 134 mmol/L (136-145) Potassium Level 4.0 mmol/L (3.5-5.1) 4.2 mmol/L (3.5-5.1) Chloride Level 97 mmol/L (98-107) 97 mmol/L (98-107) Carbon Dioxide Level 29 mmol/L (21-32) 26 mmol/L (21-32) Anion Gap 7 (6-14) 11 (6-14) Blood Urea Nitrogen 18 mg/dL (8-26) 18 mg/dL (8-26) Creatinine 1.0 mg/dL (0.7-1.3) 0.9 mg/dL (0.7-1.3) Estimated GFR (Cockcroft-Gault) 71.4 80.6 BUN/Creatinine Ratio 18 (6-20) 20 (6-20) Glucose Level 122 mg/dL (70-99) 173 mg/dL (70-99) Calcium Level 8.6 mg/dL (8.5-10.1) 8.6 mg/dL (8.5-10.1) Magnesium Level 1.7 mg/dL (1.8-2.4) Total Bilirubin 0.3 mg/dL (0.2-1.0) 0.3 mg/dL (0.2-1.0) Aspartate Amino Transf (AST/SGOT) 15 U/L (15-37) 16 U/L (15-37) Alanine Aminotransferase (ALT/SGPT) 10 U/L (16-63) 10 U/L (16-63) Alkaline Phosphatase 58 U/L (46-116) 61 U/L (46-116) Troponin I Quantitative < 0.017 ng/mL (0-0.055) < 0.017 ng/mL (0-0.055) PV-Bug-L-Type Natriuretic Peptide 666 pg/mL (0-449) Total Protein 6.4 g/dL (6.4-8.2) 6.1 g/dL (6.4-8.2) Albumin 3.2 g/dL (3.4-5.0) 3.3 g/dL (3.4-5.0) Albumin/Globulin Ratio 1.0 (1.0-1.7) 1.2 (1.0-1.7) Glucose (Fingerstick) 189 mg/dL (70-99) Test 11/11/17 11:27 11/11/17 16:22 11/11/17 19:47 11/12/17 06:13 Glucose (Fingerstick) 234 mg/dL (70-99) 171 mg/dL (70-99) 170 mg/dL (70-99) White Blood Count 16.8 x10^3/uL (4.0-11.0) Red Blood Count 3.91 x10^6/uL (4.30-5.70) Hemoglobin 12.0 g/dL (13.0-17.5) Hematocrit 36.3 % (39.0-53.0) Mean Corpuscular Volume 93 fL (79-100) Mean Corpuscular Hemoglobin 31 pg (25-35) Mean Corpuscular Hemoglobin Concent 33 g/dL (31-37) Red Cell Distribution Width 14.2 % (11.5-14.5) Platelet Count 248 x10^3/uL (140-400) Neutrophils (%) (Auto) 91 % (31-73) Lymphocytes (%) (Auto) 7 % (24-48) Monocytes (%) (Auto) 2 % (0-9) Eosinophils (%) (Auto) 0 % (0-3) Basophils (%) (Auto) 0 % (0-3) Neutrophils # (Auto) 15.3 x10^3uL (1.8-7.7) Lymphocytes # (Auto) 1.1 x10^3/uL (1.0-4.8) Monocytes # (Auto) 0.4 x10^3/uL (0.0-1.1) Eosinophils # (Auto) 0.0 x10^3/uL (0.0-0.7) Basophils # (Auto) 0.0 x10^3/uL (0.0-0.2) Segmented Neutrophils % 82 % (35-66) Band Neutrophils % 4 % (0-9) Lymphocytes % 11 % (24-48) Monocytes % 3 % (0-10) Smudge Cells Present Platelet Estimate Adequate (ADEQUATE) Anisocytosis Slight Microcytosis Slight Tear Drop Cells Occ Ovalocytes Occ Sodium Level 134 mmol/L (136-145) Potassium Level 4.0 mmol/L (3.5-5.1) Chloride Level 96 mmol/L (98-107) Carbon Dioxide Level 26 mmol/L (21-32) Anion Gap 12 (6-14) Blood Urea Nitrogen 20 mg/dL (8-26) Creatinine 0.9 mg/dL (0.7-1.3) Estimated GFR (Cockcroft-Gault) 80.6 BUN/Creatinine Ratio 22 (6-20) Glucose Level 175 mg/dL (70-99) Calcium Level 8.7 mg/dL (8.5-10.1) Total Bilirubin 0.3 mg/dL (0.2-1.0) Aspartate Amino Transf (AST/SGOT) 13 U/L (15-37) Alanine Aminotransferase (ALT/SGPT) 10 U/L (16-63) Alkaline Phosphatase 53 U/L (46-116) Total Protein 6.5 g/dL (6.4-8.2) Albumin 3.3 g/dL (3.4-5.0) Albumin/Globulin Ratio 1.0 (1.0-1.7) Test 11/12/17 07:36 Glucose (Fingerstick) 182 mg/dL (70-99) Hospital Course Pt was admitted through the ER w/ shortness of breath. Had c/o a cold a few days prior to presentation. CXR showed scarring in the bases, no pneumonia. Initial WBC (x 2 days) were normal. Pt was afebrile. Treated w/ high dose IV steroids and PO doxycycline. Pt normally wears 4 liters O2 at home, was on 2 liters here. States he wears higher concentration at home because his tubing is so long and it doesn't work as well. Pt did develop a leukocytosis of 15K on 11/12, which was felt to be steroid-induced. Pt has been steadily improving. BG's were in 180's on high dose steroids, should improve as he tapers down. Metformin restarted at discharge. Pt advised to f/u with Dr. Morgan and his PCP. No home meds were changed. Condition at Discharge: Stable. Home Meds Reported Medications Mometasone/Formoterol (DULERA 100 MCG/5 MCG INHALER) 13 Gm Hfa.aer.ad, 13 GM IH , INHALER 11/11/17 Albuterol Sulfate (VENTOLIN HFA INHALER) 18 Gm Hfa.aer.ad, 1 PUFF IH PRN Q4HRS Y for FOR ASTHMA, INHALER 0 Refills 11/11/17 Magnesium Oxide (MAGNESIUM) 400 Mg Capsule, 400 MG PO DAILY, CAP 11/11/17 Acetaminophen (TYLENOL) 325 Mg Tablet, 650 MG PO BID, TAB 11/11/17 Torsemide (TORSEMIDE) 20 Mg Tablet, 20 MG PO DAILY, TAB 11/11/17 Carvedilol (CARVEDILOL) 25 Mg Tablet, 25 MG PO BID, TAB 11/11/17 Amlodipine Besylate (AMLODIPINE BESYLATE) 2.5 Mg Tablet, 2.5 MG PO DAILY, TAB 11/11/17 Aspirin (ASPIRIN EC) 81 Mg Tablet.dr, 1 TAB PO DAILY last dose today next dose tomorrow 01/05/17 Gabapentin (GABAPENTIN) 300 Mg Capsule, 300 MG PO BID for neuropathy last dose this am next dose this pm 01/05/17 Umeclidinium Brm/Vilanterol Tr (ANORO ELLIPTA 62.5-25 MCG INH) 1 Each Disk.w.dev , 1 PUFF IH DAILY resume today or tomorrow hospital does not carry 01/05/17 Losartan Potassium (LOSARTAN POTASSIUM) 100 Mg Tablet, 100 MG PO HS for blood pressure, TAB last dose yesterday pm next dose this pm 03/01/16 Ipratropium/Albuterol Sulfate (DUONEB 0.5-3(2.5) MG/3 ML) 3 Ml Ampul.neb, 3 ML IH QID for shortness of breath next dose as needed LAST DOSE: 12/22 am next dose as needed 05/09/14 Albuterol Sulfate (PROAIR HFA INHALER) 8.5 Gm Hfa.aer.ad, 2 PUFF IH PRN BID Y for SHORTNESS OF BREATH last dose today next dose this evening or as needed 12/01/13 [place]-3 Fatty Acids/Fish Oil (OMEGA 3 FISH OIL SOFTGEL) 1 Each Capsule.dr, 1000 MG PO DAILY for supplement, #1 last dose this morning next dose tomorrow nxt dose: 12/2308/12/13 Cholecalciferol (Vitamin D3) (VITAMIN D) 1,000 Unit Capsule, 1000 UNIT PO DAILY for vitamin, #1 last dose today next dose tomorrow 08/12/13 Metformin Hcl (METFORMIN HCL) 500 Mg Tablet, 500 MG PO BID for diabetes, #1 last dose this am next dose this pm 08/12/13 Rosuvastatin Calcium (CRESTOR) 10 Mg Tablet, 10 MG PO QM-F for high cholesterol last dose this morning (atorvastatin) next dose Monday last dose: 5-19 next dose mon -08/12/13 Allopurinol (ALLOPURINOL) 300 Mg Tablet, 300 MG PO DAILY for gout last dose last night next dose tonight nxt dose: 12/23 am 08/12/13 Discontinued Reported Medications Torsemide (TORSEMIDE) 20 Mg Tablet, 0.5 TAB PO DAILY, #90 TAB 1 Refill resume tomorrow 01/28/17 Niacin (NIASPAN) 500 Mg Tab.er.24h, 1 TAB PO BID, #30 TAB 5 Refills last dose this morning next dose tonight 01/28/17 Nebivolol Hcl (BYSTOLIC) 10 Mg Tablet, 1 TAB PO DAILY, #90 TAB 1 Refill last dose this morning (metoprolol) nest dose tomorrow 01/28/17 Tiotropium Filer (SPIRIVA) 18 Mcg Cap.w.dev, 1 CAP IH DAILY for shortness of breath last dose this am next dose tomorrow 01/05/17 Nitroglycerin (NITROSTAT) 0.4 Mg Tab.subl, 1 TAB SL PRN Q5MIN Y for CHEST PAIN next dose anytime 01/05/17 Mag Carb/Al Hydrox/Alginic Ac (ACID GONE ANTACID LIQUID) 355 Ml Oral.susp, 30 ML PO PRN Y for HEARTBURN / GAS next dose anytime 01/05/17 Magnesium Oxide (MAGNESIUM OXIDE) 250 Mg Tablet, 250 MG PO DAILY for supplement last dose this am next dose tomorrow nxt dose: 12/23 am 08/12/13 Inpatient Meds Current Medications Albuterol/ Ipratropium (Duoneb) 3 ml 1X ONCE NEB Last administered on at 22:06; Start 11/10/17 at 22:00; Stop 11/10/17 at 22:01; Status DC Methylprednisolone Sodium Succinate (SOLU-Medrol 125MG VIAL) 125 mg 1X ONCE IV Last administered on 11/10/17at 22:05; Start 11/10/17 at 22:00; Stop 11/10/17 at 22:01; Status DC Ondansetron HCl (Zofran) 4 mg PRN Q4HRS PRN IV NAUSEA/VOMITING; Start 11/10/17 at 23:15; Stop 11/11/17 at 23:14; Status DC Fentanyl Citrate (Fentanyl 2ml Vial) 50 mcg PRN Q2HR PRN IV PAIN; Start at 23:15; Stop 11/11/17 at 23:14; Status DC Levofloxacin/ Dextrose 100 ml @ 100 mls/hr 1X ONCE IV ; Start 11/10/17 at 23: 45; Stop 11/11/17 at 00:11; Status DC Levofloxacin/ Dextrose 100 ml @ 100 mls/hr 1X ONCE IV Last administered on at 01:11; Start 11/11/17 at 01:00; Stop 11/11/17 at 01:59; Status DC Albuterol/ Ipratropium (Duoneb) 3 ml RTQID NEB Last administered on 11/12/17at 09:38; Start 11/11/17 at 08:00 Methylprednisolone Sodium Succinate (SOLU-Medrol 125MG VIAL) 125 mg Q12HR IV Last administered on 11/12/17 08:20; Start 11/11/17 at 09:00 Doxycycline Hyclate (Vibra-Tab) 100 mg [id number] PO Last administered on 11/12/17 06:10; Start 11/11/17 at 07:00 Heparin Sodium (Porcine) (Heparin Sq) 5,000 unit Q12HR SQ Last administered on 11/12/17 08:24; Start 11/11/17 at 09:00 Lactobacillus Rhamnosus (Culturelle) 1 cap BID PO Last administered on 08:18; Start 11/11/17 at 09:00 Acetaminophen (Tylenol) 650 mg BID PO Last administered on 11/12/17 08:18; Start 11/11/17 at 13:00 Allopurinol (Zyloprim) 300 mg DAILY PO Last administered on 11/12/17 08:17; Start 11/11/17 at 13:00 Amlodipine Besylate (Norvasc) 2.5 mg DAILY PO Last administered on 11/12/17 08 :19; Start 11/11/17 at 13:00 Aspirin (Aspirin Enteric Coated) 81 mg DAILY PO Last administered on 11/12/17 08:20; Start 11/11/17 at 13:00 Gabapentin (Neurontin) 300 mg BID PO Last administered on 11/12/17 08:18; Start 11/11/17 at 13:00 Metformin HCl (Glucophage) 500 mg BIDWMEALS PO Last administered on 11/12/17 08:19; Start 11/11/17 at 17:00 Torsemide (Demadex) 20 mg DAILY PO Last administered on 11/12/17 08:19; Start 11/11/17 at 13:00 Carvedilol (Coreg) 25 mg BIDWMEALS PO Last administered on 11/12/17 08:19; Start 11/11/17 at 17:00 Vitamin D (Vitamin D3) 1,000 unit DAILY PO Last administered on 11/12/17 08:18 ; Start 11/11/17 at 13:00 Losartan Potassium (Cozaar) 100 mg QHS PO ; Start 11/12/17 at 09:00; Status Cancel Magnesium Oxide (Magnesium Oxide) 400 mg DAILY PO Last administered on 08:18; Start 11/11/17 at 13:00 Atorvastatin Calcium (Lipitor) 70 mg QM-F PO ; Start 11/13/17 at 16:00 Non-Formulary Medication (Umeclidinium Brm/Vilanterol Tr (Anoro Ellipta 62.5-25 Mcg Inh)) 1 puff DAILY IH ; Start 11/12/17 at 09:00; Status UNV Insulin Aspart (NovoLOG) 0-5 UNITS QIDACHS SQ Last administered on 11/12/17at 08 :35; Start 11/11/17 at 16:30 Dextrose 12.5 gm PRN Q15MIN PRN IV SEE COMMENTS; Start 11/11/17 at 11:45 Albuterol Sulfate (Ventolin) 2.5 mg Q6HRS NEB Last administered on 11/11/17at 23 :44; Start 11/11/17 at 18:00 Budesonide (Pulmicort) 0.5 mg RTBID NEB Last administered on 11/12/17at 09:38; Start 11/11/17 at 20:00 Losartan Potassium (Cozaar) 100 mg QHS PO ; Start 11/12/17 at 21:00 Active Scripts Active Reported Dulera 100 Mcg/5 Mcg Inhaler (Mometasone/Formoterol) 13 Gm Hfa.aer.ad 13 Gm IH Ventolin Hfa Inhaler (Albuterol Sulfate) 18 Gm Hfa.aer.ad 1 Puff IH PRN Q4HRS PRN Magnesium (Magnesium Oxide) 400 Mg Capsule 400 Mg PO DAILY Tylenol (Acetaminophen) 325 Mg Tablet 650 Mg PO BID Torsemide 20 Mg Tablet 20 Mg PO DAILY Carvedilol 25 Mg Tablet 25 Mg PO BID Amlodipine Besylate 2.5 Mg Tablet 2.5 Mg PO DAILY Aspirin Ec (Aspirin) 81 Mg Tablet.dr 1 Tab PO DAILY last dose today next dose tomorrow Gabapentin 300 Mg Capsule 300 Mg PO BID last dose this am next dose this pm Anoro Ellipta 62.5-25 Mcg Inh (Umeclidinium Brm/Vilanterol Tr) 1 Each Disk.w.dev 1 Puff IH DAILY resume today or tomorrow hospital does not carry Losartan Potassium 100 Mg Tablet 100 Mg PO HS last dose yesterday pm next dose this pm Duoneb 0.5-3(2.5) Mg/3 Ml (Albuterol/Ipratropium) 3 Ml Ampul.neb 3 Ml IH QID next dose as needed LAST DOSE: 5/4 am next dose as needed Proair Hfa Inhaler (Albuterol Sulfate) 8.5 Gm Hfa.aer.ad 2 Puff IH PRN BID PRN last dose today next dose this evening or as needed [place] 3 Fish Oil Softgel ([place]-3 Fatty Acids/Fish Oil) 1 Each Capsule. 1,000 Mg PO DAILY last dose this morning next dose tomorrow nxt dose: 55 AM Vitamin D (Cholecalciferol (Vitamin D3)) 1,000 Unit Capsule 1,000 Unit PO DAILY last dose today next dose tomorrow Metformin Hcl 500 Mg Tablet 500 Mg PO BID last dose this am next dose this pm Crestor (Rosuvastatin Calcium) 10 Mg Tablet 10 Mg PO QM-F last dose this morning (atorvastatin) next dose Monday last dose: 5- next dose mon - Allopurinol 300 Mg Tablet 300 Mg PO DAILY last dose last night next dose tonight nxt dose: 5 am Activity: as tolerated Diet: Consistent Carbohydrate Follow-up Plan F/u with PCP in 1-2 weeks F/u with Pulmonology (Dr. Morgan) in 1-2 weeks LANDON YBARRA MD Nov 12, 2017 10:05
[2017-11-13] MEDS ORDERED: ATORVASTATIN CALCIUM 20 MG TABLET PO SCH (16:00)
== END 2017-11-12 11:05 | disposition home or self-care (01) | DRG 191 ==
LOC: ER 21:25 → 1 SOUTH 23:12 → ER 11-11 00:10
PROVIDERS: ADMIT Family Medicine; ATTEND Family Medicine
DX: J44.1 Chronic obstructive pulmonary disease with (acute) exacerbation (principal); E44.1 Mild protein-calorie malnutrition; E11.40 Type 2 diabetes mellitus with diabetic neuropathy, unspecified; I11.0 Hypertensive heart disease with heart failure; I50.9 Heart failure, unspecified; I25.10 Atherosclerotic heart disease of native coronary artery without angina pectoris; E78.00 Pure hypercholesterolemia, unspecified; M10.9 Gout, unspecified; E78.5 Hyperlipidemia, unspecified; D72.828 Other elevated white blood cell count; T38.0X5A Adverse effect of glucocorticoids and synthetic analogues, initial encounter; Z99.81 Dependence on supplemental oxygen; Z79.82 Long term (current) use of aspirin; Z79.84 Long term (current) use of oral hypoglycemic drugs; Z79.899 Other long term (current) drug therapy; Z87.891 Personal history of nicotine dependence; Z95.1 Presence of aortocoronary bypass graft; Z95.5 Presence of coronary angioplasty implant and graft; Z88.2 Allergy status to sulfonamides; Z88.1 Allergy status to other antibiotic agents; Z88.8 Allergy status to other drugs, medicaments and biological substances; Z89.421 Acquired absence of other right toe(s); Z90.79 Acquired absence of other genital organ(s); Z68.26 Body mass index [BMI] 26.0-26.9, adult; I25.2 Old myocardial infarction; Z98.42 Cataract extraction status, left eye; Z98.41 Cataract extraction status, right eye; Y92.239 Unspecified place in hospital as the place of occurrence of the external cause
CPT/HCPCS: 36415; 71045; 80053; 82947; 83735; 83880; 84484; 85007; 85025; 85610; 85730; 93005; 94640; 96374; J1815; J1956; J2930; J7613; J7620; J7626; 99285-25

== ENCOUNTER 2017-12-20 07:30 | Inpatient (IN) | payer MEDICARE ==
[~2017-12-20] VITALS: Ht 180.3 cm; Wt 81.6 kg
[~2017-12-20 07:30] MED LIST changes: +ACET325T9 PO; +ALBU18HF IH; +DOXY100T PO; +MAGN400C PO; -METF500T4 PO; +METF500T5 PO; +MOME13HF2 IH
--- NOTE | 2017-12-20 07:55 | EKG ---
[address] [address] Test Date: 2017-12-20 Test Time: 07:51:11 Pat Name: ANASTASIA MARMOLEJO Department: Room: Gender: M Group Therapist: : 1935 Requested By: GRIS KHANNA Order Number: [id number] Reading MD: Aron Ortiz MD Measurements Intervals [place] Rate: 88 P: -90 PA: 192 QRS: 75 QRSD: 104 T: 14 QT: 338 QTc: 412 Interpretive Statements SINUS RHYTHM PVC 1ST DEGREE AVB Electronically Signed On 12-28-2017 11:40:49 CDT by rAon Ortiz MD
[2017-12-20 08:20] LABS: BASO # 0.1 x10^3/uL (0.0-0.2); BASO % 1 % (0-3); EOS # 0.1 x10^3/uL (0.0-0.7); EOS % 2 % (0-3); HEMATOCRIT 35.8 % (39.0-53.0); HEMOGLOBIN 11.8 g/dL (13.0-17.5); LYMPH # 0.8 x10^3/uL (1.0-4.8); LYMPH % 9 % (24-48); MEAN CORPUSCULAR HEMOGLOBIN 31 pg (25-35); MEAN CORPUSCULAR HGB CONC 33 g/dL (31-37); MEAN CORPUSCULAR VOLUME 94 fL (79-100); MONO # 1.1 x10^3/uL (0.0-1.1); MONO % 12 % (0-9); NEUT # 7.1 x10^3uL (1.8-7.7); NEUT % 77 % (31-73); PLATELET COUNT 226 x10^3/uL (140-400); RED BLOOD COUNT 3.81 x10^6/uL (4.30-5.70); RED CELL DISTRIBUTION WIDTH 15.2 % (11.5-14.5); WHITE BLOOD COUNT 9.2 x10^3/uL (4.0-11.0)
[2017-12-20] MEDS ORDERED: IPRATRPIUM/ALBUTEROL 0.5/2.5MG 3 ML NEBU. NEB ONE (08:20)
[2017-12-20] MEDS ORDERED: methylPREDNISolone SOD SUCC PF 125 MG/2 ML VIAL. IV ONE (08:20)
--- NOTE | 2017-12-20 08:29 | RAD ---
PORTABLE CHEST 1V History: Shortness of breath Comparison: November 10, 2017 Findings: Single view of the chest is submitted. There again has been median sternotomy. Pericardial cardiac silhouette is similar, not significantly enlarged. There is suspected emphysema. There is no significant pleural fluid or pneumothorax. There is mild opacity along the left heart border, also mild interstitial opacity such as near lung bases probably slightly greater. Impression: 1. There is mild opacity along the left heart border which may be due to mild infiltrate or atelectasis or edema. There is also mild increased interstitial opacity which could be due to mild interstitial edema. Electronically signed by: Sebastian Shaikh MD (12/20/2017 8:26 AM) [id number]
[2017-12-20] MEDS ORDERED: LOSA100T6 PO (08:31)
[2017-12-20 08:48] LABS: ALBUMIN 2.8 g/dL (3.4-5.0); ALBUMIN/GLOBULIN RATIO 0.7 (1.0-1.7); ALK PHOS 53 U/L (46-116); ALT (SGPT) 11 U/L (16-63); ANION GAP 7 (6-14); AST (SGOT) 13 U/L (15-37); BLOOD UREA NITROGEN 13 mg/dL (8-26); BUN/CREATININE RATIO 19 (6-20); CALCIUM 8.5 mg/dL (8.5-10.1); CARBON DIOXIDE 29 mmol/L (21-32); CHLORIDE 101 mmol/L (98-107); CREATININE 0.7 mg/dL (0.7-1.3); GFR 107.7; GLUCOSE 110 mg/dL (70-99); MAGNESIUM 1.8 mg/dL (1.8-2.4); POTASSIUM 3.8 mmol/L (3.5-5.1); SODIUM 137 mmol/L (136-145); TOTAL BILIRUBIN 0.6 mg/dL (0.2-1.0); TOTAL PROTEIN 6.7 g/dL (6.4-8.2)
--- NOTE | 2017-12-20 08:54 | PHYS DOC ---
Past History Past Medical History: CHF, COPD, Diabetes, High Cholesterol, Hypertension, Other Past Surgical History: Coronary Bypass Surgery, Other Smoking: Quit Greater Than 1 Year Alcohol Use: None Drug Use: None Adult General Chief Complaint Chief Complaint: SHORTNESS OF BREATH HPI HPI 82-year-old female patient with multiple medical problems including COPD on 3 L of home oxygen, CHF on daily diuretic, no acute disease, hypertension and dyslipidemia and diabetes complaining of increasing shortness of breath for the last 4 days with nonproductive cough. Patient states his shortness of breath getting more constant since yesterday. Patient complaining of substernal aching pain with activity as a marked pain without palpitation. Patient denies extremity edema, fever, nausea and vomiting, urinary symptom. Patient states he was sweaty this morning and his son-in-law had to increase his oxygen to 6 L. Patient had recent hospitalization 1 month ago with diagnosis of COPD exacerbation. Review of Systems Review of Systems Constitutional: Denies fever , reports chills [] Eyes: Denies change in visual acuity, redness, or eye pain [] HENT: Reports nasal congestion, denies sore throat [] Respiratory: Reports cough and shortness of breath [] Cardiovascular: No additional information not addressed in HPI [] GI: Denies abdominal pain, nausea, vomiting, bloody stools or diarrhea [] : Denies dysuria or hematuria [] Musculoskeletal: Denies back pain or joint pain [] Integument: Denies rash or skin lesions [] Neurologic: Denies headache, focal weakness or sensory changes [] Endocrine: Denies polyuria or polydipsia [] All other systems were reviewed and found to be within normal limits, except as documented in this note. Current Medications Current Medications Current Medications Medications (Trade) Dose Ordered Sig/Shirley Start Time Stop Time Status Last Admin Dose Admin Albuterol/ Ipratropium (Duoneb) 3 ml 1X ONCE 12/20/17 08:20 12/20/17 08:21 DC 12/20/17 08:19 3 ML Azithromycin 500 mg/Sodium Chloride 250 ml @ 250 mls/hr 1X ONCE 12/20/17 09:00 12/20/17 09:59 Ceftriaxone Sodium 1 gm/ Sodium Chloride 50 ml @ 100 mls/hr 1X ONCE 12/20/17 08:45 12/20/17 09:14 UNV Ceftriaxone Sodium (Rocephin) 1 gm 1X ONCE 12/20/17 09:00 12/20/17 09:01 Furosemide (Lasix) 40 mg 1X ONCE 12/20/17 09:00 12/20/17 09:01 Methylprednisolone Sodium Succinate (SOLU-Medrol 125MG VIAL) 125 mg 1X ONCE 12/20/17 08:20 12/20/17 08:21 DC 12/20/17 08:13 125 MG Allergies Allergies Allergies Coded Allergies Type Severity Reaction Last Updated Verified sulfamethoxazole Allergy Intermediate rash 12/20/17 Yes trimethoprim Allergy Intermediate rash 12/20/17 Yes quinine Allergy Mild rash 12/20/17 Yes Physical Exam Physical Exam Constitutional: Well developed, mild distress, non-toxic appearance. [] HENT: Normocephalic, atraumatic, oropharynx moist, no oral exudates, nose normal. [] Eyes: PERRLA, EOMI, conjunctiva normal, no discharge. [] Neck: Normal range of motion, no tenderness, supple, no stridor. [] Cardiovascular:Heart rate regular rhythm, no murmur [] Lungs & Thorax: Mild respiratory distress, decrease of air movement, basilar rales and rhonchi Abdomen: Bowel sounds normal, soft, no tenderness, no masses, no pulsatile masses. [] Skin: Warm, dry, no erythema, no rash. [] Back: No tenderness, no CVA tenderness. [] Extremities: No tenderness, no cyanosis, no clubbing, ROM intact, no edema. [] Neurologic: Alert and oriented X 3, normal motor function, normal sensory function, no focal deficits noted. [] Psychologic: Affect normal, judgement normal, mood normal. [] Current Patient Data Lab Results Laboratory Tests Test 12/20/17 08:02 White Blood Count 9.2 x10^3/uL (4.0-11.0) Red Blood Count 3.81 x10^6/uL (4.30-5.70) L Hemoglobin 11.8 g/dL (13.0-17.5) L Hematocrit 35.8 % (39.0-53.0) L Mean Corpuscular Volume 94 fL (79-100) Mean Corpuscular Hemoglobin 31 pg (25-35) Mean Corpuscular Hemoglobin Concent 33 g/dL (31-37) Red Cell Distribution Width 15.2 % (11.5-14.5) H Platelet Count 226 x10^3/uL (140-400) Neutrophils (%) (Auto) 77 % (31-73) H Lymphocytes (%) (Auto) 9 % (24-48) L Monocytes (%) (Auto) 12 % (0-9) H Eosinophils (%) (Auto) 2 % (0-3) Basophils (%) (Auto) 1 % (0-3) Neutrophils # (Auto) 7.1 x10^3uL (1.8-7.7) Lymphocytes # (Auto) 0.8 x10^3/uL (1.0-4.8) L Monocytes # (Auto) 1.1 x10^3/uL (0.0-1.1) Eosinophils # (Auto) 0.1 x10^3/uL (0.0-0.7) Basophils # (Auto) 0.1 x10^3/uL (0.0-0.2) Troponin I Quantitative < 0.017 ng/mL (0-0.055) EKG EKG EKG interpreted by me. EKG at 0 751 showed sinus rhythm at rate of 88, low voltage QRS, poor R-wave progress in anteroseptal leads, multiple artifacts, no acute ST and T wave abnormality[] Radiology/Procedures Radiology/Procedures [] [place] [address] IMAGING REPORT Signed PATIENT: ANASTASIA MARMOLEJO ACCOUNT: [id number] : 1935 LOCATION: ER AGE: 82 SEX: M EXAM STATUS: REG ER ORD. PHYSICIAN: GRIS KHANNA MD REASON: shortness of breath PROCEDURE: PORTABLE CHEST 1V PORTABLE CHEST 1V History: Shortness of breath Comparison: November 10, 2017 Findings: Single view of the chest is submitted. There again has been median sternotomy. Pericardial cardiac silhouette is similar, not significantly enlarged. There is suspected emphysema. There is no significant pleural fluid or pneumothorax. There is mild opacity along the left heart border, also mild interstitial opacity such as near lung bases probably slightly greater. Impression: 1. There is mild opacity along the left heart border which may be due to mild infiltrate or atelectasis or edema. There is also mild increased interstitial opacity which could be due to mild interstitial edema. Electronically signed by: Hallie Shaikh MD (12/20/2017 8:26 AM) [id number] DICTATED AND SIGNED BY: HALLIE SHAIKH MD DATE: 12/20/17 0825 CC: GRIS KHANNA MD; PATRICIO MCLEAN ~ Course & Med Decision Making Course & Med Decision Making Pertinent Labs and Imaging studies reviewed. (See chart for details) Evaluation of patient in ER showed 82-year-old male patient with history of COPD and CHF on home oxygen complaining of increasing shortness of breath and intermittent episodes of chest pain. Patient was afebrile in ER and had O2 sat of 97% on 3 L of oxygen with decrease of air movement and bibasilar rales. Chest x-ray showed infiltrate and CHF. Labs showed elevation of BNP without leukocytosis or lactic acidemia. Rocephin and Zithromax was started in ER and patient had [address] Caraballo informed at 0843 and accepted admission. Patient and his family informed about plan of care and agreed with hospitalization. Dragon Disclaimer Dragon Disclaimer This electronic medical record was generated, in whole or in part, using a voice recognition dictation system. Departure Departure: Impression: Primary Impression: Congestive heart failure Additional Impressions: COPD exacerbation Pneumonia Dyspnea Disposition: ADMITTED INPATIENT (At 0843) Admitting Physician: Rogelio Caraballo Condition: IMPROVED Referrals: PATRICIO MCLEAN (PCP) Problem Qualifiers GRIS KHANNA MD December 20, 2017 08:54
[2017-12-20] MEDS ORDERED: FUROSEMIDE 40 MG/4 ML VIAL IVP ONE (09:00)
[2017-12-20] MEDS ORDERED: AZITHROMYCIN 500 MG in IV NORMAL SALINE 250ML 250 ML IV ONE (09:00)
[2017-12-20] MEDS ORDERED: cefTRIAXone IV Push 1 GM VIAL. IVP ONE (09:00)
[2017-12-20] MEDS ORDERED: AZITHROMYCIN 500 MG VIAL. IV ONE (09:04)
[2017-12-20] MEDS ORDERED: IV NORMAL SALINE 250ML 250 ML ONE ×2 (09:04)
[2017-12-20] MEDS ORDERED: DEXTROSE 50% 25 GM / 50ML DISP.SYRIN. IV PRN (10:15)
[2017-12-20 11:39] VITALS: BP 147/73
[2017-12-20] MEDS: INSULIN LISPRO 300 UNITS/3 ML INSULN.PEN. SQ SCH ×2 (12:00→17:00)
[2017-12-20] MEDS ORDERED: ALBUTEROL SULFATE 8GM INHALER. IH PRN (14:30)
[2017-12-20] MEDS ORDERED: ALBUTEROL SULFATE 2.5 MG/3 ML NEBU. NEB PRN (14:45)
[2017-12-20] MEDS: methylPREDNISolone SOD SUCC PF 40 MG/ML VIAL. IV SCH ×2 (15:11→23:04)
--- NOTE | 2017-12-20 15:50 | HP ---
ADMIT DATE: 12/20/2017 HISTORY OF PRESENT ILLNESS: The patient is an 82-year-old male patient who came to the Emergency Room complaining of shortness of breath that has been progressing over the last 4 days with nonproductive cough. He stated that his shortness of breath getting more constant since yesterday with some substernal aching pain with activity, especially when he coughs. He was diaphoretic this morning, but denied any fever, chills, or rigors. Denied any swelling of the legs. He was actually hospitalized here about a month ago for COPD exacerbation. He was extensively investigated in the Emergency Room and was found to have normal white cell count of 9200. His lactic acid was normal. His first set of cardiac enzyme was normal at less than 0.017 and apparently his chest x-ray showed that he has mild opacity along with the left heart border, which may be due to mild infiltrate and/or atelectasis or edema. There is also mild increased interstitial opacity, which could be due to mild facial edema. The patient was admitted with COPD exacerbation, community-acquired pneumonia, and acute hypoxic respiratory failure and was started on IV Rocephin and Zithromax together with steroids and albuterol and Atrovent nebulized treatment. PAST MEDICAL HISTORY: Significant for hypertension, type 2 diabetes mellitus, coronary artery disease status post myocardial infarction treated with PTCA and stent deployment. He eventually had had open heart surgery about 8 years ago. He is known to have hyperlipidemia, chronic obstructive pulmonary disease, recurrent urinary tract infection, benign prostatic hypertrophy, congestive heart failure due to ischemic cardiomyopathy. 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 ALLERGIES: He is allergic to QUININE, SULFAMETHOXAZOLE, and TRIMETHOPRIM. FAMILY HISTORY: He has 1 brother, younger, known to have sick sinus syndrome for which he has a permanent pacemaker. His 4 brothers are and 1 sister , all because of coronary artery disease. His father at the age of 82 because of chronic obstructive pulmonary disease and myocardial infarction. Mother at the age of 56 because of myocardial infarction. SOCIAL HISTORY: He is and lives on his own. He is an ex-smoker, quit 20 years ago. He also used to be a heavy drinker, but quit about 3 years ago. 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 REVIEW OF SYSTEMS: The patient denied any blurring of vision, cataract, glaucoma, or macular degeneration. Denied any earache, tinnitus, or sensorineural deafness. Denied any nosebleeds, stuffy nose, or postnasal drip. Denied any sore throat, sore tongue, toothache, hoarseness of voice, or difficulty swallowing. He denied any nausea, vomiting, diarrhea, or constipation. Denied any hematemesis, melena, or hematochezia. Denied any dysuria, frequency, or hematuria. Denied any chest pain. Did complain of shortness of breath and cough with whitish sputum. He denied any chills, rigors, or fever. Denied any dizziness, lightheadedness, or vertigo. PHYSICAL EXAMINATION: GENERAL: On arrival to the Emergency Room, he looked pale, but no jaundice, cyanosis, or thyromegaly. No jugular venous distension. No lower limb edema. VITAL SIGNS: His heart rate was 94, blood pressure was 126/38, temperature was 98.6, respiratory rate was 24, and oxygen saturation was 98% on 4 liters of oxygen. HEAD, EYES, EARS, NOSE, AND THROAT: Showed he is normocephalic, atraumatic. NECK: Supple. HEART: Showed normal first and second heart sounds with no gallop, rub, or murmur. CHEST: Showed central trachea, equally reduced expansion and reduced air entry. I could not really appreciate any crepitation or rhonchi. ABDOMEN: Distended, soft, nontender. NEUROLOGIC: He is awake, alert, very hard of hearing. Otherwise, cranial nerves are intact. He moves extremities without difficulty. He ambulates without assistance or assistive devices. LABORATORY DATA: His lab work on admission showed a white cell count of 9200, hemoglobin 11.8, hematocrit 35.8, MCV 94 and platelet count 226,000. His chemistry showed a serum sodium of 137, potassium 3.8, chloride 101, bicarbonate 29, anion gap of 7, BUN 13, creatinine 0.7. Estimated GFR was 107 mL per minute. His glucose was 110, calcium was 8.5, magnesium was 1.8. Total bilirubin, AST, ALT, alkaline phosphatase were normal. Total protein was 6.7 and albumin was 2.8. His first set of cardiac enzymes showed troponin to be less than 0.017. His chest x-ray showed that there is a median sternotomy. Cardiac silhouette is similar, not significantly enlarged. There is suspected emphysema. There is no significant pleural fluid or pneumothorax. There is mild opacity along the left border of the heart, also mild interstitial opacity such as near lung bases probably slightly greater with the impression that there is mild opacity along the left heart border, which may be due to mild infiltrate, atelectasis, or edema. There is also mild increased interstitial opacity, which could be due to mild interstitial edema. ASSESSMENT AND PLAN: The patient was admitted with community-acquired pneumonia, chronic obstructive pulmonary disease exacerbation, and acute hypoxic respiratory failure. Continue with IV antibiotic, IV Solu-Medrol, bronchodilator and do 2 more sets of cardiac enzyme and consult the cardiology team. DEIDRE HANEY MD DR: HUMBERTO/amy JOB#: [id number] / [id number]
[2017-12-20] MEDS: IPRATRPIUM/ALBUTEROL 0.5/2.5MG 3 ML NEBU. IH SCH ×2 (16:58→20:58)
[2017-12-20] MEDS: metFORMIN 500 MG TABLET PO SCH (17:48)
[2017-12-20] MEDS: CARVEDILOL 12.5 MG TABLET PO SCH (17:49)
[2017-12-20 17:56] VITALS: BP 149/71
[2017-12-20] MEDS: DOXYCYCLINE HYCLATE 100 MG TABLET PO SCH (18:18)
[2017-12-20] MEDS: BUDESONIDE 0.5 MG/2 ML NEBU NEB SCH (20:58)
[2017-12-20 21:30] VITALS: BP 138/55
[2017-12-20] MEDS: GABAPENTIN 300 MG CAPSULE. PO SCH (21:43)
[2017-12-20] MEDS: LOSARTAN 50 MG TABLET. PO SCH (21:44)
[2017-12-20] MEDS: ACETAMINOPHEN 325 MG TABLET PO SCH (21:44)
[2017-12-21 03:10] VITALS: BP 123/61
[2017-12-21] MEDS: IPRATRPIUM/ALBUTEROL 0.5/2.5MG 3 ML NEBU. IH SCH ×4 (05:37→21:05)
[2017-12-21] MEDS: methylPREDNISolone SOD SUCC PF 40 MG/ML VIAL. IV SCH ×3 (05:52→22:04)
[2017-12-21 06:12] VITALS: BP 140/59
[2017-12-21 06:26] LABS: HEMATOCRIT 35.3 % (39.0-53.0); HEMOGLOBIN 11.8 g/dL (13.0-17.5); RED BLOOD COUNT 3.8 x10^6/uL (4.30-5.70); RED CELL DISTRIBUTION WIDTH 15.8 % (11.5-14.5)
[2017-12-21 06:42] LABS: ALBUMIN 2.8 g/dL (3.4-5.0); ALBUMIN/GLOBULIN RATIO 0.7 (1.0-1.7); CALCIUM 8.5 mg/dL (8.5-10.1); CREATININE 0.8 mg/dL (0.7-1.3); GFR 92.3; POTASSIUM 3.6 mmol/L (3.5-5.1); TOTAL BILIRUBIN 0.4 mg/dL (0.2-1.0); TOTAL PROTEIN 6.8 g/dL (6.4-8.2)
[2017-12-21] MEDS: OMEGA-3 FATTY ACIDS/FISH OIL 1,000 MG CAPSULE. PO SCH (08:39)
[2017-12-21] MEDS: CARVEDILOL 12.5 MG TABLET PO SCH ×2 (08:39→18:00)
[2017-12-21] MEDS: ALLOPURINOL 300 MG TABLET. PO SCH (08:39)
[2017-12-21] MEDS: amLODIPine BESYLATE 2.5 MG TABLET PO SCH (08:39)
[2017-12-21] MEDS: MAGNESIUM OXIDE 400 MG TABLET PO SCH (08:40)
[2017-12-21] MEDS: GABAPENTIN 300 MG CAPSULE. PO SCH ×2 (08:40→22:03)
[2017-12-21] MEDS: DOXYCYCLINE HYCLATE 100 MG TABLET PO SCH ×2 (08:40→18:00)
[2017-12-21] MEDS: ATORVASTATIN CALCIUM 20 MG TABLET PO SCH (08:40)
[2017-12-21] MEDS: ACETAMINOPHEN 325 MG TABLET PO SCH ×2 (08:40→22:03)
[2017-12-21] MEDS: predniSONE 10 MG TABLET PO SCH (08:40)
[2017-12-21] MEDS: metFORMIN 500 MG TABLET PO SCH ×2 (08:40→17:59)
[2017-12-21] MEDS: CHOLECALCIFEROL (VITAMIN D3) 1,000 UNIT TABLET PO SCH (08:40)
[2017-12-21] MEDS: ASPIRIN ENTERIC COATED 81 MG TABLET.DR. PO SCH (08:40)
[2017-12-21] MEDS: TORSEMIDE 20 MG TABLET. PO SCH (08:40)
[2017-12-21] MEDS: INSULIN LISPRO 300 UNITS/3 ML INSULN.PEN. SQ SCH ×3 (08:41→17:00)
[2017-12-21] MEDS ORDERED: NON FORMULARY ITEM (Losartan Potassium 100 MG) PO SCH (09:00)
[2017-12-21] MEDS ORDERED: NON FORMULARY ITEM (Umeclidinium Brm/Vilanterol Tr (Anoro Ellipta 62.5-25 Mcg Inh) 1 PUFF) IH SCH (09:00)
[2017-12-21] MEDS: BUDESONIDE 0.5 MG/2 ML NEBU NEB SCH ×2 (09:22→21:05)
[2017-12-21 15:00] VITALS: BP 148/58
[2017-12-21] MEDS ORDERED: cefTRIAXone IV Push 1 GM VIAL. IVP SCH (16:00)
[2017-12-21 19:48] VITALS: BP 135/53
[2017-12-21] MEDS: LOSARTAN 50 MG TABLET. PO SCH (22:04)
[2017-12-21] MEDS: LACTOBACILLUS RHAMNOSUS GG 1 CAPSULE. PO SCH (22:04)
[2017-12-21 23:07] VITALS: BP_SYST 136; BP_SYST 93; BP_DIAS 55; BP_DIAS 60
--- NOTE | 2017-12-21 23:43 | PN ---
DATE: 12/21/2017 SUBJECTIVE: The patient is sitting up in his bed, in no apparent distress, continued to have cough with scanty whitish sputum, mild chest tightness, but generally much better. PHYSICAL EXAMINATION: GENERAL: When I saw him this afternoon, he looked pale, but no jaundice, cyanosis or thyromegaly. No jugular venous distention. No lower limb edema. VITAL SIGNS: His heart rate was 76, blood pressure 140/59, temperature was 97.5, respiratory rate was 17 and oxygen saturation was 98% on 2 liters of oxygen. HEAD, EYES, EARS, NOSE AND THROAT: Showed normocephalic, atraumatic. NECK: Supple. HEART: Showed normal first and second heart sounds with no gallop, rub or murmur. CHEST: Clear to auscultation. No crepitation. Very few scattered rhonchi. ABDOMEN: Distended, soft, nontender. No guarding or rigidity. No organomegaly. All hernial orifice intact. Bowel sounds normal. NEUROLOGIC: He was awake, alert, responding appropriately. All cranial nerves intact. He moves extremities without difficulty. He ambulates without assistance or assistive devices. His intake over the last 24 hours was 1045, output was 1200. LABORATORY DATA: As of this morning showed a white cell count 14,000, hemoglobin 12, hematocrit 35, MCV 93 and platelet count 250,000. His chemistry showed a serum sodium 135, potassium 3.6, chloride 98, bicarbonate 27, anion gap of 10, BUN of 19, creatinine 0.8. Estimated GFR was 92 mL per minute. His glucose was 188. Calcium was 8.5. Total bilirubin, AST, ALT, alkaline phosphatase were normal. Total protein was 6.8. Albumin 2.8. ASSESSMENT AND PLAN: 1. Community-acquired pneumonia. 2. Chronic obstructive pulmonary disease exacerbation. 3. Acute hypoxic respiratory failure. We will continue with IV antibiotic. Continue with IV Solu-Medrol. Continue with bronchodilator. Continue with Lasix and all other medications. Did have 3 sets of cardiac enzymes that were negative for myocardial infarction. His chest x-ray was more in keeping with mild opacity along the left heart border, which may be due to mild infiltrate, atelectasis or edema. There is also mild increase interstitial opacity, which could be due to interstitial edema. DEIDRE HANEY MD DR: Murray JOB#: [id number] / [id number]
[2017-12-22] MEDS: IPRATRPIUM/ALBUTEROL 0.5/2.5MG 3 ML NEBU. IH SCH ×2 (05:41→10:35)
[2017-12-22 05:48] VITALS: BP 144/63
[2017-12-22] MEDS: methylPREDNISolone SOD SUCC PF 40 MG/ML VIAL. IV SCH ×2 (06:33→13:59)
[2017-12-22] MEDS: DOXYCYCLINE HYCLATE 100 MG TABLET PO SCH (06:33)
[2017-12-22] MEDS: ASPIRIN ENTERIC COATED 81 MG TABLET.DR. PO SCH (08:16)
[2017-12-22] MEDS: metFORMIN 500 MG TABLET PO SCH (08:16)
[2017-12-22] MEDS: OMEGA-3 FATTY ACIDS/FISH OIL 1,000 MG CAPSULE. PO SCH (08:17)
[2017-12-22] MEDS: LACTOBACILLUS RHAMNOSUS GG 1 CAPSULE. PO SCH (08:17)
[2017-12-22] MEDS: GABAPENTIN 300 MG CAPSULE. PO SCH (08:17)
[2017-12-22] MEDS: CHOLECALCIFEROL (VITAMIN D3) 1,000 UNIT TABLET PO SCH (08:17)
[2017-12-22] MEDS: CARVEDILOL 12.5 MG TABLET PO SCH (08:17)
[2017-12-22] MEDS: ALLOPURINOL 300 MG TABLET. PO SCH (08:18)
[2017-12-22] MEDS: ACETAMINOPHEN 325 MG TABLET PO SCH (08:18)
[2017-12-22] MEDS: ATORVASTATIN CALCIUM 20 MG TABLET PO SCH (08:18)
[2017-12-22] MEDS: MAGNESIUM OXIDE 400 MG TABLET PO SCH (08:19)
[2017-12-22] MEDS: TORSEMIDE 20 MG TABLET. PO SCH (08:20)
[2017-12-22] MEDS: amLODIPine BESYLATE 2.5 MG TABLET PO SCH (08:20)
[2017-12-22] MEDS: predniSONE 10 MG TABLET PO SCH (08:20)
[2017-12-22] MEDS: INSULIN LISPRO 300 UNITS/3 ML INSULN.PEN. SQ SCH ×2 (08:27→12:40)
--- NOTE | 2017-12-22 08:57 | PDOC2 ---
CONSULT Date of Admission DATE: 12/22/17 TIME: 08:43 Reason for Consult: Congestive heart failure Problem List Problems Medical Problems: (1) Congestive heart failure Status: Acute (2) COPD exacerbation Status: Acute (3) Dyspnea Status: Acute (4) Pneumonia Status: Acute History of Present Illness This is a 82 year old male who presented to the ER with chief complaint of shortness of breath. He has a past medical history of coronary artery disease with previous coronary stents followed by coronary artery bypass surgery X 2 in July 2008, hyperlipidemia, hypertension, COPD and pulmonary hypertension. Over the last 4 days he developed progressive dyspnea and on Monday felt so poorly could not go to [facility]. He had been admitted here one month ago and then again on a [facility] two weeks ago for exacerbation of COPD. He denies any cough but was waking up with diaphoresis and clammy. Denies fever, weight gain, lower extremity edema, orthopnea, PND, palpitations or chest pain. He has had three sets of negative enzymes and his BNP is in the 900 range. This morning he is feeling better and wants to discharge home. PAST MEDICAL HISTORY: 1. Hypertension. 2. Type 2 diabetes. 3. Coronary artery disease, s/p VT with PCI/Stent, followed by CABG 4. Hyperlipidemia. 5. Chronic obstructive pulmonary disease. 6. Recurrent urinary tract infection. 7. Benign prostatic hypertrophy. 8. Congestive heart failure due to ischemic cardiomyopathy. PAST SURGICAL HISTORY: 1. Significant for PTCA and stent deployment. 2. Coronary artery bypass surgery. 3. Appendectomy. 4. Umbilical hernia repair. 5. Bilateral cataract extraction. 6. 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 7. Transurethral resection of the prostate x2. FAMILY HISTORY: He has one brother younger and known to have sick sinus syndrome, for which he has a permanent pacemaker. He has four brothers and one sister , all because of coronary artery disease. His father at age of 82 because of chronic obstructive pulmonary disease, and myocardial infarction. His mother at the age of 56 because of myocardial infarction. SOCIAL HISTORY: He is and lives on his own. He is an ex-smoker, quit 20 years ago. He also used to be a heavy drinker, but quit two years ago. He used to work for an [employer] company, currently retired since 1994. REVIEW OF SYSTEMS: Review of 10 organ systems is negative except for as in HPI ALLERGIES: Severe Quinine Sulfate (quinine) oral tablet allergy resulting in Rash - generalized Severe Bactrim (sulfamethoxazole-trimethoprim) oral tablet allergy resulting in Tongue swelling, Anaphylaxsis MEDICATIONS: Allopurinol 300 mg oral tablet 1 tablet (300 mg) orally daily amlodipine 2.5mg daily coreg 25 BID Torsemide 20 mg oral tablet 1 tablet daily MetFORMIN Hydrochloride 500 mg oral tablet 1 tablet (500 mg) orally 2 times per day with meals Crestor 10 mg oral tablet once a day on Monday, Monday and Monday Magnesium Oxide 250 mg oral tablet once a day Aspirin Low Strength 81 mg oral delayed release tablet 1 tablet (81 mg) orally daily Nitrostat 0.4 mg sublingual tablet one tablet as needed for chest pain Fish Oil 1000 mg oral capsule 1 capsule (1,000 mg) orally daily Losartan Potassium 100 mg oral tablet 1 tablet (100 mg) orally daily Gabapentin 300 mg oral capsule 2 times a day PHYSICAL EXAM GENERAL: This is a well developed, well nourished male. No apparent distress. SKIN: Warm and dry with normal skin turgor. Negative for pallor. No lesions or rashes noted. EYES: Conjunctiva are clear. Extraocular movements are intact. No xanthelasma. HEAD AND NECK: Oral mucosa is moist. There is no cyanosis. Neck is supple. Jugular venous pressure is flat. Carotid pulses are 2/2 bilaterally. No carotid bruits. There is no obvious thyromegaly. HEART: Regular rate and rhythm. Normal S1 and S2. No S3. No S4. No significant murmur. No rub. PMI is not displaced. LUNGS: Effort is pronounced, using intercostal muscles to breath. Very diminished auscultation bilaterally. ABDOMEN: Normal active bowel sounds. Soft. Nontender. EXTREMITIES: No clubbing. No cyanosis. No edema of lower extremities. Palpable pedal pulses. MUSCULOSKELETAL: No kyphosis. No scoliosis. No localized tenderness or stiffness. Gait appears normal. NEUROLOGIC: Alert and oriented times three. Cranial nerves III-XII are grossly intact. Good motor tone and strength in the upper and lower extremities bilaterally. PSYCHOLOGIC: This is a pleasant patient with a normal affect. ECHOCARDIOGRAM - September 2017 Ejection fraction 50-55% mild mr/tr pap 43 stage 2 diastolic dysfunction LEXISCAN NUCLEAR STRESS TEST IMPRESSION (10/14/2015): Normal myocardial perfusion scan with inferior diaphragmatic attenuation artifact. The summed differential score was 0 Normal ventricular systolic function. Ejection fraction: 56%. There was no induced left ventricular dilitation or increase in lung to heart rario. There were occasional PVCs. There was no stress induced chest pain. Compared to the previous study performed on 03/11/2014, there was no significant change. ECHOCARDIOGRAM IMPRESSION (10/14/2015): The left ventricular systolic function is normal with an estimated ejection fraction of 55%. There is evidence of left ventricular pseudonormalization suggestive of stage II diastolic dysfunction. The right ventricle appears mildly dilated but with normal function. There is mild bi-atrial dilatation. There is mild aortic valve sclerosis. There is moderate mitral regurgitation. There is mild tricuspid regurgitation. The estimated pulmonary artery systolic pressure is 65 mmHg, consistent with severe pulmonary hypertension. Compared to the report (images were not available for review) of the study dated 03/19/2014, the right atrial dilatation and the pulmonary hypertension is a new finding. CARDIAC CATHETERIZATION IMPRESSION (12/11/2009): 1. There was no suggestion of progressive coronary artery disease compared to the previous angiogram and after bypass surgery. There was good flow through both vein grafts. PAN graft was not used intraoperatively after harvesting. 2. 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 The proximal tortuous loop of the large ramus/first obtuse marginal branch could not be visualized well in spite of several views. There may be a hidden lesion. 3. Chitina LAD and right coronary artery stents had significant in-stent restenosis as noted prior to bypass surgery. 4. Normal size left ventricle with ejection fraction of approximately 50%. It was improved compared to the previous LV-gram. Again, mild inferior hypokinesis was noted. 5. Both common iliac arteries had proximal 40-50% luminal narrowing. The aorta was unremarkable. 6. Both renal arteries appeared to be small caliber vessels with mild intimal disease. CORONARY ARTERY BYPASS SURGERY (07/25/2008): Coronary artery bypass grafting times two with reverse saphenous vein graft to the left anterior descending, reverse saphenous vein graft to the right coronary artery, endoscopic vein harvest, bypass was performed with cannulation of the left femoral artery that required a patch closure with a piece of saphenous vein. IMPRESSION AND PLAN HFpEF with EF of 50-55%. Clinically compensated. Continue current medications , stable for discharge. Coronary artery disease, status post revascularization. The patient is doing well without any angina. We will continue optimal medical therapy. Essential hypertension, controlled. Continue the patients anti-hypertensive medications. Pure hypercholesterolemia. His goal LDL is < 70 mg/dL. Continue Crestor. Current Medications Current Medications Albuterol/ Ipratropium (Duoneb) 3 ml 1X ONCE NEB Last administered on at 08:19; Start 12/20/17 at 08:20; Stop 12/20/17 at 08:21; Status DC Methylprednisolone Sodium Succinate (SOLU-Medrol 125MG VIAL) 125 mg 1X ONCE IV Last administered on 12/20/17at 08:13; Start 12/20/17 at 08:20; Stop 12/20/17 at 08:21; Status DC Ceftriaxone Sodium 1 gm/ Sodium Chloride 50 ml @ 100 mls/hr 1X ONCE IV ; Start 12/20/17 at 08:45; Stop 12/20/17 at 09:14; Status UNV Azithromycin 500 mg/Sodium Chloride 250 ml @ 250 mls/hr 1X ONCE IV Last administered on 12/20/17at 09:38; Start 12/20/17 at 09:00; Stop 12/20/17 at 09:59; Status DC Furosemide (Lasix) 40 mg 1X ONCE IVP Last administered on 12/20/17at 09:22; Start 12/20/17 at 09:00; Stop 12/20/17 at 09:01; Status DC Ceftriaxone Sodium (Rocephin) 1 gm 1X ONCE IVP Last administered on 12/20/17at 09:36; Start 12/20/17 at 09:00; Stop 12/20/17 at 09:01; Status DC Sodium Chloride 250 ml @ As Directed STK-MED ONCE .ROUTE ; Start 12/20/17 at 09: 04; Stop 12/20/17 at 09:05; Status DC Azithromycin (Zithromax) 500 mg STK-MED ONCE IV ; Start 12/20/17 at 09:04; Stop 12/20/17 at 09:05; Status DC Sodium Chloride 250 ml @ As Directed STK-MED ONCE .ROUTE ; Start 12/20/17 at 09: 04; Stop 12/20/17 at 09:05; Status DC Insulin Human Lispro (HumaLOG) 0-5 UNITS TIDWMEALS SQ Last administered on 08:27; Start 12/20/17 at 12:00 Dextrose 12.5 gm PRN Q15MIN PRN IV SEE COMMENTS; Start 12/20/17 at 10:15 Methylprednisolone Sodium Succinate (SOLU-Medrol 40MG VIAL) 40 mg Q8HRS IV Last administered on 12/22/17 06:33; Start 12/20/17 at 14:00 Acetaminophen (Tylenol) 650 mg BID PO Last administered on 12/22/17 08:18; Start 12/20/17 at 21:00 Albuterol Sulfate (Ventolin Hfa) 2 puff PRN BID PRN IH SHORTNESS OF BREATH; Start 12/20/17 at 14:30; Status UNV Albuterol Sulfate (Ventolin) 2.5 mg PRN Q4HRS PRN NEB SHORTNESS OF BREATH; Start 12/20/17 at 14:45 Allopurinol (Zyloprim) 300 mg DAILY PO Last administered on 12/22/17 08:18; Start 12/21/17 at 09:00 Amlodipine Besylate (Norvasc) 2.5 mg DAILY PO Last administered on 12/22/17 08: 20; Start 12/21/17 at 09:00 Aspirin (Aspirin Enteric Coated) 81 mg DAILY PO Last administered on 12/22/17 08:16; Start 12/21/17 at 09:00 Doxycycline Hyclate (Vibra-Tab) 100 mg [id number] PO Last administered on 12/22/17 06:33; Start 12/20/17 at 18:00 Gabapentin (Neurontin) 300 mg BID PO Last administered on 12/22/17 08:17; Start 12/20/17 at 21:00 Albuterol/ Ipratropium (Duoneb) 3 ml QID IH Last administered on 12/22/17 05:41 ; Start 12/20/17 at 17:00 Metformin HCl (Glucophage) 500 mg BIDWMEALS PO Last administered on 12/22/17 08 :16; Start 12/20/17 at 17:00 Prednisone (Prednisone) 10 mg DAILY PO Last administered on 12/22/17 08:20; Start 12/21/17 at 09:00 Torsemide (Demadex) 20 mg DAILY PO Last administered on 5/4/18at 08:20; Start 12/21/17 at 09:00 Carvedilol (Coreg) 25 mg BIDWMEALS PO Last administered on 12/22/17 08:17; Start 12/20/17 at 17:00 Vitamin D (Vitamin D3) 1,000 unit DAILY PO Last administered on 12/22/17 08:17 ; Start 12/21/17 at 09:00 Non-Formulary Medication (Losartan Potassium ) 100 mg DAILY PO ; Start 12/21/17 at 09:00; Status UNV Losartan Potassium (Cozaar) 100 mg QHS PO Last administered on 12/21/17 22:04; Start 12/20/17 at 21:00 Magnesium Oxide (Magnesium Oxide) 400 mg DAILY PO Last administered on 08:19; Start 12/21/17 at 09:00 Fish Oil (Fish Oil) 1,000 mg DAILY PO Last administered on 12/22/17 08:17; Start 12/21/17 at 09:00 Atorvastatin Calcium (Lipitor) 40 mg QM-F@0900 PO Last administered on 08:18; Start 12/21/17 at 09:00 Non-Formulary Medication (Umeclidinium Brm/Vilanterol Tr (Anoro Ellipta 62.5-25 Mcg Inh)) 1 puff DAILY IH ; Start 12/21/17 at 09:00; Status UNV Budesonide (Pulmicort) 0.5 mg RTBID NEB Last administered on 12/21/17at 21:05; Start 12/20/17 at 20:00 Lactobacillus Rhamnosus (Culturelle) 1 cap BID PO Last administered on 08:17; Start 12/21/17 at 21:00 Ceftriaxone Sodium 1 gm/ Sodium Chloride 50 ml @ 100 mls/hr Q24H IV ; Start 12/21/17 at 15:45; Status UNV Azithromycin (Zithromax) 250 mg DAILY PO Last administered on 12/22/17 08:22; Start 12/22/17 at 09:00 Ceftriaxone Sodium (Rocephin) 1 gm Q24H IVP Last administered on 12/21/17at 18:01 ; Start 12/21/17 at 16:00 Active Scripts Active Prednisone 10 Mg Tablet 10 Mg PO DAILY Take 4 tabs daily with food x 4 D, then 3 tabs daily x 4 D, then 2 tabs daily x 4 D, then 1 tab daily x 4 D, then STOP. Doxycycline Hyclate 100 Mg Tablet 100 Mg PO [id number] Reported Losartan Potassium 100 Mg Tablet 100 Mg PO DAILY Ventolin Hfa Inhaler (Albuterol Sulfate) 18 Gm Hfa.aer.ad 1 Puff IH PRN Q4HRS PRN Magnesium (Magnesium Oxide) 400 Mg Capsule 400 Mg PO DAILY LAST DOSE GIVEN: DATE: TODAY TIME: AM NEXT DOSE DUE: DATE: TOMORROW TIME: PM Tylenol (Acetaminophen) 325 Mg Tablet 650 Mg PO BID LAST DOSE GIVEN: DATE: TODAY TIME: AM NEXT DOSE DUE: DATE: TONIGHT TIME: PM Torsemide 20 Mg Tablet 20 Mg PO DAILY LAST DOSE GIVEN: DATE: TIME: AM NEXT DOSE DUE: DATE: TOMORR TIME: AM Carvedilol 25 Mg Tablet 25 Mg PO BID LAST DOSE GIVEN: DATE: TIME: AM NEXT DOSE DUE: DATE: TONIGHT TIME: PM Amlodipine Besylate 2.5 Mg Tablet 2.5 Mg PO DAILY LAST DOSE GIVEN: DATE: TODAY TIME: AM NEXT DOSE DUE: DATE: TOMORROW TIME: AM Aspirin Ec (Aspirin) 81 Mg Tablet.dr 1 Tab PO DAILY LAST DOSE GIVEN: DATE: TODAY TIME: AM NEXT DOSE DUE: DATE: ORR TIME: AM Gabapentin 300 Mg Capsule 300 Mg PO BID LAST DOSE GIVEN: DATE: TIME: AM NEXT DOSE DUE: DATE: TONIGHT TIME: PM Anoro Ellipta 62.5-25 Mcg Inh (Umeclidinium Brm/Vilanterol Tr) 1 Each Disk.w.dev 1 Puff IH DAILY resume today or tomorrow hospital does not carry Losartan Potassium 100 Mg Tablet 100 Mg PO HS LAST DOSE GIVEN: DATE: TIME: NEXT DOSE DUE: DATE: TONIGHT TIME: PM Duoneb 0.5-3(2.5) Mg/3 Ml (Albuterol/Ipratropium) 3 Ml Ampul.neb 3 Ml IH QID next dose as needed LAST DOSE: 5/4 am next dose as needed Proair Hfa Inhaler (Albuterol Sulfate) 8.5 Gm Hfa.aer.ad 2 Puff IH PRN BID PRN last dose today next dose this evening or as needed Lowman 3 Fish Oil Softgel (Lowman-3 Fatty Acids/Fish Oil) 1 Each Capsule.dr 1,000 Mg PO DAILY LAST DOSE GIVEN: DATE: TIME: NEXT DOSE DUE: DATE: TOMORROW TIME: AM Vitamin D (Cholecalciferol (Vitamin D3)) 1,000 Unit Capsule 1,000 Unit PO DAILY LAST DOSE GIVEN: DATE: TODAY TIME: AM NEXT DOSE DUE: DATE: TOMORROW TIME: PM Metformin Hcl 500 Mg Tablet 500 Mg PO BID LAST DOSE GIVEN: DATE: TODAY TIME: AM NEXT DOSE DUE: DATE: TIME: PM Crestor (Rosuvastatin Calcium) 10 Mg Tablet 10 Mg PO QM-F LAST DOSE GIVEN: DATE: TIME: NEXT DOSE DUE: DATE: MONDAY TIME: PM Allopurinol 300 Mg Tablet 300 Mg PO DAILY LAST DOSE GIVEN: DATE: TODAY TIME: AM NEXT DOSE DUE: DATE: TOMORR TIME: AM Allergies: Coded Allergies: sulfamethoxazole (Verified Allergy, Intermediate, rash, 12/20/17) trimethoprim (Verified Allergy, Intermediate, rash, 12/20/17) quinine (Verified Allergy, Mild, rash, 12/20/17) VITALS Vital Signs Date Time Temp Pulse Resp B/P (MAP) Pulse Ox O2 Delivery O2 Flow Rate FiO2 12/22/17 08:20 73 144/63 12/22/17 07:40 Nasal Cannula 2.0 12/22/17 05:48 97.7 16 100 Labs Laboratory Tests Test 12/20/17 08:45 12/20/17 11:06 12/20/17 12:04 12/20/17 12:11 Lactic Acid Level 1.0 mmol/L (0.4-2.0) Nasal Screen MRSA (PCR) Negative (Negative) Glucose (Fingerstick) 173 mg/dL (70-99) Troponin I Quantitative < 0.017 ng/mL (0-0.055) Test 12/20/17 15:17 12/20/17 21:35 12/21/17 05:43 12/21/17 08:09 Troponin I Quantitative < 0.017 ng/mL (0-0.055) Glucose (Fingerstick) 201 mg/dL (70-99) 163 mg/dL (70-99) White Blood Count 14.0 x10^3/uL (4.0-11.0) Red Blood Count 3.80 x10^6/uL (4.30-5.70) Hemoglobin 11.8 g/dL (13.0-17.5) Hematocrit 35.3 % (39.0-53.0) Mean Corpuscular Volume 93 fL (79-100) Mean Corpuscular Hemoglobin 31 pg (25-35) Mean Corpuscular Hemoglobin Concent 34 g/dL (31-37) Red Cell Distribution Width 15.8 % (11.5-14.5) Platelet Count 250 x10^3/uL (140-400) Sodium Level 135 mmol/L (136-145) Potassium Level 3.6 mmol/L (3.5-5.1) Chloride Level 98 mmol/L (98-107) Carbon Dioxide Level 27 mmol/L (21-32) Anion Gap 10 (6-14) Blood Urea Nitrogen 19 mg/dL (8-26) Creatinine 0.8 mg/dL (0.7-1.3) Estimated GFR (Cockcroft-Gault) 92.3 BUN/Creatinine Ratio 24 (6-20) Glucose Level 188 mg/dL (70-99) Calcium Level 8.5 mg/dL (8.5-10.1) Total Bilirubin 0.4 mg/dL (0.2-1.0) Aspartate Amino Transf (AST/SGOT) 11 U/L (15-37) Alanine Aminotransferase (ALT/SGPT) 11 U/L (16-63) Alkaline Phosphatase 53 U/L (46-116) Total Protein 6.8 g/dL (6.4-8.2) Albumin 2.8 g/dL (3.4-5.0) Albumin/Globulin Ratio 0.7 (1.0-1.7) Test 12/21/17 11:43 12/21/17 17:21 12/22/17 07:41 Glucose (Fingerstick) 164 mg/dL (70-99) 144 mg/dL (70-99) 169 mg/dL (70-99) ELIA PAUL APRN December 22, 2017 08:57
[2017-12-22] MEDS ORDERED: AZITHROMYCIN 250 MG TABLET. PO SCH (09:00)
[2017-12-22] MEDS: BUDESONIDE 0.5 MG/2 ML NEBU NEB SCH (10:35)
[2017-12-22 10:46] VITALS: BP 128/64
[2017-12-22] MEDS ORDERED: AZIT250T PO (14:40)
[2017-12-22] MEDS ORDERED: CEFP200T PO (14:40)
[2017-12-22 14:49] VITALS: BP 134/64
--- NOTE | 2017-12-22 21:15 | DS ---
DATE OF DISCHARGE: 12/22/2017 HOSPITAL COURSE: The patient is an 82-year-old male patient who yet again came with acute hypoxic respiratory failure manifested by increasing shortness of breath, cough with scanty whitish sputum. Initial investigation showed he has infiltrate in the left side of the heart. He was admitted with community-acquired pneumonia, COPD exacerbation as well as acute hypoxic respiratory failure. The patient was treated with IV antibiotic, IV steroids, and he did actually very well, has had no chest tightness, no wheezing. PHYSICAL EXAMINATION: GENERAL: When I examined him this afternoon, he looked well and was clearly in no apparent respiratory distress. VITAL SIGNS: His heart rate was 72, blood pressure was 128/64, temperature was 97.6, respiratory rate 20, and oxygen saturation was 98% on 2 liters of oxygen by nasal cannula. HEAD, EYES, EARS, NOSE, AND THROAT: Showed normocephalic, atraumatic. NECK: Supple. HEART: Showed normal first and second heart sounds. No gallop, rub, or murmur. CHEST: Clear to auscultation. No crepitation or rhonchi. ABDOMEN: Slightly distended, soft, nontender. NEUROLOGIC: He is awake, alert, responding appropriately. All cranial nerves intact. He moves extremities without difficulty, ambulates without assistance or assistive devices. His intake over the last 24 hours was 1050, output was 1200. LABORATORY DATA: Lab work this morning showed a white cell count 14,000, hemoglobin 11.8, hematocrit 35, MCV 93, and platelet count 250,000. His chemistry showed a serum sodium 135, potassium 3.6, chloride 98, bicarbonate 27, anion gap of 10, BUN 19, creatinine 0.8, estimated GFR was 92 mL per minute. His total bilirubin, AST, ALT, alkaline phosphatase were normal. Total protein 6.8, albumin 2.8. DISCHARGE MEDICATIONS: He was discharged home to continue on Vantin 200 mg twice a day for 7 days, Zithromax 250 mg once a day for 7 days as well as tapering course of steroids together with all his other home medication. FINAL DISCHARGE DIAGNOSES: 1. Healthcare-associated pneumonia. 2. Chronic obstructive pulmonary disease exacerbation. 3. Acute hypoxic respiratory failure. 4. Hypertension. 5. Type 2 diabetes. 6. Hyperlipidemia. 7. Gout. DEIDRE HANEY MD DR: Murray JOB#: [id number] / [id number]
== END 2017-12-22 15:30 | disposition home or self-care (01) | DRG 871 ==
LOC: ER 07:30 → ICU 08:50 → 1 SOUTH 12-21 11:30
PROVIDERS: ADMIT Internal Medicine; ATTEND Internal Medicine
DX: A41.9 Sepsis, unspecified organism (principal); J18.9 Pneumonia, unspecified organism; J96.01 Acute respiratory failure with hypoxia; I11.0 Hypertensive heart disease with heart failure; J44.0 Chronic obstructive pulmonary disease with (acute) lower respiratory infection; I50.9 Heart failure, unspecified; I27.20 Pulmonary hypertension, unspecified; J44.1 Chronic obstructive pulmonary disease with (acute) exacerbation; E11.9 Type 2 diabetes mellitus without complications; E78.2 Mixed hyperlipidemia; I25.10 Atherosclerotic heart disease of native coronary artery without angina pectoris; I25.5 Ischemic cardiomyopathy; M10.9 Gout, unspecified; N40.0 Benign prostatic hyperplasia without lower urinary tract symptoms; Y95 Nosocomial condition; Z82.49 Family history of ischemic heart disease and other diseases of the circulatory system; Z82.5 Family history of asthma and other chronic lower respiratory diseases; Z87.891 Personal history of nicotine dependence; Z95.1 Presence of aortocoronary bypass graft; Z99.81 Dependence on supplemental oxygen; Z87.440 Personal history of urinary (tract) infections; I25.2 Old myocardial infarction; Z95.5 Presence of coronary angioplasty implant and graft; Z98.41 Cataract extraction status, right eye; Z98.42 Cataract extraction status, left eye; Z88.1 Allergy status to other antibiotic agents; Z88.2 Allergy status to sulfonamides; Z88.8 Allergy status to other drugs, medicaments and biological substances; Z79.899 Other long term (current) drug therapy; Z90.49 Acquired absence of other specified parts of digestive tract
CPT/HCPCS: 36415; 71045; 80053; 82553; 82947; 83605; 83735; 83880; 84484; 85025; 85027; 87040; 87641; 93005; 94640; 96365; 96375; J0456; J0696; J1815; J1940; J2920; J2930; J7050; J7512; J7620; J7626; 99285-25

== ENCOUNTER 2018-01-19 20:55 | Emergency (ER) | payer MEDICARE ==
[~2018-01-19] VITALS: Ht 180.3 cm; Wt 86.4 kg
[~2018-01-19 20:55] MED LIST changes: +AZIT250T PO; +CEFP200T PO
[2018-01-19] MEDS ORDERED: IPRATRPIUM/ALBUTEROL 0.5/2.5MG 3 ML NEBU. NEB ONE (21:15)
--- NOTE | 2018-01-19 21:25 | ED.ADGEN ---
Past History Past Medical History: Arthritis, CAD, COPD, Diabetes, High Cholesterol, Heart Disease, Hypertension, Other Past Surgical History: Coronary Bypass Surgery, Other Smoking: Quit Greater Than 1 Year Alcohol Use: None Drug Use: None Adult General [facility] HPI Patient is a 82 year old male who presents with dyspnea. The patient is known to have COPD. At baseline, he uses 3 L of oxygen only at night. He also uses 4 times a day albuterol nebulized treatments. This evening, he presents to the emergency department complaining of worsening shortness of breath. His symptoms have been over the last 12-24 hours. He states he uses normal medications today but did not have relief of symptoms. He also increased his oxygen use to include oxygen throughout the course of the day. He does have an increased cough that is intermittently productive of sputum. Complains also of some heaviness in his chest which has also been present over the last 12-24 hours. No overt chest pain. He sleeps normally on 2 pillows and this has not changed. He does have some bilateral lower extremity edema which she states is normal for this time of day. The edema normally resolves by morning and recurs by the end of the day. The symptoms are not worse compared to baseline. Denies fever or chills. Denies palpitations. He is not on any anticoagulation medications other than aspirin. Review of Systems Review of Systems Constitutional: Denies fever or chills Eyes: Denies change in visual acuity, redness, or eye pain HENT: Denies nasal congestion or sore throat Respiratory: as documented in HPI Cardiovascular: No additional information not addressed in HPI GI: Denies abdominal pain, nausea, vomiting : Denies dysuria or hematuria Musculoskeletal: Denies back pain or joint pain Integument: Denies rash or skin lesions Neurologic: Denies headache, focal weakness or sensory changes Endocrine: Denies polyuria or polydipsia All other systems were reviewed and found to be within normal limits, except as documented in this note. Current Medications Current Medications Current Medications Medications (Trade) Dose Ordered Sig/Shirley Start Time Stop Time Status Last Admin Dose Admin Albuterol Sulfate (Ventolin) 2.5 mg 1X ONCE 01/19/18 23:00 01/19/18 23:01 DC 01/19/18 22:57 2.5 MG Albuterol/ Ipratropium (Duoneb) 3 ml 1X ONCE 01/19/18 21:15 01/19/18 21:16 DC 01/19/18 22:23 3 ML Levofloxacin (Levaquin) 500 mg 1X ONCE 01/19/18 23:00 01/19/18 23:01 DC 01/19/18 23:02 500 MG Prednisone (Prednisone) 20 mg STK-MED ONCE 01/19/18 22:56 01/19/18 22:57 DC Allergies Allergies Allergies Coded Allergies Type Severity Reaction Last Updated Verified sulfamethoxazole Allergy Intermediate rash 01/19/18 Yes trimethoprim Allergy Intermediate rash 01/19/18 Yes quinine Allergy Mild rash 01/19/18 Yes Physical Exam Physical Exam Constitutional: Well developed, well nourished, mild increased work of breathin HENT: Normocephalic, atraumatic, bilateral external ears normal, oropharynx moist Eyes: normal Neck: Normal range of motion, no tenderness, supple, no JVD, no carotid bruits Cardiovascular:Heart rate regular rhythm Lungs & Thorax: Sounds are diminished bilaterally, no wheezes or crackles heard Abdomen: Bowel sounds normal, soft, no tenderness, no masses Skin: Warm, dry, no erythema, no rash. Back: No tenderness, no CVA tenderness. Extremities: Trace edema bilateral lower extremities Neurologic: Alert and oriented X 3 Psychologic: Affect normal, judgement normal, mood normal Current Patient Data Vital Signs Vital Signs Date Time Temp Pulse Resp B/P (MAP) Pulse Ox O2 Delivery O2 Flow Rate FiO2 01/19/18 22:58 Nasal Cannula 2.0 01/19/18 22:25 96 01/19/18 21:30 89 22 110/45 (66) 01/19/18 21:00 98.3 Lab Results Laboratory Tests Test 01/19/18 21:25 01/19/18 23:47 White Blood Count 5.0 x10^3/uL (4.0-11.0) Red Blood Count 3.70 x10^6/uL (4.30-5.70) L Hemoglobin 11.8 g/dL (13.0-17.5) L Hematocrit 34.8 % (39.0-53.0) L Mean Corpuscular Volume 94 fL (79-100) Mean Corpuscular Hemoglobin 32 pg (25-35) Mean Corpuscular Hemoglobin Concent 34 g/dL (31-37) Red Cell Distribution Width 16.8 % (11.5-14.5) H Platelet Count 234 x10^3/uL (140-400) Neutrophils (%) (Auto) 51 % (31-73) Lymphocytes (%) (Auto) 30 % (24-48) Monocytes (%) (Auto) 12 % (0-9) H Eosinophils (%) (Auto) 6 % (0-3) H Basophils (%) (Auto) 1 % (0-3) Neutrophils # (Auto) 2.5 x10^3uL (1.8-7.7) Lymphocytes # (Auto) 1.5 x10^3/uL (1.0-4.8) Monocytes # (Auto) 0.6 x10^3/uL (0.0-1.1) Eosinophils # (Auto) 0.3 x10^3/uL (0.0-0.7) Basophils # (Auto) 0.0 x10^3/uL (0.0-0.2) Prothrombin Time 10.1 SEC (9.4-11.4) Prothrombin Time INR 1.0 (0.9-1.1) PTT 25 SEC (23-33) Sodium Level 136 mmol/L (136-145) Potassium Level 4.2 mmol/L (3.5-5.1) Chloride Level 97 mmol/L (98-107) L Carbon Dioxide Level 32 mmol/L (21-32) Anion Gap 7 (6-14) Blood Urea Nitrogen 15 mg/dL (8-26) Creatinine 1.0 mg/dL (0.7-1.3) Estimated GFR (Cockcroft-Gault) 71.4 Glucose Level 106 mg/dL (70-99) H Lactic Acid Level 1.3 mmol/L (0.4-2.0) Calcium Level 8.7 mg/dL (8.5-10.1) Troponin I Quantitative < 0.017 ng/mL (0-0.055) OX-Mlq-T-Type Natriuretic Peptide 573 pg/mL (0-449) H POC Troponin I 0.01 ng/ml (<0.08) EKG EKG EKG reveals a sinus rhythm with a rate of 59. There are occasional PVCs present. No acute ST elevation or depression. Radiology/Procedures Radiology/Procedures CXR: No acute process Course & Med Decision Making Course & Med Decision Making Pertinent Labs and Imaging studies reviewed. (See chart for details) Patient is seen and examined. He does have very mild increased work of breathing. This does resolve when he is resting on the gurney. I did not appreciate wheezes or crackles but he does have globally diminished air movement. DuoNeb is ordered. Standard ACS workup is also ordered. The patient states he was admitted to the hospital 2 weeks earlier for pneumonia. He does not report fevers or chills lately. 22:50: Patient is currently improved. His EKG is nonacute. His troponin is not elevated. BNP is not elevated. The rest of his labs are normal range. He feels improved after 1 DuoNeb treatment. He does continue to have a few wheezes bilaterally. Additional nebulized albuterol treatment is ordered. Plan will be to repeat troponin at the 2 hour maribell as long with EKG. If the patient continues to improve, and troponin is not elevated, patient can be discharged home. He is ordered to have prednisone in the ER. Patient was observed in the ER for several hours. He had troponin x 2 that were normal. EKG x 2 were normal. His symptoms were entirely resolved after two breathing treatments. Lungs were clear and with improved air flow. No acute findings on CXR. Patient is discharged to home. He is placed on levaquin x 5 days and prednisone x 5 days. initial doses given in the ER. He is agreeable to the plan of care. Final Impression Final Impression Dyspnea Dragsmitha Disclaimer Dragon Disclaimer This electronic medical record was generated, in whole or in part, using a voice recognition dictation system. DIANE LIM DO Jan 19, 2018 21:24
[2018-01-19 22:16] LABS: BASO % 1 % (0-3); EOS # 0.3 x10^3/uL (0.0-0.7); EOS % 6 % (0-3); HEMATOCRIT 34.8 % (39.0-53.0); HEMOGLOBIN 11.8 g/dL (13.0-17.5); LYMPH # 1.5 x10^3/uL (1.0-4.8); LYMPH % 30 % (24-48); MEAN CORPUSCULAR HEMOGLOBIN 32 pg (25-35); MEAN CORPUSCULAR HGB CONC 34 g/dL (31-37); MEAN CORPUSCULAR VOLUME 94 fL (79-100); MONO # 0.6 x10^3/uL (0.0-1.1); MONO % 12 % (0-9); NEUT # 2.5 x10^3uL (1.8-7.7); NEUT % 51 % (31-73); PLATELET COUNT 234 x10^3/uL (140-400); RED CELL DISTRIBUTION WIDTH 16.8 % (11.5-14.5)
[2018-01-19 22:21] LABS: CALCIUM 8.7 mg/dL (8.5-10.1); GFR 71.4; POTASSIUM 4.2 mmol/L (3.5-5.1)
--- NOTE | 2018-01-19 22:31 | RAD ---
PORTABLE CHEST 1V dated 01/19/2018 9:02 PM. Comparison: 12/20/2017 Clinical Indication: Dyspnea, cough. Hx open heart surgery 10 years ago. Hx COPD. Findings: Single upright portable exam performed. Heart and mediastinal contours are stable. Patient is status post median sternotomy. Lungs are hyperinflated but otherwise clear. No consolidation or pleural effusion. No pneumothorax. Mildly prominent perihilar linear markings are unchanged from prior exam. Impression: No acute radiographic abnormality. Findings consistent with COPD, unchanged from prior study. Electronically signed by: Juan Albrecht MD (01/19/2018 10:27 PM) [facility]
[2018-01-19] MEDS ORDERED: predniSONE 20 MG TABLET ONE (22:56)
[2018-01-19] MEDS ORDERED: levoFLOXacin 500 MG TABLET PO ONE (23:00)
[2018-01-19] MEDS ORDERED: ALBUTEROL SULFATE 2.5 MG/3 ML NEBU. NEB ONE (23:00)
[2018-01-19] MEDS ORDERED: predniSONE 10 MG TABLET PO ONE (23:00)
--- NOTE | 2018-01-19 23:26 | EKG ---
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
[2018-01-20 00:05] VITALS: BP 158/70
[2018-01-20] MEDS ORDERED: LEVO500T59 PO (00:07)
[2018-01-20] MEDS ORDERED: PRED50TA PO (00:07)
--- NOTE | 2018-01-20 00:16 | EKG ---
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
== END 2018-01-20 00:20 | disposition home or self-care (01) ==
LOC: ER 20:55
DX: R06.00 Dyspnea, unspecified (principal); M19.90 Unspecified osteoarthritis, unspecified site; J44.9 Chronic obstructive pulmonary disease, unspecified; E78.00 Pure hypercholesterolemia, unspecified; I11.9 Hypertensive heart disease without heart failure; I25.810 Atherosclerosis of coronary artery bypass graft(s) without angina pectoris; E11.9 Type 2 diabetes mellitus without complications; Z87.891 Personal history of nicotine dependence; Z88.1 Allergy status to other antibiotic agents; Z88.2 Allergy status to sulfonamides; Z88.8 Allergy status to other drugs, medicaments and biological substances
CPT/HCPCS: 36415; 71045; 80048; 83605; 83880; 84145; 84484; 85025; 85610; 85730; 93005; 94640; 99285; J7512; J7613; J7620

== ENCOUNTER 2018-03-16 23:02 | Inpatient (IN) | payer MEDICARE ==
[~2018-03-16] VITALS: Ht 180.3 cm; Wt 83.2 kg
[~2018-03-16 23:02] MED LIST changes: -IPRA3AMP IH; +IPRA3AMP29 IH
--- NOTE | 2018-03-16 23:05 | ED.ADGEN ---
Past History Past Medical History: Arthritis, CAD, CHF, COPD, Diabetes, High Cholesterol, Heart Disease, Hypertension, Pneumonia, Other Past Surgical History: Coronary Bypass Surgery, Other Smoking: Quit Greater Than 1 Year Alcohol Use: None Drug Use: None Adult General Chief Complaint Chief Complaint "... I got bad COPD....I ve been off Prednisone..for 3 to 4 weeks now.. but I woke up with severe shortness of breath... I am a little better .. now...." HPI HPI Patient is a 82 year old male who presents with above hx and complaints increased dyspnea, hypoxia, and dysrhythmia. Patient has known COPD, coronary artery disease, CHF, diabetes, elevated cholesterol, hypertension, DM, arthritis. Pt. denies travel, ill contacts, changes in meds, or Review of Systems Review of Systems Constitutional: Denies fever or chills [] Eyes: Denies change in visual acuity, redness, or eye pain [] HENT: Denies nasal congestion or sore throat [] Respiratory: Complaints of marked shortness of breath [] Cardiovascular: No additional information not addressed in HPI [] GI: Denies abdominal pain, nausea, vomiting, bloody stools or diarrhea [] : Denies dysuria or hematuria [] Musculoskeletal: Denies back pain or joint pain [] Integument: Denies rash or skin lesions [] Neurologic: Denies headache, focal weakness or sensory changes [] Endocrine: Denies polyuria or polydipsia [] All other systems were reviewed and found to be within normal limits, except as documented in this note. Family History Family History Non-contributory Current Medications Current Medications Current Medications Medications (Trade) Dose Ordered Sig/Shirley Start Time Stop Time Status Last Admin Dose Admin Albuterol/ Ipratropium (Duoneb) 3 ml 1X ONCE 03/16/18 23:15 03/16/18 23:16 DC 03/17/18 00:05 3 ML Aspirin (Children'S Aspirin) 324 mg 1X ONCE 03/16/18 23:15 03/16/18 23:16 DC 03/16/18 23:50 324 MG Azithromycin (Zithromax) 500 mg 1X ONCE 03/16/18 23:55 03/16/18 23:56 DC 03/17/18 00:16 500 MG Enoxaparin Sodium (Lovenox 80mg Syringe) 80 mg 1X ONCE 03/16/18 23:55 03/16/18 23:56 DC 03/17/18 00:16 80 MG Methylprednisolone Sodium Succinate (SOLU-Medrol 125MG VIAL) 125 mg 1X ONCE 03/16/18 23:15 03/16/18 23:16 DC 03/16/18 23:49 125 MG Allergies Allergies Allergies Coded Allergies Type Severity Reaction Last Updated Verified sulfamethoxazole Allergy Intermediate rash 01/19/18 Yes trimethoprim Allergy Intermediate rash 01/19/18 Yes quinine Allergy Mild rash 01/19/18 Yes Physical Exam Physical Exam Constitutional:,moderately acute distress, non-toxic appearance. [] HENT: Normocephalic, atraumatic, bilateral external ears normal, oropharynx moist, no oral exudates, nose normal. [] Eyes: PERRLA, EOMI, conjunctiva normal, no discharge. Glasses. Neck: Normal range of motion, no tenderness, supple, no stridor. [] Cardiovascular: Irregular rate and rhythm, PMI to Lt. Lungs & Thorax: Bilateral breath sounds equal at apex with scattered wheezes on auscultation []Old surgery scars Abdomen: Bowel sounds normal, soft, no tenderness, no masses, no pulsatile masses. Old surgery scars. Skin: Warm, dry, no erythema, no rash. Poor turgor. Back: No tenderness, no CVA tenderness. [] Extremities: No tenderness, no cyanosis, no clubbing, ROM intact, ankle edema. Arthritic changes. Neurologic: Alert and oriented X 3, moves all ext. on request, distal sensory, no gross focal deficits noted. [] Psychologic: Affect normal, judgement normal, mood normal. [] Current Patient Data Vital Signs Vital Signs Date Time Temp Pulse Resp B/P (MAP) Pulse Ox O2 Delivery O2 Flow Rate FiO2 03/16/18 23:20 98.2 67 21 97 Nasal Cannula 2.0 Lab Results Laboratory Tests Test 03/16/18 01:35 03/16/18 23:35 Urine Collection Type Unknown Urine Color Straw Urine Clarity Clear Urine pH 7.0 Urine Specific [place] 1.015 Urine Protein Neg (NEG-TRACE) Urine Glucose (UA) Neg mg/dL (NEG) Urine Ketones (Stick) Neg mg/dL (NEG) Urine Blood Neg (NEG) Urine Nitrite Neg (NEG) Urine Bilirubin Neg (NEG) Urine Urobilinogen Dipstick 0.2 mg/dL (0.2 mg/dL) Urine Leukocyte Esterase Neg (NEG) Urine RBC Occ /HPF (0-2) Urine WBC Rare /HPF (0-4) Urine Squamous Epithelial Cells Occ /LPF Urine Amorphous Sediment Present /HPF Urine Bacteria Few /HPF (0-FEW) Urine Mucus Slight /LPF Urine Opiates Screen Neg (NEG) Urine Methadone Screen Neg (NEG) Urine Barbiturates Neg (NEG) Urine Phencyclidine Screen Neg (NEG) Urine Amphetamine/Methamphetamine Neg (NEG) Urine Benzodiazepines Screen Neg (NEG) Urine Cocaine Screen Neg (NEG) Urine Cannabinoids Screen Neg (NEG) Urine Ethyl Alcohol Neg (NEG) White Blood Count 9.3 x10^3/uL (4.0-11.0) Red Blood Count 3.83 x10^6/uL (4.30-5.70) L Hemoglobin 12.1 g/dL (13.0-17.5) L Hematocrit 36.1 % (39.0-53.0) L Mean Corpuscular Volume 94 fL (79-100) Mean Corpuscular Hemoglobin 32 pg (25-35) Mean Corpuscular Hemoglobin Concent 34 g/dL (31-37) Red Cell Distribution Width 14.7 % (11.5-14.5) H Platelet Count 242 x10^3/uL (140-400) Neutrophils (%) (Auto) 62 % (31-73) Lymphocytes (%) (Auto) 23 % (24-48) L Monocytes (%) (Auto) 13 % (0-9) H Eosinophils (%) (Auto) 2 % (0-3) Basophils (%) (Auto) 1 % (0-3) Neutrophils # (Auto) 5.7 x10^3uL (1.8-7.7) Lymphocytes # (Auto) 2.1 x10^3/uL (1.0-4.8) Monocytes # (Auto) 1.2 x10^3/uL (0.0-1.1) H Eosinophils # (Auto) 0.2 x10^3/uL (0.0-0.7) Basophils # (Auto) 0.1 x10^3/uL (0.0-0.2) Prothrombin Time 9.9 SEC (9.4-11.4) Prothrombin Time INR 1.0 (0.9-1.1) PTT 24 SEC (23-33) D-Dimer (Charline) 0.74 mg/L (0.00-0.50) H Sodium Level 134 mmol/L (136-145) L Potassium Level 4.1 mmol/L (3.5-5.1) Chloride Level 96 mmol/L (98-107) L Carbon Dioxide Level 35 mmol/L (21-32) H Anion Gap 3 (6-14) L Blood Urea Nitrogen 25 mg/dL (8-26) Creatinine 1.0 mg/dL (0.7-1.3) Estimated GFR (Cockcroft-Gault) 71.4 Glucose Level 122 mg/dL (70-99) H Calcium Level 9.1 mg/dL (8.5-10.1) Magnesium Level 1.9 mg/dL (1.8-2.4) Total Bilirubin 0.4 mg/dL (0.2-1.0) Direct Bilirubin 0.1 mg/dL (0.0-0.2) Aspartate Amino Transferase (AST) 11 U/L (15-37) L Alanine Aminotransferase (ALT) 9 U/L (16-63) L Alkaline Phosphatase 44 U/L (46-116) L Creatine Kinase 23 U/L (39-308) L Creatine Kinase MB (Mass) < 0.5 ng/mL (0.0-3.6) Creatine Kinase MB Relative Index 2.2 % (0-4) Troponin I Quantitative < 0.017 ng/mL (0-0.055) JA-Idy-H-Type Natriuretic Peptide 306 pg/mL (0-449) Total Protein 6.4 g/dL (6.4-8.2) Albumin 3.5 g/dL (3.4-5.0) Lipase 134 U/L (73-393) EKG EKG My interpretation of EKG shows a sinus rhythm with frequent PVCs and PACs. Has left axis. Nonspecific T-wave changes. Does have slightly prolonged QT interval in excess of 500 ms.[] Radiology/Procedures Radiology/Procedures My interpretation of chest x-ray shows chronic COPD changes. Flattening of diaphragm. Some blunting of left phrenic angle. Has findings of prior closure from previous coronary artery bypass graft. Degenerative joint changes.[] Course & Med Decision Making Course & Med Decision Making Pertinent Labs and Imaging studies reviewed. (See chart for details) Pt. to be admitted to Dr. Caraballo- [] Final Impression Final Impression 1. Dyspnea[] 2. COPD Exacerbation 3. Dysrhythmia- PVC, PAC's 4. Anemia 5. Elevate D-Dimer 6. Pul. fibrosis Dragon Disclaimer Dragon Disclaimer This electronic medical record was generated, in whole or in part, using a voice recognition dictation system. REBECCA LAINEZ MD Mar 16, 2018 23:05
[2018-03-16] MEDS ORDERED: methylPREDNISolone SOD SUCC PF 125 MG/2 ML VIAL. IV ONE (23:15)
[2018-03-16] MEDS ORDERED: ASPIRIN 81 MG TAB.CHEW PO ONE (23:15)
[2018-03-16] MEDS ORDERED: IPRATRPIUM/ALBUTEROL 0.5/2.5MG 3 ML NEBU. NEB ONE (23:15)
--- NOTE | 2018-03-16 23:35 | RAD ---
Exam: AP portable chest History: Congestive heart failure, COPD. Comparison: January 19, 2018. Findings: The heart and mediastinal structures are within normal limits for size. Lungs are without infiltrate. No pleural effusion or pneumothorax is identified. Median sternotomy wires are present. Aortic atherosclerosis is seen. Impression: 1. No acute cardiopulmonary process. Electronically signed by: Juan Fajardo MD (03/16/2018 11:31 PM) [facility]
[2018-03-16] MEDS ORDERED: AZITHROMYCIN 250 MG TABLET. PO ONE (23:55)
[2018-03-16] MEDS ORDERED: ENOXAPARIN ** NOTE DOSE ** SYRINGE SQ ONE (23:55)
[2018-03-17 00:15] LABS: BASO # 0.1 x10^3/uL (0.0-0.2); BASO % 1 % (0-3); EOS # 0.2 x10^3/uL (0.0-0.7); EOS % 2 % (0-3); HEMATOCRIT 36.1 % (39.0-53.0); HEMOGLOBIN 12.1 g/dL (13.0-17.5); LYMPH # 2.1 x10^3/uL (1.0-4.8); LYMPH % 23 % (24-48); MEAN CORPUSCULAR HEMOGLOBIN 32 pg (25-35); MEAN CORPUSCULAR HGB CONC 34 g/dL (31-37); MEAN CORPUSCULAR VOLUME 94 fL (79-100); MONO # 1.2 x10^3/uL (0.0-1.1); MONO % 13 % (0-9); NEUT # 5.7 x10^3uL (1.8-7.7); NEUT % 62 % (31-73); PLATELET COUNT 242 x10^3/uL (140-400); RED BLOOD COUNT 3.83 x10^6/uL (4.30-5.70); RED CELL DISTRIBUTION WIDTH 14.7 % (11.5-14.5); WHITE BLOOD COUNT 9.3 x10^3/uL (4.0-11.0)
[2018-03-17 00:34] LABS: ALBUMIN 3.5 g/dL (3.4-5.0); ALK PHOS 44 U/L (46-116); ALT (SGPT) 9 U/L (16-63); ANION GAP 3 (6-14); AST (SGOT) 11 U/L (15-37); BLOOD UREA NITROGEN 25 mg/dL (8-26); CALCIUM 9.1 mg/dL (8.5-10.1); CARBON DIOXIDE 35 mmol/L (21-32); CHLORIDE 96 mmol/L (98-107); DIRECT BILIRUBIN 0.1 mg/dL (0.0-0.2); GFR 71.4; GLUCOSE 122 mg/dL (70-99); LIPASE 134 U/L (73-393); MAGNESIUM 1.9 mg/dL (1.8-2.4); POTASSIUM 4.1 mmol/L (3.5-5.1); SODIUM 134 mmol/L (136-145); TOTAL BILIRUBIN 0.4 mg/dL (0.2-1.0); TOTAL PROTEIN 6.4 g/dL (6.4-8.2)
[2018-03-17] MEDS ORDERED: ONDANSETRON PF 4 MG/2 ML VIAL. IV PRN (01:15)
[2018-03-17] MEDS ORDERED: IOHEXOL 300 MG/ML 75 ML VIAL. IV ONE (01:30)
[2018-03-17] MEDS ORDERED: CONTRAST GIVEN MC PRN (01:30)
[2018-03-17 02:00] LABS: BARBITURATES NEG (NEG); BENZODIAZEPINES NEG (NEG); CANNABINOIDS NEG (NEG); COCAINE NEG (NEG); METHADONE NEG (NEG); OPIATES NEG (NEG); PHENCYCLIDINE NEG (NEG)
[2018-03-17 02:07] LABS: AMPHETAMINE/METHAMPHETAMINE NEG (NEG)
[2018-03-17 02:13] LABS: BILIRUBIN,URINE NEG (NEG); CLARITY,URINE CLEAR; COLOR,URINE STRAW; GLUCOSE,URINE NEG (NEG); NITRITE,URINE NEG (NEG); UROBILINOGEN,URINE 0.2 mg/dL (0.2 mg/dL)
[2018-03-17 02:14] LABS: AMORPHOUS SEDIMENT,UR PRESENT /HPF; BACTERIA,URINE FEW /HPF (0-FEW); RBC,URINE OCC /HPF (0-2); SQUAMOUS EPITHELIAL CELL,UR OCC /LPF; WBC,URINE RARE /HPF (0-4)
--- NOTE | 2018-03-17 02:17 | RAD ---
CT arteriogram of the chest. HISTORY: Dyspnea, hypoxia, elevated d-dimer, COPD CT arteriogram of the chest was done using 73 mL Omnipaque 300 contrast. Thyroid is homogeneous. There is no mediastinal adenopathy or pleural effusion. Visualized portions of the liver and spleen are normal. Adrenal glands are normal. There are gallstones in the gallbladder. There is atherosclerotic change in the aorta without an aneurysm. Sagittal and coronal MIP images were reconstructed. There is mild pulmonary fibrosis and changes of COPD. There is a calcified granuloma in the right lower lobe is linear scarring in the right lower lobe. There is mild biapical scarring. There is a 5 mm nodule in the left lung apex on image #36 CT series 5. There is linear scarring or atelectasis in the lingula. No other pulmonary nodules noted. There is mild respiratory motion artifact partially the lung bases. This study is negative for evidence of a pulmonary embolus. IMPRESSION: 1. Negative for pulmonary embolus. 2. Mild atelectasis. 3. Mild fibrosis and COPD. 4. 5 mm nodule left apex follow-up in 6 months to one year would be of benefit. 5. Cholelithiasis. RS Compliance Statement: One or more of the following individualized dose reduction techniques were utilized for this examination: 1. Automated exposure control 2. Adjustment of the mA and/or kV according to patient size 3. Use of iterative reconstruction technique Electronically signed by: Reinaldo Larios MD (03/17/2018 2:13 AM) [facility]
--- NOTE | 2018-03-17 02:29 | EKG ---
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
[2018-03-17 04:23] VITALS: BP 159/71
[2018-03-17] MEDS: IPRATRPIUM/ALBUTEROL 0.5/2.5MG 3 ML NEBU. NEB SCH ×4 (05:02→20:09)
[2018-03-17 05:31] VITALS: BP 109/61
[2018-03-17] MEDS ORDERED: DEXTROSE 50% 25 GM / 50ML DISP.SYRIN. IV PRN (08:00)
[2018-03-17] MEDS: methylPREDNISolone SOD SUCC PF 125 MG/2 ML VIAL. IV SCH (08:30)
[2018-03-17] MEDS: ASPIRIN 81 MG TAB.CHEW PO SCH (08:31)
[2018-03-17] MEDS: LACTOBACILLUS RHAMNOSUS GG 1 CAPSULE. PO SCH ×2 (08:31→20:47)
[2018-03-17] MEDS: ENOXAPARIN ** NOTE DOSE ** SYRINGE SQ SCH ×2 (08:31→20:48)
[2018-03-17] MEDS: AZITHROMYCIN 250 MG TABLET. PO SCH (08:31)
[2018-03-17] MEDS: INSULIN LISPRO 300 UNITS/3 ML INSULN.PEN. SQ SCH ×3 (08:32→16:59)
[2018-03-17 11:48] VITALS: BP 144/73
--- NOTE | 2018-03-17 14:00 | PDOC1 ---
History of Present Illness History of Present Illness Patient is an 82-year-old male with history of severe COPD and uses 2 L of O2 nasal cannula continuous at all times who presented to the emergency department yesterday evening with a COPD exacerbation. Patient states approximately 10 PM yesterday he was having a bowel movement on the toilet and after getting up and walking to his bed was wheezing with dyspnea. He turned his fan on which did not help, he turned his O2 up to 3 L but ultimately decided to call family to bring him into the emergency department. He had recently discontinued prednisone, he feels that not being on prednisone is what leads to frequent COPD exacerbations. He was extensively evaluated in the emergency department Chief Complaint: SHORTNESS OF BREATH Allergies: Coded Allergies: sulfamethoxazole (Verified Allergy, Intermediate, rash, 01/19/18) trimethoprim (Verified Allergy, Intermediate, rash, 01/19/18) quinine (Verified Allergy, Mild, rash, 01/19/18) Past Medical History Cardiac: CAD, CHF, HTN, ND, hyperipidemia Review of Systems Review Of Systems Fourteen system , review of systems has been reviewed. See HPI for pertinent positives and negative responses, other gupta all other systems are negative, non pertinent or non contributory Medications Current Medications Aspirin (Children'S Aspirin) 324 mg 1X ONCE PO Last administered on 03/16/18at 23:50; Admin Dose 324 MG; Start 03/16/18 at 23:15; Stop 03/16/18 at 23:16; Status DC Methylprednisolone Sodium Succinate (SOLU-Medrol 125MG VIAL) 125 mg 1X ONCE IV Last administered on 03/16/18at 23:49; Admin Dose 125 MG; Start 03/16/18 at 23: 15; Stop 03/16/18 at 23:16; Status DC Albuterol/ Ipratropium (Duoneb) 3 ml 1X ONCE NEB Last administered on at 00:05; Admin Dose 3 ML; Start 03/16/18 at 23:15; Stop 03/16/18 at 23:16; Status DC Enoxaparin Sodium (Lovenox 80mg Syringe) 80 mg 1X ONCE SQ Last administered on 03/17/18at 00:16; Admin Dose 80 MG; Start 03/16/18 at 23:55; Stop 03/16/18 at 23:56; Status DC Azithromycin (Zithromax) 500 mg 1X ONCE PO Last administered on 03/17/18at 00: 16; Admin Dose 500 MG; Start 03/16/18 at 23:55; Stop 03/16/18 at 23:56; Status DC Iohexol (Omnipaque 300 Mg/ml) 75 ml 1X ONCE IV Last administered on 03/17/18at 01:41; Admin Dose 75 ML; Start 03/17/18 at 01:30; Stop 03/17/18 at 01:31; Status DC Ondansetron HCl (Zofran) 4 mg PRN Q4HRS PRN IV NAUSEA/VOMITING; Start 03/17/18 at 01:15; Stop 03/18/18 at 01:14 Albuterol/ Ipratropium (Duoneb) 3 ml RTQID NEB Last administered on 03/17/18at 09:30; Admin Dose 3 ML; Start 03/17/18 at 08:00; Stop 03/18/18 at 07:59 Enoxaparin Sodium (Lovenox 80mg Syringe) 80 mg BID SQ Last administered on 03/17at 08:31; Admin Dose 80 MG; Start 03/17/18 at 09:00 Aspirin (Children'S Aspirin) 81 mg DAILY PO Last administered on 03/17/18at 08: 31; Admin Dose 81 MG; Start 03/17/18 at 09:00 Azithromycin (Zithromax) 250 mg DAILY PO Last administered on 03/17/18at 08:31; Admin Dose 250 MG; Start 03/17/18 at 09:00 Methylprednisolone Sodium Succinate (SOLU-Medrol 125MG VIAL) 125 mg DAILY IV Last administered on 03/17/18at 08:30; Admin Dose 125 MG; Start 03/17/18 at 09:00 Info (Do NOT chart on this entry -- for MONITORING) 1 each PRN DAILY PRN MC SEE COMMENTS; Start 03/17/18 at 01:30; Stop 03/19/18 at 01:29 Insulin Human Lispro (HumaLOG) 0-7 UNITS TIDWMEALS SQ Last administered on 03/17at 11:55; Admin Dose 4 UNITS; Start 03/17/18 at 08:00 Dextrose 12.5 gm PRN Q15MIN PRN IV SEE COMMENTS; Start 03/17/18 at 08:00 Lactobacillus Rhamnosus (Culturelle) 1 cap BID PO Last administered on at 08:31; Admin Dose 1 CAP; Start 03/17/18 at 09:00 Active Scripts Active Reported Ventolin Hfa Inhaler (Albuterol Sulfate) 18 Gm Hfa.aer.ad 1 Puff IH PRN Q4HRS PRN NOT GIVEN IN THE HOSPITAL RESUME TODAY IF NEEDED Magnesium (Magnesium Oxide) 400 Mg Capsule 400 Mg PO DAILY LAST DOSE GIVEN: DATE: TODAY TIME: AM NEXT DOSE DUE: DATE: TOMORROW TIME: PM Tylenol (Acetaminophen) 325 Mg Tablet 650 Mg PO BID LAST DOSE GIVEN: DATE: TODAY TIME: AM NEXT DOSE DUE: DATE: TONIGHT TIME: PM Torsemide 20 Mg Tablet 20 Mg PO DAILY LAST DOSE GIVEN: DATE: TODAY TIME: AM NEXT DOSE DUE: DATE: TOMORROW TIME: AM Carvedilol 25 Mg Tablet 25 Mg PO BID LAST DOSE GIVEN: DATE: TODAY TIME: AM NEXT DOSE DUE: DATE: TODAY TIME: PM Amlodipine Besylate 2.5 Mg Tablet 2.5 Mg PO DAILY LAST DOSE GIVEN: DATE: TODAY TIME: AM NEXT DOSE DUE: DATE: TOMORROW TIME: AM Aspirin Ec (Aspirin) 81 Mg Tablet.dr 1 Tab PO DAILY LAST DOSE GIVEN: DATE: TODAY TIME: AM NEXT DOSE DUE: DATE: TOMORROW TIME: AM Gabapentin 300 Mg Capsule 300 Mg PO BID LAST DOSE GIVEN: DATE: TODAY TIME: AM NEXT DOSE DUE: DATE: TONIGHT TIME: PM Anoro Ellipta 62.5-25 Mcg Inh (Umeclidinium Brm/Vilanterol Tr) 1 Each Disk.w.dev 1 Puff IH DAILY NOT GIVEN IN THE HOSPITAL RESUME TODAY WHEN YOU GET HOME Losartan Potassium 100 Mg Tablet 100 Mg PO HS LAST DOSE GIVEN: DATE: YESTERDAY TIME: AT BEDTIME NEXT DOSE DUE: DATE: TONIGHT TIME: AT BEDTIME Duoneb 0.5-3(2.5) Mg/3 Ml (Albuterol/Ipratropium) 3 Ml Ampul.neb 3 Ml IH QID LAST DOSE GIVEN: DATE: TODAY TIME: AM NEXT DOSE DUE: DATE: TODAY TIME: AFTERNOON Proair Hfa Inhaler (Albuterol Sulfate) 8.5 Gm Hfa.aer.ad 2 Puff IH PRN BID PRN NOT GIVEN IN THE HOSPITAL RESUME TODAY IF NEEDED Vandervoort 3 Fish Oil Softgel (Vandervoort-3 Fatty Acids/Fish Oil) 1 Each Capsule.dr 1,000 Mg PO DAILY LAST DOSE GIVEN: DATE:N TODAY TIME: AM NEXT DOSE DUE: DATE: TOMORR TIME: AM Vitamin D (Cholecalciferol (Vitamin D3)) 1,000 Unit Capsule 1,000 Unit PO DAILY LAST DOSE GIVEN: DATE: TODAY TIME: AM NEXT DOSE DUE: DATE: TOMORROW TIME: PM Metformin Hcl 500 Mg Tablet 500 Mg PO BID LAST DOSE GIVEN: DATE: TODAY TIME: WITH BREAKFAST NEXT DOSE DUE: DATE: TIME: WITH DINNER Crestor (Rosuvastatin Calcium) 10 Mg Tablet 10 Mg PO QM-F LAST DOSE GIVEN: DATE: TIME: NEXT DOSE DUE: DATE: MONDAY TIME: PM Allopurinol 300 Mg Tablet 300 Mg PO DAILY LAST DOSE GIVEN: DATE: TODAY TIME: AM NEXT DOSE DUE: DATE: TIME: AM Exam Vital Signs Vital Signs Date Time Temp Pulse Resp B/P (MAP) Pulse Ox O2 Delivery O2 Flow Rate FiO2 03/17/18 11:48 88 144/73 (96) 96 Nasal Cannula 2.0 03/17/18 05:31 97.7 18 Assessment/Plan Assessment/Plan Acute on chronic respiratory failure COPD COURSE Allergies Coded Allergies Type Severity Reaction Last Updated Verified sulfamethoxazole Allergy Intermediate rash 01/19/18 Yes trimethoprim Allergy Intermediate rash 01/19/18 Yes quinine Allergy Mild rash 01/19/18 Yes Laboratory Tests Test 03/16/18 23:35 03/17/18 07:58 03/17/18 11:42 White Blood Count 9.3 x10^3/uL (4.0-11.0) Red Blood Count 3.83 x10^6/uL (4.30-5.70) Hemoglobin 12.1 g/dL (13.0-17.5) Hematocrit 36.1 % (39.0-53.0) Mean Corpuscular Volume 94 fL (79-100) Mean Corpuscular Hemoglobin 32 pg (25-35) Mean Corpuscular Hemoglobin Concent 34 g/dL (31-37) Red Cell Distribution Width 14.7 % (11.5-14.5) Platelet Count 242 x10^3/uL (140-400) Neutrophils (%) (Auto) 62 % (31-73) Lymphocytes (%) (Auto) 23 % (24-48) Monocytes (%) (Auto) 13 % (0-9) Eosinophils (%) (Auto) 2 % (0-3) Basophils (%) (Auto) 1 % (0-3) Neutrophils # (Auto) 5.7 x10^3uL (1.8-7.7) Lymphocytes # (Auto) 2.1 x10^3/uL (1.0-4.8) Monocytes # (Auto) 1.2 x10^3/uL (0.0-1.1) Eosinophils # (Auto) 0.2 x10^3/uL (0.0-0.7) Basophils # (Auto) 0.1 x10^3/uL (0.0-0.2) Prothrombin Time 9.9 SEC (9.4-11.4) Prothromb Time International Ratio 1.0 (0.9-1.1) Activated Partial Thromboplast Time 24 SEC (23-33) D-Dimer (Charline) 0.74 mg/L (0.00-0.50) Sodium Level 134 mmol/L (136-145) Potassium Level 4.1 mmol/L (3.5-5.1) Chloride Level 96 mmol/L (98-107) Carbon Dioxide Level 35 mmol/L (21-32) Anion Gap 3 (6-14) Blood Urea Nitrogen 25 mg/dL (8-26) Creatinine 1.0 mg/dL (0.7-1.3) Estimated GFR (Cockcroft-Gault) 71.4 Glucose Level 122 mg/dL (70-99) Calcium Level 9.1 mg/dL (8.5-10.1) Magnesium Level 1.9 mg/dL (1.8-2.4) Total Bilirubin 0.4 mg/dL (0.2-1.0) Direct Bilirubin 0.1 mg/dL (0.0-0.2) Aspartate Amino Transf (AST/SGOT) 11 U/L (15-37) Alanine Aminotransferase (ALT/SGPT) 9 U/L (16-63) Alkaline Phosphatase 44 U/L (46-116) Creatine Kinase 23 U/L (39-308) Creatine Kinase MB (Mass) < 0.5 ng/mL (0.0-3.6) Creatine Kinase MB Relative Index 2.2 % (0-4) Troponin I Quantitative < 0.017 ng/mL (0-0.055) WX-Xia-X-Type Natriuretic Peptide 306 pg/mL (0-449) Total Protein 6.4 g/dL (6.4-8.2) Albumin 3.5 g/dL (3.4-5.0) Lipase 134 U/L (73-393) Thyroid Stimulating Hormone (TSH) 2.737 uIU/mL (0.358-3.740) Glucose (Fingerstick) 228 mg/dL (70-99) 243 mg/dL (70-99) Current Medications Medications (Trade) Dose Ordered Sig/Shirley Route PRN Reason Start Time Stop Time Status Last Admin Dose Admin Aspirin (Children'S Aspirin) 324 mg 1X ONCE PO 03/16/18 23:15 03/16/18 23:16 DC 03/16/18 23:50 324 MG Methylprednisolone Sodium Succinate (SOLU-Medrol 125MG VIAL) 125 mg 1X ONCE IV 03/16/18 23:15 03/16/18 23:16 DC 03/16/18 23:49 125 MG Albuterol/ Ipratropium (Duoneb) 3 ml 1X ONCE NEB 03/16/18 23:15 03/16/18 23:16 DC 03/17/18 00:05 3 ML Enoxaparin Sodium (Lovenox 80mg Syringe) 80 mg 1X ONCE SQ 03/16/18 23:55 03/16/18 23:56 DC 03/17/18 00:16 80 MG Azithromycin (Zithromax) 500 mg 1X ONCE PO 03/16/18 23:55 03/16/18 23:56 DC 03/17/18 00:16 500 MG Iohexol (Omnipaque 300 Mg/ml) 75 ml 1X ONCE IV 03/17/18 01:30 03/17/18 01:31 DC 03/17/18 01:41 75 ML Ondansetron HCl (Zofran) 4 mg PRN Q4HRS PRN IV NAUSEA/VOMITING 03/17/18 01:15 03/18/18 01:14 Albuterol/ Ipratropium (Duoneb) 3 ml RTQID NEB 03/17/18 08:00 03/18/18 07:59 03/17/18 09:30 3 ML Enoxaparin Sodium (Lovenox 80mg Syringe) 80 mg BID SQ 03/17/18 09:00 03/17/18 08:31 80 MG Aspirin (Children'S Aspirin) 81 mg DAILY PO 03/17/18 09:00 03/17/18 08:31 81 MG Azithromycin (Zithromax) 250 mg DAILY PO 03/17/18 09:00 03/17/18 08:31 250 MG Methylprednisolone Sodium Succinate (SOLU-Medrol 125MG VIAL) 125 mg DAILY IV 03/17/18 09:00 03/17/18 08:30 125 MG Info (Do NOT chart on this entry -- for MONITORING) 1 each PRN DAILY PRN MC SEE COMMENTS 03/17/18 01:30 03/19/18 01:29 Insulin Human Lispro (HumaLOG) 0-7 UNITS TIDWMEALS SQ 03/17/18 08:00 03/17/18 11:55 4 UNITS Dextrose 12.5 gm PRN Q15MIN PRN IV SEE COMMENTS 03/17/18 08:00 Lactobacillus Rhamnosus (Culturelle) 1 cap BID PO 03/17/18 09:00 03/17/18 08:31 1 CAP Orders Procedure Category Date Status Time Vital Signs ER 03/16/18 Transmitted 23:07 Bp Monitoring ER 03/16/18 Transmitted 23:07 Retail Delivery Driver ER 03/16/18 Transmitted 23:07 Continuous Pulse ER 03/16/18 Transmitted Oximetry 23:07 Temperature Monitoring ER 03/16/18 Transmitted 23:07 Saline Lock ER 03/16/18 Transmitted 23:07 Basic Metabolic Panel LAB 03/16/18 Complete 23:07 Cbc W Autodiff LAB 03/16/18 Complete 23:07 Troponin I LAB 03/16/18 Complete 23:07 Protime LAB 03/16/18 Complete 23:07 Ckmb Isoenzymes LAB 03/16/18 Complete 23:07 Creatine Kinase LAB 03/16/18 Complete 23:07 Lipase LAB 03/16/18 Complete 23:07 Hepatic Panel LAB 03/16/18 Complete 23:07 Magnesium LAB 03/16/18 Complete 23:07 Thyroid Stim Hormone LAB 03/16/18 Complete (Tsh) 23:07 D-Dimer LAB 03/16/18 Complete 23:07 Ua, Cult If Indicated LAB 03/16/18 Complete 23:07 Nt-Pro Bnp LAB 03/16/18 Complete 23:07 Drugs Of Abuse Ur LAB 03/16/18 Complete 23:07 Portable Chest 1v RAD 03/16/18 Resulted 23:07 Aspirin (Children's PHA 03/16/18 Complete Aspirin) 23:15 Airway Inhalation RT 03/16/18 Complete Treatment 12 Lead Ekg EKG 03/16/18 Complete 23:07 Partial LAB 03/16/18 Complete Thromboplastin Time 23:07 Pulse Oximetry: BEBETO 03/16/18 In Process Standing Order 23:07 Methylprednisolone PHA 03/16/18 Complete 125mg Vial (Solu-Medr 23:15 Ipratrpium/Albuterol PHA 03/16/18 Complete 0.5/2.5mg (Duoneb) 23:15 Airway Inhalation RT 03/16/18 Complete Treatment 23:07 Blood Culture SCOUT 03/16/18 In Process 23:11 Enoxaparin 80mg PHA 03/16/18 Complete Syringe (Lovenox 80mg 23:55 Azithromycin PHA 03/16/18 Complete (Zithromax) 23:55 Airway Inhalation RT 03/17/[address] Angiography Chest CT 03/17/18 Resulted 01:03 Iohexol 300 Mg/Ml PHA 03/17/18 Complete (Omnipaque 300 Mg/Ml) 01:30 [place] Order ADT 03/17/18 Transmitted 01:07 Code Status CODE 03/17/18 Transmitted 01:07 Vital Signs, Per [facility] 03/17/18 In Process Protocol 01:07 Oxygen BEBETO 03/17/18 In Process 01:07 Ambulate With [facility] 03/17/18 In Process Assistance 01:07 Fall Precautions [facility] 03/17/18 In Process 01:07 Cbc W Autodiff LAB 03/18/18 Verified 06:00 Basic Metabolic Panel LAB 03/18/18 Verified 06:00 Ondansetron Pf PHA 03/17/18 In Process (Zofran) 01:15 Neuro Check Q 4 Hrs BEBETO 03/17/18 In Process 01:07 Ipratrpium/Albuterol PHA 03/17/18 In Process 0.5/2.5mg (Duoneb) 08:00 Incentive Spirometer RT 03/17/18 Complete Incentive Spirometry BEBETO 03/17/18 In Process 01:07 Venous Lower Ext US 03/17/18 Taken Bilateral 08:00 Airway Inhalation RT 03/17/18 Complete Treatment 01:07 Enoxaparin 80mg PHA 03/17/18 In Process Syringe (Lovenox 80mg 09:00 Aspirin (Children's PHA 03/17/18 In Process Aspirin) 09:00 Azithromycin PHA 03/17/18 In Process (Zithromax) 09:00 Methylprednisolone PHA 03/17/18 In Process 125mg Vial (Solu-Medr 09:00 Contrast Given (Do PHA 03/17/18 In Process Not Chart On This Ent 01:30 Admit Orders ADT 03/17/18 Transmitted Airway Inhalation RT 03/17/18 Complete Treatment Incentive Spirometer RT 03/17/18 Complete Blood Culture SCOUT 03/17/18 In Process 06:52 Cardiac DIET 03/17/18 Transmitted Breakfast Glucose Poct Achs BEBETO 03/17/18 In Process 07:49 Insulin Lispro PHA 03/17/18 In Process (Humalog) 08:00 Dextrose 50% PHA 03/17/18 In Process 08:00 Lactobacillus PHA 03/17/18 In Process Rhamnosus Gg 09:00 Airway Inhalation RT 03/17/18 Logged Treatment 17:00 Airway Inhalation RT 03/17/18 Logged Treatment 21:00 Airway Inhalation RT 03/18/18 Logged Treatment 09:00 Airway Inhalation RT 03/18/18 Logged Treatment 13:00 Airway Inhalation RT 03/18/18 Logged Treatment 17:00 Airway Inhalation RT 03/18/18 Logged Treatment 21:00 Airway Inhalation RT 03/19/18 Logged Treatment 09:00 Airway Inhalation RT 03/19/18 Logged Treatment 13:00 Airway Inhalation RT 03/19/18 Logged Treatment 17:00 Airway Inhalation RT 03/19/18 Logged Treatment 21:00 Airway Inhalation RT 03/20/18 Logged Treatment 09:00 Airway Inhalation RT 03/20/18 Logged Treatment 13:00 Airway Inhalation RT 03/20/18 Logged Treatment 17:00 Airway Inhalation RT 03/20/18 Logged Treatment 21:00 Airway Inhalation RT 03/21/18 Logged Treatment 09:00 Airway Inhalation RT 03/21/18 Logged Treatment 13:00 Airway Inhalation RT 03/21/18 Logged Treatment 17:00 Airway Inhalation RT 03/21/18 Logged Treatment 21:00 Airway Inhalation RT 03/22/18 Logged Treatment 09:00 Airway Inhalation RT 03/22/18 Logged Treatment 13:00 Airway Inhalation RT 03/22/18 Logged Treatment 17:00 Airway Inhalation RT 03/22/18 Logged Treatment 21:00 Airway Inhalation RT 03/23/18 Logged Treatment 09:00 Airway Inhalation RT 03/23/18 Logged Treatment 13:00 Airway Inhalation RT 03/23/18 Logged Treatment 17:00 Airway Inhalation RT 03/23/18 Logged Treatment 21:00 Airway Inhalation RT 03/24/18 Logged Treatment 09:00 Airway Inhalation RT 03/24/18 Logged Treatment 13:00 Airway Inhalation RT 03/24/18 Logged Treatment 17:00 Airway Inhalation RT 03/24/18 Logged Treatment 21:00 Airway Inhalation RT 03/25/18 Logged Treatment 09:00 Airway Inhalation RT 03/25/18 Logged Treatment 13:00 Airway Inhalation RT 03/25/18 Logged Treatment 17:00 Airway Inhalation RT 03/25/18 Logged Treatment 21:00 Airway Inhalation RT 03/26/18 Logged Treatment 09:00 Airway Inhalation RT 03/26/18 Logged Treatment 13:00 Airway Inhalation RT 03/26/18 Logged Treatment 17:00 Airway Inhalation RT 03/26/18 Logged Treatment 21:00 Vital Signs Date Time Temp Pulse Resp B/P (MAP) Pulse Ox O2 Delivery O2 Flow Rate FiO2 03/17/18 11:48 88 144/73 (96) 96 Nasal Cannula 2.0 03/17/18 05:31 97.7 18 HALLIE TOVAR DO Mar 17, 2018 14:00
--- NOTE | 2018-03-17 14:33 | RAD ---
Bilateral Lower Extremity Venous Doppler Ultrasound History: Lower extremity edema and elevated d-dimer Comparison: None Procedure: Color flow, duplex, spectral analysis and 2D images are obtained with and without compression in the area of the common femoral vein, superficial femoral vein - femoral vein junction, main femoral vein (superficial femoral vein) and popliteal vein. Veins of the proximal calf are also imaged. Findings: There is normal duplex flow, color flow and compressibility of all visualized vein segments. No evidence of deep venous thrombus is present. 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 Impression: No evidence of DVT. Electronically signed by: Dragan Gleason III, MD (03/17/2018 2:30 PM) [facility]
[2018-03-17 15:56] VITALS: BP 132/65
[2018-03-17] MEDS: CARVEDILOL 12.5 MG TABLET PO SCH (16:59)
[2018-03-17 19:47] VITALS: BP 150/66
[2018-03-17] MEDS: ACETAMINOPHEN 325 MG TABLET PO SCH (20:47)
[2018-03-17] MEDS: GABAPENTIN 300 MG CAPSULE. PO SCH (20:47)
[2018-03-17] MEDS ORDERED: LOSARTAN 50 MG TABLET. PO SCH (21:00)
[2018-03-17 22:30] VITALS: BP 123/65
[2018-03-18] MEDS: IPRATRPIUM/ALBUTEROL 0.5/2.5MG 3 ML NEBU. NEB SCH ×2 (05:05→09:21)
[2018-03-18 05:25] VITALS: BP 147/69
[2018-03-18 07:02] LABS: CALCIUM 8.5 mg/dL (8.5-10.1); CREATININE 0.7 mg/dL (0.7-1.3); GFR 107.7; POTASSIUM 3.8 mmol/L (3.5-5.1)
[2018-03-18 07:06] LABS: BASO % 0 % (0-3); EOS % 0 % (0-3); HEMATOCRIT 35.1 % (39.0-53.0); HEMOGLOBIN 11.9 g/dL (13.0-17.5); LYMPH # 0.8 x10^3/uL (1.0-4.8); LYMPH % 5 % (24-48); MEAN CORPUSCULAR HEMOGLOBIN 32 pg (25-35); MEAN CORPUSCULAR HGB CONC 34 g/dL (31-37); MEAN CORPUSCULAR VOLUME 93 fL (79-100); MONO # 0.6 x10^3/uL (0.0-1.1); MONO % 3 % (0-9); NEUT # 16.9 x10^3uL (1.8-7.7); NEUT % 92 % (31-73); PLATELET COUNT 243 x10^3/uL (140-400); RED BLOOD COUNT 3.78 x10^6/uL (4.30-5.70); WHITE BLOOD COUNT 18.3 x10^3/uL (4.0-11.0)
[2018-03-18] MEDS ORDERED: ASPIRIN ENTERIC COATED 81 MG TABLET.DR. PO SCH (08:00)
[2018-03-18] MEDS: INSULIN LISPRO 300 UNITS/3 ML INSULN.PEN. SQ SCH (08:00)
[2018-03-18 08:11] LABS: % BANDS 1 % (0-9); % BASOS 0 % (0-3); % EOS 0 % (0-5); % LYMPHS 7 % (24-48); % MONOS 4 % (0-10); % SEGS 88 % (35-66); PLT ESTIMATE ADEQUATE (ADEQUATE)
[2018-03-18] MEDS ORDERED: MAGNESIUM OXIDE 400 MG TABLET PO SCH (09:00)
[2018-03-18] MEDS: ASPIRIN 81 MG TAB.CHEW PO SCH (09:00)
[2018-03-18] MEDS ORDERED: ALLOPURINOL 300 MG TABLET. PO SCH (09:00)
[2018-03-18] MEDS ORDERED: CHOLECALCIFEROL (VITAMIN D3) 1,000 UNIT TABLET PO SCH (09:00)
[2018-03-18] MEDS ORDERED: TORSEMIDE 20 MG TABLET. PO SCH (09:00)
[2018-03-18] MEDS ORDERED: amLODIPine BESYLATE 2.5 MG TABLET PO SCH (09:00)
[2018-03-18] MEDS ORDERED: OMEGA-3 FATTY ACIDS/FISH OIL 1,000 MG CAPSULE. PO SCH (09:00)
[2018-03-18] MEDS: methylPREDNISolone SOD SUCC PF 125 MG/2 ML VIAL. IV SCH (09:18)
[2018-03-18] MEDS: ENOXAPARIN ** NOTE DOSE ** SYRINGE SQ SCH (09:19)
[2018-03-18] MEDS: AZITHROMYCIN 250 MG TABLET. PO SCH (09:36)
[2018-03-18] MEDS: LACTOBACILLUS RHAMNOSUS GG 1 CAPSULE. PO SCH (09:36)
[2018-03-18] MEDS: CARVEDILOL 12.5 MG TABLET PO SCH (09:36)
[2018-03-18] MEDS: GABAPENTIN 300 MG CAPSULE. PO SCH (09:36)
[2018-03-18] MEDS: ACETAMINOPHEN 325 MG TABLET PO SCH (09:36)
[2018-03-18 09:37] VITALS: BP 147/69
[2018-03-19] MEDS ORDERED: ATORVASTATIN CALCIUM 20 MG TABLET PO SCH (16:00)
== END 2018-03-18 11:42 | disposition home or self-care (01) | DRG 189 ==
LOC: ER 23:02 → 1 SOUTH 23:59
PROVIDERS: ADMIT Internal Medicine; ATTEND Internal Medicine
DX: J96.20 Acute and chronic respiratory failure, unspecified whether with hypoxia or hypercapnia (principal); J44.1 Chronic obstructive pulmonary disease with (acute) exacerbation; E11.9 Type 2 diabetes mellitus without complications; E78.00 Pure hypercholesterolemia, unspecified; I11.0 Hypertensive heart disease with heart failure; I25.10 Atherosclerotic heart disease of native coronary artery without angina pectoris; I50.9 Heart failure, unspecified; I49.9 Cardiac arrhythmia, unspecified; D64.9 Anemia, unspecified; J84.10 Pulmonary fibrosis, unspecified; M19.90 Unspecified osteoarthritis, unspecified site; Z87.891 Personal history of nicotine dependence; Z95.1 Presence of aortocoronary bypass graft; Z87.01 Personal history of pneumonia (recurrent); Z88.1 Allergy status to other antibiotic agents; Z88.2 Allergy status to sulfonamides; Z88.8 Allergy status to other drugs, medicaments and biological substances; I25.2 Old myocardial infarction
CPT/HCPCS: 36415; 71045; 71275; 80048; 80076; 80307; 81001; 82553; 82947; 83690; 83735; 83880; 84443; 84484; 85007; 85025; 85379; 85610; 85730; 87040; 93005; 93970; 94640; 96372; 96374; G0238; J0456; J1650; J1815; J2930; J7620; Q9967; 99285-25; G0479

== ENCOUNTER 2018-05-24 16:32 | Emergency (ER) | payer MEDICARE ==
[~2018-05-24 16:32] MED LIST changes: -AMLO2.5T PO; +AMLO2.5T3 PO; -AMLO5TAB2 PO; +AMLO5TAB7 PO; -LOSA100T6 PO; +LOSA100T7 PO; +METF500T16 PO; -METF500T5 PO
--- NOTE | 2018-05-24 17:09 | RAD ---
PA and lateral chest radiographs 05/24/2018 CLINICAL HISTORY: Shortness of breath. COPD. Two PA and a lateral digital radiographs of the chest were obtained. Comparison study is dated 03/16/2018. The patient is post CABG procedure. The cardiac silhouette is normal in size. The thoracic aorta is tortuous. Atherosclerotic calcification of the thoracic aorta is seen. No acute pulmonary infiltrate is seen. No pneumothorax or pleural effusion is noted. The osseous structures are unchanged. IMPRESSION: No acute abnormality is seen. Electronically signed by: Teodoro Goodson MD (05/24/2018 5:05 PM) [facility]
[2018-05-24 17:23] LABS: BASO % 0 % (0-3); EOS # 0.1 x10^3/uL (0.0-0.7); EOS % 1 % (0-3); HEMATOCRIT 37.3 % (39.0-53.0); HEMOGLOBIN 12.6 g/dL (13.0-17.5); LYMPH # 1.4 x10^3/uL (1.0-4.8); LYMPH % 18 % (24-48); MEAN CORPUSCULAR HEMOGLOBIN 32 pg (25-35); MEAN CORPUSCULAR HGB CONC 34 g/dL (31-37); MEAN CORPUSCULAR VOLUME 95 fL (79-100); MONO % 12 % (0-9); NEUT # 5.3 x10^3uL (1.8-7.7); NEUT % 68 % (31-73); PLATELET COUNT 184 x10^3/uL (140-400); RED BLOOD COUNT 3.92 x10^6/uL (4.30-5.70); RED CELL DISTRIBUTION WIDTH 15.6 % (11.5-14.5); WHITE BLOOD COUNT 7.8 x10^3/uL (4.0-11.0)
[2018-05-24 17:36] LABS: ALBUMIN 3.3 g/dL (3.4-5.0); CALCIUM 8.5 mg/dL (8.5-10.1); GFR 71.4; POTASSIUM 3.7 mmol/L (3.5-5.1)
--- NOTE | 2018-05-24 17:56 | PHYS DOC ---
Past History Past Medical History: COPD, Diabetes, Hypertension, Other Past Surgical History: Appendectomy, Other Smoking: Quit Greater Than 1 Year Alcohol Use: None Drug Use: None Adult General Chief Complaint Chief Complaint: SHORTNESS OF BREATH [facility] HPI 82-year-old male presents with shortness of breath. The patient has COPD at baseline. He normally is on 1-2 L of oxygen all the time. Today the patient had to go to podiatry appointment and he was feeling short of breath when he woke up. Throughout the appointment, he felt like he was more short of breath usually. After returning home, he continued to feel like he was not getting enough oxygen so he came to the emergency room. Patient has not had a change in his cough or sputum. Patient denies fever or chills. He has not had any increased swelling, but does admit to a history of CHF. Review of Systems Review of Systems Constitutional: Denies fever or chills [] Eyes: Denies change in visual acuity, redness, or eye pain [] HENT: Denies nasal congestion or sore throat [] Respiratory: Denies cough or shortness of breath [] Cardiovascular: No additional information not addressed in HPI [] GI: Denies abdominal pain, nausea, vomiting, bloody stools or diarrhea [] : Denies dysuria or hematuria [] Musculoskeletal: Denies back pain or joint pain [] Integument: Denies rash or skin lesions [] Neurologic: Denies headache, focal weakness or sensory changes [] Endocrine: Denies polyuria or polydipsia [] All other systems were reviewed and found to be within normal limits, except as documented in this note. Allergies Allergies Allergies Coded Allergies Type Severity Reaction Last Updated Verified sulfamethoxazole Allergy Intermediate rash 01/19/18 Yes trimethoprim Allergy Intermediate rash 01/19/18 Yes quinine Allergy Mild rash 01/19/18 Yes Physical Exam Physical Exam Constitutional: Well developed, well nourished, no acute distress, non-toxic appearance. [] HENT: Normocephalic, atraumatic, bilateral external ears normal, oropharynx moist, no oral exudates, nose normal. [] Eyes: PERRLA, EOMI, conjunctiva normal, no discharge. [] Neck: Normal range of motion, no tenderness, supple, no stridor. [] Cardiovascular:Heart rate regular rhythm, no murmur [] Lungs & Thorax: Bilateral breath sounds diminished, no wheezing.[] Abdomen: Bowel sounds normal, soft, no tenderness, no masses, no pulsatile masses. [] Skin: Warm, dry, no erythema, no rash. [] Back: No tenderness, no CVA tenderness. [] Extremities: No tenderness, no cyanosis, no clubbing, ROM intact, no edema. [] Neurologic: Alert and oriented X 3, normal motor function, normal sensory function, no focal deficits noted. [] Psychologic: Affect normal, judgement normal, mood normal. [] Current Patient Data Vital Signs Vital Signs Date Time Temp Pulse Resp B/P (MAP) Pulse Ox O2 Delivery O2 Flow Rate FiO2 05/24/18 16:45 69 24 95 Nasal Cannula 2.0 Lab Results Laboratory Tests Test 05/24/18 16:50 White Blood Count 7.8 x10^3/uL (4.0-11.0) Red Blood Count 3.92 x10^6/uL (4.30-5.70) L Hemoglobin 12.6 g/dL (13.0-17.5) L Hematocrit 37.3 % (39.0-53.0) L Mean Corpuscular Volume 95 fL (79-100) Mean Corpuscular Hemoglobin 32 pg (25-35) Mean Corpuscular Hemoglobin Concent 34 g/dL (31-37) Red Cell Distribution Width 15.6 % (11.5-14.5) H Platelet Count 184 x10^3/uL (140-400) Neutrophils (%) (Auto) 68 % (31-73) Lymphocytes (%) (Auto) 18 % (24-48) L Monocytes (%) (Auto) 12 % (0-9) H Eosinophils (%) (Auto) 1 % (0-3) Basophils (%) (Auto) 0 % (0-3) Neutrophils # (Auto) 5.3 x10^3uL (1.8-7.7) Lymphocytes # (Auto) 1.4 x10^3/uL (1.0-4.8) Monocytes # (Auto) 1.0 x10^3/uL (0.0-1.1) Eosinophils # (Auto) 0.1 x10^3/uL (0.0-0.7) Basophils # (Auto) 0.0 x10^3/uL (0.0-0.2) Sodium Level 138 mmol/L (136-145) Potassium Level 3.7 mmol/L (3.5-5.1) Chloride Level 100 mmol/L (98-107) Carbon Dioxide Level 35 mmol/L (21-32) H Anion Gap 3 (6-14) L Blood Urea Nitrogen 17 mg/dL (8-26) Creatinine 1.0 mg/dL (0.7-1.3) Estimated GFR (Cockcroft-Gault) 71.4 BUN/Creatinine Ratio 17 (6-20) Glucose Level 171 mg/dL (70-99) H Calcium Level 8.5 mg/dL (8.5-10.1) Total Bilirubin Pending Aspartate Amino Transferase (AST) 12 U/L (15-37) L Alanine Aminotransferase (ALT) 15 U/L (16-63) L Alkaline Phosphatase Pending Total Protein Pending Albumin 3.3 g/dL (3.4-5.0) L Albumin/Globulin Ratio Pending EKG EKG Sinus rhythm, rate 66, low voltage, no ST elevations or depressions.[] Radiology/Procedures Radiology/Procedures [] Impressions: PA and lateral chest radiographs 05/24/2018 CLINICAL HISTORY: Shortness of breath. COPD. Two PA and a lateral digital radiographs of the chest were obtained. Comparison study is dated 03/16/2018. The patient is post CABG procedure. The cardiac silhouette is normal in size. The thoracic aorta is tortuous. Atherosclerotic calcification of the thoracic aorta is seen. No acute pulmonary infiltrate is seen. No pneumothorax or pleural effusion is noted. The osseous structures are unchanged. IMPRESSION: No acute abnormality is seen. Electronically signed by: Teodoro Goodson MD (05/24/2018 5:05 PM) [facility] DICTATED AND SIGNED BY: TEODORO GOODSON MD DATE: 05/24/18 1700 CC: MITZY MALDONADO DO; PATRICIO MCLEAN PA Course & Med Decision Making Course & Med Decision Making Pertinent Labs and Imaging studies reviewed. (See chart for details) The patient's EKG is unremarkable. His chest x-ray is unremarkable. His labs are pending as there is a delay in the lab machines. I will sign the patient out to Dr. Weston for final disposition. [] Dragon Disclaimer Dragon Disclaimer This electronic medical record was generated, in whole or in part, using a voice recognition dictation system. Departure Departure: Referrals: PATRICIO MCLEAN (PCP) MITZY MALDONADO DO May 24, 2018 17:56
--- NOTE | 2018-05-24 17:56 | EKG ---
[address] [address] Test Date: 2018-05-24 Test Time: 16:56:21 Pat Name: ANASTASIA MARMOLEJO Department: Room: Gender: M Cottage Supervisor: : 1935 Requested By: MITZY MALDONADO Order Number: [id number] Reading MD: Aron Ortiz MD Measurements Intervals [place] Rate: 66 P: -90 NE: 198 QRS: -8 QRSD: 110 T: 39 QT: 392 QTc: 413 Interpretive Statements SINUS RHYTHM LOW VOLTAGE LIMB LEADS Electronically Signed On 05-28-2018 11:00:37 CDT by Aron Ortiz MD
[2018-05-24 19:59] VITALS: BP 126/56
[2018-05-24 20:21] LABS: ALBUMIN/GLOBULIN RATIO 1.2 (1.0-1.7)
[2018-05-24 20:22] LABS: TOTAL BILIRUBIN 0.4 mg/dL (0.2-1.0)
== END 2018-05-24 20:19 | disposition home or self-care (01) ==
LOC: ER 16:32
DX: R06.02 Shortness of breath (principal); D64.9 Anemia, unspecified; E11.9 Type 2 diabetes mellitus without complications; J44.9 Chronic obstructive pulmonary disease, unspecified; I10 Essential (primary) hypertension; Z87.891 Personal history of nicotine dependence; Z88.1 Allergy status to other antibiotic agents; Z88.2 Allergy status to sulfonamides; Z88.8 Allergy status to other drugs, medicaments and biological substances
CPT/HCPCS: 36415; 71046; 80053; 83880; 84484; 85025; 93005; 99285

== ENCOUNTER 2018-06-01 08:41 | Emergency (ER) | payer MEDICARE ==
[~2018-06-01] VITALS: Ht 177.8 cm; Wt 86.4 kg
--- NOTE | 2018-06-01 08:56 | EKG ---
[address] [address] Test Date: 2018-06-01 Test Time: 08:52:44 Pat Name: ANASTASAI MARMOLEJO Department: Room: Gender: M Dye Blender: : 1935 Requested By: MITZY MALDONADO Order Number: [id number] Reading MD: Aron Ortiz MD Measurements Intervals [place] Rate: 86 P: -24 IA: 186 QRS: -24 QRSD: 110 T: 49 QT: 324 QTc: 390 Interpretive Statements SINUS RHYTHM VENTRICULAR PREMATURE COMPLEX(ES) Electronically Signed On 06-04-2018 8:49:48 CDT by Aron Ortiz MD
[2018-06-01] MEDS ORDERED: IPRATRPIUM/ALBUTEROL 0.5/2.5MG 3 ML NEBU. ONE (08:58)
[2018-06-01] MEDS ORDERED: ALBUTEROL SULFATE 2.5 MG/3 ML NEBU. NEB ONE (09:00)
[2018-06-01] MEDS ORDERED: IPRATRPIUM/ALBUTEROL 0.5/2.5MG 3 ML NEBU. NEB ONE (09:00)
--- NOTE | 2018-06-01 09:02 | PHYS DOC ---
Past History Past Medical History: COPD, Diabetes, Hypertension, Other Past Surgical History: Appendectomy, Other Smoking: Quit Greater Than 1 Year Alcohol Use: None Drug Use: None Adult General Chief Complaint Chief Complaint: SHORTNESS OF BREATH HPI HPI 82-year-old male returns to the emergency room with shortness of breath. The patient was seen 8 days ago in this ER. He tells me that over the last 3-4 days he has had increased shortness of breath. He is usually on 1-2 L of oxygen. He has turned up his portable tank to 4 L. His home concentrator only goes to 4 L. He always has it on 4 L because it has a long tube so he can walk around. He doesn't feel it is getting enough air even at 4 L. Patient denies fever or chills. He denies change in his cough or sputum. He denies chest pain, nausea, vomiting. He has been taking his breathing treatments as prescribed. He uses his albuterol nebulizer about 3-4 times a day. Review of Systems Review of Systems Constitutional: Denies fever or chills [] Eyes: Denies change in visual acuity, redness, or eye pain [] HENT: Denies nasal congestion or sore throat [] Respiratory: Shortness of breath [] Cardiovascular: No additional information not addressed in HPI [] GI: Denies abdominal pain, nausea, vomiting, bloody stools or diarrhea [] : Denies dysuria or hematuria [] Musculoskeletal: Denies back pain or joint pain [] Integument: Denies rash or skin lesions [] Neurologic: Denies headache, focal weakness or sensory changes [] Endocrine: Denies polyuria or polydipsia [] All other systems were reviewed and found to be within normal limits, except as documented in this note. Allergies Allergies Allergies Coded Allergies Type Severity Reaction Last Updated Verified sulfamethoxazole Allergy Intermediate rash 01/19/18 Yes trimethoprim Allergy Intermediate rash 01/19/18 Yes quinine Allergy Mild rash 01/19/18 Yes Physical Exam Physical Exam Constitutional: Well developed, well nourished, no acute distress, non-toxic appearance. [] HENT: Normocephalic, atraumatic, bilateral external ears normal, oropharynx moist, no oral exudates, nose normal. [] Eyes: PERRLA, EOMI, conjunctiva normal, no discharge. [] Neck: Normal range of motion, no tenderness, supple, no stridor. [] Cardiovascular:Heart rate regular rhythm, no murmur [] Lungs & Thorax: Bilateral breath sounds are severely decreased[] Abdomen: Bowel sounds normal, soft, no tenderness, no masses, no pulsatile masses. [] Skin: Warm, dry, no erythema, no rash. [] Back: No tenderness, no CVA tenderness. [] Extremities: No tenderness, no cyanosis, no clubbing, ROM intact, no edema. [] Neurologic: Alert and oriented X 3, normal motor function, normal sensory function, no focal deficits noted. [] Psychologic: Affect normal, judgement normal, mood normal. [] EKG EKG Sinus rhythm, rate 86, left axis deviation, no ST elevations or depressions.[] Radiology/Procedures Radiology/Procedures [] Impressions: EXAM: AP View of the chest DATE: 06/01/2018 8:10 AM INDICATION: MIDSTERNAL CHEST PAIN COMPARISON: No Prior FINDINGS: The heart is not enlarged. Mediastinal and hilar contours are normal. No focal parenchymal airspace opacity. No pleural effusion or pneumothorax. IMPRESSION: 1. No radiographic evidence for acute cardiopulmonary process. Electronically signed by: Nicolas Jordan MD (06/01/2018 8:58 AM) [id number] DICTATED AND SIGNED BY: NICOLAS JORDAN MD DATE: 06/01/18 0857 CC: MITZY MALDONADO DO; ERLIN YEH Course & Med Decision Making Course & Med Decision Making Pertinent Labs and Imaging studies reviewed. (See chart for details) The patient's labs are unremarkable. His EKG is unremarkable. His troponin is negative. His chest x-ray does show increased interstitial opacity at the right lung base which could be edema or infiltrate. Given the patient's oxygen dependent status and his subjective feeling of shortness of breath, I will treat him with azithromycin despite having no fever and no elevated white count. He was given 125 Solu-Medrol in the ED. I will only do this as a single dose and not discharge him with steroids. He is stable for discharge at this time. [] Dragon Disclaimer Dragon Disclaimer This electronic medical record was generated, in whole or in part, using a voice recognition dictation system. Departure Departure: Referrals: PATRICIO MCLEAN (PCP) Scripts Azithromycin (AZITHROMYCIN TABLET) 250 Mg Tablet 1 PKG PO UD, #6 TAB take 2 tabs 1st day, then take 1 tab a day for 4 more days Prov: MITZY MALDONADO DO 06/01/18 MITZY MALDONADO DO Jun 01, 2018 09:02
[2018-06-01 09:14] LABS: BASO % 1 % (0-3); EOS # 0.1 x10^3/uL (0.0-0.7); EOS % 1 % (0-3); HEMOGLOBIN 11.4 g/dL (13.0-17.5); LYMPH % 13 % (24-48); MEAN CORPUSCULAR HEMOGLOBIN 32 pg (25-35); MEAN CORPUSCULAR HGB CONC 34 g/dL (31-37); MEAN CORPUSCULAR VOLUME 94 fL (79-100); MONO % 13 % (0-9); NEUT # 5.6 x10^3uL (1.8-7.7); NEUT % 73 % (31-73); PLATELET COUNT 250 x10^3/uL (140-400); RED BLOOD COUNT 3.61 x10^6/uL (4.30-5.70); RED CELL DISTRIBUTION WIDTH 14.7 % (11.5-14.5); WHITE BLOOD COUNT 7.7 x10^3/uL (4.0-11.0)
--- NOTE | 2018-06-01 09:16 | RAD ---
CHEST AP ONLY History: Shortness of air Comparison: 05/24/2018 Findings: 2 AP portable views of the chest are submitted. There again has been a median sternotomy. Pericardial cardiac silhouette is stable, within normal limits. There is atherosclerotic calcification near aortic arch. There is no pneumothorax or significant pleural fluid. There is interstitial opacity with basilar predominance greater on the right which is greater. Impression: 1. There is increased interstitial opacity most notable of the right lung base may be due to interstitial edema or infiltrate. Electronically signed by: Sebastian Shaikh MD (06/01/2018 9:13 AM) [id number]
[2018-06-01 09:27] LABS: ALBUMIN 2.8 g/dL (3.4-5.0); ALBUMIN/GLOBULIN RATIO 0.8 (1.0-1.7); CALCIUM 8.6 mg/dL (8.5-10.1); CREATININE 0.7 mg/dL (0.7-1.3); GFR 107.7; TOTAL BILIRUBIN 0.6 mg/dL (0.2-1.0); TOTAL PROTEIN 6.5 g/dL (6.4-8.2)
[2018-06-01 10:45] VITALS: BP 156/82
[2018-06-01] MEDS ORDERED: methylPREDNISolone SOD SUCC PF 125 MG/2 ML VIAL. IV ONE (11:00)
[2018-06-01] MEDS ORDERED: AZIT250T6 PO (11:04)
== END 2018-06-01 11:20 | disposition home or self-care (01) ==
LOC: ER 08:41
DX: R06.02 Shortness of breath (principal); J44.9 Chronic obstructive pulmonary disease, unspecified; E11.9 Type 2 diabetes mellitus without complications; I10 Essential (primary) hypertension; Z87.891 Personal history of nicotine dependence; Z88.1 Allergy status to other antibiotic agents; Z88.2 Allergy status to sulfonamides; Z88.8 Allergy status to other drugs, medicaments and biological substances
CPT/HCPCS: 36415; 71045; 80053; 84484; 85025; 93005; 94640; 96374; 99285; J2930; J7613; J7620

== ENCOUNTER 2018-11-05 18:22 | Inpatient (IN) | payer MEDICARE ==
[~2018-11-05] VITALS: Ht 180.3 cm; Wt 76.0 kg
[~2018-11-05 18:22] MED LIST changes: -ALBU18HF IH; +ALBU2.5V8 IH; -ALBU8.5H8 IH; -AMLO2.5T3 PO; +AMLO2.5T5 PO; +AMLO5TAB10 PO; -AMLO5TAB7 PO; -CHLO25TA PO; +CHLO25TA9 PO; +LOSA100T14 PO; -LOSA100T7 PO
[2018-11-05] MEDS ORDERED: IV NORMAL SALINE 1,000ML 1,000 ML IV SCH (18:43)
--- NOTE | 2018-11-05 18:47 | PHYS DOC ---
Past History Past Medical History: COPD, Diabetes, Hypertension, Other Past Surgical History: Appendectomy, Coronary Bypass Surgery, Other Smoking: Quit Greater Than 1 Year Alcohol Use: None Drug Use: None Adult General Chief Complaint Chief Complaint: SHORTNESS OF BREATH HPI HPI Patient is an 83-year-old male who presents with complaint of cough and shortness of breath that started last night. Patient states that he is normally on 3 L of oxygen at home and states that he was up coughing most of the night last night and had to turn his oxygen up to 4 L. He states that his cough has not been productive of any sputum. He denies any fever. Patient states the shortness of breath is worsened with exertion. Review of Systems Review of Systems Constitutional: Denies fever or chills [] Respiratory: Complains of cough and shortness of breath [] Cardiovascular: No additional information not addressed in HPI [] GI: Denies abdominal pain, nausea, vomiting or diarrhea [] Integument: Denies rash or skin lesions [] Neurologic: Denies headache, focal weakness or sensory changes [] All other systems were reviewed and found to be within normal limits, except as documented in this note. Allergies Allergies Allergies Coded Allergies Type Severity Reaction Last Updated Verified sulfamethoxazole Allergy Intermediate rash 01/19/18 Yes trimethoprim Allergy Intermediate rash 01/19/18 Yes quinine Allergy Mild rash 01/19/18 Yes Physical Exam Physical Exam Constitutional: Well developed, well nourished, no acute distress, non-toxic appearance. [] HENT: Normocephalic, atraumatic, bilateral external ears normal, oropharynx moist, no oral exudates, nose normal. [] Eyes: PERRLA, EOMI, conjunctiva normal, no discharge. [] Neck: Normal range of motion, no tenderness, supple, no stridor. [] Cardiovascular: Regular rate and rhythm[] Lungs & Thorax: Slightly diminished breath sounds are noted bilaterally with fine inspiratory wheezes to auscultation [] Abdomen: Bowel sounds normal, soft, no tenderness. [] Skin: Warm, dry, no erythema, no rash. [] Extremities: No tenderness, no cyanosis, no clubbing, ROM intact, no edema. [] Neurologic: Alert and oriented X 3, no focal deficits noted. [] Current Patient Data Vital Signs Vital Signs Date Time Temp Pulse Resp B/P (MAP) Pulse Ox O2 Delivery O2 Flow Rate FiO2 3/18/19 18:40 98.3 86 16 96 Nasal Cannula 4.0 EKG EKG [] Radiology/Procedures Radiology/Procedures [] Course & Med Decision Making Course & Med Decision Making Pertinent Labs and Imaging studies reviewed. (See chart for details) [] Dragon Disclaimer Dragon Disclaimer This electronic medical record was generated, in whole or in part, using a voice recognition dictation system. Departure Departure: Impression: Primary Impression: COPD exacerbation Disposition: ADMITTED INPATIENT Admitting Physician: Shaq Padron Condition: IMPROVED Referrals: PATRICIO MCLEAN (PCP) CALLI JACK Jr. DO Nov 05, 2018 18:47
[2018-11-05] MEDS ORDERED: IPRATRPIUM/ALBUTEROL 0.5/2.5MG 3 ML NEBU. NEB ONE (19:00)
[2018-11-05] MEDS ORDERED: methylPREDNISolone SOD SUCC PF 125 MG/2 ML VIAL. IV ONE (19:00)
[2018-11-05 19:33] LABS: BASO # 0.1 x10^3/uL (0.0-0.2); BASO % 1 % (0-3); EOS # 0.1 x10^3/uL (0.0-0.7); EOS % 1 % (0-3); HEMATOCRIT 35.9 % (39.0-53.0); HEMOGLOBIN 11.9 g/dL (13.0-17.5); LYMPH # 1.3 x10^3/uL (1.0-4.8); LYMPH % 14 % (24-48); MEAN CORPUSCULAR HEMOGLOBIN 30 pg (25-35); MEAN CORPUSCULAR HGB CONC 33 g/dL (31-37); MEAN CORPUSCULAR VOLUME 91 fL (79-100); MONO # 0.8 x10^3/uL (0.0-1.1); MONO % 8 % (0-9); NEUT % 76 % (31-73); PLATELET COUNT 237 x10^3/uL (140-400); RED BLOOD COUNT 3.93 x10^6/uL (4.30-5.70); WHITE BLOOD COUNT 9.2 x10^3/uL (4.0-11.0)
[2018-11-05 19:54] LABS: ALBUMIN 3.5 g/dL (3.4-5.0); ALBUMIN/GLOBULIN RATIO 1.1 (1.0-1.7); CALCIUM 8.9 mg/dL (8.5-10.1); GFR 71.2; POTASSIUM 4.1 mmol/L (3.5-5.1); TOTAL BILIRUBIN 0.3 mg/dL (0.2-1.0); TOTAL PROTEIN 6.6 g/dL (6.4-8.2)
[2018-11-05 19:58] LABS: INFLUENZA A PATIENT NEGATIVE (NEGATIVE); INFLUENZA B PATIENT NEGATIVE (NEGATIVE)
[2018-11-05] MEDS ORDERED: ACETAMINOPHEN 325 MG TABLET PO PRN (21:15)
[2018-11-05 22:45] VITALS: BP 142/64
--- NOTE | 2018-11-05 22:49 | RAD ---
PORTABLE CHEST 1V History: Short of air Comparison: 06/01/2018 Findings: AP portable view of the chest is submitted. There again has been median sternotomy. There is no pneumothorax, pleural fluid, lobar consolidation. There is suspected emphysema. Heart size is stable. There is atherosclerotic calcification near the aortic arch. Impression: 1. There is suspected emphysema, no significant infiltrate. Electronically signed by: Sebastian Shaikh MD (11/05/2018 10:46 PM) [facility]
[2018-11-06] MEDS ORDERED: methylPREDNISolone SOD SUCC PF 125 MG/2 ML VIAL. IV SCH
[2018-11-06] MEDS ORDERED: UMEC62.5 IH (00:29)
--- NOTE | 2018-11-06 00:39 | EKG ---
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
[2018-11-06 04:53] VITALS: BP 135/67
[2018-11-06] MEDS: methylPREDNISolone SOD SUCC PF 40 MG/ML VIAL. IV SCH ×3 (05:32→19:44)
[2018-11-06] MEDS: IPRATRPIUM/ALBUTEROL 0.5/2.5MG 3 ML NEBU. NEB SCH ×4 (05:43→20:34)
[2018-11-06 06:25] LABS: BASO % 0 % (0-3); EOS % 0 % (0-3); HEMATOCRIT 37.1 % (39.0-53.0); HEMOGLOBIN 12.2 g/dL (13.0-17.5); LYMPH # 1.1 x10^3/uL (1.0-4.8); LYMPH % 16 % (24-48); MEAN CORPUSCULAR HEMOGLOBIN 30 pg (25-35); MEAN CORPUSCULAR HGB CONC 33 g/dL (31-37); MEAN CORPUSCULAR VOLUME 92 fL (79-100); MONO # 0.1 x10^3/uL (0.0-1.1); MONO % 1 % (0-9); NEUT # 5.4 x10^3uL (1.8-7.7); NEUT % 82 % (31-73); PLATELET COUNT 241 x10^3/uL (140-400); RED BLOOD COUNT 4.04 x10^6/uL (4.30-5.70); RED CELL DISTRIBUTION WIDTH 15.3 % (11.5-14.5); WHITE BLOOD COUNT 6.6 x10^3/uL (4.0-11.0)
[2018-11-06 06:30] LABS: CALCIUM 8.8 mg/dL (8.5-10.1); CREATININE 0.8 mg/dL (0.7-1.3); GFR 92.1
[2018-11-06 10:15] VITALS: BP 137/54
[2018-11-06] MEDS ORDERED: ASPI-630 PO (11:02)
[2018-11-06] MEDS ORDERED: CHOL10003 PO (11:02)
[2018-11-06] MEDS ORDERED: FISH12002 PO (11:02)
[2018-11-06] MEDS ORDERED: MAGN400C PO (11:02)
[2018-11-06 15:00] VITALS: BP 174/71
[2018-11-06] MEDS: CHOLECALCIFEROL (VITAMIN D3) 1,000 UNIT TABLET PO SCH (15:03)
[2018-11-06] MEDS: OMEGA-3 FATTY ACIDS/FISH OIL 1,000 MG CAPSULE. PO SCH (15:03)
[2018-11-06] MEDS: GABAPENTIN 300 MG CAPSULE. PO SCH ×2 (15:03→19:44)
[2018-11-06] MEDS: ASPIRIN 81 MG TAB.CHEW PO SCH (15:03)
[2018-11-06] MEDS: amLODIPine BESYLATE 2.5 MG TABLET PO SCH (15:03)
[2018-11-06] MEDS: TORSEMIDE 20 MG TABLET. PO SCH (15:04)
[2018-11-06] MEDS: ALLOPURINOL 300 MG TABLET. PO SCH (15:04)
[2018-11-06] MEDS: MAGNESIUM OXIDE 400 MG TABLET PO SCH (15:04)
--- NOTE | 2018-11-06 15:08 | HP ---
ADMIT DATE: 11/05/2018 HISTORY OF PRESENT ILLNESS: The patient is an 83-year-old male patient who came to the Emergency Room complaining of a cough with shortness of breath that started the night before. He is normally on 3 liters of oxygen at home and stated he was up coughing most of the night, last night and had to turn his oxygen up to 4 liters. He states his cough has not been productive of any sputum. He denied any fever. He said that his shortness of breath worsened with exertion, but denied any orthopnea or paroxysmal nocturnal dyspnea. Denied any swelling of the legs. Denied any chest pain. He was extensively evaluated in the Emergency Room, was admitted with COPD exacerbation and was started on IV steroids as well as his bronchodilator and obviously continued all his other medications. PAST MEDICAL HISTORY: Significant for hypertension, type 2 diabetes mellitus, coronary artery disease, status post myocardial infarction, treated with PTCA with stent deployment. He apparently eventually had had open heart surgery about 8 years ago. He is known to have hyperlipidemia, chronic obstructive pulmonary disease, recurrent urinary tract infection, benign prostatic hypertrophy, congestive heart failure and ischemic cardiomyopathy. 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 ALLERGIES: HE IS ALLERGIC TO QUININE, SULFAMETHOXAZOLE AND TRIMETHOPRIM. FAMILY HISTORY: He has one brother younger, known to have sick sinus syndrome for which he has a permanent pacemaker. Has 4 brothers that are and one sister all because of coronary artery disease. His father at the age of 82 because of chronic obstructive pulmonary disease and myocardial infarction. Mother at the age of 56 with myocardial infarction. SOCIAL HISTORY: He is and lives on his own. He is an ex-smoker, quit 20 years ago. He also used to be a heavy smoker, quit about 3 years ago. He used to work for an [employer] company, currently retired since 1994. MEDICATIONS: He is currently on following medications: He is on Incruse Ellipta 1 inhalation daily, Crestor 10 mg Monday, Monday, Monday; carvedilol 25 mg p.o. b.i.d., amlodipine 2.5 mg once a day, losartan potassium 100 mg daily, aspirin 81 mg once a day, gabapentin 300 mg 3 times a day, torsemide 20 mg daily, magnesium oxide 400 mg once a day, metformin 500 mg twice a day, cholecalciferol, vitamin D3 1000 International unit once a day, allopurinol 300 mg daily, omega 3 fatty acid 1200 mg once a day. REVIEW OF SYSTEMS: The patient had bilateral cataract extraction, but denied any glaucoma or macular degeneration. Denied any earache, tinnitus or sensorineural deafness. Denied any nosebleeds, stuffy nose or postnasal drip. Denied any sore throat, sore tongue, toothache, hoarseness of voice or difficulty swallowing. Denied any nausea, vomiting, diarrhea or constipation. Denied any hematemesis, melena or hematochezia. Denied any dysuria, frequency or hematuria. Denied any chest pain. Did complain of shortness of breath, cough with scanty sputum. PHYSICAL EXAMINATION: GENERAL: On arrival, the patient looked somewhat pale, but no jaundice, cyanosis, or thyromegaly. No jugular venous distension. No lower limb edema. VITAL SIGNS: His heart rate was 86, blood pressure was 114/58, temperature was 98.3, respiratory rate was 16, and oxygen saturation was 97% on 4 liters of oxygen. HEAD, EYES, EARS, NOSE AND THROAT: Showed normocephalic, atraumatic. NECK: Supple. HEART: Showed normal first and second heart sounds with no gallop or murmur. CHEST: Clear to auscultation. No crepitation or rhonchi. ABDOMEN: Distended, soft, nontender. NEUROLOGIC: He is hard of hearing, has bilateral hearing aid, but otherwise all other cranial nerves are intact. EXTREMITIES: He moves extremities without difficulty, ambulates without assistance or assistive devices. LABORATORY DATA: His lab work on admission showed a white cell count 9200, hemoglobin 12, hematocrit 36, MCV 91, and platelet count 237,000. Serum sodium was 136, potassium 4.1, chloride 97, bicarbonate 31, anion gap of 8, BUN 22, creatinine 1. Estimated GFR was 71 mL per minute. His glucose was 149, calcium was 8.9. Total bilirubin, AST, ALT, alkaline phosphatase were normal. Beta natriuretic peptide was 654. Total protein was 6.6, albumin was 3.5. His influenza A and B were negative. SUMMARY: This is an 83-year-old male patient was admitted with COPD exacerbation. He will continue with steroids as well as bronchodilator. We will continue all his other medication. Follow him closely and decide on further management accordingly. DEIDRE HANEY MD DR: HUMBERTO/amy JOB#: [id number] / [id number]
[2018-11-06] MEDS: metFORMIN 500 MG TABLET PO SCH (17:01)
[2018-11-06] MEDS: CARVEDILOL 12.5 MG TABLET PO SCH ×2 (17:01→19:43)
[2018-11-06 19:27] VITALS: BP 147/69
[2018-11-06] MEDS ORDERED: MONTELUKAST 10 MG TABLET. PO SCH (21:00)
[2018-11-06] MEDS ORDERED: LOSARTAN 50 MG TABLET. PO SCH (21:00)
[2018-11-06 22:15] VITALS: BP 125/62
--- NOTE | 2018-11-06 23:40 | PN ---
DATE: 11/06/2018 SUBJECTIVE: The patient was admitted yesterday with COPD exacerbation. I saw him today, he was resting, slightly propped up in bed, continued to complain of cough that is mostly dry. Denied any chest pain. He did complain of shortness of breath, but denied any orthopnea or paroxysmal nocturnal dyspnea. PHYSICAL EXAMINATION: GENERAL: When I examined him, he looked well and was clearly in no apparent respiratory distress, slightly pale, no jaundice, cyanosis or thyromegaly. No jugular venous distention. No limb edema. VITAL SIGNS: His heart rate was 72, blood pressure was 137/54, temperature was 97.4, respiratory rate was 18 and oxygen saturation was 98% on 4 liters of oxygen by nasal cannula. HEAD, EYES, EARS, NOSE AND THROAT: Normocephalic, atraumatic. NECK: Supple. HEART: Showed normal first and second heart sounds. No gallop, rub or murmur. CHEST: Clear to auscultation. No crepitation or rhonchi. ABDOMEN: Distended, soft, nontender. NEUROLOGIC: He is more awake, alert, responding appropriately. All cranial nerves are intact. He moves extremities without difficulty. LABORATORY WORK: Showed a white cell count 6600, hemoglobin 12, hematocrit 37, MCV 92, and platelet count 241,000. His chemistry showed a serum sodium 138, potassium 4, chloride 100, bicarbonate 27, anion gap of 11, BUN 21, creatinine 0.8, estimated GFR was 92 mL per minute, his glucose 161, calcium was 8.8. ASSESSMENT: Chronic obstructive pulmonary disease exacerbation. PLAN: To continue with the bronchodilator. Continue with steroids. Other medical problems include hypertension, hyperlipidemia, type 2 diabetes. DEIDRE HANEY MD DR: HUMBERTO/amy JOB#: [id number] / [id number]
[2018-11-07] MEDS: methylPREDNISolone SOD SUCC PF 40 MG/ML VIAL. IV SCH ×2 (05:30→14:07)
[2018-11-07 05:33] VITALS: BP 132/66
[2018-11-07] MEDS: IPRATRPIUM/ALBUTEROL 0.5/2.5MG 3 ML NEBU. NEB SCH (05:53)
[2018-11-07] MEDS: ALLOPURINOL 300 MG TABLET. PO SCH (07:42)
[2018-11-07] MEDS: CHOLECALCIFEROL (VITAMIN D3) 1,000 UNIT TABLET PO SCH (07:42)
[2018-11-07] MEDS: ASPIRIN 81 MG TAB.CHEW PO SCH (07:42)
[2018-11-07] MEDS: amLODIPine BESYLATE 2.5 MG TABLET PO SCH (07:42)
[2018-11-07] MEDS: MAGNESIUM OXIDE 400 MG TABLET PO SCH (07:42)
[2018-11-07] MEDS: OMEGA-3 FATTY ACIDS/FISH OIL 1,000 MG CAPSULE. PO SCH (07:42)
[2018-11-07] MEDS: GABAPENTIN 300 MG CAPSULE. PO SCH ×2 (07:42→14:06)
[2018-11-07] MEDS: metFORMIN 500 MG TABLET PO SCH (07:42)
[2018-11-07] MEDS: TORSEMIDE 20 MG TABLET. PO SCH (07:42)
[2018-11-07] MEDS: CARVEDILOL 12.5 MG TABLET PO SCH (07:43)
[2018-11-07] MEDS ORDERED: UMECLIDINIUM BROMIDE IH SCH (09:00)
[2018-11-07 10:18] VITALS: BP 122/65
--- NOTE | 2018-11-07 18:53 | DS ---
DATE OF DISCHARGE: 11/07/2018 HOSPITAL COURSE: The patient is sitting on the edge of the bed, comfortably in no apparent distress. On questioning him, he stated that he is feeling generally much better, has been up and about. No chest tightness. Cough is much improved and a decision was made to discharge him home to continue on his tapering course of steroids as well as bronchodilators and oxygen supplementation. PHYSICAL EXAMINATION: GENERAL: When I saw him, he looked well and was clearly in no apparent respiratory distress, slightly pale, but no jaundice, cyanosis, or thyromegaly. No jugular venous distension. No limb edema. VITAL SIGNS: His heart rate was 69, blood pressure was 122/65, temperature was 97.4, respiratory rate 20, and oxygen saturation was 100% on 4 liters of oxygen by nasal cannula. HEAD, EYES, EARS, NOSE AND THROAT: Showed normocephalic, atraumatic. NECK: Supple. CARDIAC: Normal first and second heart sounds. No gallop or murmur. CHEST: Central trachea, equally reduced expansion, reduced air entry, vesicular breath sounds. I could not appreciate any crepitation or rhonchi. ABDOMEN: Distended, soft, nontender. NEUROLOGIC: He was awake, alert, responding appropriately. All cranial nerves intact. He moves extremities without difficulty, ambulates without assistance or assistive devices. His intake was 1200 and output was 1700. LABORATORY DATA: Lab work showed a white cell count of 6600, hemoglobin was 12, hematocrit 37, MCV 92, and platelet count of 241,000. His chemistry showed a serum sodium 138, potassium 4, chloride 100, bicarbonate 27, anion gap of 11, BUN 21, creatinine 0.8, estimated GFR was 92 mL per minute, his glucose 161, calcium was 8.8. His influenza A and B were negative. DISCHARGE MEDICATIONS: He was discharged home to continue on allopurinol 300 mg once a day, amlodipine 2.5 mg once a day, aspirin 81 mg once a day, carvedilol 25 mg twice a day, cholecalciferol for vitamin D3 1000 International unit once a day, fish oil 1200 mg daily, gabapentin 300 mg 3 times a day, losartan potassium 100 mg once a day, magnesium oxide 400 mg daily, metformin 500 mg twice a day, Crestor 10 mg on Monday, Monday, Monday; furosemide 20 mg daily and Incruse Ellipta 1 inhalation daily. FINAL DISCHARGE DIAGNOSES: 1. Erexi-ea-npiayii hypoxic respiratory failure. 2. Chronic obstructive pulmonary disease exacerbation. 3. Hypertension. 4. Hyperlipidemia. 5. Type 2 diabetes mellitus. 6. Congestive heart failure due to ischemic cardiomyopathy. 7. Benign prostatic hypertrophy. 8. Coronary artery disease, status post myocardial infarction, status post PCI with stent deployment. DEIDRE HANEY MD DR: HUMBERTO/amy JOB#: [id number] / [id number]
[2018-11-07] MEDS ORDERED: ATORVASTATIN CALCIUM 20 MG TABLET PO SCH (21:00)
== END 2018-11-07 16:18 | disposition home or self-care (01) | DRG 189 ==
LOC: ER 18:22 → 1 SOUTH 21:01
PROVIDERS: ADMIT Internal Medicine; ATTEND Internal Medicine
DX: J96.21 Acute and chronic respiratory failure with hypoxia (principal); J44.1 Chronic obstructive pulmonary disease with (acute) exacerbation; E11.9 Type 2 diabetes mellitus without complications; E78.5 Hyperlipidemia, unspecified; I11.0 Hypertensive heart disease with heart failure; I25.10 Atherosclerotic heart disease of native coronary artery without angina pectoris; I25.5 Ischemic cardiomyopathy; I50.9 Heart failure, unspecified; N40.0 Benign prostatic hyperplasia without lower urinary tract symptoms; Z82.49 Family history of ischemic heart disease and other diseases of the circulatory system; Z82.5 Family history of asthma and other chronic lower respiratory diseases; Z87.891 Personal history of nicotine dependence; Z87.440 Personal history of urinary (tract) infections; I25.2 Old myocardial infarction; Z79.899 Other long term (current) drug therapy; Z89.429 Acquired absence of other toe(s), unspecified side; Z90.49 Acquired absence of other specified parts of digestive tract; Z95.1 Presence of aortocoronary bypass graft; Z95.5 Presence of coronary angioplasty implant and graft; Z98.41 Cataract extraction status, right eye; Z98.42 Cataract extraction status, left eye; Z99.81 Dependence on supplemental oxygen; Z88.2 Allergy status to sulfonamides; Z88.8 Allergy status to other drugs, medicaments and biological substances
CPT/HCPCS: 36415; 71045; 80048; 80053; 83880; 84484; 85025; 87804; 93005; 94640; 96361; 96374; J2920; J2930; J7620; 99285-25; J7030

== ENCOUNTER 2019-07-12 18:03 | Inpatient (IN) | payer MEDICARE ==
[~2019-07-12] VITALS: Ht 180.3 cm; Wt 72.6 kg
[~2019-07-12 18:03] MED LIST changes: +CHOL10003 PO; +FISH12002 PO; -NITR0.4T SL; +NITR0.4T24 SL; +UMEC62.5 IH
--- NOTE | 2019-07-12 18:17 | EKG ---
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
--- NOTE | 2019-07-12 18:33 | PHYS DOC ---
Past History Past Medical History: COPD, Diabetes, Hypertension, Other Past Surgical History: Appendectomy, Coronary Bypass Surgery, Other Smoking: Quit Greater Than 1 Year Alcohol Use: None Drug Use: None Adult General Chief Complaint Chief Complaint: SHORTNESS OF BREATH [facility] HPI 84-year-old male presents with shortness of breath. The patient has had increased cough and sputum for the last 3 days. He feels like his been getting worse. He has had chills but no measured fever. Patient has a history of COPD. He is on oxygen all the time. He is already on an antibiotic and oral prednisone. He is currently unsure of the dose, will check with his family. Patient has had to be admitted for COPD exacerbations in the past. He denies chest pain or diaphoresis. He has no other complaints this time. Review of Systems Review of Systems Constitutional: chills [] Eyes: Denies change in visual acuity, redness, or eye pain [] HENT: Denies nasal congestion or sore throat [] Respiratory: Cough with shortness of breath [] Cardiovascular: No additional information not addressed in HPI [] GI: Denies abdominal pain, nausea, vomiting, bloody stools or diarrhea [] : Denies dysuria or hematuria [] Musculoskeletal: Denies back pain or joint pain [] Integument: Denies rash or skin lesions [] Neurologic: Denies headache, focal weakness or sensory changes [] Endocrine: Denies polyuria or polydipsia [] All other systems were reviewed and found to be within normal limits, except as documented in this note. Allergies Allergies Allergies Coded Allergies Type Severity Reaction Last Updated Verified sulfamethoxazole Allergy Intermediate rash 01/19/18 Yes trimethoprim Allergy Intermediate rash 01/19/18 Yes quinine Allergy Mild rash 01/19/18 Yes Physical Exam Physical Exam Constitutional: Well developed, well nourished, mild acute distress, non-toxic appearance. [] HENT: Normocephalic, atraumatic, bilateral external ears normal, oropharynx moist, no oral exudates, nose normal. [] Eyes: PERRLA, EOMI, conjunctiva normal, no discharge. [] Neck: Normal range of motion, no tenderness, supple, no stridor. [] Cardiovascular:Heart rate regular rhythm, no murmur [] Lungs & Thorax: Cough. Bilateral breath sounds are severely diminished[] Abdomen: Bowel sounds normal, soft, no tenderness, no masses, no pulsatile masses. [] Skin: Warm, dry, no erythema, no rash. [] Back: No tenderness, no CVA tenderness. [] Extremities: No tenderness, no cyanosis, no clubbing, ROM intact, no edema. [] Neurologic: Alert and oriented X 3, normal motor function, normal sensory function, no focal deficits noted. [] Psychologic: Affect normal, judgement normal, mood normal. [] EKG EKG Sinus rhythm, rate 64, normal axis, PVC, no ST elevations or depressions.[] Radiology/Procedures Radiology/Procedures [] Course & Med Decision Making Course & Med Decision Making Pertinent Labs and Imaging studies reviewed. (See chart for details) The patient's EKG is unremarkable. He was requiring additional supplemental oxygen arrival. After 125 of Solu-Medrol, DuoNeb, and an albuterol treatment; the patient still has significantly decreased breath sounds. He has a wet sounding cough. His chest x-ray does not suggest pneumonia at this time. I believe this is a COPD exacerbation. The patient will get additional breathing treatments and I will admit him to the hospital. I spoke with Dr. Caraballo and he has accepted patient for admission. The patient is in agreement with this plan. 32 minutes of critical care time was spent on this patient exclusive of other billable procedures. [] Dragon Disclaimer Dragon Disclaimer This electronic medical record was generated, in whole or in part, using a voice recognition dictation system. Departure Departure: Impression: Primary Impression: COPD exacerbation Disposition: ADMITTED INPATIENT Admitting Physician: Rogelio Caraballo Condition: GUARDED Referrals: PATRICIO MCLEAN (PCP) MITZY MALDONADO DO Jul 12, 2019 18:33
[2019-07-12] MEDS ORDERED: ALBUTEROL SULFATE 2.5 MG/3 ML NEBU. NEB ONE (18:45)
[2019-07-12] MEDS ORDERED: IPRATRPIUM/ALBUTEROL 0.5/2.5MG 3 ML NEBU. NEB ONE (18:45)
[2019-07-12 18:51] LABS: BASO % 1 % (0-3); EOS # 0.1 x10^3/uL (0.0-0.7); EOS % 1 % (0-3); HEMATOCRIT 34.9 % (39.0-53.0); HEMOGLOBIN 11.4 g/dL (13.0-17.5); LYMPH # 1.1 x10^3/uL (1.0-4.8); LYMPH % 10 % (24-48); MEAN CORPUSCULAR HEMOGLOBIN 31 pg (25-35); MEAN CORPUSCULAR HGB CONC 33 g/dL (31-37); MEAN CORPUSCULAR VOLUME 94 fL (79-100); MONO # 1.1 x10^3/uL (0.0-1.1); MONO % 10 % (0-9); NEUT # 8.5 x10^3uL (1.8-7.7); NEUT % 79 % (31-73); PLATELET COUNT 251 x10^3/uL (140-400); RED BLOOD COUNT 3.73 x10^6/uL (4.30-5.70); WHITE BLOOD COUNT 10.8 x10^3/uL (4.0-11.0)
[2019-07-12 19:11] LABS: ALBUMIN 3.5 g/dL (3.4-5.0); ALBUMIN/GLOBULIN RATIO 1.3 (1.0-1.7); CALCIUM 8.4 mg/dL (8.5-10.1); CREATININE 0.6 mg/dL (0.7-1.3); POTASSIUM 4.3 mmol/L (3.5-5.1); TOTAL BILIRUBIN 0.3 mg/dL (0.2-1.0); TOTAL PROTEIN 6.2 g/dL (6.4-8.2)
[2019-07-12] MEDS ORDERED: ONDANSETRON PF 4 MG/2 ML VIAL. IV PRN (20:00)
[2019-07-12 21:07] LABS: BILIRUBIN,URINE NEG (NEG); CLARITY,URINE CLEAR; COLOR,URINE YELLOW; GLUCOSE,URINE NEG (NEG); NITRITE,URINE NEG (NEG); UROBILINOGEN,URINE 0.2 mg/dL (0.2 mg/dL)
[2019-07-12 21:08] LABS: BACTERIA,URINE FEW /HPF (0-FEW); HYALINE CASTS, URINE OCC /HPF; SQUAMOUS EPITHELIAL CELL,UR OCC /LPF; WBC,URINE OCC /HPF (0-4)
--- NOTE | 2019-07-12 23:25 | NUR ---
The patient, ANASTASIA MARMOLEJO, 84 y/o, M admitted by DEIDRE HANEY MD, was given written information regarding hospital policies, unit procedures and contact persons. Valuables were checked and logged. Call light in reach. Will continue to monitor.
--- NOTE | 2019-07-12 23:29 | RAD ---
Indication: Shortness of breath TECHNIQUE:Portable AP chest X-ray COMPARISON: 11/05/2018 FINDINGS: Heart is normal in size. Lungs are hyperinflated with bilateral mild interstitial opacities. No focal consolidation. No pneumothorax or pleural effusion. Visualized bony thorax within normal limits. IMPRESSION: COPD changes. Superimposed atypical/viral infection not ruled out. Electronically signed by: Radames Allen DO (07/12/2019 11:27 PM) [facility]
[2019-07-12 23:39] VITALS: BP 168/63
[2019-07-13] MEDS: IPRATRPIUM/ALBUTEROL 0.5/2.5MG 3 ML NEBU. NEB SCH ×6 (00:59→20:00)
[2019-07-13] MEDS ORDERED: methylPREDNISolone SOD SUCC PF 125 MG/2 ML VIAL. IV ONE (01:00)
[2019-07-13 05:22] VITALS: BP 116/58
[2019-07-13 07:36] LABS: CALCIUM 8.4 mg/dL (8.5-10.1); CREATININE 0.7 mg/dL (0.7-1.3); GFR 107.2
[2019-07-13 07:43] LABS: BASO % 0 % (0-3); EOS % 0 % (0-3); HEMATOCRIT 32.5 % (39.0-53.0); HEMOGLOBIN 10.5 g/dL (13.0-17.5); LYMPH # 0.7 x10^3/uL (1.0-4.8); LYMPH % 6 % (24-48); MEAN CORPUSCULAR HEMOGLOBIN 30 pg (25-35); MEAN CORPUSCULAR HGB CONC 32 g/dL (31-37); MEAN CORPUSCULAR VOLUME 93 fL (79-100); MONO # 0.3 x10^3/uL (0.0-1.1); MONO % 2 % (0-9); NEUT # 12.1 x10^3uL (1.8-7.7); NEUT % 92 % (31-73); PLATELET COUNT 228 x10^3/uL (140-400); RED BLOOD COUNT 3.49 x10^6/uL (4.30-5.70); RED CELL DISTRIBUTION WIDTH 15.1 % (11.5-14.5); WHITE BLOOD COUNT 13.2 x10^3/uL (4.0-11.0)
[2019-07-13 10:57] VITALS: BP 123/49
[2019-07-13 15:18] VITALS: BP 128/53
--- NOTE | 2019-07-13 15:42 | HP ---
ADMIT DATE: 07/12/2019 HISTORY OF PRESENT ILLNESS: The patient is an 84-year-old male patient who came to the Emergency Room with severe intractable cough that has been going on for the last 3 days, states that he feels that his cough is getting worse. It is dry. He also complained of shortness of breath. He had some chills, but no measured fever. He is known to have COPD and he is on oxygen all the time and he was already on antibiotic and oral prednisone. He is currently unsure of the dose. He was admitted before with COPD exacerbation. He denied, however, any chest pain, orthopnea, or paroxysmal nocturnal dyspnea. Denied any diaphoresis. He was extensively investigated in the Emergency Room. His white cell count was normal. His chemistry was also unremarkable. His chest x-ray showed that the heart size is normal. Lungs are hyperinflated with bilateral mild interstitial opacities. No focal consolidation, no pneumothorax or pleural effusion visualized. Bony thorax within normal limits and the patient was treated with IV Solu-Medrol as well as nebulized treatment, was admitted for further evaluation and treatment. PAST MEDICAL HISTORY: Significant for hypertension, type 2 diabetes mellitus, coronary artery disease, status post myocardial infarction treated with PTCA and stent deployment. He had eventually had an open heart surgery about 8 years ago. He is known to have hyperlipidemia, chronic obstructive pulmonary disease, recurrent urinary tract infection, benign prostatic hypertrophy, congestive heart failure due to ischemic cardiomyopathy. 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 ALLERGIES: HE IS ALLERGIC TO QUININE, SULFAMETHOXAZOLE AND TRIMETHOPRIM. FAMILY HISTORY: He has one brother, younger, known to have sick sinus syndrome for which he has a permanent pacemaker. His 4 brothers are , 1 sister , all because of coronary artery disease. His father at the age of 92 because of chronic obstructive pulmonary disease and myocardial infarction. Mother at age of 56 because of myocardial infarction. SOCIAL HISTORY: He is and lives on his own. He is an ex-smoker, quit 20 years ago. He also used to be a heavy drinker, but quit about 3 years ago. He used to work for an [employer] company, currently retired since 1994. He has 3 daughters who live around this area. REVIEW OF SYSTEMS: The patient denied any blurring of vision, cataract, glaucoma, or macular degeneration. Denied any earache, tinnitus, or sensorineural deafness. Denied any nosebleeds, stuffy nose, or postnasal drip. Denied any sore throat, sore tongue, toothache, hoarseness of voice, or difficulty swallowing. Denied any nausea, vomiting, diarrhea, or constipation. Denied any hematemesis, melena, hematochezia. Denied any dysuria, frequency, or hematuria. Denied any chest pain. Did complain of shortness of breath and dry hacking cough. Denied any chills, rigors, or fever. Denied any dizziness, lightheadedness, or vertigo. MEDICATIONS: He is currently on following medications: He is on Incruse Ellipta 1 inhalation once a day, Crestor 10 mg on Monday, Monday, and Monday; carvedilol 25 mg twice a day, amlodipine besylate 2.5 mg daily, losartan potassium 100 mg at bedtime, aspirin 81 mg chewable tablet once a day, gabapentin 300 mg 3 times a day, torsemide 20 mg daily, magnesium oxide 400 mg daily, metformin 500 mg twice a day, cholecalciferol vitamin D3 1000 International Units once a day, allopurinol 300 mg daily, and omega-3 fatty acid 1200 mg once a day. PHYSICAL EXAMINATION: GENERAL: On arrival to the Emergency Room, the patient was pale, but no jaundice, cyanosis, or thyromegaly. No jugular venous distention, no limb edema. VITAL SIGNS: His heart rate was 66, blood pressure was 143/48, temperature was 98.4, respiratory rate 20, and oxygen saturation was 95% on 4 liters of oxygen by nasal cannula. HEAD, EYES, EARS, NOSE, AND THROAT: Normocephalic, atraumatic. NECK: Supple. HEART: Showed normal first and second heart sounds with no gallop or murmur. CHEST: Clear to auscultation. No crepitation or rhonchi. ABDOMEN: Distended, soft, nontender. NEUROLOGIC: He was awake, alert, oriented x 3 with normal motor and sensory function. His affect, judgment, and mood were normal. DIAGNOSTIC DATA: His EKG showed he was in sinus rhythm with heart rate of 64 beats per minute. LABORATORY DATA: His chest x-ray showed that he has COPD changes, superimposed atypical/viral infection not ruled out. PLAN: He was admitted. We will reconcile all his medications, continue with steroids, and follow him closely. DEIDRE HANEY MD DR: HUMBERTO/amy JOB#: [id number] / [id number]
[2019-07-13] MEDS ORDERED: AZITHROMYCIN 250 MG TABLET. PO ONE (16:00)
[2019-07-13] MEDS: CARVEDILOL 12.5 MG TABLET PO SCH (16:13)
[2019-07-13] MEDS: metFORMIN 500 MG TABLET PO SCH (16:14)
[2019-07-13 19:00] VITALS: BP 125/77
[2019-07-13] MEDS ORDERED: LOSARTAN 50 MG TABLET. PO SCH (21:00)
[2019-07-13] MEDS: methylPREDNISolone SOD SUCC PF 40 MG/ML VIAL. IV SCH (21:59)
[2019-07-13] MEDS: GABAPENTIN 300 MG CAPSULE. PO SCH (21:59)
[2019-07-14 05:36] VITALS: BP 156/75
[2019-07-14] MEDS: IPRATRPIUM/ALBUTEROL 0.5/2.5MG 3 ML NEBU. NEB SCH ×2 (05:42→09:10)
[2019-07-14] MEDS: methylPREDNISolone SOD SUCC PF 40 MG/ML VIAL. IV SCH (05:51)
[2019-07-14 06:57] LABS: HEMATOCRIT 33.4 % (39.0-53.0); RED BLOOD COUNT 3.59 x10^6/uL (4.30-5.70); RED CELL DISTRIBUTION WIDTH 14.9 % (11.5-14.5); WHITE BLOOD COUNT 15.4 x10^3/uL (4.0-11.0)
[2019-07-14 07:03] LABS: CALCIUM 8.5 mg/dL (8.5-10.1); CREATININE 0.5 mg/dL (0.7-1.3); POTASSIUM 4.2 mmol/L (3.5-5.1)
[2019-07-14] MEDS: metFORMIN 500 MG TABLET PO SCH (08:24)
[2019-07-14] MEDS: CARVEDILOL 12.5 MG TABLET PO SCH (08:25)
[2019-07-14] MEDS: GABAPENTIN 300 MG CAPSULE. PO SCH (08:25)
[2019-07-14] MEDS ORDERED: amLODIPine BESYLATE 2.5 MG TABLET PO SCH (09:00)
[2019-07-14] MEDS ORDERED: UMECLIDINIUM BROMIDE IH SCH (09:00)
[2019-07-14] MEDS ORDERED: TORSEMIDE 20 MG TABLET. PO SCH (09:00)
[2019-07-14] MEDS ORDERED: MAGNESIUM OXIDE 400 MG TABLET PO SCH (09:00)
[2019-07-14] MEDS ORDERED: OMEGA-3 FATTY ACIDS/FISH OIL 1,000 MG CAPSULE. PO SCH (09:00)
[2019-07-14] MEDS ORDERED: CHOLECALCIFEROL (VITAMIN D3) 1,000 UNIT TABLET PO SCH (09:00)
[2019-07-14] MEDS ORDERED: ASPIRIN 81 MG TAB.CHEW PO SCH (09:00)
[2019-07-14] MEDS ORDERED: ALLOPURINOL 300 MG TABLET. PO SCH (09:00)
[2019-07-14 11:46] VITALS: BP 131/54
[2019-07-14] MEDS ORDERED: AZIT250T PO (12:56)
[2019-07-14] MEDS ORDERED: PRED20TA PO (12:56)
--- NOTE | 2019-07-14 13:25 | DS ---
DATE OF DISCHARGE: 07/14/2019 HOSPITAL COURSE: The patient is sitting on the edge of the bed comfortably, in no apparent distress. His cough has largely subsided. He continues to have scanty whitish sputum. Denied any chest pain, shortness of breath, chest tightness, orthopnea or paroxysmal nocturnal dyspnea. I did start him on Zithromax and steroids. PHYSICAL EXAMINATION: GENERAL: When I saw him this afternoon, he looked well and was clearly in no apparent respiratory distress, slightly pale, but no jaundice, cyanosis or thyromegaly. No jugular venous distension. No lower limb edema. VITAL SIGNS: Her heart rate was 68, blood pressure was 131/54, temperature 97.3, respiratory rate was 18 and oxygen saturation was 98% on 3.5 liters of oxygen. HEAD, EYES, EARS, NOSE AND THROAT: Showed normocephalic, atraumatic. NECK: Supple. HEART: Showed normal first and second heart sounds. No gallop or murmur. CHEST: Shows central trachea, equally reduced chest expansion, reduced air entry, vesicular sounds. I could not really appreciate any crepitation or rhonchi. ABDOMEN: Slightly distended, soft, nontender. NEUROLOGIC: He is awake, alert, responding appropriately. All cranial nerves are intact. He moves extremities without difficulty. His intake and output were incompletely recorded. LABORATORY DATA: This morning showed a white cell count 15,400, hemoglobin 11, hematocrit 33, MCV 93 and platelet count 282,000. Her serum sodium was 130, potassium 4.2, chloride 97, bicarbonate 26, anion gap of 7, BUN 15, creatinine 0.5, estimated GFR was 158 mL per minute, glucose 151, calcium was 8.5. DISCHARGE MEDICATIONS: He was discharged home to continue on azithromycin 250 mg once a day for 4 more days and prednisone 40 mg in a tapering fashion. He should continue also on allopurinol 300 mg once a day, amlodipine 2.5 mg daily, aspirin 81 mg once a day, carvedilol 25 mg twice a day, cholecalciferol for vitamin D3 1000 International Units once a day, fish oil 1200 mg daily, gabapentin 300 mg 3 times a day, losartan potassium 100 mg once a day, magnesium oxide 400 mg once a day, metformin 500 mg twice a day, Crestor 10 mg Monday, Monday, Monday; torsemide 20 mg daily and Incruse Ellipta 1 inhalation once a day. FINAL DISCHARGE DIAGNOSES: 1. Acute bronchitis. 2. Chronic obstructive pulmonary disease. 3. Chronic hypoxic respiratory failure. 4. Hypertension. 5. Type 2 diabetes mellitus. 6. Coronary artery disease, status post myocardial infarction, treated with percutaneous transluminal coronary angioplasty and stent deployment. 7. Benign prostatic hypertrophy. 8. Congestive heart failure due to ischemic cardiomyopathy. DEIDRE HANEY MD DR: HUMBERTO/amy JOB#: [id number] / [id number]
--- NOTE | 2019-07-14 14:04 | NUR ---
Discharge Note: GEOVANNI MARMOLEJO [facility] Discharge instructions and discharge home medications reviewed with Patient and a copy given. All questions have been answered and understanding verbalized. Patient left the unit with his belongings via wheelchair accompanied by family member. The following instructions and handouts were given: medication information handouts Discontinued lines and drains: IV lines were discontinued. Patient discharged to: Home
[2019-07-15] MEDS ORDERED: ATORVASTATIN CALCIUM 20 MG TABLET PO SCH (16:00)
== END 2019-07-14 14:08 | disposition home or self-care (01) | DRG 202 ==
LOC: ER 18:03 → 1 SOUTH 20:00
PROVIDERS: ADMIT Internal Medicine; ATTEND Internal Medicine
DX: J20.9 Acute bronchitis, unspecified (principal); J44.0 Chronic obstructive pulmonary disease with (acute) lower respiratory infection; J96.11 Chronic respiratory failure with hypoxia; J44.1 Chronic obstructive pulmonary disease with (acute) exacerbation; E11.9 Type 2 diabetes mellitus without complications; I25.10 Atherosclerotic heart disease of native coronary artery without angina pectoris; E78.5 Hyperlipidemia, unspecified; N40.0 Benign prostatic hyperplasia without lower urinary tract symptoms; I11.0 Hypertensive heart disease with heart failure; I50.9 Heart failure, unspecified; I25.5 Ischemic cardiomyopathy; I25.2 Old myocardial infarction; Z87.440 Personal history of urinary (tract) infections; Z95.5 Presence of coronary angioplasty implant and graft; Z87.891 Personal history of nicotine dependence; Z99.81 Dependence on supplemental oxygen; Z88.8 Allergy status to other drugs, medicaments and biological substances; Z98.42 Cataract extraction status, left eye; Z98.41 Cataract extraction status, right eye; Z90.49 Acquired absence of other specified parts of digestive tract; Z89.421 Acquired absence of other right toe(s); Z82.5 Family history of asthma and other chronic lower respiratory diseases; Z82.49 Family history of ischemic heart disease and other diseases of the circulatory system
CPT/HCPCS: 36415; 71045; 80048; 80053; 81001; 82947; 83880; 84484; 85025; 85027; 93005; 94640; 94760; J0456; J2920; J2930; J7620; 99285-25

== ENCOUNTER 2019-08-23 18:36 | Inpatient (IN) | payer MEDICARE ==
[~2019-08-23] VITALS: Ht 180.3 cm; Wt 75.7 kg
[~2019-08-23 18:36] MED LIST changes: +PRED20TA PO
[2019-08-23] MEDS ORDERED: IV RINGERS SOLUTION,LACTATED 1,000 ML IV SCH (18:42)
--- NOTE | 2019-08-23 18:42 | PHYS DOC ---
Past History Past Medical History: CAD, COPD, Diabetes, Hypertension, Lung Disease, GA, Prostatitis, Other Past Surgical History: Appendectomy, Coronary Bypass Surgery, Other Smoking: Quit Greater Than 1 Year Alcohol Use: None Drug Use: None Adult General Chief Complaint Chief Complaint: ".. It my COPD.. been more short of breath.. coughing.. just completely winded..." HPI HPI Patient is a 84 year old male who presents with above hx and complaints increased dyspnea, cough, congestion, and malaise. Patient feels it is exacerbation of his COPD/bronchitis. Patient has significant past medical history for hypertension, diabetes, coronary artery disease, and COPD -chronic oxygen dependent. Patient has had stent placement coronary artery bypass grafting, appendectomy, hernia repair, cataract removal, partial amputation of toes and a TURP. Patient denies any specific ill contacts or recent travel. Patient normally follows with [facility]. Patient reports he quit smoking approximately year ago. Review of Systems Review of Systems Constitutional: Subjective complaints of fever or chills [] Eyes: Denies change in visual acuity, redness, or eye pain [] HENT: Complaints of nasal congestion Respiratory: Has complaints of increase cough and shortness of breath [] Cardiovascular: No additional information not addressed in HPI [] GI: Denies abdominal pain, nausea, vomiting, bloody stools or diarrhea [] : Denies dysuria or hematuria [] Musculoskeletal: Some generalized myalgia and chronic back pain or joint pain [] Integument: Denies rash or skin lesions [] Neurologic: Denies headache, focal weakness or sensory changes [] Endocrine: Denies polyuria or polydipsia [] All other systems were reviewed and found to be within normal limits, except as documented in this note. Family History Family History There is family history of brother was sick sinus syndrome one brother with sick sinus syndrome, one sister of coronary artery disease, and 4 brothers that of coronary disease. Father in the 90s due to COPD and mother in the 56 because of GA. Current Medications Current Medications See nursing for home meds Allergies Allergies Allergies Coded Allergies Type Severity Reaction Last Updated Verified sulfamethoxazole Allergy Intermediate rash 01/19/18 Yes trimethoprim Allergy Intermediate rash 01/19/18 Yes quinine Allergy Mild rash 01/19/18 Yes Physical Exam Physical Exam Constitutional: in acute distress, non-toxic appearance. [] HENT: Normocephalic, atraumatic, bilateral external ears normal, oropharynx moist, no oral exudates, nose normal. [] Eyes: PERRLA, EOMI, conjunctiva pale, no discharge. [] Neck: Normal range of motion, no tenderness, supple, no stridor. [] Cardiovascular: Bradycardia Heart rate regular rhythm, no murmur [] Lungs & Thorax: Bilateral breath sounds equal at apexes with scattered wheezing throughout auscultation . Bibasilar crackles. The patient []becomes very dyspneic with minimal activity. Midline scar. Abdomen: Bowel sounds decreased, soft, no tenderness, no masses, no pulsatile masses. [] Midline scar Skin: Warm, dry, no erythema, no rash. Poor turgor Back: No tenderness, no CVA tenderness. [] Extremities: No tenderness, no cyanosis, no clubbing, ROM intact, ankle edema. [] Arthritic changes Neurologic: Alert and oriented X 3, moves all extremities on request, has distal sensory,, no focal deficits noted. [] Psychologic: Affect anxious, judgement normal, mood depressed EKG EKG My interpretation EKG shows a sinus rhythm at 61 bpm. Low voltage limb leads. No findings of acute STEMI with contralateral changes[] Radiology/Procedures Radiology/Procedures [][address] [address] IMAGING REPORT Signed PATIENT: ANASTASIA MARMOLEJO ACCOUNT: [id number] : 1935 LOCATION: ER AGE: 84 SEX: M EXAM STATUS: REG ER ORD. PHYSICIAN: REBECCA LAINEZ MD REASON: dyspnea PROCEDURE: PORTABLE CHEST 1V Chest AP portable at 1915: Reason for examination: Dyspnea. Comparison is made to previous study dated 07/12/2019. Postop changes seen in the sternum and mediastinum. Heart and mediastinum are unremarkable. There is flattening of the hemidiaphragms which is unchanged. The lung marino show mild increase in interstitial markings at the bases which may reflect some interstitial fibrosis but is unchanged. There is no acute congestion or infiltrates. No acute bony abnormalities are seen. IMPRESSION: COPD with some increased interstitial markings at the base which may reflect fibrosis but appears to be unchanged. No acute cardiopulmonary disease evident. Electronically signed by: Magda Ngo MD (08/23/2019 9:27 PM) [facility] DICTATED AND SIGNED BY: MAGDA NGO MD DATE: 08/23/192126 CC: REBECCA LAINEZ MD; PATRICIO MCLEAN ~ Course & Med Decision Making Course & Med Decision Making Pertinent Labs and Imaging studies reviewed. (See chart for details) Patient admitted to Dr. Caraballo for further evaluation and treatment. We will obtain cardiology consult for his CHF. Impression: 1. COPD Exacerbation 2. Anemia 3. Increase Hypoxia 4. CHF- systolic dysfunction (BNP 1709) 5. Anemia Hgb 11.7 6. Malnutrition Alb. 3.2 7. DM = Glu . 124 8. Mild Elevation D-dimer 0.81 [] Dragon Disclaimer Dragon Disclaimer This electronic medical record was generated, in whole or in part, using a voice recognition dictation system. Departure Departure: Disposition: 01 HOME/RESIDENCE PRIOR TO ADM Condition: STABLE Referrals: PATRICIO MCLEAN (PCP) Dragon Disclaimer This chart was dictated in whole or in part using Voice Recognition software in a busy, high-work load, and often noisy Emergency Department environment. It may contain unintended and wholly unrecognized errors or omissions. REBECCA LAINEZ MD Aug 23, 2019 18:42
[2019-08-23] MEDS ORDERED: ASPIRIN 81 MG TAB.CHEW PO ONE (18:45)
[2019-08-23] MEDS ORDERED: AZITHROMYCIN 250 MG TABLET. PO ONE ×2 (19:15→21:15)
[2019-08-23] MEDS ORDERED: methylPREDNISolone SOD SUCC PF 125 MG/2 ML VIAL. IV ONE (19:15)
[2019-08-23 19:37] LABS: BGAS PH 7.4 (7.35-7.46)
[2019-08-23 20:28] LABS: BASO % 1 % (0-3); EOS # 0.1 x10^3/uL (0.0-0.7); EOS % 1 % (0-3); HEMATOCRIT 35.7 % (39.0-53.0); HEMOGLOBIN 11.7 g/dL (13.0-17.5); LYMPH % 15 % (24-48); MEAN CORPUSCULAR HEMOGLOBIN 31 pg (25-35); MEAN CORPUSCULAR HGB CONC 33 g/dL (31-37); MEAN CORPUSCULAR VOLUME 94 fL (79-100); MONO # 0.9 x10^3/uL (0.0-1.1); MONO % 14 % (0-9); NEUT # 4.3 x10^3uL (1.8-7.7); NEUT % 69 % (31-73); PLATELET COUNT 202 x10^3/uL (140-400); RED BLOOD COUNT 3.78 x10^6/uL (4.30-5.70); RED CELL DISTRIBUTION WIDTH 15.3 % (11.5-14.5); WHITE BLOOD COUNT 6.3 x10^3/uL (4.0-11.0)
[2019-08-23 20:35] LABS: CALCIUM 8.5 mg/dL (8.5-10.1); POTASSIUM 4.2 mmol/L (3.5-5.1)
[2019-08-23 20:48] LABS: ALBUMIN 3.2 g/dL (3.4-5.0); DIRECT BILIRUBIN 0.1 mg/dL (0.0-0.2); TOTAL BILIRUBIN 0.2 mg/dL (0.2-1.0); TOTAL PROTEIN 6.4 g/dL (6.4-8.2)
[2019-08-23 21:12] LABS: BARBITURATES NEG (NEG); BENZODIAZEPINES NEG (NEG); CANNABINOIDS NEG (NEG); COCAINE NEG (NEG); METHADONE NEG (NEG); OPIATES NEG (NEG); PHENCYCLIDINE NEG (NEG)
[2019-08-23] MEDS ORDERED: ENOXAPARIN ** NOTE DOSE ** SYRINGE SQ ONE (21:15)
[2019-08-23] MEDS ORDERED: FUROSEMIDE 40 MG/4 ML VIAL IVP ONE (21:15)
[2019-08-23 21:18] LABS: AMPHETAMINE/METHAMPHETAMINE NEG (NEG)
--- NOTE | 2019-08-23 21:30 | RAD ---
Chest AP portable at 1915: Reason for examination: Dyspnea. Comparison is made to previous study dated 07/12/2019. Postop changes seen in the sternum and mediastinum. Heart and mediastinum are unremarkable. There is flattening of the hemidiaphragms which is unchanged. The lung marino show mild increase in interstitial markings at the bases which may reflect some interstitial fibrosis but is unchanged. There is no acute congestion or infiltrates. No acute bony abnormalities are seen. IMPRESSION: COPD with some increased interstitial markings at the base which may reflect fibrosis but appears to be unchanged. No acute cardiopulmonary disease evident. Electronically signed by: Magda León MD (08/23/2019 9:27 PM) [facility]
[2019-08-23 21:36] LABS: INFLUENZA A PATIENT NEGATIVE (NEGATIVE); INFLUENZA B PATIENT NEGATIVE (NEGATIVE)
[2019-08-23] MEDS ORDERED: IV NORMAL SALINE 50ML 50 ML ONE (21:40)
[2019-08-23] MEDS ORDERED: cefTRIAXone SODIUM 1 GM VIAL ONE (21:40)
[2019-08-23 21:46] LABS: BACTERIA,URINE 0 /HPF (0-FEW); BILIRUBIN,URINE NEG (NEG); CLARITY,URINE CLEAR; COLOR,URINE YELLOW; GLUCOSE,URINE NEG (NEG); NITRITE,URINE NEG (NEG); RBC,URINE 0 /HPF (0-2); SQUAMOUS EPITHELIAL CELL,UR OCC /LPF; UROBILINOGEN,URINE 0.2 mg/dL (0.2 mg/dL); WBC,URINE 0 /HPF (0-4)
[2019-08-23] MEDS ORDERED: ONDANSETRON PF 4 MG/2 ML VIAL. IV PRN (22:00)
[2019-08-23] MEDS ORDERED: ACETAMINOPHEN 325 MG TABLET PO PRN (22:00)
--- NOTE | 2019-08-23 23:22 | NUR ---
The patient, ANASTASIA MARMOLEJO, 84 y/o, M admitted by DEIDRE HANEY MD, was given written information regarding hospital policies, unit procedures and contact persons. Valuables were checked and logged. Call light at bedside. Will continue to monitor.
[2019-08-23 23:29] VITALS: BP 169/61
--- NOTE | 2019-08-24 01:14 | EKG ---
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
[2019-08-24] MEDS: IPRATRPIUM/ALBUTEROL 0.5/2.5MG 3 ML NEBU. NEB SCH ×4 (04:38→20:00)
[2019-08-24 04:51] VITALS: BP 164/66
[2019-08-24 06:59] LABS: BASO % 0 % (0-3); EOS % 0 % (0-3); HEMATOCRIT 35.2 % (39.0-53.0); HEMOGLOBIN 11.7 g/dL (13.0-17.5); LYMPH # 0.6 x10^3/uL (1.0-4.8); LYMPH % 16 % (24-48); MEAN CORPUSCULAR HEMOGLOBIN 31 pg (25-35); MEAN CORPUSCULAR HGB CONC 33 g/dL (31-37); MEAN CORPUSCULAR VOLUME 94 fL (79-100); MONO # 0.1 x10^3/uL (0.0-1.1); MONO % 2 % (0-9); NEUT % 82 % (31-73); PLATELET COUNT 182 x10^3/uL (140-400); RED BLOOD COUNT 3.74 x10^6/uL (4.30-5.70); RED CELL DISTRIBUTION WIDTH 14.8 % (11.5-14.5); WHITE BLOOD COUNT 3.6 x10^3/uL (4.0-11.0)
[2019-08-24 07:05] LABS: CALCIUM 8.1 mg/dL (8.5-10.1); CREATININE 0.7 mg/dL (0.7-1.3); GFR 107.2; POTASSIUM 4.1 mmol/L (3.5-5.1)
[2019-08-24 08:13] VITALS: BP 173/99
[2019-08-24] MEDS: ENOXAPARIN ** NOTE DOSE ** SYRINGE SQ SCH ×2 (08:42→20:47)
[2019-08-24] MEDS ORDERED: ASPIRIN 81 MG TAB.CHEW PO SCH (09:00)
[2019-08-24] MEDS ORDERED: methylPREDNISolone SOD SUCC PF 125 MG/2 ML VIAL. IV SCH (09:00)
--- NOTE | 2019-08-24 10:10 | RAD ---
Bilateral lower extremity venous ultrasound, : History: Lower extremity edema, dyspnea, elevated d-dimer Sonographic evaluation including grayscale, color flow and spectral Doppler analysis of the deep veins of the lower extremities was performed. The femoral and popliteal veins demonstrate normal compressibility and normal responses to distal augmentation maneuvers. Color imaging of those vessels shows no evidence of intraluminal clot. The visualized deep veins in both calves are patent. IMPRESSION: There is no sonographic evidence of deep vein thrombosis in either lower extremity. Electronically signed by: Reinaldo Larios MD (08/24/2019 10:08 AM) [facility]
[2019-08-24] MEDS ORDERED: FLUT12AE IH (11:28)
[2019-08-24] MEDS ORDERED: IPRA3AMP29 NEB (11:28)
[2019-08-24 11:44] VITALS: BP 182/68
[2019-08-24] MEDS: MAGNESIUM OXIDE 400 MG TABLET PO SCH (12:00)
[2019-08-24] MEDS: OMEGA-3 FATTY ACIDS/FISH OIL 1,000 MG CAPSULE. PO SCH (12:00)
[2019-08-24] MEDS: ALLOPURINOL 300 MG TABLET. PO SCH (12:00)
[2019-08-24] MEDS ORDERED: amLODIPine BESYLATE 2.5 MG TABLET PO SCH (12:00)
[2019-08-24 12:20] LABS: % ATYL 5 % (0-0); % BANDS 10 % (0-9); % LYMPHS 8 % (24-48); % MONOS 2 % (0-10); % MYELOS 2 % (0-0); % SEGS 73 % (35-66); PLT ESTIMATE ADEQUATE (ADEQUATE)
[2019-08-24] MEDS: GABAPENTIN 300 MG CAPSULE. PO SCH ×2 (14:00→20:45)
--- NOTE | 2019-08-24 14:33 | PDOC2 ---
CONSULT Date of Admission DATE: 08/24/19 TIME: 14:33 Reason for Consult: Congestive heart failure Referring Physician: Dr. Caraballo Chief Complaint Shortness of breath Source: Chart review, Patient History of Present Illness 84-year-old male presented complaining of persistent cough and dyspnea on exertion. He denied any orthopnea/PND, palpitations or syncope. He has history of COPD and uses oxygen per nasal cannula. He also has history of coronary artery disease and has undergone CABG in the past. He usually follows with [facility] cardiology who apparently did stress test and echocardiogram on him 2 months ago. Past Medical History Coronary artery disease s/p CABG in 2007 (SVG to LAD and SVG to RCA) Hypertension COPD Diabetes mellitus type 2 Hyperlipidemia Past Surgical History Appendectomy Coronary artery bypass surgery Family History not contributory Social History Patient quit smoking several years ago and denied any alcohol or drug use Current Medications Current Medications Aspirin (Children'S Aspirin) 324 mg 1X ONCE PO Last administered on 08/23/19at 20:16; Start 08/23/19 at 18:45; Stop 08/23/19 at 18:46; Status DC Lactated Ringer's 1,000 ml @ 100 mls/hr Q10H IV Last administered on 08/23/19at 20:19; Start 08/23/19 at 18:42; Stop 08/24/19 at 04:41; Status DC Methylprednisolone Sodium Succinate (SOLU-Medrol 125MG VIAL) 125 mg 1X ONCE IV Last administered on 08/23/19at 20:18; Start 08/23/19 at 19:15; Stop 08/23/19 at 19:19; Status DC Azithromycin (Zithromax) 500 mg 1X ONCE PO Last administered on 08/23/19at 20:17; Start 08/23/19 at 19:15; Stop 08/23/19 at 19:19; Status DC Furosemide (Lasix) 40 mg 1X ONCE IVP Last administered on 08/23/19at 21:47; Start 08/23/19 at 21:15; Stop 08/23/19 at 21:16; Status DC Enoxaparin Sodium (Lovenox 80mg Syringe) 70 mg 1X ONCE SQ Last administered on 08/23/19at 21:51; Start 08/23/19 at 21:15; Stop 08/23/19 at 21:16; Status DC Ceftriaxone Sodium 1 gm/ Sodium Chloride 50 ml @ 100 mls/hr 1X ONCE IV Last administered on 08/23/19at 21:50; Start 08/23/19 at 21:15; Stop 08/23/19 at 21:44; Status DC Azithromycin (Zithromax) 500 mg 1X ONCE PO ; Start 08/23/19 at 21:15; Stop 08/23/19 at 21:13; Status DC Sodium Chloride 50 ml @ As Directed STK-MED ONCE .ROUTE ; Start 08/23/19 at 21:40; Stop 08/23/19 at 21:41; Status DC Ceftriaxone Sodium (Rocephin) 1 gm STK-MED ONCE .ROUTE ; Start 08/23/19 at 21:40; Stop 08/23/19 at 21:41; Status DC Ondansetron HCl (Zofran) 4 mg PRN Q4HRS PRN IV NAUSEA/VOMITING; Start 08/23/19 at 22:00; Stop 08/24/19 at 21:59 Acetaminophen (Tylenol) 650 mg PRN Q4HRS PRN PO FEVER; Start 08/23/19 at 22:00; Stop 08/24/19 at 21:59 Albuterol/ Ipratropium (Duoneb) 3 ml RTQID NEB Last administered on 08/24/19at 0 9:43; Start 08/24/19 at 08:00; Stop 08/24/19 at 12:21; Status DC Enoxaparin Sodium (Lovenox 60mg Syringe) 70 mg BID SQ Last administered on 08/24/19at 08:42; Start 08/24/19 at 09:00 Aspirin (Children'S Aspirin) 81 mg DAILY PO Last administered on 08/24/19at 08 :40; Start 08/24/19 at 09:00; Stop 08/24/19 at 12:21; Status DC Ceftriaxone Sodium 1 gm/ Sodium Chloride 50 ml @ 100 mls/hr Q24H IV ; Start 08/24/19 at 22:00 Azithromycin (Zithromax) 250 mg Q24H PO ; Start 08/24/19 at 20:00 Methylprednisolone Sodium Succinate (SOLU-Medrol 125MG VIAL) 125 mg DAILY IV Last administered on 08/24/19at 08:40; Start 08/24/19 at 09:00 Allopurinol (Zyloprim) 300 mg DAILY PO Last administered on 08/24/19at 12:00; Start 08/24/19 at 12:00 Amlodipine Besylate (Norvasc) 2.5 mg DAILY PO Last administered on 08/24/19at 12:00; Start 08/24/19 at 12:00 Aspirin (Children'S Aspirin) 81 mg DAILY PO ; Start 08/25/19 at 09:00 Gabapentin (Neurontin) 300 mg TID PO Last administered on 08/24/19at 14:00; Start 08/24/19 at 14:00 Metformin HCl (Glucophage) 500 mg BIDWMEALS PO ; Start 08/24/19 at 17:00 Torsemide (Demadex) 20 mg DAILY PO ; Start 08/25/19 at 12:00 Carvedilol (Coreg) 25 mg BIDWMEALS PO ; Start 08/24/19 at 17:00 Fish Oil (Fish Oil) 1,000 mg DAILY PO Last administered on 08/24/19at 12:00; Start 08/24/19 at 12:00 Losartan Potassium (Cozaar) 100 mg HS PO ; Start 08/24/19 at 21:00 Vitamin D (Vitamin D3) 1,000 unit DAILY PO ; Start 08/25/19 at 09:00 Prednisone (Prednisone) 20 mg DAILY PO ; Start 08/25/19 at 09:00; Status UNV Magnesium Oxide (Magnesium Oxide) 400 mg DAILY PO Last administered on 08/24/19at 12:00; Start 08/24/19 at 12:00 Atorvastatin Calcium (Lipitor) 40 mg QHS PO ; Start 08/24/19 at 21:00 Albuterol/ Ipratropium (Duoneb) 3 ml RTQID NEB ; Start 08/24/19 at 16:00 Non-Formulary Medication (Fluticasone Propionate (Flovent 110MCG Hfa)) 2 puff BID IH ; Start 08/24/19 at 21:00; Status UNV Budesonide (Pulmicort) 0.5 mg RTBID NEB ; Start 08/24/19 at 20:00 Active Scripts Active Prednisone 20 Mg Tablet 1 Tab PO DAILY 1 Days Zithromax (Azithromycin) 250 Mg Tablet 250 Mg PO DAILY 4 Days Reported Duoneb 0.5-3(2.5) Mg/3 Ml (Albuterol/Ipratropium) 3 Ml Ampul.neb 3 Ml NEB QID Flovent 110MCG Hfa (Fluticasone Propionate) 12 Gm Aer.w.adap 2 Puff IH BID Magnesium (Magnesium Oxide) 400 Mg Capsule 1 Cap PO DAILY [place] 3-6-9 1,200 mg Softgel (Fish Oil/Borage/Flax/Om3,6,9#1) 1,200 Mg Capsule 1,200 Mg PO DAILY Vitamin D3 (Cholecalciferol (Vitamin D3)) 1,000 Unit Tablet 1 Tab PO DAILY Aspirin 81 Mg Tab.chew 81 Mg PO DAILY Torsemide 20 Mg Tablet 20 Mg PO DAILY LAST DOSE GIVEN: DATE: TODAY TIME: AM NEXT DOSE DUE: DATE: TOMORROW TIME: AM Carvedilol 25 Mg Tablet 25 Mg PO BID LAST DOSE GIVEN: DATE: TODAY TIME: AM NEXT DOSE DUE: DATE: TODAY TIME: PM Amlodipine Besylate 2.5 Mg Tablet 2.5 Mg PO DAILY LAST DOSE GIVEN: DATE: TODAY TIME: AM NEXT DOSE DUE: DATE: TOMORROW TIME: AM Gabapentin (Gabapentin) 300 Mg Capsule 300 Mg PO TID Losartan Potassium 100 Mg Tablet 100 Mg PO HS Metformin Hcl 500 Mg Tablet 500 Mg PO BID LAST DOSE GIVEN: DATE: TODAY TIME: WITH BREAKFAST NEXT DOSE DUE: DATE: TON TIME: WITH DINNER Crestor (Rosuvastatin Calcium) 10 Mg Tablet 10 Mg PO HS Allopurinol 300 Mg Tablet 300 Mg PO DAILY LAST DOSE GIVEN: DATE: TODAY TIME: AM NEXT DOSE DUE: DATE: TOMORROW TIME: AM Allergies: Coded Allergies: sulfamethoxazole (Verified Allergy, Intermediate, rash, 01/19/18) trimethoprim (Verified Allergy, Intermediate, rash, 01/19/18) quinine (Verified Allergy, Mild, rash, 01/19/18) PSYCHOLOGICAL ROS: No: Hallucinations Eyes: No: Loss of vision HEENT: No: Epistaxis Respiratory: YES: Cough, Shortness of breath Cardiovascular: No: Chest Pain Gastrointestinal: No: Vomiting Genitourinary: No: Hen[place]ia Neurological: No: Seizures Skin: No: Rash General: Alert, Oriented X3 HEENT: Atraumatic Lungs: Other (bilateral scattered crepitations) Heart: Regular rate Abdomen: Soft Extremities: No edema Psych/Mental Status: Mood NL VITALS Vital Signs Date Time Temp Pulse Resp B/P (MAP) Pulse Ox O2 Delivery O2 Flow Rate FiO2 08/24/19 12:00 85 182/68 08/24/19 11:44 98.0 20 96 Nasal Cannula 2.0 Labs Laboratory Tests Test 08/23/19 19:30 08/23/19 20:00 08/23/19 20:12 08/24/19 06:12 Blood Gas pH 7.40 (7.35-7.46) Blood Gas PCO2 42 mmHg (35-46) Blood Gas PO2 85 mmHg (71-100) Blood Gas HCO3 26 mmol/L (21-28) Arterial Bld O2 Saturation (Calc) 96 % (92-99) FiO2 28 % White Blood Count 6.3 x10^3/uL (4.0-11.0) 3.6 x10^3/uL (4.0-11.0) Red Blood Count 3.78 x10^6/uL (4.30-5.70) 3.74 x10^6/uL (4.30-5.70) Hemoglobin 11.7 g/dL (13.0-17.5) 11.7 g/dL (13.0-17.5) Hematocrit 35.7 % (39.0-53.0) 35.2 % (39.0-53.0) Mean Corpuscular Volume 94 fL (79-100) 94 fL (79-100) Mean Corpuscular Hemoglobin 31 pg (25-35) 31 pg (25-35) Mean Corpuscular Hemoglobin Concent 33 g/dL (31-37) 33 g/dL (31-37) Red Cell Distribution Width 15.3 % (11.5-14.5) 14.8 % (11.5-14.5) Platelet Count 202 x10^3/uL (140-400) 182 x10^3/uL (140-400) Neutrophils (%) (Auto) 69 % (31-73) 82 % (31-73) Lymphocytes (%) (Auto) 15 % (24-48) 16 % (24-48) Monocytes (%) (Auto) 14 % (0-9) 2 % (0-9) Eosinophils (%) (Auto) 1 % (0-3) 0 % (0-3) Basophils (%) (Auto) 1 % (0-3) 0 % (0-3) Neutrophils # (Auto) 4.3 x10^3uL (1.8-7.7) 3.0 x10^3uL (1.8-7.7) Lymphocytes # (Auto) 1.0 x10^3/uL (1.0-4.8) 0.6 x10^3/uL (1.0-4.8) Monocytes # (Auto) 0.9 x10^3/uL (0.0-1.1) 0.1 x10^3/uL (0.0-1.1) Eosinophils # (Auto) 0.1 x10^3/uL (0.0-0.7) 0.0 x10^3/uL (0.0-0.7) Basophils # (Auto) 0.0 x10^3/uL (0.0-0.2) 0.0 x10^3/uL (0.0-0.2) Prothrombin Time 9.9 SEC (9.4-11.4) Prothromb Time International Ratio 1.0 (0.9-1.1) Activated Partial Thromboplast Time 26 SEC (23-33) D-Dimer (Charline) 0.81 mg/L (0.00-0.50) Sodium Level 135 mmol/L (136-145) 136 mmol/L (136-145) Potassium Level 4.2 mmol/L (3.5-5.1) 4.1 mmol/L (3.5-5.1) Chloride Level 98 mmol/L (98-107) 99 mmol/L (98-107) Carbon Dioxide Level 29 mmol/L (21-32) 28 mmol/L (21-32) Anion Gap 8 (6-14) 9 (6-14) Blood Urea Nitrogen 17 mg/dL (8-26) 16 mg/dL (8-26) Creatinine 1.0 mg/dL (0.7-1.3) 0.7 mg/dL (0.7-1.3) Estimated GFR (Cockcroft-Gault) 71.0 107.2 Glucose Level 124 mg/dL (70-99) 153 mg/dL (70-99) Calcium Level 8.5 mg/dL (8.5-10.1) 8.1 mg/dL (8.5-10.1) Magnesium Level 2.0 mg/dL (1.8-2.4) Total Bilirubin 0.2 mg/dL (0.2-1.0) Direct Bilirubin 0.1 mg/dL (0.0-0.2) Aspartate Amino Transf (AST/SGOT) 15 U/L (15-37) Alanine Aminotransferase (ALT/SGPT) 10 U/L (16-63) Alkaline Phosphatase 58 U/L (46-116) Creatine Kinase 32 U/L (39-308) Troponin I Quantitative 0.027 ng/mL (0-0.055) BX-Ulv-A-Type Natriuretic Peptide 1709 pg/mL (0-449) Total Protein 6.4 g/dL (6.4-8.2) Albumin 3.2 g/dL (3.4-5.0) Lipase 102 U/L (73-393) Thyroid Stimulating Hormone (TSH) 2.776 uIU/mL (0.358-3.740) Urine Collection Type Unknown Urine Color Yellow Urine Clarity Clear Urine pH 6.0 Urine Specific [place] 1.020 Urine Protein Neg (NEG-TRACE) Urine Glucose (UA) Neg mg/dL (NEG) Urine Ketones (Stick) Neg mg/dL (NEG) Urine Blood Neg (NEG) Urine Nitrite Neg (NEG) Urine Bilirubin Neg (NEG) Urine Urobilinogen Dipstick 0.2 mg/dL (0.2 mg/dL) Urine Leukocyte Esterase Neg (NEG) Urine RBC 0 /HPF (0-2) Urine WBC 0 /HPF (0-4) Urine Squamous Epithelial Cells Occ /LPF Urine Bacteria 0 /HPF (0-FEW) Urine Opiates Screen Neg (NEG) Urine Methadone Screen Neg (NEG) Urine Barbiturates Neg (NEG) Urine Phencyclidine Screen Neg (NEG) Urine Amphetamine/Methamphetamine Neg (NEG) Urine Benzodiazepines Screen Neg (NEG) Urine Cocaine Screen Neg (NEG) Urine Cannabinoids Screen Neg (NEG) Urine Ethyl Alcohol Neg (NEG) Influenza Type A (Rapid) Negative (NEGATIVE) Influenza Type B (Rapid) Negative (NEGATIVE) Segmented Neutrophils % 73 % (35-66) Band Neutrophils % 10 % (0-9) Lymphocytes % 8 % (24-48) Atypical Lymphocytes % (Manual) 5 % (0-0) Monocytes % 2 % (0-10) Myelocytes % 2 % (0-0) Platelet Estimate Adequate (ADEQUATE) Test 08/24/19 08:02 08/24/19 12:04 Glucose (Fingerstick) 153 mg/dL (70-99) 225 mg/dL (70-99) Assessment/Plan 1. Acute respiratory failure secondary to acute COPD exacerbation. BNP level elevated but chest x-ray and clinical exam without any evidence for overt congestive heart failure. Continue current treatment for COPD per primary team. 2. Chronic diastolic heart failure: Clinically well compensated. We will obtain records from primary conservation engineer office regarding recent 2-D echo/stress test. Continue current medical regimen. 3. CAD s/p CABG, stable and chest pain-free. Continue current secondary pr evention measures. 4. Elevated d-dimer: Lower extremity venous duplex scan negative for DVT. 5. Accelerated hypertension: Blood pressure elevated. Increase amlodipine dose for better control. 6. Hyperlipidemia: Statins therapy 7. Diabetes mellitus type 2: Treat per IM Thank you for your consultation DINORA HERRERA MD Aug 24, 2019 14:33
[2019-08-24] MEDS: methylPREDNISolone SOD SUCC PF 40 MG/ML VIAL. IV SCH ×2 (15:00→21:34)
[2019-08-24] MEDS: amLODIPine BESYLATE 10 MG TABLET PO SCH (15:15)
[2019-08-24] MEDS ORDERED: IOHEXOL 350 MG/ML 100 ML VIAL. IV ONE (15:30)
--- NOTE | 2019-08-24 15:44 | HP ---
ADMIT DATE: HISTORY OF PRESENT ILLNESS: The patient is an 84-year-old male patient who presented to the Emergency Room complaining of shortness of breath, cough with sputum that is yellowish in color. He also complained of malaise, was evaluated extensively in the Emergency Room. His influenza A and B were negative. White cell count was normal. His blood gases were actually unremarkable. His chemistry was also unremarkable except for elevated beta-natriuretic peptide of 1700. His D-dimer, however, was elevated at 0.81. He was treated with antibiotic and steroids as well as bronchodilators. Venous Doppler ultrasound of both lower extremities was negative for DVT; however, he was continued on Lovenox 1 mg/kg subcutaneously twice a day and was admitted for further evaluation and treatment. PAST MEDICAL HISTORY: Significant for hypertension; type 2 diabetes mellitus; coronary artery disease, status post myocardial infarction, treated with PTCA and stent deployment, eventually had an open heart surgery about 8 years ago. He is known to have hyperlipidemia, chronic obstructive pulmonary disease, recurrent urinary tract infection, benign prostatic hypertrophy, congestive heart failure, ischemic cardiomyopathy. 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 ALLERGIES: He is allergic to QUININE, SULFAMETHOXAZOLE and TRIMETHOPRIM. FAMILY HISTORY: He has one brother younger known to have sick sinus syndrome for which he has a permanent pacemaker. His other four brothers were , one sister , all because of coronary artery disease. His father at the age of 92 because of chronic obstructive pulmonary disease and myocardial infarction. Mother at the age of 56 because of myocardial infarction. SOCIAL HISTORY: He is , lives on his own. He is an ex-smoker, quit 20 years ago. He also used to be a heavy drinker, but quit about 3 years ago. He used to work for an [employer] company, currently retired since 1994. He has 3 daughters who live around this area. REVIEW OF SYSTEMS: As per history of present illness. MEDICATIONS: He is currently on following medications: He is on ipratropium bromide, albuterol sulfate by nebulizer 3 mL 4 times a day, Crestor 10 mg at bedtime, carvedilol 25 mg twice a day, amlodipine 2.5 mg daily, losartan potassium 100 mg once a day, aspirin 81 mg once a day, gabapentin 300 mg 3 times a day, torsemide 20 mg once a day, Flovent 110 mcg 2 puffs twice a day, magnesium oxide 400 mg daily. He is on prednisone 20 mg once a day, metformin 500 mg twice a day, vitamin D3 1000 International Units once a day, allopurinol 300 mg once a day, and fish oil 1200 mg once a day. PHYSICAL EXAMINATION: GENERAL: On arrival to the Emergency Room, the patient was definitely tachypneic, but there was no pallor, jaundice, cyanosis or thyromegaly. No jugular venous distension. No lower limb edema. VITAL SIGNS: His heart rate was 66, blood pressure was 129/48, temperature was 98.3, respiratory rate was 24, and oxygen saturation was 95% on 2 liters of oxygen. HEAD, EYES, EARS, NOSE AND THROAT: Showed normocephalic, atraumatic. NECK: Supple. HEART: Showed normal first and second heart sounds. No gallop, rub or murmur. CHEST: Showed scattered wheezing throughout both lungs site, bibasilar crackles. ABDOMEN: Slightly distended, soft, nontender. NEUROLOGIC: He was awake, alert, responding appropriately. All cranial nerves intact. EXTREMITIES: He moves extremities without difficulty. LABORATORY DATA: His lab work on admission showed a white cell count of 6300, hemoglobin 11, hematocrit 35, MCV 94 and platelet count 202,000. His arterial blood gases showed a pH of 7.4, pCO2 of 42, pO2 of 85, bicarbonate 26 and oxygen saturation was 96% on FiO2 of 28%. His chemistry showed that his serum sodium was 135, potassium 4.2, chloride 98, bicarbonate 29, anion gap of 8, BUN 17, creatinine 1, estimated GFR was 71 mL per minute. His glucose was 124, calcium was 8.5, magnesium 2. Total bilirubin, AST, ALT, alkaline phosphatase were normal. CK was 32. His beta-natriuretic peptide was 1700. Total protein was 6.4, albumin 3.2. Urinalysis was essentially unremarkable. Toxic screen was negative and influenza A and B were negative. ASSESSMENT AND PLAN: The patient was admitted with chronic obstructive pulmonary disease exacerbation, probably acute bronchitis and congestive heart failure and elevated D-dimer. He was started on Lovenox 70 mg subcutaneously twice a day together with all his other medications including Solu-Medrol, nebulized albuterol and Atrovent and antibiotic in the form of ceftriaxone and Zithromax. He has had ultrasound of both lower extremities that were negative for DVT. He was admitted for further evaluation and treatment. DEIDRE HANEY MD DR: HUMBERTO/amy JOB#: [id number] / [id number]
[2019-08-24 16:01] VITALS: BP 181/74
[2019-08-24] MEDS: CARVEDILOL 12.5 MG TABLET PO SCH (16:56)
[2019-08-24 17:08] VITALS: BP 171/67
--- NOTE | 2019-08-24 18:01 | RAD ---
CT arteriogram of the chest. HISTORY: Short of breath, elevated d-dimer CT arteriogram of the chest was done using 100 mL Omnipaque 350 contrast. Sagittal and coronal MIP images were reconstructed. Thyroid is homogeneous. There is no mediastinal adenopathy or pleural effusion. Upper aspect of liver and spleen are unremarkable. There are emphysematous changes in the lungs. There is a 3 mm subpleural density in the left apex without change from the old study. There is scarring or atelectasis in the lingula without change. There is increase scarring or atelectasis in the medial right lower lobe compared to the prior study. No other new infiltrates are noted. This study is negative for evidence of a pulmonary embolus. IMPRESSION: 1. Negative for a pulmonary embolus. 2. Focus of increased atelectasis in the medial right lung base. 3. Chronic scarring or atelectasis in the lingula. 4. COPD. PQRS Compliance Statement: One or more of the following individualized dose reduction techniques were utilized for this examination: 1. Automated exposure control 2. Adjustment of the mA and/or kV according to patient size 3. Use of iterative reconstruction technique Electronically signed by: Reinaldo Larios MD (08/24/2019 5:58 PM) [id number]
[2019-08-24] MEDS: BUDESONIDE 0.5 MG/2 ML NEBU NEB SCH (20:00)
[2019-08-24] MEDS ORDERED: AZITHROMYCIN 250 MG TABLET. PO SCH (20:00)
[2019-08-24] MEDS ORDERED: ATORVASTATIN CALCIUM 20 MG TABLET PO SCH (21:00)
[2019-08-24] MEDS ORDERED: NON FORMULARY ITEM (Fluticasone Propionate (Flovent 110MCG Hfa) 2 PUFF) IH SCH (21:00)
[2019-08-24] MEDS ORDERED: LOSARTAN 50 MG TABLET. PO SCH (21:00)
[2019-08-24 23:59] VITALS: BP 161/59
--- NOTE | 2019-08-25 04:31 | PN ---
DATE: 08/24/2019 SUBJECTIVE: The patient is sitting on the edge of the bed comfortably, in no apparent distress. He stated that he is feeling generally much improved. He continued to have cough with scanty yellowish sputum. Denied any chest pain, denied any chills, rigors or fever. PHYSICAL EXAMINATION: GENERAL: When I examined him this afternoon, he looked well and was clearly in no apparent respiratory distress. No pallor, jaundice, cyanosis. No lymphadenopathy or thyromegaly. No jugular venous distention. No limb edema. VITAL SIGNS: His heart rate was 85, blood pressure was 182/68, temperature was 98, respiratory rate was 20, and oxygen saturation was 96% on 2 liters of oxygen. HEAD, EYES, EARS, NOSE AND THROAT: Showed normocephalic, atraumatic. NECK: Supple. HEART: Showed normal first and second heart sounds. No gallop or murmur. CHEST: Shows central trachea, equally reduced expansion, reduced air entry, vesicular sounds. I could not appreciate any crepitation or rhonchi. ABDOMEN: Distended, soft, nontender. NEUROLOGIC: Hard of hearing, but otherwise all his cranial nerves are intact. He moves extremities without difficulty. His intake was 300, output was 975. LABORATORY DATA: His lab work this morning showed his white cell count was 3600, hemoglobin 11, hematocrit 35, MCV 94, platelet count of 102,000. His chemistry showed that his serum sodium was 136, potassium 4.1, chloride 99, bicarbonate 28, anion gap of 9, BUN 16, creatinine 0.7. TSH was normal. His troponin was 0.027. ASSESSMENT: 1. Acute bronchitis. 2. Chronic obstructive pulmonary disease exacerbation. 3. Acute on chronic diastolic congestive heart failure, hypertension, type 2 diabetes, coronary artery disease, status post myocardial infarction. DEIDRE HANEY MD DR: HUMBERTO/amy JOB#: [id number] / [id number]
[2019-08-25] MEDS: IPRATRPIUM/ALBUTEROL 0.5/2.5MG 3 ML NEBU. NEB SCH ×3 (04:52→15:24)
[2019-08-25 06:07] VITALS: BP 167/59
[2019-08-25] MEDS: methylPREDNISolone SOD SUCC PF 40 MG/ML VIAL. IV SCH ×2 (06:17→14:08)
[2019-08-25] MEDS: BUDESONIDE 0.5 MG/2 ML NEBU NEB SCH (08:00)
[2019-08-25] MEDS: GABAPENTIN 300 MG CAPSULE. PO SCH ×2 (08:57→14:08)
[2019-08-25] MEDS: OMEGA-3 FATTY ACIDS/FISH OIL 1,000 MG CAPSULE. PO SCH (08:57)
[2019-08-25] MEDS: amLODIPine BESYLATE 10 MG TABLET PO SCH (08:59)
[2019-08-25] MEDS: ALLOPURINOL 300 MG TABLET. PO SCH (08:59)
[2019-08-25] MEDS: MAGNESIUM OXIDE 400 MG TABLET PO SCH (08:59)
[2019-08-25] MEDS: CARVEDILOL 12.5 MG TABLET PO SCH (09:00)
[2019-08-25] MEDS ORDERED: CHOLECALCIFEROL (VITAMIN D3) 1,000 UNIT TABLET PO SCH (09:00)
[2019-08-25] MEDS ORDERED: ASPIRIN 81 MG TAB.CHEW PO SCH (09:00)
[2019-08-25] MEDS ORDERED: predniSONE 20 MG TABLET PO SCH (09:00)
[2019-08-25] MEDS ORDERED: ENOXAPARIN ** NOTE DOSE ** SYRINGE SQ SCH (09:15)
[2019-08-25 11:00] VITALS: BP 119/47
[2019-08-25] MEDS ORDERED: TORSEMIDE 20 MG TABLET. PO SCH (12:00)
[2019-08-25] MEDS ORDERED: CEFD300C PO (15:49)
[2019-08-25] MEDS ORDERED: PRED20TA PO (15:49)
[2019-08-25] MEDS ORDERED: AZIT250T PO (15:49)
--- NOTE | 2019-08-25 16:31 | DS ---
DATE OF DISCHARGE: 08/25/2019 HOSPITAL COURSE: The patient is sitting comfortably in his chair, in no apparent distress. On questioning him, he is feeling much improved, had no shortness of breath. Cough is much improved. No chest tightness or wheezing and expressed desire to go home. PHYSICAL EXAMINATION: GENERAL: When I examined him, he looked well and was clearly in no apparent respiratory distress, slightly pale, but no jaundice, cyanosis or thyromegaly. No jugular venous distention. No limb edema. VITAL SIGNS: His heart rate was 64, blood pressure was 119/47, temperature 98, respiratory rate was 18 and oxygen saturation was 96% on 2 liters of oxygen. HEAD, EYES, EARS, NOSE AND THROAT: Showed normocephalic, atraumatic. NECK: Supple. HEART: Showed normal first and second heart sounds. No gallop or murmur. CHEST: Clear to auscultation. No crepitation or rhonchi. ABDOMEN: Distended, soft, nontender. NEUROLOGIC: He was awake, alert, hard of hearing, but otherwise all other cranial nerves are intact. EXTREMITIES: He moves extremities without difficulty. LABORATORY DATA: As of this morning showed a white cell count of 3600, hemoglobin 11.7, hematocrit 35, MCV 94 and platelet count of 182,000. His blood sugar seems to be reasonably controlled. His serum sodium 136, potassium 4.1, chloride 99, bicarbonate 28, anion gap of 9, BUN 16, creatinine 0.7, estimated GFR was 107, serum calcium was 8.1 and TSH was normal at 2.776. Blood gases are within normal range. Toxicology screen was negative. Urinalysis was unremarkable. His influenza A and B were negative. DISCHARGE MEDICATIONS: He was discharged home to continue on all his home medication and cefdinir 300 mg twice a day for 7 days, Zithromax 250 mg once a day for 4 more days, tapering course of steroids. FINAL DISCHARGE DIAGNOSES: 1. Acute bronchitis. 2. Chronic obstructive pulmonary disease exacerbation. 3. Acute on chronic diastolic congestive heart failure, seems to be much well compensated. 4. Hypertension. 5. Type 2 diabetes mellitus. 6. Coronary artery disease, status post myocardial infarction. DEIDRE HANEY MD DR: HUMBERTO/amy JOB#: [id number] / [id number]
--- NOTE | 2019-08-25 16:53 | NUR ---
Pt discharged home for self care. Pt and pt daughter given verbal and written discharge, follow up and medication instructions, verbal understanding received from pt and pt daughter of instructions. Pt iv removed with no complications, pressure dressing applied. Pt left unit in stable condition via wheelchair accompanied by this nurse and pt daughter.
[2019-08-26] MEDS ORDERED: metFORMIN 500 MG TABLET PO SCH (17:00)
== END 2019-08-25 16:35 | disposition home or self-care (01) | DRG 291 ==
LOC: ER 18:36 → ICU 21:00
PROVIDERS: ADMIT Internal Medicine; ATTEND Internal Medicine
DX: I11.0 Hypertensive heart disease with heart failure (principal); J96.01 Acute respiratory failure with hypoxia; E46 Unspecified protein-calorie malnutrition; J44.0 Chronic obstructive pulmonary disease with (acute) lower respiratory infection; J44.1 Chronic obstructive pulmonary disease with (acute) exacerbation; J20.9 Acute bronchitis, unspecified; I50.33 Acute on chronic diastolic (congestive) heart failure; D64.9 Anemia, unspecified; E11.9 Type 2 diabetes mellitus without complications; Z68.23 Body mass index [BMI] 23.0-23.9, adult; E78.5 Hyperlipidemia, unspecified; I25.10 Atherosclerotic heart disease of native coronary artery without angina pectoris; I25.2 Old myocardial infarction; I25.5 Ischemic cardiomyopathy; N40.0 Benign prostatic hyperplasia without lower urinary tract symptoms; Z82.49 Family history of ischemic heart disease and other diseases of the circulatory system; Z82.5 Family history of asthma and other chronic lower respiratory diseases; Z87.440 Personal history of urinary (tract) infections; Z87.891 Personal history of nicotine dependence; Z90.49 Acquired absence of other specified parts of digestive tract; Z95.1 Presence of aortocoronary bypass graft; Z95.5 Presence of coronary angioplasty implant and graft; Z98.41 Cataract extraction status, right eye; Z98.42 Cataract extraction status, left eye; Z99.81 Dependence on supplemental oxygen; Z88.2 Allergy status to sulfonamides; Z88.8 Allergy status to other drugs, medicaments and biological substances
CPT/HCPCS: 36415; 71045; 71275; 80048; 80076; 80307; 81001; 82550; 82803; 82947; 83690; 83735; 83880; 84443; 84484; 85007; 85025; 85379; 85610; 85730; 87040; 87804; 93005; 93970; 94640; 96361; 96365; 96366; 96372; 96375; G0238; J0456; J0696; J1650; J1940; J2920; J2930; J7120; J7620; J7626; Q9967; 99285-25

== ENCOUNTER 2019-09-04 18:35 | Inpatient (IN) | payer MEDICARE ==
[~2019-09-04] VITALS: Ht 180.3 cm; Wt 73.1 kg
[~2019-09-04 18:35] MED LIST changes: +FLUT12AE IH; +IPRA3AMP29 NEB
--- NOTE | 2019-09-04 18:56 | PHYS DOC ---
Past History Past Medical History: CAD, COPD, Diabetes, Hypertension, Lung Disease, [place], Prostatitis, Other Past Surgical History: Appendectomy, Coronary Bypass Surgery Smoking: Quit Greater Than 1 Year Alcohol Use: Sober Drug Use: None Adult General Chief Complaint Chief Complaint: SHORTNESS OF BREATH HPI HPI Patient is 84-year-old male with a history of COPD on home oxygen 3 L at baseline history of coronary artery disease status post a CABG recently admitted for COPD earlier this month who brought in by ambulance with shortness of breath slowly progressive for the last couple of days associated with coughing probably was satting 88% on 3 L nasal cannula they put her on put him on a facemask and got him up to 93. Patient says his cough is really feeling short of breath history is limited because the patient is very hard of hearing. Review of Systems Review of Systems Limited because the patient is very hard of hearing Current Medications Current Medications Current Medications Medications (Trade) Dose Ordered Sig/Shirley Start Time Stop Time Status Last Admin Dose Admin Albuterol/ Ipratropium (Duoneb) 3 ml 1X ONCE 09/04/19 19:00 09/04/19 19:01 Methylprednisolone Sodium Succinate (SOLU-Medrol 125MG VIAL) 125 mg 1X ONCE 09/04/19 19:00 09/04/19 19:01 Allergies Allergies Allergies Coded Allergies Type Severity Reaction Last Updated Verified sulfamethoxazole Allergy Intermediate rash 01/19/18 Yes trimethoprim Allergy Intermediate rash 01/19/18 Yes quinine Allergy Mild rash 01/19/18 Yes Physical Exam Physical Exam Constitutional: Well developed, well nourished, moderate distress, non-toxic appearance. [] HENT: Normocephalic, atraumatic, bilateral external ears normal, oropharynx m oist, no oral exudates, nose normal. [] Eyes: PERRLA, EOMI, conjunctiva normal, no discharge. [] Neck: Normal range of motion, no tenderness, supple, no stridor. [] Cardiovascular difficult exam due to resp finding Lungs & Thorax: Coarse breath sounds with rhonchi and some faint wheezing noted mild tachypnea speaking full sentences Abdomen: Bowel sounds normal, soft, no tenderness, no masses, no pulsatile masses. [] Skin: Dry scaly rash noted Back: No tenderness, no CVA tenderness. [] Extremities: No tenderness, no cyanosis, no clubbing, ROM intact, lower extremity edema. [] Neurologic: Alert and oriented X 3, normal motor function, normal sensory function, no focal deficits noted. [] Psychologic: Affect normal, judgement normal, mood normal. [] EKG EKG []Irregular rhythm could be A. fib could be paroxysmal atrial tachycardia rate of 82 no STEMI he thought his Radiology/Procedures Radiology/Procedures [] Impressions: My read I suspect there is a subtle increase in left basilar opacity could be an early pneumonia Levaquin was ordered Course & Med Decision Making Course & Med Decision Making Pertinent Labs and Imaging studies reviewed. (See chart for details) []84-year-old male presenting with shortness of breath requiring 5 L to maintain saturations 90-91%. Normally at 3 L course breath sounds with some wheezing but he is awake and alert and maintaining airway at this time. I talked to the patient's daughter who is at the bedside stated that he would like to be a DO NOT RESUSCITATE he does not want to be resuscitated in the event of a cardiac arrest. At this point time the patient likely has a COPD exacerbation he was started check for PE earlier this month that was negative. Troponin is negative EKG showed no STEMI or ischemia does have some PVCs electrolytes are currently pending. Metabolic panel was hemolyzed I spoke with Dr. Singleton plan to admit to the hospital for treatment of COPD. Dragon Disclaimer Dragon Disclaimer This electronic medical record was generated, in whole or in part, using a voice recognition dictation system. Departure Departure: Impression: Primary Impression: COPD exacerbation Disposition: ADMITTED INPATIENT Admitting Physician: Rogelio Caraballo Condition: STABLE Referrals: PATRICIO MCLEAN (PCP) ANDRIA TABARES MD Sep 04, 2019 18:56
[2019-09-04] MEDS ORDERED: methylPREDNISolone SOD SUCC PF 125 MG/2 ML VIAL. IV ONE (19:00)
[2019-09-04] MEDS ORDERED: IPRATRPIUM/ALBUTEROL 0.5/2.5MG 3 ML NEBU. NEB ONE (19:00)
[2019-09-04 19:16] LABS: BASO # 0.1 x10^3/uL (0.0-0.2); BASO % 1 % (0-3); EOS # 0.1 x10^3/uL (0.0-0.7); EOS % 1 % (0-3); HEMATOCRIT 38.2 % (39.0-53.0); HEMOGLOBIN 12.5 g/dL (13.0-17.5); LYMPH # 1.5 x10^3/uL (1.0-4.8); LYMPH % 11 % (24-48); MEAN CORPUSCULAR HEMOGLOBIN 31 pg (25-35); MEAN CORPUSCULAR HGB CONC 33 g/dL (31-37); MEAN CORPUSCULAR VOLUME 94 fL (79-100); MONO # 0.9 x10^3/uL (0.0-1.1); MONO % 6 % (0-9); NEUT % 81 % (31-73); PLATELET COUNT 257 x10^3/uL (140-400); RED BLOOD COUNT 4.07 x10^6/uL (4.30-5.70); RED CELL DISTRIBUTION WIDTH 15.6 % (11.5-14.5); WHITE BLOOD COUNT 13.5 x10^3/uL (4.0-11.0)
[2019-09-04 20:13] LABS: INFLUENZA A PATIENT NEGATIVE (NEGATIVE); INFLUENZA B PATIENT NEGATIVE (NEGATIVE)
[2019-09-04 20:35] LABS: CREATININE 0.7 mg/dL (0.7-1.3); GFR 107.2; POTASSIUM 4.5 mmol/L (3.5-5.1)
[2019-09-04 20:48] LABS: ALBUMIN 3.3 g/dL (3.4-5.0); ALBUMIN/GLOBULIN RATIO 1.1 (1.0-1.7); TOTAL BILIRUBIN 0.5 mg/dL (0.2-1.0); TOTAL PROTEIN 6.3 g/dL (6.4-8.2)
--- NOTE | 2019-09-04 21:55 | EKG ---
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
[2019-09-04 22:07] VITALS: BP 173/74
--- NOTE | 2019-09-04 23:10 | NUR ---
The patient, ANASTASIA MARMOLEJO, 84 y/o, M admitted by DEIDRE HANEY MD, was given written information regarding hospital policies, unit procedures and contact persons. Valuables were checked and noted. Reviewed with PT his PMH, PSH, FH, SH and medications. PT states only change on medications is that he completed all antibiotics. PT lives home alone currently but will be moving in with his daughter upon discharge.
--- NOTE | 2019-09-04 23:10 | RAD ---
Exam: Chest one view INDICATION: Shortness of breath TECHNIQUE: Frontal view of the chest Comparisons: 08/23/2019 FINDINGS: Sternotomy wires are noted. The cardiomediastinal silhouette and pulmonary vessels are within normal limits. The lung and pleural spaces are clear. IMPRESSION: No acute cardiopulmonary process. Electronically signed by: Tobin Jolly MD (09/04/2019 11:07 PM) [facility]
[2019-09-05] MEDS: IPRATRPIUM/ALBUTEROL 0.5/2.5MG 3 ML NEBU. NEB SCH ×4 (05:11→21:01)
[2019-09-05 05:32] VITALS: BP 136/71
[2019-09-05] MEDS: MAGNESIUM OXIDE 400 MG TABLET PO SCH (08:50)
[2019-09-05] MEDS: OMEGA-3 FATTY ACIDS/FISH OIL 1,000 MG CAPSULE. PO SCH (08:50)
[2019-09-05] MEDS: ALLOPURINOL 300 MG TABLET. PO SCH (08:50)
[2019-09-05] MEDS: ASPIRIN 81 MG TAB.CHEW PO SCH (08:50)
[2019-09-05] MEDS: CHOLECALCIFEROL (VITAMIN D3) 1,000 UNIT TABLET PO SCH (08:50)
[2019-09-05] MEDS: GABAPENTIN 300 MG CAPSULE. PO SCH ×3 (08:51→20:14)
[2019-09-05] MEDS: CARVEDILOL 12.5 MG TABLET PO SCH ×2 (08:51→17:15)
[2019-09-05] MEDS: metFORMIN 500 MG TABLET PO SCH ×2 (08:51→17:15)
[2019-09-05] MEDS: amLODIPine BESYLATE 2.5 MG TABLET PO SCH (08:51)
[2019-09-05 10:11] VITALS: BP 122/67
[2019-09-05 14:29] VITALS: BP 108/64
[2019-09-05 18:05] VITALS: BP 94/58
--- NOTE | 2019-09-05 18:14 | HP ---
ADMIT DATE: 09/04/2019 HISTORY OF PRESENT ILLNESS: The patient is an 84-year-old male patient who yet again came to the Emergency Room complaining of shortness of breath. He was admitted here recently earlier this month and was brought by ambulance for shortness of breath that has slowly progressed over the last couple of days associated with coughing, probably was satting on 88% on 3 liters of oxygen by nasal cannula. He was put on a face mask and his oxygen saturation has improved to 93%. The patient states his cough is mostly dry, hacking. Denied any chest pain, denied any sputum or hemoptysis. Denied any dizziness, lightheadedness. He was extensively evaluated in the Emergency Room and his lab work showed that his white cell count was slightly elevated at 13,500. His chemistry was unremarkable and his chest x-ray showed that the patient has the sternotomy wires that are noted. He has cardiomediastinal silhouette and pulmonary vessels are within normal limits. The lungs and pleural spaces are clear. The patient was admitted with COPD exacerbation, was treated with IV Solu-Medrol and levofloxacin and was admitted to continue treatment with steroids and antibiotic and bronchodilator. PAST MEDICAL HISTORY: Significant for hypertension, type 2 diabetes mellitus, coronary artery disease; status post myocardial infarction, treated with PTCA and stent deployment, eventually had an open heart surgery about 8 years ago. He is known to have hyperlipidemia, chronic obstructive pulmonary disease, recurrent urinary tract infection, benign prostatic hypertrophy, congestive heart failure, ischemic cardiomyopathy. 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 ALLERGIES: HE IS ALLERGIC TO QUININE, SULFAMETHOXAZOLE AND TRIMETHOPRIM. FAMILY HISTORY: He has one brother, younger, known to have sick sinus syndrome for which he has a permanent pacemaker. His other 4 brothers were , one sister , all because of coronary artery disease. His father at age of 92 because of chronic obstructive pulmonary disease and myocardial infarction. Mother at age of 56 because of myocardial infarction. SOCIAL HISTORY: He is , lives on his own. He is an ex-smoker, quit 20 years ago. He also used to be a heavy drinker, but quit about 3 years ago. He used to work for an [employer], currently retired since 1994. He has 3 daughters who live around this area. REVIEW OF SYSTEMS: As per history of present illness. MEDICATIONS: He is currently on following medications: He is on ipratropium bromide, albuterol sulfate for DuoNeb every 4 hours, Crestor 10 mg at bedtime, carvedilol 25 mg p.o. b.i.d., amlodipine besylate 2.5 mg once a day, losartan potassium 100 mg p.o. at bedtime, aspirin 81 mg daily, gabapentin 300 mg 3 times a day, torsemide 20 mg daily, Flovent 110 mcg 2 puffs twice a day, magnesium oxide 400 mg daily, prednisone 20 mg daily, metformin 500 mg twice a day, cholecalciferol for vitamin D3 1000 units once a day, allopurinol 300 mg once a day, omega-3 fatty acid 1000 mg once a day. PHYSICAL EXAMINATION: GENERAL: On arrival to the Emergency Room, the patient was clearly tachypneic, hypoxic. VITAL SIGNS: His heart rate was 85, blood pressure was 161/71, his temperature was 97.9, respiratory rate 20, and oxygen saturation was 89% on 5 liters of oxygen. HEAD, EYES, EARS, NOSE AND THROAT: Showed normocephalic, atraumatic. NECK: Supple. HEART: Showed normal first and second heart sounds. No gallop or murmur. CHEST: Showed central trachea. Equally reduced expansion, reduced air entry with coarse rhonchi and faint wheezing. ABDOMEN: Slightly distended, soft, nontender. NEUROLOGIC: He was awake, alert, responding appropriately. All cranial nerves are intact. He has no motor or sensory deficit. His affect, judgment and mood are normal. Has had an EKG, which showed he was in atrial fibrillation with a heart rate of 82 per minute with no ST segment elevation myocardial infarction. His chest x-ray was apparently read by the ER physician as having left basilar opacity, could be early pneumonia. He was started on Levaquin. LABORATORY DATA: His lab work showed that his white cell count was 13,500, hemoglobin 12.5, hematocrit 38, MCV 94 and platelet count 257,000. His chemistry showed a serum sodium 135, potassium 4.5, chloride 98, bicarbonate 30, anion gap of 7, BUN 20, creatinine 0.7, estimated GFR was 107 mL per minute, his glucose was 115, lactic acid was 1.4, calcium was 8. Total bilirubin 0.5. AST, ALT, alkaline phosphatase were normal. Beta natriuretic peptide was 884. Total protein was 6.3, albumin was 3.3. His influenza A and B were negative. ASSESSMENT AND PLAN: The patient was admitted with acute chronic obstructive pulmonary disease exacerbation, possible acute bronchitis versus pneumonia. We will continue with intravenous antibiotic. Continue with bronchodilator. Continue with steroids. We will monitor his lab work and response closely. DEIDRE HANEY MD DR: HUMBERTO/amy JOB#: [id number] / [id number]
[2019-09-05] MEDS: methylPREDNISolone SOD SUCC PF 40 MG/ML VIAL. IV SCH (20:14)
[2019-09-05] MEDS: LACTOBACILLUS RHAMNOSUS GG 1 CAPSULE. PO SCH (20:14)
[2019-09-05] MEDS: ATORVASTATIN CALCIUM 20 MG TABLET PO SCH (20:14)
[2019-09-05] MEDS: LOSARTAN 50 MG TABLET. PO SCH (21:00)
[2019-09-05 23:00] VITALS: BP 118/68
[2019-09-06] MEDS: IPRATRPIUM/ALBUTEROL 0.5/2.5MG 3 ML NEBU. NEB SCH ×2 (05:03→21:07)
[2019-09-06 05:57] VITALS: BP 152/62
[2019-09-06 06:06] LABS: HEMATOCRIT 33.7 % (39.0-53.0); HEMOGLOBIN 10.8 g/dL (13.0-17.5); RED BLOOD COUNT 3.59 x10^6/uL (4.30-5.70); RED CELL DISTRIBUTION WIDTH 15.6 % (11.5-14.5); WHITE BLOOD COUNT 15.1 x10^3/uL (4.0-11.0)
[2019-09-06 06:19] LABS: ALBUMIN 2.7 g/dL (3.4-5.0); ALBUMIN/GLOBULIN RATIO 1.1 (1.0-1.7); CALCIUM 7.7 mg/dL (8.5-10.1); CREATININE 0.7 mg/dL (0.7-1.3); GFR 107.2; POTASSIUM 4.2 mmol/L (3.5-5.1); TOTAL BILIRUBIN 0.6 mg/dL (0.2-1.0); TOTAL PROTEIN 5.2 g/dL (6.4-8.2)
[2019-09-06] MEDS: ALLOPURINOL 300 MG TABLET. PO SCH (08:15)
[2019-09-06] MEDS: GABAPENTIN 300 MG CAPSULE. PO SCH ×3 (08:15→21:05)
[2019-09-06] MEDS: metFORMIN 500 MG TABLET PO SCH ×2 (08:15→17:45)
[2019-09-06] MEDS: CHOLECALCIFEROL (VITAMIN D3) 1,000 UNIT TABLET PO SCH (08:15)
[2019-09-06] MEDS: LACTOBACILLUS RHAMNOSUS GG 1 CAPSULE. PO SCH ×2 (08:15→21:05)
[2019-09-06] MEDS: ASPIRIN 81 MG TAB.CHEW PO SCH (08:15)
[2019-09-06] MEDS: OMEGA-3 FATTY ACIDS/FISH OIL 1,000 MG CAPSULE. PO SCH (08:15)
[2019-09-06] MEDS: MAGNESIUM OXIDE 400 MG TABLET PO SCH (08:15)
[2019-09-06] MEDS: methylPREDNISolone SOD SUCC PF 40 MG/ML VIAL. IV SCH ×2 (08:17→21:08)
[2019-09-06] MEDS: amLODIPine BESYLATE 2.5 MG TABLET PO SCH (08:22)
[2019-09-06] MEDS: CARVEDILOL 12.5 MG TABLET PO SCH ×2 (08:23→17:46)
[2019-09-06 11:10] VITALS: BP 153/73
[2019-09-06 15:25] VITALS: BP 151/66
--- NOTE | 2019-09-06 15:55 | RAD ---
EXAM: Right lower extremity venous Doppler sonogram. HISTORY: Elevated d-dimer. Shortness of breath. TECHNIQUE: Amanda scale and color Doppler sonographic evaluation of the right lower extremity veins with spectral waveform analysis was performed. FINDINGS: There is normal color flow, normal compressibility and there are normal spectral waveforms in the common femoral, superficial femoral, popliteal, posterior tibial and greater saphenous veins. There is a 5.4 x 3.6 cm right popliteal cyst. IMPRESSION: 1. No Doppler evidence of lower extremity deep venous thrombosis. 2. 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 Electronically signed by: Ann George MD (09/06/2019 3:52 PM) [place] [id number]
[2019-09-06 19:30] VITALS: BP 112/65
--- NOTE | 2019-09-06 20:51 | PN ---
DATE: 09/06/2019 SUBJECTIVE: The patient is resting slightly, sitting in his chair comfortably in no apparent distress. He continued to have cough, which is mostly dry. No chest pain. PHYSICAL EXAMINATION: GENERAL: When I examined him today, he looked well and was clearly in no apparent respiratory distress, slightly pale, but no jaundice, cyanosis or thyromegaly. No jugular venous distension. No limb edema. VITAL SIGNS: His heart rate was 66, blood pressure 153/73, temperature 97.9, respiratory rate 20, and oxygen saturation was 97% on 3 liters of oxygen. HEAD, EYES, EARS, NOSE AND THROAT: Showed normocephalic, atraumatic. NECK: Supple. HEART: Showed normal first and second heart sounds. No gallop, rub or murmur. CHEST: Shows central trachea, equally reduced expansion, reduced air entry, expansion with crepitation mostly in the left side posteriorly. I could not appreciate any rhonchi. ABDOMEN: Slightly distended, soft, nontender. NEUROLOGIC: He is hard of hearing, otherwise all his cranial nerves are intact. He moves extremities without difficulty. He ambulates with a walker. His intake over the last 24 hours was 1500, no output was recorded. LABORATORY DATA: Showed a white cell count 15,000, hemoglobin 11, hematocrit 33, MCV 94 and platelet count 206,000. Serum sodium 135, potassium 4.2, chloride 101, bicarbonate 29, anion gap of 5, BUN 26, creatinine 0.7, estimated GFR was 107 mL per minute. His glucose 138, calcium was 7.7. Total bilirubin, AST, ALT, alkaline phosphatase were normal. Total protein 5.2, albumin 2.7. His D-dimer was elevated at 0.61. ASSESSMENT: 1. Questionable left lower lobe infiltrate. 2. Chronic obstructive pulmonary disease exacerbation. OTHER MEDICAL PROBLEMS INCLUDE: A. Hypertension. B. Type 2 diabetes mellitus. C. Coronary artery disease, status post myocardial infarction treated with PTCA and stent deployment. He eventually had an open heart surgery about 8 years ago, D. Hyperlipidemia. E. Recurrent urinary tract infection. F. Benign prostatic hypertrophy G. Congestive heart failure due to ischemic cardiomyopathy. PLAN: My plan is to continue with current management. I will arrange for him to have a venous Doppler ultrasound of his right lower extremity. We will decide the further management accordingly. DEIDRE HANEY MD DR: Murray JOB#: [id number] / [id number]
[2019-09-06] MEDS: ATORVASTATIN CALCIUM 20 MG TABLET PO SCH (21:05)
[2019-09-06] MEDS: LOSARTAN 50 MG TABLET. PO SCH (21:06)
[2019-09-07 00:16] VITALS: BP 119/57
[2019-09-07] MEDS: IPRATRPIUM/ALBUTEROL 0.5/2.5MG 3 ML NEBU. NEB SCH ×4 (05:42→20:11)
[2019-09-07 06:11] VITALS: BP 129/57
[2019-09-07] MEDS: OMEGA-3 FATTY ACIDS/FISH OIL 1,000 MG CAPSULE. PO SCH (07:35)
[2019-09-07] MEDS: MAGNESIUM OXIDE 400 MG TABLET PO SCH (07:35)
[2019-09-07] MEDS: metFORMIN 500 MG TABLET PO SCH ×2 (07:35→15:39)
[2019-09-07] MEDS: ALLOPURINOL 300 MG TABLET. PO SCH (07:35)
[2019-09-07] MEDS: LACTOBACILLUS RHAMNOSUS GG 1 CAPSULE. PO SCH ×2 (07:36→20:28)
[2019-09-07] MEDS: CHOLECALCIFEROL (VITAMIN D3) 1,000 UNIT TABLET PO SCH (07:36)
[2019-09-07] MEDS: ASPIRIN 81 MG TAB.CHEW PO SCH (07:36)
[2019-09-07] MEDS: GABAPENTIN 300 MG CAPSULE. PO SCH ×3 (07:36→20:28)
[2019-09-07] MEDS: CARVEDILOL 12.5 MG TABLET PO SCH ×2 (07:36→15:39)
[2019-09-07] MEDS: methylPREDNISolone SOD SUCC PF 40 MG/ML VIAL. IV SCH ×2 (07:37→20:27)
[2019-09-07] MEDS: amLODIPine BESYLATE 2.5 MG TABLET PO SCH (07:45)
[2019-09-07 10:34] VITALS: BP 96/56
[2019-09-07 15:47] VITALS: BP 133/62
[2019-09-07] MEDS: ATORVASTATIN CALCIUM 20 MG TABLET PO SCH (20:28)
[2019-09-07] MEDS: LOSARTAN 50 MG TABLET. PO SCH (20:28)
[2019-09-07 21:24] VITALS: BP 116/58
[2019-09-08 00:25] VITALS: BP 120/66
--- NOTE | 2019-09-08 01:49 | PN ---
DATE: SUBJECTIVE: The patient is sitting in his chair, in no apparent distress. He continued to complain of cough, shortness of breath and chest tightness. PHYSICAL EXAMINATION: GENERAL: When I examined him, he looked somewhat pale, but no jaundice, cyanosis or thyromegaly. No jugular venous distention. No limb edema. VITAL SIGNS: His heart rate was 78, blood pressure was 96/56, temperature 97.3, respiratory rate 20, and oxygen saturation was 97% on 2 liters of oxygen. HEAD, EYES, EARS, NOSE AND THROAT: Showed normocephalic, atraumatic. NECK: Supple. HEART: Showed normal first and second heart sounds with no gallop or murmur. CHEST: Shows central trachea, equally reduced expansion, reduced air entry, vesicular sounds with few scattered rhonchi. I could not appreciate any crepitation. ABDOMEN: Distended, soft, nontender. NEUROLOGIC: He is hard of hearing, otherwise all his cranial nerves are intact. He moves extremities with a walker. His intake over the last 24 hours was 1500, no output was recorded. LABORATORY DATA: White cell count was 15,000, hemoglobin 10.8, hematocrit 33.7, MCV 94 and platelet count 206,000. His most recent chemistry showed a serum sodium 135, potassium 4.2, chloride 101, bicarbonate 29, anion gap of 5, BUN 26, creatinine 0.7, estimated GFR was 170 mL per minute, his glucose 138, calcium was 7.7. Total bilirubin, AST, ALT, alkaline phosphatase were normal. Total protein was 5.2, albumin 2.7. ASSESSMENT: 1. Questionable left lower lobe infiltrate. 2. Acute chronic obstructive pulmonary disease exacerbation. 3. Other medical problems include: A. Hypertension. B. Type 2 diabetes mellitus. C. Coronary artery disease, status post myocardial infarction, status post percutaneous transluminal coronary angioplasty with stent deployment and eventually had an open heart surgery about 8 years ago. D. Hyperlipidemia. E. Recurrent urinary tract infection. F. Benign prostatic hypertrophy. G. Congestive heart failure due to ischemic cardiomyopathy. PLAN: To continue with nebulized albuterol and Atrovent. Continue with steroids, continue IV levofloxacin. Continue with all other medication. Repeat all his labs tomorrow and if he remains stable, he can be discharged home to continue on oral antibiotic and tapering course of steroids. DEIDRE HANEY MD DR: Murray JOB#: [id number] / [id number]
[2019-09-08] MEDS: IPRATRPIUM/ALBUTEROL 0.5/2.5MG 3 ML NEBU. NEB SCH ×2 (05:18→10:28)
[2019-09-08 06:14] VITALS: BP 121/61
[2019-09-08 07:35] LABS: BASO % 0 % (0-3); EOS % 0 % (0-3); HEMATOCRIT 32.7 % (39.0-53.0); HEMOGLOBIN 11.1 g/dL (13.0-17.5); LYMPH # 0.6 x10^3/uL (1.0-4.8); LYMPH % 6 % (24-48); MEAN CORPUSCULAR HEMOGLOBIN 31 pg (25-35); MEAN CORPUSCULAR HGB CONC 34 g/dL (31-37); MEAN CORPUSCULAR VOLUME 92 fL (79-100); MONO # 0.4 x10^3/uL (0.0-1.1); MONO % 4 % (0-9); NEUT # 8.8 x10^3uL (1.8-7.7); NEUT % 90 % (31-73); PLATELET COUNT 192 x10^3/uL (140-400); RED BLOOD COUNT 3.56 x10^6/uL (4.30-5.70); RED CELL DISTRIBUTION WIDTH 15.2 % (11.5-14.5); WHITE BLOOD COUNT 9.7 x10^3/uL (4.0-11.0)
[2019-09-08 07:52] LABS: ALBUMIN 2.6 g/dL (3.4-5.0); ALBUMIN/GLOBULIN RATIO 1.1 (1.0-1.7); CALCIUM 7.5 mg/dL (8.5-10.1); CREATININE 0.7 mg/dL (0.7-1.3); GFR 107.2; POTASSIUM 4.4 mmol/L (3.5-5.1); TOTAL BILIRUBIN 0.6 mg/dL (0.2-1.0)
[2019-09-08] MEDS: OMEGA-3 FATTY ACIDS/FISH OIL 1,000 MG CAPSULE. PO SCH (09:12)
[2019-09-08] MEDS: GABAPENTIN 300 MG CAPSULE. PO SCH (09:12)
[2019-09-08] MEDS: MAGNESIUM OXIDE 400 MG TABLET PO SCH (09:13)
[2019-09-08] MEDS: amLODIPine BESYLATE 2.5 MG TABLET PO SCH (09:13)
[2019-09-08] MEDS: methylPREDNISolone SOD SUCC PF 40 MG/ML VIAL. IV SCH (09:13)
[2019-09-08] MEDS: CHOLECALCIFEROL (VITAMIN D3) 1,000 UNIT TABLET PO SCH (09:13)
[2019-09-08] MEDS: LACTOBACILLUS RHAMNOSUS GG 1 CAPSULE. PO SCH (09:13)
[2019-09-08] MEDS: metFORMIN 500 MG TABLET PO SCH (09:13)
[2019-09-08] MEDS: ALLOPURINOL 300 MG TABLET. PO SCH (09:13)
[2019-09-08] MEDS: ASPIRIN 81 MG TAB.CHEW PO SCH (09:13)
[2019-09-08 09:14] VITALS: BP 121/61
[2019-09-08] MEDS: CARVEDILOL 12.5 MG TABLET PO SCH (09:14)
[2019-09-08] MEDS ORDERED: LEVO500T59 PO (12:21)
--- NOTE | 2019-09-08 13:16 | NUR ---
Patient is d/c home with family. Patient is stable at time of d/c. IV D/C'd and tele monitor removed. Patient is escorted off of unit with family and staff.
--- NOTE | 2019-09-08 13:42 | DS ---
DATE OF DISCHARGE: HOSPITAL COURSE: The patient is an 84-year-old male patient who was admitted with increasing shortness of breath, cough with scanty yellowish sputum. He was also hypoxic on 3 liters of oxygen; oxygen saturation about 88%. He was extensively investigated in the Emergency Room. His lab work has marked leukocytosis. His chest x-ray showed the patient has sternotomy wires. His cardiomediastinal silhouette and pulmonary vessels are within normal limits. The lungs and pleural spaces are clear. He was treated for COPD exacerbation and possible acute bronchitis versus left lower lobe infiltrate with the IV Levaquin, steroids, and bronchodilators. He did very well. When I saw him today, he was sitting comfortably in his chair, eating his lunch, in no apparent distress. He is maintaining his oxygen saturation at 97% on 2 liters of oxygen, has been up and about, was able to walk with a walker with minimal assistance and a decision was made to discharge him home. He is actually planning to stay through winter with his daughter and go back to his house in the springtime. PHYSICAL EXAMINATION: GENERAL: When I saw him today, he looked well and was clearly in no apparent respiratory distress, slightly pale, no jaundice, cyanosis, or thyromegaly. No jugular venous distension. No lower limb edema. VITAL SIGNS: His heart rate was 65, blood pressure 121/61, temperature was 98, respiratory rate was 18 and oxygen saturation was 97%. HEAD, EYES, EARS, NOSE AND THROAT: Showed normocephalic, atraumatic. NECK: Supple. HEART: Showed normal first and second heart sounds. No gallop or murmur. CHEST: Shows central trachea, equal bilateral expansion, reduced air entry, vesicular breath sounds with crepitation mostly in the left side posteriorly. I could not appreciate any rhonchi. ABDOMEN: Distended, soft, nontender. NEUROLOGIC: He was hard of hearing; otherwise, all cranial nerves are intact. He ambulates with a walker. His intake over the last 24 hours was 1660, output was 650. LABORATORY DATA: As of this morning, his white cell count is down to 9700, hemoglobin 11, hematocrit 33, MCV 92, and platelet count of 192,000. His chemistry showed a serum sodium 133, potassium 4.4, chloride 100, bicarbonate 26, anion gap of 7, BUN 24, creatinine 0.7, estimated GFR was 170 mL per minute, his glucose was 122, calcium was 7.5. Total bilirubin, AST, ALT, alkaline phosphatase were normal. His total protein was 5, albumin was 2.6. His influenza A and B were negative. DISCHARGE MEDICATIONS: He was discharged home to continue on Levaquin 500 mg once a day for 6 more days. Continue with prednisone in a tapering fashion. Continue the allopurinol 300 mg once a day, amlodipine 2.5 mg once a day, aspirin 81 mg once a day, carvedilol 25 mg twice a day, cholecalciferol, vitamin D 1000 international unit once a day, fish oil 1200 mg once a day, Flovent 110 mcg 2 puffs twice a day, gabapentin 300 mg 3 times a day, DuoNeb in 3 mL by nebulizer 4 times a day, losartan potassium 100 mg once a day, magnesium oxide 400 mg once a day, metformin 500 mg twice a day, tapering course of steroids, torsemide 20 mg daily. FINAL DISCHARGE DIAGNOSES: 1. Questionable left lower lobe pneumonia/infiltrate for which he was started on IV Levaquin. 2. Acute exacerbation of chronic obstructive pulmonary disease. 3. The patient has other medical problems including: A. Hypertension. B. Type 2 diabetes mellitus. C. Coronary artery disease, status post myocardial infarction, status post PTCA and stent deployment and eventually coronary artery bypass graft surgery. D. Hyperlipidemia. E. Recurrent urinary tract infection. F. Benign prostatic hypertrophy. G. Congestive heart failure due to ischemic cardiomyopathy. DEIDRE HANEY MD DR: HUMBERTO/amy JOB#: [id number] / [id number]
== END 2019-09-08 13:16 | disposition home or self-care (01) | DRG 177 ==
LOC: ER 18:35 → 1 SOUTH 19:45
PROVIDERS: ADMIT Internal Medicine; ATTEND Internal Medicine
DX: J69.0 Pneumonitis due to inhalation of food and vomit (principal); J96.20 Acute and chronic respiratory failure, unspecified whether with hypoxia or hypercapnia; J44.1 Chronic obstructive pulmonary disease with (acute) exacerbation; N39.0 Urinary tract infection, site not specified; E11.9 Type 2 diabetes mellitus without complications; E78.5 Hyperlipidemia, unspecified; H91.90 Unspecified hearing loss, unspecified ear; I11.0 Hypertensive heart disease with heart failure; I25.10 Atherosclerotic heart disease of native coronary artery without angina pectoris; I25.2 Old myocardial infarction; I25.5 Ischemic cardiomyopathy; I50.9 Heart failure, unspecified; Z66 Do not resuscitate; N40.0 Benign prostatic hyperplasia without lower urinary tract symptoms; Z82.49 Family history of ischemic heart disease and other diseases of the circulatory system; Z82.5 Family history of asthma and other chronic lower respiratory diseases; Z87.440 Personal history of urinary (tract) infections; Z87.891 Personal history of nicotine dependence; Z90.49 Acquired absence of other specified parts of digestive tract; Z95.1 Presence of aortocoronary bypass graft; Z95.5 Presence of coronary angioplasty implant and graft; Z98.41 Cataract extraction status, right eye; Z98.42 Cataract extraction status, left eye; Z99.81 Dependence on supplemental oxygen; Z88.8 Allergy status to other drugs, medicaments and biological substances
CPT/HCPCS: 36415; 71045; 80053; 82947; 83605; 83880; 84484; 85025; 85027; 85379; 87040; 87804; 93005; 93971; 94640; 96365; 96366; 96375; J1956; J2920; J2930; J7620; 97116; 99285-25

== ENCOUNTER 2019-10-14 09:37 | Inpatient (IN) | payer MEDICARE ==
[~2019-10-14] VITALS: Ht 180.3 cm; Wt 76.3 kg
[2019-10-14] MEDS ORDERED: IV NORMAL SALINE 1,000ML 1,000 ML IV SCH (10:04)
[2019-10-14 10:38] LABS: BASO % 0 % (0-3); EOS % 0 % (0-3); HEMATOCRIT 33.1 % (39.0-53.0); HEMOGLOBIN 10.8 g/dL (13.0-17.5); LYMPH # 0.6 x10^3/uL (1.0-4.8); LYMPH % 6 % (24-48); MEAN CORPUSCULAR HEMOGLOBIN 30 pg (25-35); MEAN CORPUSCULAR HGB CONC 33 g/dL (31-37); MEAN CORPUSCULAR VOLUME 93 fL (79-100); MONO # 0.9 x10^3/uL (0.0-1.1); MONO % 10 % (0-9); NEUT # 8.3 x10^3uL (1.8-7.7); NEUT % 84 % (31-73); PLATELET COUNT 168 x10^3/uL (140-400); RED BLOOD COUNT 3.54 x10^6/uL (4.30-5.70); RED CELL DISTRIBUTION WIDTH 15.1 % (11.5-14.5); WHITE BLOOD COUNT 9.8 x10^3/uL (4.0-11.0)
--- NOTE | 2019-10-14 10:41 | RAD ---
PORTABLE CHEST 1V History: Fever Comparison: September 04, 2019 Findings: Increased patchy bibasilar opacities. No pneumothorax. Prior median sternotomy. Hyperinflation. No pleural effusion. Normal heart size. Impression: 1. Increased patchy bibasilar opacities, may represent atelectasis or consolidations. 2. Hyperinflation. Electronically signed by: Alexys Park DO (10/14/2019 10:38 AM) [id number]
[2019-10-14] MEDS ORDERED: IPRATRPIUM/ALBUTEROL 0.5/2.5MG 3 ML NEBU. NEB ONE (10:45)
[2019-10-14 10:59] LABS: INFLUENZA A PATIENT NEGATIVE (NEGATIVE); INFLUENZA B PATIENT NEGATIVE (NEGATIVE)
[2019-10-14 11:02] LABS: CALCIUM 8.1 mg/dL (8.5-10.1); POTASSIUM 4.4 mmol/L (3.5-5.1)
--- NOTE | 2019-10-14 11:16 | RAD ---
CT HEAD AND MAXILLOFACIAL WO, CT CERVICAL SPINE WO CONTRAST Clinical indications: Fall. Head injury and facial injury. NONCONTRAST HEAD CT COMPARISON: August 12, 2013. Technique: Noncontrast axial cross sectional scanning of the head was performed. PQRS compliance Statement One or more of the following individualized dose reduction techniques were utilized for this study: 1. Automated exposure control 2. Adjustment of the mA and/or kV according to patient size 3. 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 Prominent cisterna magna unchanged. No acute intracranial hemorrhage or midline shift or mass-effect or hydrocephalus or extra-axial fluid collection is seen. No new focal hypodense area or sulci effacement is seen to indicate an acute infarct or edema radiographically. No skull fracture or pneumocephalus is seen. No opacification of the mastoid sinuses or the middle ear cavities is seen. IMPRESSION: No new intracranial abnormality is seen. MAXILLOFACIAL BONE CT WITHOUT CONTRAST Technique: Noncontrast helical CT scanning of the maxillofacial bones was performed. Multiplanar 2-D reconstructions were generated. FINDINGS: The nasal bones are intact. There is mild S-shaped nasal septal deviation. No soft tissue thickening or opacification of the nasal passageway is seen. The orbits and orbital floors are intact. Zygoma and zygomatic arch is intact on both sides. The pterygoid plates and maxilla are intact on both sides. The mandible is intact. Temporomandibular joints are normally aligned. 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 The orbits are symmetric. Centrilobular emphysema is seen within the apices of both upper lobes. IMPRESSION: No acute fracture. CT STUDY CERVICAL SPINE WITHOUT CONTRAST TECHNIQUE: Noncontrast helical CT scanning of the cervical spine was performed. Multiplanar 2-D reconstructions were generated. FINDINGS: No acute fracture or discitis or lytic process is evident. There is a grade 1 anterolisthesis of C4-5 and C5-6 and C6-7. This is due to facet arthropathy. No perching of facet joints is seen. There is degenerative endplate spurring and disc space narrowing at C4-5 and C5-6. No prevertebral soft tissue swelling is seen. IMPRESSION: No acute fracture of the cervical spine. Electronically signed by: Bear Zuñiga MD (10/14/2019 11:13 AM) [facility]
[2019-10-14 11:17] LABS: ALBUMIN 2.5 g/dL (3.4-5.0); ALBUMIN/GLOBULIN RATIO 0.7 (1.0-1.7); TOTAL BILIRUBIN 0.3 mg/dL (0.2-1.0)
--- NOTE | 2019-10-14 11:21 | PHYS DOC ---
Past History Past Medical History: CAD, COPD, Diabetes, Hypertension, Lung Disease, [place], Prostatitis, Other Past Surgical History: Appendectomy, Coronary Bypass Surgery Smoking: Quit Greater Than 1 Year Alcohol Use: Sober Drug Use: None Adult General Chief Complaint Chief Complaint: FEVER HPI HPI Patient is a 84-year-old male who presents from home with report of numerous falls recently. Patient is also been having fevers well as cough and worsening shortness of breath. Patient does indicate that he feels weak and a bit lightheaded when walking.[] Review of Systems Review of Systems Constitutional: Positive fever and chills [] Respiratory: Positive cough and shortness of breath [] Cardiovascular: No additional information not addressed in HPI [] GI: Denies abdominal pain, nausea, vomiting or diarrhea [] Integument: Numerous abrasions and skin tears[] Neurologic: Admits to headache without focal weakness or sensory changes [] All other systems were reviewed and found to be within normal limits, except as documented in this note. Current Medications Current Medications Current Medications Medications (Trade) Dose Ordered Sig/Shirley Start Time Stop Time Status Last Admin Dose Admin Albuterol/ Ipratropium (Duoneb) 3 ml 1X ONCE 10/14/19 10:45 10/14/19 10:46 DC 10/14/19 10:41 3 ML Sodium Chloride 1,000 ml @ 1,000 mls/hr Q1H 10/14/19 10:04 10/14/19 11:03 DC 10/14/19 10:41 1,000 MLS/HR Allergies Allergies Allergies Coded Allergies Type Severity Reaction Last Updated Verified sulfamethoxazole Allergy Intermediate rash 10/14/19 Yes trimethoprim Allergy Intermediate rash 10/14/19 Yes quinine Allergy Mild rash 10/14/19 Yes Uncoded Allergies Type Severity Reaction Last Updated Verified tape Allergy Unknown 10/14/19 Physical Exam Physical Exam Constitutional: Well developed, well nourished, no acute distress, non-toxic appearance. [] HENT: Normocephalic, with numerous abrasions and skin tears to head and face, bilateral external ears normal, oropharynx dry, no oral exudates, nose normal. [] Eyes: PERRLA, EOMI, conjunctiva normal, no discharge. [] Neck: Normal range of motion, no tenderness, supple. [] Cardiovascular: Regular rate and rhythm[] Lungs & Thorax: Coarse rhonchi are noted bilaterally with inspiratory and expiratory wheezes to auscultation [] Abdomen: Bowel sounds normal, soft, no tenderness. [] Skin: Warm, dry, no erythema, no rash. Numerous and abrasions and skin tears. [] Extremities: No tenderness, no cyanosis, no clubbing, ROM intact. [] Neurologic: Awake and alert, no focal deficits noted. [] Current Patient Data Vital Signs Vital Signs Date Time Temp Pulse Resp B/P (MAP) Pulse Ox O2 Delivery O2 Flow Rate FiO2 10/14/19 10:53 87 27 136/57 (83) 93 Nasal Cannula 3.0 Lab Results Laboratory Tests Test 10/14/19 10:10 10/14/19 10:13 10/14/19 10:41 White Blood Count 9.8 x10^3/uL (4.0-11.0) Red Blood Count 3.54 x10^6/uL (4.30-5.70) L Hemoglobin 10.8 g/dL (13.0-17.5) L Hematocrit 33.1 % (39.0-53.0) L Mean Corpuscular Volume 93 fL (79-100) Mean Corpuscular Hemoglobin 30 pg (25-35) Mean Corpuscular Hemoglobin Concent 33 g/dL (31-37) Red Cell Distribution Width 15.1 % (11.5-14.5) H Platelet Count 168 x10^3/uL (140-400) Neutrophils (%) (Auto) 84 % (31-73) H Lymphocytes (%) (Auto) 6 % (24-48) L Monocytes (%) (Auto) 10 % (0-9) H Eosinophils (%) (Auto) 0 % (0-3) Basophils (%) (Auto) 0 % (0-3) Neutrophils # (Auto) 8.3 x10^3uL (1.8-7.7) H Lymphocytes # (Auto) 0.6 x10^3/uL (1.0-4.8) L Monocytes # (Auto) 0.9 x10^3/uL (0.0-1.1) Eosinophils # (Auto) 0.0 x10^3/uL (0.0-0.7) Basophils # (Auto) 0.0 x10^3/uL (0.0-0.2) Lactic Acid Level 1.2 mmol/L (0.4-2.0) Influenza Type A (Rapid) Negative (NEGATIVE) Influenza Type B (Rapid) Negative (NEGATIVE) Sodium Level 134 mmol/L (136-145) L Potassium Level 4.4 mmol/L (3.5-5.1) Chloride Level 97 mmol/L (98-107) L Carbon Dioxide Level 27 mmol/L (21-32) Anion Gap 10 (6-14) Blood Urea Nitrogen 31 mg/dL (8-26) H Creatinine 1.0 mg/dL (0.7-1.3) Estimated GFR (Cockcroft-Gault) 71.0 BUN/Creatinine Ratio 31 (6-20) H Glucose Level 129 mg/dL (70-99) H Calcium Level 8.1 mg/dL (8.5-10.1) L Magnesium Level Pending Total Bilirubin Pending Aspartate Amino Transferase (AST) Pending Alanine Aminotransferase (ALT) Pending Alkaline Phosphatase Pending Total Protein Pending Albumin Pending Albumin/Globulin Ratio Pending EKG EKG [] Radiology/Procedures Radiology/Procedures [] Impressions: PROCEDURE: PORTABLE CHEST 1V PORTABLE CHEST 1V History: Fever Comparison: September 04, 2019 Findings: Increased patchy bibasilar opacities. No pneumothorax. Prior median sternotomy. Hyperinflation. No pleural effusion. Normal heart size. Impression: 1. Increased patchy bibasilar opacities, may represent atelectasis or consolidations. 2. Hyperinflation. Electronically signed by: Alexys Park DO (10/14/2019 10:38 AM) [id number] PROCEDURE: CT HEAD AND MAXILLOFACIAL WO CT HEAD AND MAXILLOFACIAL WO, CT CERVICAL SPINE WO CONTRAST Clinical indications: Fall. Head injury and facial injury. NONCONTRAST HEAD CT COMPARISON: August 12, 2013. Technique: Noncontrast axial cross sectional scanning of the head was performed. PQRS compliance Statement One or more of the following individualized dose reduction techniques were utilized for this study: 1. Automated exposure control 2. Adjustment of the mA and/or kV according to patient size 3. 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 Prominent cisterna magna unchanged. No acute intracranial hemorrhage or midline shift or mass-effect or hydrocephalus or extra-axial fluid collection is seen. No new focal hypodense area or sulci effacement is seen to indicate an acute infarct or edema radiographically. No skull fracture or pneumocephalus is seen. No opacification of the mastoid sinuses or the middle ear cavities is seen. IMPRESSION: No new intracranial abnormality is seen. MAXILLOFACIAL BONE CT WITHOUT CONTRAST Technique: Noncontrast helical CT scanning of the maxillofacial bones was performed. Multiplanar 2-D reconstructions were generated. FINDINGS: The nasal bones are intact. There is mild S-shaped nasal septal deviation. No soft tissue thickening or opacification of the nasal passageway is seen. The orbits and orbital floors are intact. Zygoma and zygomatic arch is intact on both sides. The pterygoid plates and maxilla are intact on both sides. The mandible is intact. Temporomandibular joints are normally aligned. 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 The orbits are symmetric. Centrilobular emphysema is seen within the apices of both upper lobes. IMPRESSION: No acute fracture. CT STUDY CERVICAL SPINE WITHOUT CONTRAST TECHNIQUE: Noncontrast helical CT scanning of the cervical spine was performed. Multiplanar 2-D reconstructions were generated. FINDINGS: No acute fracture or discitis or lytic process is evident. There is a grade 1 anterolisthesis of C4-5 and C5-6 and C6-7. This is due to facet arthropathy. No perching of facet joints is seen. There is degenerative endplate spurring and disc space narrowing at C4-5 and C5-6. No prevertebral soft tissue swelling is seen. IMPRESSION: No acute fracture of the cervical spine. Electronically signed by: Sabina Zuñiga MD (10/14/2019 11:13 AM) [facility] DICTATED AND SIGNED BY: SABINA ZUÑIGA MD DATE: 10/14/19 1113 CC: CALLI JACK Jr. DO; PATRICIO MCLEAN ~ Course & Med Decision Making Course & Med Decision Making Pertinent Labs and Imaging studies reviewed. (See chart for details) [] Dragon Disclaimer Dragon Disclaimer This electronic medical record was generated, in whole or in part, using a voice recognition dictation system. Departure Departure: Impression: Primary Impression: CAP (community acquired pneumonia) Additional Impressions: Generalized weakness Multiple falls Disposition: ADMITTED INPATIENT Admitting Physician: Rogelio Caraballo Condition: IMPROVED Referrals: PATRICIO MCLEAN (PCP) Problem Qualifiers Primary Impression: CAP (community acquired pneumonia) Laterality: unspecified laterality Qualified Codes: J18.9 - Pneumonia, unspecified organism CALLI JACK Jr. DO Oct 14, 2019 11:21
[2019-10-14] MEDS ORDERED: cefTRIAXone SODIUM 1 GM VIAL ONE (12:29)
[2019-10-14] MEDS ORDERED: IV NORMAL SALINE 50ML 50 ML ONE (12:29)
[2019-10-14] MEDS ORDERED: ACETAMINOPHEN 325 MG TABLET PO PRN (12:30)
[2019-10-14] MEDS ORDERED: MORPHINE SULFATE 2 MG/ML DISP.SYRIN. IV PRN (12:30)
[2019-10-14] MEDS ORDERED: AZITHROMYCIN 250 MG TABLET. PO ONE (12:30)
[2019-10-14] MEDS ORDERED: ONDANSETRON PF 4 MG/2 ML VIAL. IV PRN (12:30)
[2019-10-14 13:26] LABS: BILIRUBIN,URINE NEG (NEG); CLARITY,URINE HAZY; COLOR,URINE AMBER; GLUCOSE,URINE NEG (NEG)
[2019-10-14 13:27] LABS: AMORPHOUS SEDIMENT,UR PRESENT /HPF; BACTERIA,URINE FEW /HPF (0-FEW); GRANULAR CASTS,URINE FEW /HPF; HYALINE CASTS, URINE OCC /HPF; NITRITE,URINE NEG (NEG); SQUAMOUS EPITHELIAL CELL,UR FEW /LPF; UROBILINOGEN,URINE 0.2 mg/dL (0.2 mg/dL)
[2019-10-14 15:10] VITALS: BP 128/111
[2019-10-14] MEDS ORDERED: IPRATRPIUM/ALBUTEROL 0.5/2.5MG 3 ML NEBU. NEB SCH (16:00)
[2019-10-14 16:35] VITALS: BP 146/59
[2019-10-14] MEDS: IPRATRPIUM/ALBUTEROL 0.5/2.5MG 3 ML NEBU. NEB SCH ×2 (17:09→19:25)
[2019-10-14 17:21] LABS: BGAS PH 7.41 (7.35-7.46)
--- NOTE | 2019-10-14 18:02 | HP ---
ADMIT DATE: 10/14/2019 HISTORY OF PRESENT ILLNESS: The patient is an 84-year-old male patient, well known to me, has been here numerous times, who came to the Emergency Room with the complaint of numerous falls recently. The patient has been also having fever as well as cough with worsening shortness of breath. He has actually had a fall and had sustained injuries to his forehead, nose, and his right arm. He has been feeling weak and bit lightheaded while walking. He was evaluated in the Emergency Room and his white cell count was normal. His urinalysis was unremarkable; however, his chest x-ray showed that the patient has increased patchy bibasilar opacities, may represent atelectasis or consolidation, has also hyperinflation. The patient was admitted with diagnosis of acute hypoxic respiratory failure, community-acquired pneumonia and COPD exacerbation. PAST MEDICAL HISTORY: Significant for hypertension, type 2 diabetes mellitus, coronary artery disease, status post myocardial infarction treated with PTCA and stent deployment, eventually had an open heart surgery about 8 years ago. He is known to have hyperlipidemia, chronic obstructive pulmonary disease, recurrent urinary tract infection, benign prostatic hypertrophy, congestive heart failure due to ischemic cardiomyopathy. 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 ALLERGIES: HE IS ALLERGIC TO CODEINE, SULFAMETHOXAZOLE AND TRIMETHOPRIM. FAMILY HISTORY: He has one brother younger, known to have sick sinus syndrome for which he has a permanent pacemaker. His other 4 brothers are , one sister , all because of coronary artery disease. His father at the age of 92 because of chronic obstructive pulmonary disease and myocardial infarction. Mother at age of 56 because of myocardial infarction. SOCIAL HISTORY: He is , lives currently with his daughter. He is an ex-smoker, quit 20 years ago. He has also used to be a heavy drinker, but quit about 3 years ago. He used to work for an [employer] company, currently retired since 1994. He has 3 daughters who live around this area. REVIEW OF SYSTEMS: As per history of present illness. MEDICATIONS: He is currently on following medications: He is on ipratropium bromide, albuterol sulfate 4 times a day, Crestor 10 mg at bedtime, carvedilol 25 mg twice a day, amlodipine besylate 2.5 mg once a day, losartan potassium 100 mg once a day, aspirin 81 mg once a day, gabapentin 300 mg 3 times a day, torsemide 20 mg once a day, Flovent 110 mcg 2 puffs twice a day, magnesium oxide 400 mg once a day. He was on prednisone 40 mg once a day and metformin 500 mg twice a day, vitamin D3 1000 International Units once a day, allopurinol 300 mg once a day, omega-3 fatty acid 1 capsule once a day. REVIEW OF SYSTEMS: As per history of present illness. PHYSICAL EXAMINATION: GENERAL: On arrival to the Emergency Room, the patient was somewhat pale, not jaundiced, cyanosis, or thyromegaly. No jugular venous distension. No lower limb edema. VITAL SIGNS: His heart rate was 87, blood pressure was 136/57, temperature was 98.3, respiratory rate was 27 and oxygen saturation was 93% on 3 liters of oxygen. He was clearly tachypneic and using accessory muscles. HEAD, EYES, EARS, NOSE AND THROAT: Showed normocephalic, atraumatic. He has a bruise over the forehead and nose. NECK: Supple. HEART: Showed normal first and second heart sounds. No gallop or murmur. CHEST: Showed central trachea, equally reduced expansion, reduced air entry, vesicular breath sounds with crepitation bilaterally and very few scattered rhonchi. ABDOMEN: Distended, soft, nontender. NEUROLOGIC: He was hard of hearing, but otherwise all cranial nerves are intact. EXTREMITIES: He moves extremities without difficulty. SKIN: He has multiple bruises over the forehead, nose and right arm. LABORATORY DATA: Showed a white cell count 9800, hemoglobin 11, hematocrit 33, MCV 93 and platelet count of 168,000. His chemistry showed a serum sodium 134, potassium 4.4, chloride 97, bicarbonate 27, anion gap of 10, BUN 31, creatinine 1, estimated GFR was 71 mL per minute, his glucose was 129, lactic acid was 1.2, calcium was 8.1, magnesium was 2. Total bilirubin, AST, ALT, alkaline phosphatase were normal. Ammonia was less than 10. Total protein was 6, albumin 2.5. Urinalysis showed the urine was isabel, hazy with a pH of 5.5, specific gravity of 1.025 with large amount of protein. The urine was negative for glucose, ketones. There was moderate amount of blood, negative for nitrite and leukocyte esterase, there was only 6-10 rbc's, 1-4 wbc's and very few bacteria. His influenza A and influenza B were negative. My plan is to continue with IV antibiotic. Continue with the Solu-Medrol and nebulized albuterol and Atrovent. Apparently, he has had multiple falls, feels dizzy and lightheaded. I will also consult the dredge deckhand. I will also hold some of his antihypertensive medication. DEIRDE HANEY MD DR: HUMBERTO/amy JOB#: [id number] / [id number]
[2019-10-14 18:11] VITALS: BP 182/80
[2019-10-14] MEDS ORDERED: NITROGLYCERIN SUBLINGUAL 0.4 MG BOTTLE OF 25. SL ONE (18:13)
[2019-10-14] MEDS ORDERED: NITROGLYCERIN SUBLINGUAL 0.4 MG BOTTLE OF 25. SL PRN (18:15)
[2019-10-14 18:51] VITALS: BP 140/60
[2019-10-14] MEDS: BUDESONIDE 0.5 MG/2 ML NEBU NEB SCH (19:25)
[2019-10-14] MEDS ORDERED: ALBUTEROL SULFATE 2.5 MG/3 ML NEBU. NEB PRN (20:15)
[2019-10-14] MEDS ORDERED: NITROGLYCERIN OINT 1 GM PACKET. TP ONE ×2 (20:45)
[2019-10-14] MEDS ORDERED: FUROSEMIDE 20 MG/2 ML VIAL IVP ONE ×2 (20:45)
[2019-10-14] MEDS: CARVEDILOL 12.5 MG TABLET PO SCH (20:53)
[2019-10-14] MEDS: ATORVASTATIN CALCIUM 20 MG TABLET PO SCH (20:53)
[2019-10-14] MEDS: TAMSULOSIN 0.4 MG CAP.ER.24H. PO SCH (20:53)
[2019-10-14] MEDS: MONTELUKAST 10 MG TABLET. PO SCH (20:53)
[2019-10-14] MEDS: GABAPENTIN 300 MG CAPSULE. PO SCH (20:54)
[2019-10-14] MEDS: methylPREDNISolone SOD SUCC PF 40 MG/ML VIAL. IV SCH (20:59)
[2019-10-14] MEDS ORDERED: NON FORMULARY ITEM (Fluticasone Propionate (Flovent 110MCG Hfa) 2 PUFF) IH SCH (21:00)
[2019-10-14] MEDS ORDERED: LOSARTAN 50 MG TABLET. PO SCH (21:00)
[2019-10-15] VITALS (18 sets, daily range): BP systolic 77–133; BP diastolic 27–78
[2019-10-15] MEDS: methylPREDNISolone SOD SUCC PF 40 MG/ML VIAL. IV SCH ×3 (05:53→21:48)
[2019-10-15] MEDS: IPRATRPIUM/ALBUTEROL 0.5/2.5MG 3 ML NEBU. NEB SCH ×4 (06:06→20:47)
--- NOTE | 2019-10-15 06:21 | EKG ---
[address] [address] Test Date: 2019-10-14 Test Time: 20:07:34 Pat Name: ANASTASIA MARMOLEJO Department: Room: [facility] 1 Gender: M Dress Marker: : 1935 Requested By: DEIDRE HANEY Order Number: [id number] Reading MD: Measurements Intervals [place] Rate: 106 P: TN: QRS: -73 QRSD: 96 T: 70 QT: 280 QTc: 373 Interpretive Statements IRREGULAR RHYTHM, NO P-WAVE FOUND VENTRICULAR PREMATURE COMPLEX(ES) ABNORMAL LEFT AXIS DEVIATION LOW LIMB LEAD VOLTAGE LEFT ANTERIOR FASCICULAR BLOCK QRS(T) CONTOUR ABNORMALITY CONSISTENT WITH ANTERIOR INFARCT PROBABLY OLD T ABNORMALITY IN LATERAL LEADS ABNORMAL ECG RI6.02 No previous ECG available for comparison
[2019-10-15 06:32] LABS: BASO % 0 % (0-3); EOS % 0 % (0-3); HEMATOCRIT 28.7 % (39.0-53.0); HEMOGLOBIN 9.5 g/dL (13.0-17.5); LYMPH # 0.6 x10^3/uL (1.0-4.8); LYMPH % 7 % (24-48); MEAN CORPUSCULAR HEMOGLOBIN 31 pg (25-35); MEAN CORPUSCULAR HGB CONC 33 g/dL (31-37); MEAN CORPUSCULAR VOLUME 93 fL (79-100); MONO # 0.4 x10^3/uL (0.0-1.1); MONO % 5 % (0-9); NEUT # 7.3 x10^3uL (1.8-7.7); NEUT % 88 % (31-73); PLATELET COUNT 147 x10^3/uL (140-400); RED BLOOD COUNT 3.07 x10^6/uL (4.30-5.70); RED CELL DISTRIBUTION WIDTH 15.3 % (11.5-14.5); WHITE BLOOD COUNT 8.3 x10^3/uL (4.0-11.0)
[2019-10-15 06:42] LABS: CALCIUM 7.5 mg/dL (8.5-10.1); CREATININE 1.2 mg/dL (0.7-1.3); GFR 57.5; POTASSIUM 4.6 mmol/L (3.5-5.1)
--- NOTE | 2019-10-15 08:03 | PDOC2 ---
SILAS ARDON KENDRICK 10/15/19 0803: CARDIAC CONSULT DATE OF CONSULT Date Of Consult DATE: 10/15/19 TIME: 07:54 REASON FOR CONSULT Reason for Consult Syncopal episode A/c CHF REFERRING PHYSICIAN Referring Physician Dr. Caraballo SOURCE Source: Chart review, Patient HPI History of Present Illness This is an 84 yo male who presented secondary to shortness of breath, weakness, and falls. Daughter reports being teated for PNA 3 times in the last 6 months. Last week, patient became more confused and weak. Over the weekend, had decreased appetite and weakness progressed. Home Health nurse found patient on the floor at home. He reports his chair pushed him out onto the floor". Feel forward suffering abrasion to his forehead. Has also has congestion and cough productive of yellow sputum. No known fevers. Daughter brought him to the ED due to weakness, confusion, and concerns for recurrent PNA. Blood pressure low upon arrival. Overnight in the unit, had episode of pain in his left chest. Was associated with dizziness and shortness of breath. Resolve with nitro and has not retuned overnight. Has cardiac history as noted below. Follows with [facility] Cardiology. Dr. Blanc, Renée Cohen, KENDRICK. PAST MEDICAL HISTORY Past Medical History Coronary artery disease s/p CABG in 2007 (SVG to LAD and SVG to RCA) Hypertension Hyperlipidemia CHF Ischemic cardiomyopathy COPD Diabetes mellitus type 2 Hyperlipidemia BPH PAST SURGICAL HISTORY Past Surgical History Significant for PTCA and stent deployment. Coronary artery bypass surgery. Appendectomy. Umbilical hernia repair. Bilateral cataract extraction. 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 Transurethral resection of the prostate x2. FAMILY HISTORY Family History: Coronary Artery Disease, Other (COPD) SOCIAL HISTORY Smoke: Quit (20 years ago) ALCOHOL: other (h/o heavy use. Quit 4 years ago) Drugs: None Lives: Alone CURRENT MEDICATIONS Current Medications Current Medications Sodium Chloride 1,000 ml @ 1,000 mls/hr Q1H IV Last administered on 10/14/19at 10:41; Start 10/14/19 at 10:04; Stop 10/14/19 at 11:03; Status DC Albuterol/ Ipratropium (Duoneb) 3 ml 1X ONCE NEB Last administered on 10/14/19at 10:41; Start 10/14/19 at 10:45; Stop 10/14/19 at 10:46; Status DC Ceftriaxone Sodium 1 gm/ Sodium Chloride 50 ml @ 100 mls/hr 1X ONCE IV Last administered on 10/14/19at 12:49; Start 10/14/19 at 12:30; Stop 10/14/19 at 12:59; Status DC Azithromycin (Zithromax) 500 mg 1X ONCE PO Last administered on 10/14/19at 12:32; Start 10/14/19 at 12:30; Stop 10/14/19 at 12:31; Status DC Ondansetron HCl (Zofran) 4 mg PRN Q4HRS PRN IV NAUSEA/VOMITING; Start 10/14/19 at 12:30; Stop 10/15/19 at 12:29 Morphine Sulfate (Morphine 2mg Syringe) 2 mg PRN Q2HR PRN IV PAIN Last administered on 10/14/19at 19:26; Start 10/14/19 at 12:30; Stop 10/15/19 at 12:29 Acetaminophen (Tylenol) 650 mg PRN Q4HRS PRN PO FEVER Last administered on 10/14/19at 19:25; Start 10/14/19 at 12:30; Stop 10/15/19 at 12:29 Albuterol/ Ipratropium (Duoneb) 3 ml RTQID NEB ; Start 10/14/19 at 16:00; Stop 10/14/19 at 17:15; Status DC Sodium Chloride 50 ml @ As Directed STK-MED ONCE .ROUTE ; Start 10/14/19 at 12:29; Stop 10/14/19 at 12:29; Status DC Ceftriaxone Sodium (Rocephin) 1 gm STK-MED ONCE .ROUTE ; Start 10/14/19 at 12:29; Stop 10/14/19 at 12:29; Status DC Allopurinol (Zyloprim) 300 mg DAILY PO ; Start 10/15/19 at 09:00 Amlodipine Besylate (Norvasc) 2.5 mg DAILY PO ; Start 10/15/19 at 09:00 Aspirin (Children'S Aspirin) 81 mg DAILY PO ; Start 10/15/19 at 09:00 Vitamin D (Vitamin D3) 1,000 unit DAILY PO ; Start 10/15/19 at 09:00 Gabapentin (Neurontin) 300 mg TID PO Last administered on 10/14/19at 20:54; Start 10/14/19 at 21:00 Albuterol/ Ipratropium (Duoneb) 3 ml QID NEB Last administered on 10/15/19at 06:06; Start 10/14/19 at 17:00 Metformin HCl (Glucophage) 500 mg BIDWMEALS PO ; Start 10/15/19 at 08:00 Torsemide (Demadex) 20 mg DAILY PO ; Start 10/15/19 at 09:00 Carvedilol (Coreg) 25 mg BID PO Last administered on 10/14/19at 20:53; Start 10/14/19 at 21:00 Fish Oil (Fish Oil) 1,000 mg DAILY PO ; Start 10/15/19 at 09:00 Non-Formulary Medication (Fluticasone Propionate (Flovent 110MCG Hfa)) 2 puff BID IH ; Start 10/14/19 at 21:00; Stop 10/14/19 at 18:03; Status DC Losartan Potassium (Cozaar) 100 mg QHS PO Last administered on 10/14/19at 20:53; Start 10/14/19 at 21:00 Magnesium Oxide (Magnesium Oxide) 400 mg DAILY PO ; Start 10/15/19 at 09:00 Atorvastatin Calcium (Lipitor) 40 mg QHS PO Last administered on 10/14/19 20:53; Start 10/14/19 at 21:00 Ceftriaxone Sodium 1 gm/ Sodium Chloride 50 ml @ 100 mls/hr Q24H IV ; Start 10/15/19 at 12:00 Azithromycin (Zithromax) 250 mg DAILY PO ; Start 10/15/19 at 09:00 Methylprednisolone Sodium Succinate (SOLU-Medrol 40MG VIAL) 40 mg Q8HRS IV Last administered on 10/15/19at 05:53; Start 10/14/19 at 22:00 Guaifenesin (Mucinex Er) 600 mg BID PO Last administered on 10/14/19 20:53; Start 10/14/19 at 21:00 Montelukast Sodium (Singulair) 10 mg QHS PO Last administered on 10/14/19at 20:53; Start 10/14/19 at 21:00 Tamsulosin HCl (Flomax) 0.4 mg QHS PO Last administered on 10/14/19at 20:53; Start 10/14/19 at 21:00 Budesonide (Pulmicort) 0.5 mg RTBID NEB Last administered on 10/14/19at 19:25; Start 10/14/19 at 20:00 Nitroglycerin (Nitrostat) 0.4 mg PRN Q5MIN PRN SL CHEST PAIN Last administered on 10/14/19at 18:16; Start 10/14/19 at 18:15 Nitroglycerin (Nitrostat) 0.4 mg STK-MED ONCE SL ; Start 10/14/19 at 18:13; Stop 10/14/19 at 18:14; Status DC Albuterol Sulfate (Ventolin) 2.5 mg PRN Q4HRS PRN NEB SHORTNESS OF BREATH; Start 10/14/19 at 20:15 Nitroglycerin (Nitro-Bid Oint) 0.25 inch 1X ONCE TP Last administered on 10/14/19at 20:52; Start 10/14/19 at 20:45; Stop 10/14/19 at 20:46; Status DC Furosemide (Lasix) 20 mg 1X ONCE IVP Last administered on 10/14/19at 20:52; Start 10/14/19 at 20:45; Stop 10/14/19 at 20:46; Status DC Furosemide (Lasix) 20 mg 1X ONCE IVP ; Start 10/14/19 at 20:45; Stop 10/14/19 at 20:47; Status DC Nitroglycerin (Nitro-Bid Oint) 0.25 inch 1X ONCE TP ; Start 10/14/19 at 20:45; Stop 10/14/19 at 20:47; Status DC Lactobacillus Rhamnosus (Culturelle) 1 cap BID PO ; Start 10/15/19 at 09:00 Active Scripts Active Levaquin (Levofloxacin) 500 Mg Tablet 1 Tab PO DAILY 6 Days Prednisone 20 Mg Tablet 1 Tab PO DAILY 10 Days Prednisone 20 Mg Tablet 1 Tab PO DAILY 1 Days Reported Duoneb 0.5-3(2.5) Mg/3 Ml (Albuterol/Ipratropium) 3 Ml Ampul.neb 3 Ml NEB QID Flovent 110MCG Hfa (Fluticasone Propionate) 12 Gm Aer.w.adap 2 Puff IH BID Magnesium (Magnesium Oxide) 400 Mg Capsule 1 Cap PO DAILY [place] 3-6-9 1,200 mg Softgel (Fish Oil/Borage/Flax/Om3,6,9#1) 1,200 Mg Capsule 1,200 Mg PO DAILY Vitamin D3 (Cholecalciferol (Vitamin D3)) 1,000 Unit Tablet 1 Tab PO DAILY Aspirin 81 Mg Tab.chew 81 Mg PO DAILY Torsemide 20 Mg Tablet 20 Mg PO DAILY LAST DOSE GIVEN: DATE: TODAY TIME: AM NEXT DOSE DUE: DATE: TOMORROW TIME: AM Carvedilol 25 Mg Tablet 25 Mg PO BID LAST DOSE GIVEN: DATE: TODAY TIME: AM NEXT DOSE DUE: DATE: TODAY TIME: PM Amlodipine Besylate 2.5 Mg Tablet 2.5 Mg PO DAILY LAST DOSE GIVEN: DATE: TODAY TIME: AM NEXT DOSE DUE: DATE: TOMORROW TIME: AM Gabapentin (Gabapentin) 300 Mg Capsule 300 Mg PO TID Losartan Potassium 100 Mg Tablet 100 Mg PO HS Metformin Hcl 500 Mg Tablet 500 Mg PO BID LAST DOSE GIVEN: DATE: TODAY TIME: WITH BREAKFAST NEXT DOSE DUE: DATE: TONIGHT TIME: WITH DINNER Crestor (Rosuvastatin Calcium) 10 Mg Tablet 10 Mg PO HS Allopurinol 300 Mg Tablet 300 Mg PO DAILY LAST DOSE GIVEN: DATE: TODAY TIME: AM NEXT DOSE DUE: DATE: TOMORROW TIME: AM ALLERGIES Allergies: Coded Allergies: sulfamethoxazole (Verified Allergy, Intermediate, rash, 10/14/19) trimethoprim (Verified Allergy, Intermediate, rash, 10/14/19) quinine (Verified Allergy, Mild, rash, 10/14/19) Uncoded Allergies: tape (Allergy, Unknown, 10/14/19) ROS Review of Systems 14 point ROS conducted with pertinent positives noted above in HPI PHYSICAL EXAM General: Alert, Oriented X3, Cooperative HEENT: Atraumatic, Mucous membr. moist/pink Lungs: Other (coarse, crackles throughout ) Heart: Regular rate, Normal S1, Normal S2, Other (distant heart tones ) Abdomen: Soft, No tenderness Extremities: No edema, Normal pulses Skin: No rashes, No breakdown Neuro: Normal speech, Sensation intact Psych/Mental Status: Mental status NL, Mood NL MUSCULOSKELETAL: Osteoarthritic changes both hands VITALS Vital Signs Vital Signs Date Time Temp Pulse Resp B/P (MAP) Pulse Ox O2 Delivery O2 Flow Rate FiO2 10/15/19 05:46 91 Nasal Cannula 3.0 10/15/19 04:00 67 22 104/51 (68) 10/14/19 18:11 98.2 LABS LABS Laboratory Tests Test 10/14/19 10:10 10/14/19 10:13 10/14/19 10:41 10/14/19 12:55 White Blood Count 9.8 x10^3/uL (4.0-11.0) Red Blood Count 3.54 x10^6/uL (4.30-5.70) Hemoglobin 10.8 g/dL (13.0-17.5) Hematocrit 33.1 % (39.0-53.0) Mean Corpuscular Volume 93 fL (79-100) Mean Corpuscular Hemoglobin 30 pg (25-35) Mean Corpuscular Hemoglobin Concent 33 g/dL (31-37) Red Cell Distribution Width 15.1 % (11.5-14.5) Platelet Count 168 x10^3/uL (140-400) Neutrophils (%) (Auto) 84 % (31-73) Lymphocytes (%) (Auto) 6 % (24-48) Monocytes (%) (Auto) 10 % (0-9) Eosinophils (%) (Auto) 0 % (0-3) Basophils (%) (Auto) 0 % (0-3) Neutrophils # (Auto) 8.3 x10^3uL (1.8-7.7) Lymphocytes # (Auto) 0.6 x10^3/uL (1.0-4.8) Monocytes # (Auto) 0.9 x10^3/uL (0.0-1.1) Eosinophils # (Auto) 0.0 x10^3/uL (0.0-0.7) Basophils # (Auto) 0.0 x10^3/uL (0.0-0.2) Lactic Acid Level 1.2 mmol/L (0.4-2.0) Influenza Type A (Rapid) Negative (NEGATIVE) Influenza Type B (Rapid) Negative (NEGATIVE) Sodium Level 134 mmol/L (136-145) Potassium Level 4.4 mmol/L (3.5-5.1) Chloride Level 97 mmol/L (98-107) Carbon Dioxide Level 27 mmol/L (21-32) Anion Gap 10 (6-14) Blood Urea Nitrogen 31 mg/dL (8-26) Creatinine 1.0 mg/dL (0.7-1.3) Estimated GFR (Cockcroft-Gault) 71.0 BUN/Creatinine Ratio 31 (6-20) Glucose Level 129 mg/dL (70-99) Calcium Level 8.1 mg/dL (8.5-10.1) Magnesium Level 2.0 mg/dL (1.8-2.4) Total Bilirubin 0.3 mg/dL (0.2-1.0) Aspartate Amino Transf (AST/SGOT) 41 U/L (15-37) Alanine Aminotransferase (ALT/SGPT) 15 U/L (16-63) Alkaline Phosphatase 41 U/L (46-116) Ammonia < 10 mcmol/L (11-34) OO-Iwa-H-Type Natriuretic Peptide 3033 pg/mL (0-449) Total Protein 6.0 g/dL (6.4-8.2) Albumin 2.5 g/dL (3.4-5.0) Albumin/Globulin Ratio 0.7 (1.0-1.7) Urine Collection Type U cath Urine Color [place] Urine Clarity Hazy Urine pH 5.5 Urine Specific [place] 1.025 Urine Protein 100 mg/dl (NEG-TRACE) Urine Glucose (UA) Neg mg/dL (NEG) Urine Ketones (Stick) Neg mg/dL (NEG) Urine Blood Mod (NEG) Urine Nitrite Neg (NEG) Urine Bilirubin Neg (NEG) Urine Urobilinogen Dipstick 0.2 mg/dL (0.2 mg/dL) Urine Leukocyte Esterase Neg (NEG) Urine RBC 6-10 /HPF (0-2) Urine WBC 1-4 /HPF (0-4) Urine Squamous Epithelial Cells Few /LPF Urine Amorphous Sediment Present /HPF Urine Bacteria Few /HPF (0-FEW) Urine Hyaline Casts Occ /HPF Urine Granular Casts Few /HPF Urine Mucus Slight /LPF Test 10/14/19 17:05 10/14/19 18:00 10/14/19 22:00 10/15/19 01:05 Blood Gas pH 7.41 (7.35-7.46) Blood Gas PCO2 42 mmHg (35-46) Blood Gas PO2 60 mmHg (71-100) Blood Gas HCO3 27 mmol/L (21-28) Arterial Bld O2 Saturation (Calc) 91 % (92-99) FiO2 32 % Troponin I Quantitative 0.330 ng/mL (0-0.055) 1.086 ng/mL (0-0.055) 1.432 ng/mL (0-0.055) Test 10/15/19 05:39 White Blood Count 8.3 x10^3/uL (4.0-11.0) Red Blood Count 3.07 x10^6/uL (4.30-5.70) Hemoglobin 9.5 g/dL (13.0-17.5) Hematocrit 28.7 % (39.0-53.0) Mean Corpuscular Volume 93 fL (79-100) Mean Corpuscular Hemoglobin 31 pg (25-35) Mean Corpuscular Hemoglobin Concent 33 g/dL (31-37) Red Cell Distribution Width 15.3 % (11.5-14.5) Platelet Count 147 x10^3/uL (140-400) Neutrophils (%) (Auto) 88 % (31-73) Lymphocytes (%) (Auto) 7 % (24-48) Monocytes (%) (Auto) 5 % (0-9) Eosinophils (%) (Auto) 0 % (0-3) Basophils (%) (Auto) 0 % (0-3) Neutrophils # (Auto) 7.3 x10^3uL (1.8-7.7) Lymphocytes # (Auto) 0.6 x10^3/uL (1.0-4.8) Monocytes # (Auto) 0.4 x10^3/uL (0.0-1.1) Eosinophils # (Auto) 0.0 x10^3/uL (0.0-0.7) Basophils # (Auto) 0.0 x10^3/uL (0.0-0.2) Sodium Level 136 mmol/L (136-145) Potassium Level 4.6 mmol/L (3.5-5.1) Chloride Level 101 mmol/L (98-107) Carbon Dioxide Level 27 mmol/L (21-32) Anion Gap 8 (6-14) Blood Urea Nitrogen 33 mg/dL (8-26) Creatinine 1.2 mg/dL (0.7-1.3) Estimated GFR (Cockcroft-Gault) 57.5 Glucose Level 159 mg/dL (70-99) Calcium Level 7.5 mg/dL (8.5-10.1) ECHOCARDIOGRAM Echocardiogram ECHOCARDIOGRAM - September 2017 Ejection fraction 50-55% mild mr/tr pap 43 stage 2 diastolic dysfunction STRESS TEST Stress Test LEXISCAN NUCLEAR STRESS TEST IMPRESSION (10/14/2015): Normal myocardial perfusion scan with inferior diaphragmatic attenuation artifact. The summed differential score was 0 Normal ventricular systolic function. Ejection fraction: 56%. There was no induced left ventricular dilitation or increase in lung to heart rario. There were occasional PVCs. There was no stress induced chest pain. Compared to the previous study performed on 03/11/2014, there was no significant change. HEART CATH Heart Cath CORONARY ARTERY BYPASS SURGERY (07/25/2008): Coronary artery bypass grafting times two with reverse saphenous vein graft to the left anterior descending, reverse saphenous vein graft to the right coronary artery, endoscopic vein harvest, bypass was performed with cannulation of the left femoral artery that required a patch closure with a piece of saphenous vein. CARDIAC CATHETERIZATION IMPRESSION (12/11/2009): 1. There was no suggestion of progressive coronary artery disease compared to the previous angiogram and after bypass surgery. There was good flow through both vein grafts. PAN graft was not used intraoperatively after harvesting. 2. 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 The proximal tortuous loop of the large ramus/first obtuse marginal branch could not be visualized well in spite of several views. There may be a hidden lesion. 3. [place] LAD and right coronary artery stents had significant in-stent restenosis as noted prior to bypass surgery. 4. Normal size left ventricle with ejection fraction of approximately 50%. It was improved compared to the previous LV-gram. Again, mild inferior hypokinesis was noted. 5. Both common iliac arteries had proximal 40-50% luminal narrowing. The aorta was unremarkable. 6. Both renal arteries appeared to be small caliber vessels with mild intimal disease. ASSESSMENT/PLAN Assessment/Plan 1. Weakness, near syncope in the setting of hypotension/hypovolemia 2. Metabolic encephalopathy 3. Dyspnea; multifactorial with CAP, AE COPD, and mild CHF. s/p IV Lasix 4. Chest pain; typical features. Episodic last night. resolved with nitro. 5. NSTEMI; peak 1.4. Possibly type II, demand ischemia, but type I cannot be ruled out. Discussed further ischemic workup, [facility] with patient and daughter. Patient declined. Would like medical management at this time 6. Mild acute on chronic diastolic CHF; LVEF 09/2017 50-55%. appear compensated 7. CAD s/p CABG; Continue current secondary prevention measures. 8. H/o hypertension with present mild hypotension 9. Hyperlipidemia: Statin therapy 10. Diabetes, II Recommendations ASA, statin EKG Echo to assess LV systolic function Hold antiHTN therapy as warranted Lasix PRN Obtain cardiac records from [facility], Renée Irizarry Given CP and NSTEMI, will start heparin per CVC protocol for 24-48hrs Ongoing antibiotic therapy Supportive care DINORA HERRERA MD 10/15/19 1541: CARDIAC CONSULT ASSESSMENT/PLAN Assessment/Plan Patient seen and examined. Agree with METAL INSPECTOR's assessment and plan. Syncope most probably secondary to hypovolemia Hold antihypertensives and hydrate intravenously Dyspnea secondary to combination of CAP, mild acute on chronic diastolic heart failure and COPD exacerbation Patient received intravenous Lasix with slight improvement in shortness of breath Continue antibiotics per IM Slight troponin elevation probably demand ischemia Agree with intravenous heparin for 24 hours Recent 2-D echocardiogram in October 2018 showed normal LV systolic function Consider event monitor and stress test as an outpatient Thank you for your consultation SILAS ARDON APRN Oct 15, 2019 08:03 DINORA HERRERA MD Oct 15, 2019 15:41
[2019-10-15] MEDS: CARVEDILOL 12.5 MG TABLET PO SCH (09:00)
[2019-10-15] MEDS: TORSEMIDE 20 MG TABLET. PO SCH (09:00)
[2019-10-15] MEDS ORDERED: amLODIPine BESYLATE 2.5 MG TABLET PO SCH (09:00)
[2019-10-15] MEDS: ALLOPURINOL 300 MG TABLET. PO SCH (09:06)
[2019-10-15] MEDS: CHOLECALCIFEROL (VITAMIN D3) 1,000 UNIT TABLET PO SCH (09:07)
[2019-10-15] MEDS: ASPIRIN 81 MG TAB.CHEW PO SCH (09:07)
[2019-10-15] MEDS: GABAPENTIN 300 MG CAPSULE. PO SCH ×3 (09:07→20:23)
[2019-10-15] MEDS: LACTOBACILLUS RHAMNOSUS GG 1 CAPSULE. PO SCH ×2 (09:07→20:23)
[2019-10-15] MEDS: MAGNESIUM OXIDE 400 MG TABLET PO SCH (09:07)
[2019-10-15] MEDS: OMEGA-3 FATTY ACIDS/FISH OIL 1,000 MG CAPSULE. PO SCH (09:07)
[2019-10-15] MEDS: AZITHROMYCIN 250 MG TABLET. PO SCH (09:07)
[2019-10-15] MEDS: metFORMIN 500 MG TABLET PO SCH ×2 (09:07→17:58)
[2019-10-15] MEDS: BUDESONIDE 0.5 MG/2 ML NEBU NEB SCH ×2 (09:13→20:47)
[2019-10-15] MEDS ORDERED: HEPARIN for IV BOLUS 10,000 UNIT/10 ML VIAL. IV PRN (11:15)
[2019-10-15] MEDS ORDERED: HEPARIN for IV BOLUS 10,000 UNIT/10 ML VIAL. IV ONE (11:15)
[2019-10-15] MEDS ORDERED: HEPARIN 25,000UTS/250ML PREMIX 250 ML IV PRN (11:15)
--- NOTE | 2019-10-15 11:36 | EKG ---
[address] [address] Test Date: 2019-10-15 Test Time: 11:05:35 Pat Name: ANASTASIA MARMOLEJO Department: Room: [facility] 1 Gender: M [employer] Developer: Ignacio : 1935 Requested By: SILAS ARDON Order Number: [id number] Reading MD: Measurements Intervals [place] Rate: 81 P: 90 AK: 180 QRS: -62 QRSD: 104 T: -82 QT: 392 QTc: 461 Interpretive Statements SINUS RHYTHM ABNORMAL LEFT AXIS DEVIATION R-S TRANSITION ZONE IN V LEADS DISPLACED TO THE LEFT LOW LIMB LEAD VOLTAGE QRS(T) CONTOUR ABNORMALITY CONSISTENT WITH INFERIOR INFARCT AGE UNDETERMINED T ABNORMALITY IN ANTERIOR LEADS ABNORMAL ECG RI6.02 No previous ECG available for comparison
[2019-10-15] MEDS: ATORVASTATIN CALCIUM 20 MG TABLET PO SCH (20:23)
[2019-10-15] MEDS: MONTELUKAST 10 MG TABLET. PO SCH (20:23)
[2019-10-15] MEDS: TAMSULOSIN 0.4 MG CAP.ER.24H. PO SCH (20:23)
--- NOTE | 2019-10-15 20:59 | PN ---
DATE: 10/15/2019 SUBJECTIVE: The patient is resting, slightly propped up in bed, clearly much more comfortable than yesterday. He is not in a tripod position, is not using accessory muscles and is now maintaining his oxygen saturation at 93% on 3 liters of oxygen. He apparently developed severe chest pain, was diaphoretic. We did treat him with nitroglycerin as well as Lasix. PHYSICAL EXAMINATION: GENERAL: When I saw him this afternoon, he looked well, slightly pale, but no jaundice, cyanosis or thyromegaly. No jugular venous distention. No lower limb edema. VITAL SIGNS: His heart rate was 82, blood pressure was 89/42, temperature was 97.8, respiratory rate was 24, and oxygen saturation was 93% on 3 liters of oxygen. HEAD, EYES, EARS, NOSE AND THROAT: Showed normocephalic. He has bruises over the forehead and nose. NECK: Supple. HEART: Showed normal first and second heart sounds. No gallop or murmur. CHEST: Showed central trachea, equal bilateral chest expansion, air entry with crepitation on both sides posteriorly. I could not really appreciate any rhonchi. ABDOMEN: Distended, soft, nontender. NEUROLOGIC: He is awake, alert, responding appropriately. All cranial nerves are intact. He moves extremities without difficulty. He has wound in his right arm that is covered with dressing. His intake 1670, output was 105. LABORATORY DATA: His lab work this morning showed the white cell count of 8300, hemoglobin 9.5, hematocrit 28.7, MCV 93, and platelet count of 147,000. His chemistry showed a serum sodium of 136, potassium 4.6, chloride 101, bicarbonate 27, anion gap of 8, BUN 33, creatinine 1.2, estimated GFR was 57 mL per minute. His glucose 159, calcium was 7.5. His troponin has peaked up to 1.4. ASSESSMENT AND PLAN: 1. Syncopal episode with fall with resultant abrasion on his right forehead, nose and right arm. 2. Acute chronic obstructive pulmonary disease exacerbation, community-acquired pneumonia, probably acute on chronic diastolic congestive heart failure, non-ST segment elevation with a peak troponin at 1.4. The patient is known to have coronary artery disease, status post coronary artery bypass graft. The patient is actually hypotensive, hyperlipidemia, type 2 diabetes. I have a discussion with him and he seemed to be receptive to the idea of cardiac catheterization. He is now on heparin. We will continue with IV antibiotic in the form of ceftriaxone and Zithromax, hold the metformin. Continue with all other medication and might have to get in discussion with the pelletizer, we will transfer him tonight or tomorrow for cardiac catheterization at [facility]. DEIDRE HANEY MD DR: HUMBERTO/amy JOB#: [id number] / [id number]
[2019-10-16] VITALS (9 sets, daily range): BP systolic 104–156; BP diastolic 48–94
[2019-10-16] MEDS: IPRATRPIUM/ALBUTEROL 0.5/2.5MG 3 ML NEBU. NEB SCH ×4 (04:50→20:46)
[2019-10-16] MEDS: methylPREDNISolone SOD SUCC PF 40 MG/ML VIAL. IV SCH ×2 (05:34→16:05)
[2019-10-16 06:48] LABS: HEMATOCRIT 29.4 % (39.0-53.0); HEMOGLOBIN 9.9 g/dL (13.0-17.5); RED BLOOD COUNT 3.19 x10^6/uL (4.30-5.70); RED CELL DISTRIBUTION WIDTH 15.3 % (11.5-14.5); WHITE BLOOD COUNT 7.9 x10^3/uL (4.0-11.0)
[2019-10-16 06:55] LABS: ALBUMIN/GLOBULIN RATIO 0.6 (1.0-1.7); CALCIUM 7.7 mg/dL (8.5-10.1); CREATININE 0.8 mg/dL (0.7-1.3); GFR 91.9; POTASSIUM 4.2 mmol/L (3.5-5.1); TOTAL BILIRUBIN 0.2 mg/dL (0.2-1.0); TOTAL PROTEIN 5.3 g/dL (6.4-8.2)
--- NOTE | 2019-10-16 07:53 | PDOC ---
CARDIO Progress Notes Date & Time Date of Service DATE: 10/16/19 TIME: 07:50 Time of Evaluation 07:50 Subjective Notes feeling much better this morning. No further chest pain or shortness of breath overnight. Vitals Vitals Vital Signs Date Time Temp Pulse Resp B/P (MAP) Pulse Ox O2 Delivery O2 Flow Rate FiO2 10/16/19 05:50 97.8 89 22 148/48 (81) 93 Nasal Cannula 3.0 Weight Weight [ ] Input and Output I.O. Intake and Output 10/16/19 07:00 Intake Total 2365 ml Output Total 725 ml Balance 1640 ml Intake Oral 2120 ml IV Total 245 ml Output Urine Total 725 ml # Bowel Movements 1 Laboratory Labs Laboratory Tests Test 10/14/19 10:10 10/14/19 10:13 10/14/19 10:41 10/14/19 12:55 White Blood Count 9.8 x10^3/uL (4.0-11.0) Red Blood Count 3.54 x10^6/uL (4.30-5.70) Hemoglobin 10.8 g/dL (13.0-17.5) Hematocrit 33.1 % (39.0-53.0) Mean Corpuscular Volume 93 fL (79-100) Mean Corpuscular Hemoglobin 30 pg (25-35) Mean Corpuscular Hemoglobin Concent 33 g/dL (31-37) Red Cell Distribution Width 15.1 % (11.5-14.5) Platelet Count 168 x10^3/uL (140-400) Neutrophils (%) (Auto) 84 % (31-73) Lymphocytes (%) (Auto) 6 % (24-48) Monocytes (%) (Auto) 10 % (0-9) Eosinophils (%) (Auto) 0 % (0-3) Basophils (%) (Auto) 0 % (0-3) Neutrophils # (Auto) 8.3 x10^3uL (1.8-7.7) Lymphocytes # (Auto) 0.6 x10^3/uL (1.0-4.8) Monocytes # (Auto) 0.9 x10^3/uL (0.0-1.1) Eosinophils # (Auto) 0.0 x10^3/uL (0.0-0.7) Basophils # (Auto) 0.0 x10^3/uL (0.0-0.2) Lactic Acid Level 1.2 mmol/L (0.4-2.0) Influenza Type A (Rapid) Negative (NEGATIVE) Influenza Type B (Rapid) Negative (NEGATIVE) Sodium Level 134 mmol/L (136-145) Potassium Level 4.4 mmol/L (3.5-5.1) Chloride Level 97 mmol/L (98-107) Carbon Dioxide Level 27 mmol/L (21-32) Anion Gap 10 (6-14) Blood Urea Nitrogen 31 mg/dL (8-26) Creatinine 1.0 mg/dL (0.7-1.3) Estimated GFR (Cockcroft-Gault) 71.0 BUN/Creatinine Ratio 31 (6-20) Glucose Level 129 mg/dL (70-99) Calcium Level 8.1 mg/dL (8.5-10.1) Magnesium Level 2.0 mg/dL (1.8-2.4) Total Bilirubin 0.3 mg/dL (0.2-1.0) Aspartate Amino Transf (AST/SGOT) 41 U/L (15-37) Alanine Aminotransferase (ALT/SGPT) 15 U/L (16-63) Alkaline Phosphatase 41 U/L (46-116) Ammonia < 10 mcmol/L (11-34) [id number]-Type Natriuretic Peptide 3033 pg/mL (0-449) Total Protein 6.0 g/dL (6.4-8.2) Albumin 2.5 g/dL (3.4-5.0) Albumin/Globulin Ratio 0.7 (1.0-1.7) Urine Collection Type U cath Urine Color [place] Urine Clarity Hazy Urine pH 5.5 Urine Specific [place] 1.025 Urine Protein 100 mg/dl (NEG-TRACE) Urine Glucose (UA) Neg mg/dL (NEG) Urine Ketones (Stick) Neg mg/dL (NEG) Urine Blood Mod (NEG) Urine Nitrite Neg (NEG) Urine Bilirubin Neg (NEG) Urine Urobilinogen Dipstick 0.2 mg/dL (0.2 mg/dL) Urine Leukocyte Esterase Neg (NEG) Urine RBC 6-10 /HPF (0-2) Urine WBC 1-4 /HPF (0-4) Urine Squamous Epithelial Cells Few /LPF Urine Amorphous Sediment Present /HPF Urine Bacteria Few /HPF (0-FEW) Urine Hyaline Casts Occ /HPF Urine Granular Casts Few /HPF Urine Mucus Slight /LPF Test 10/14/19 17:05 10/14/19 18:00 10/14/19 22:00 10/15/19 01:05 Blood Gas pH 7.41 (7.35-7.46) Blood Gas PCO2 42 mmHg (35-46) Blood Gas PO2 60 mmHg (71-100) Blood Gas HCO3 27 mmol/L (21-28) Arterial Bld O2 Saturation (Calc) 91 % (92-99) FiO2 32 % Troponin I Quantitative 0.330 ng/mL (0-0.055) 1.086 ng/mL (0-0.055) 1.432 ng/mL (0-0.055) Test 10/15/19 05:39 10/15/19 11:23 10/15/19 18:55 10/16/19 06:25 White Blood Count 8.3 x10^3/uL (4.0-11.0) 7.9 x10^3/uL (4.0-11.0) Red Blood Count 3.07 x10^6/uL (4.30-5.70) 3.19 x10^6/uL (4.30-5.70) Hemoglobin 9.5 g/dL (13.0-17.5) 9.9 g/dL (13.0-17.5) Hematocrit 28.7 % (39.0-53.0) 29.4 % (39.0-53.0) Mean Corpuscular Volume 93 fL (79-100) 92 fL (79-100) Mean Corpuscular Hemoglobin 31 pg (25-35) 31 pg (25-35) Mean Corpuscular Hemoglobin Concent 33 g/dL (31-37) 34 g/dL (31-37) Red Cell Distribution Width 15.3 % (11.5-14.5) 15.3 % (11.5-14.5) Platelet Count 147 x10^3/uL (140-400) 206 x10^3/uL (140-400) Neutrophils (%) (Auto) 88 % (31-73) Lymphocytes (%) (Auto) 7 % (24-48) Monocytes (%) (Auto) 5 % (0-9) Eosinophils (%) (Auto) 0 % (0-3) Basophils (%) (Auto) 0 % (0-3) Neutrophils # (Auto) 7.3 x10^3uL (1.8-7.7) Lymphocytes # (Auto) 0.6 x10^3/uL (1.0-4.8) Monocytes # (Auto) 0.4 x10^3/uL (0.0-1.1) Eosinophils # (Auto) 0.0 x10^3/uL (0.0-0.7) Basophils # (Auto) 0.0 x10^3/uL (0.0-0.2) Sodium Level 136 mmol/L (136-145) 130 mmol/L (136-145) Potassium Level 4.6 mmol/L (3.5-5.1) 4.2 mmol/L (3.5-5.1) Chloride Level 101 mmol/L (98-107) 95 mmol/L (98-107) Carbon Dioxide Level 27 mmol/L (21-32) 25 mmol/L (21-32) Anion Gap 8 (6-14) 10 (6-14) Blood Urea Nitrogen 33 mg/dL (8-26) 32 mg/dL (8-26) Creatinine 1.2 mg/dL (0.7-1.3) 0.8 mg/dL (0.7-1.3) Estimated GFR (Cockcroft-Gault) 57.5 91.9 Glucose Level 159 mg/dL (70-99) 170 mg/dL (70-99) Calcium Level 7.5 mg/dL (8.5-10.1) 7.7 mg/dL (8.5-10.1) Troponin I Quantitative 0.931 ng/mL (0-0.055) Triglycerides Level 73 mg/dL (0-150) Cholesterol Level 84 mg/dL (0-200) LDL Cholesterol, Calculated 42 mg/dL (0-100) VLDL Cholesterol, Calculated 14 mg/dL (0-40) Non-HDL Cholesterol Calculated 56 mg/dL (0-129) HDL Cholesterol 28 mg/dL (40-60) Cholesterol/HDL Ratio 3.0 Procalcitonin 1.07 ng/mL (0.00-0.10) Prothrombin Time 10.5 SEC (9.4-11.4) Prothromb Time International Ratio 1.0 (0.9-1.1) Activated Partial Thromboplast Time 29 SEC (23-33) 52 SEC (23-33) 48 SEC (23-33) BUN/Creatinine Ratio 40 (6-20) Total Bilirubin 0.2 mg/dL (0.2-1.0) Aspartate Amino Transf (AST/SGOT) 79 U/L (15-37) Alanine Aminotransferase (ALT/SGPT) 33 U/L (16-63) Alkaline Phosphatase 42 U/L (46-116) Total Protein 5.3 g/dL (6.4-8.2) Albumin 2.0 g/dL (3.4-5.0) Albumin/Globulin Ratio 0.6 (1.0-1.7) Microbiology Micro Microbiology 10/14/19 Blood Culture - Preliminary, Resulted NO GROWTH AFTER 1 DAY... Physical Exams HEENT: Neck Supple W Full Motion Chest: Symmetric Lungs: Other (faint rhonchi ) Heart: RRR Abdomen: Soft N/T Extremities: No Edema Neurology: alert, oriented, follow commands Assessment Assessment 1. Weakness, near syncope in the setting of hypotension/hypovolemia. improved 2. Metabolic encephalopathy 3. Dyspnea; multifactorial with CAP, AE COPD, and mild CHF. 4. Chest pain; typical features. Episodic last night. resolved with nitro. 5. NSTEMI; peak 1.4. Possibly type II, demand ischemia, but type I cannot be ruled out. No further chest pain. Will await echo 6. Mild acute on chronic diastolic CHF; LVEF 09/2017 50-55%. appear compensated 7. CAD s/p CABG; Continue current secondary prevention measures. 8. H/o hypertension with present mild hypotension; resolved 9. Hyperlipidemia: Statin therapy 10. Diabetes, II Recommendations ASA, statin, BB Discontinue heparin after 24hrs Lasix PRN Ongoing antibiotic therapy Await echo results; if LVEF preserved, will plan on medical therapy with consideration of further ischemic workup with primary mannequin molder once recovered from PNA If significant LV depression noted, consider further ischemic workup as an outpatient. Supportive care SILAS ARDON APRN Oct 16, 2019 07:53
[2019-10-16] MEDS: LACTOBACILLUS RHAMNOSUS GG 1 CAPSULE. PO SCH ×2 (09:13→20:44)
[2019-10-16] MEDS: OMEGA-3 FATTY ACIDS/FISH OIL 1,000 MG CAPSULE. PO SCH (09:14)
[2019-10-16] MEDS: ASPIRIN 81 MG TAB.CHEW PO SCH (09:14)
[2019-10-16] MEDS: TORSEMIDE 20 MG TABLET. PO SCH (09:14)
[2019-10-16] MEDS: metFORMIN 500 MG TABLET PO SCH ×2 (09:14→18:10)
[2019-10-16] MEDS: ALLOPURINOL 300 MG TABLET. PO SCH (09:14)
[2019-10-16] MEDS: GABAPENTIN 300 MG CAPSULE. PO SCH ×3 (09:14→20:44)
[2019-10-16] MEDS: MAGNESIUM OXIDE 400 MG TABLET PO SCH (09:14)
[2019-10-16] MEDS: CHOLECALCIFEROL (VITAMIN D3) 1,000 UNIT TABLET PO SCH (09:14)
[2019-10-16] MEDS: AZITHROMYCIN 250 MG TABLET. PO SCH (09:14)
[2019-10-16] MEDS: BUDESONIDE 0.5 MG/2 ML NEBU NEB SCH ×2 (09:44→20:46)
[2019-10-16] MEDS: CARVEDILOL 12.5 MG TABLET PO SCH ×2 (11:47→18:11)
[2019-10-16] MEDS: TAMSULOSIN 0.4 MG CAP.ER.24H. PO SCH (20:44)
[2019-10-16] MEDS: MONTELUKAST 10 MG TABLET. PO SCH (20:44)
[2019-10-16] MEDS: ATORVASTATIN CALCIUM 20 MG TABLET PO SCH (20:44)
--- NOTE | 2019-10-16 22:49 | PN ---
DATE: 10/16/2019 SUBJECTIVE: The patient is sitting comfortably in his recliner, in no apparent distress. He is definitely much more comfortable, not tachypneic. Denied any chest pain. PHYSICAL EXAMINATION: GENERAL: When I examined him, he looked well and was clearly in no apparent respiratory distress. He was pale, but no jaundice, cyanosis or thyromegaly. No jugular venous distention, but mild bilateral lower limb edema. VITAL SIGNS: His heart rate was 78, blood pressure was 104/55, temperature was 97.8, respiratory rate was 20, and oxygen saturation was 95% on 3 liters of oxygen. HEAD, EYES, EARS, NOSE AND THROAT: Normocephalic, atraumatic. NECK: Supple. HEART: Showed normal first and second heart sounds. No gallop or murmurs. CHEST: Shows central trachea, equally reduced expansion, reduced air entry, vascular breath sounds with bilateral crepitation. I could not really appreciate any rhonchi. ABDOMEN: Distended, soft, nontender. NEUROLOGIC: He was hard of hearing, otherwise all cranial nerves are intact. He moves extremities without difficulty. His intake over the last 24 hours was 1670, output was 105. LABORATORY DATA: As of this morning showed a white cell count 7900, hemoglobin 10, hematocrit 29, MCV 92, and platelet count 206,000. Serum sodium was 130, potassium 4.2, chloride 95, bicarbonate 25, anion gap of 10, BUN 32, creatinine 0.8, estimated GFR was 92 mL per minute, his glucose 170, calcium was 7.7. Total bilirubin, AST, ALT, alkaline phosphatase slightly elevated. Total protein was 5.3, albumin was 2. His procalcitonin was 1.07. ASSESSMENT: 1. Syncopal episode with fall with resultant abrasion on his right forehead, nose and right arm. 2. Acute on chronic obstructive pulmonary disease exacerbation. 3. Community-acquired pneumonia. 4. Acute on chronic diastolic congestive heart failure. 5. Non-ST segment elevation myocardial infarction. 6. The patient has coronary artery disease, status post coronary artery bypass graft surgery. 7. Hyperlipidemia. 8. Type 2 diabetes. PLAN: Obviously to continue with IV antibiotic in the form of ceftriaxone and Zithromax. He apparently has had an echocardiogram, and echocardiogram showed reduced left ventricular systolic function. He will be transferred to [facility] for cardiac catheterization. If his left ventricular systolic function remained within normal range, he will be discharged to follow with his [facility] group. DEIDRE HANEY MD DR: HUMBERTO/amy JOB#: [id number] / [id number]
[2019-10-17] VITALS (9 sets, daily range): BP systolic 116–169; BP diastolic 53–92
[2019-10-17] MEDS: IPRATRPIUM/ALBUTEROL 0.5/2.5MG 3 ML NEBU. NEB SCH ×4 (05:01→21:22)
[2019-10-17 06:27] LABS: HEMATOCRIT 28.9 % (39.0-53.0); HEMOGLOBIN 9.7 g/dL (13.0-17.5); RED BLOOD COUNT 3.14 x10^6/uL (4.30-5.70); RED CELL DISTRIBUTION WIDTH 14.8 % (11.5-14.5); WHITE BLOOD COUNT 6.9 x10^3/uL (4.0-11.0)
[2019-10-17 06:32] LABS: CALCIUM 7.8 mg/dL (8.5-10.1); CREATININE 0.8 mg/dL (0.7-1.3); GFR 91.9; POTASSIUM 4.5 mmol/L (3.5-5.1)
--- NOTE | 2019-10-17 07:55 | PDOC ---
CARDIO Progress Notes Date & Time Date of Service DATE: 10/17/19 TIME: 07:51 Time of Evaluation 07:51 Subjective Notes No chest pain, shortness of breath. Vitals Vitals Vital Signs Date Time Temp Pulse Resp B/P (MAP) Pulse Ox O2 Delivery O2 Flow Rate FiO2 10/17/19 05:40 97.7 77 22 145/67 (93) 94 Nasal Cannula 3.0 Weight Weight [ ] Input and Output I.O. Intake and Output 10/17/19 07:00 Intake Total 1657 ml Output Total 1800 ml Balance -143 ml Intake Oral 1507 ml IV Total 150 ml Output Urine Total 1800 ml # Bowel Movements 1 Laboratory Labs Laboratory Tests Test 10/15/19 11:23 10/15/19 18:55 10/16/19 06:25 10/17/19 05:55 Prothrombin Time 10.5 SEC (9.4-11.4) Prothromb Time International Ratio 1.0 (0.9-1.1) Activated Partial Thromboplast Time 29 SEC (23-33) 52 SEC (23-33) 48 SEC (23-33) 25 SEC (23-33) White Blood Count 7.9 x10^3/uL (4.0-11.0) 6.9 x10^3/uL (4.0-11.0) Red Blood Count 3.19 x10^6/uL (4.30-5.70) 3.14 x10^6/uL (4.30-5.70) Hemoglobin 9.9 g/dL (13.0-17.5) 9.7 g/dL (13.0-17.5) Hematocrit 29.4 % (39.0-53.0) 28.9 % (39.0-53.0) Mean Corpuscular Volume 92 fL (79-100) 92 fL (79-100) Mean Corpuscular Hemoglobin 31 pg (25-35) 31 pg (25-35) Mean Corpuscular Hemoglobin Concent 34 g/dL (31-37) 34 g/dL (31-37) Red Cell Distribution Width 15.3 % (11.5-14.5) 14.8 % (11.5-14.5) Platelet Count 206 x10^3/uL (140-400) 227 x10^3/uL (140-400) Sodium Level 130 mmol/L (136-145) 131 mmol/L (136-145) Potassium Level 4.2 mmol/L (3.5-5.1) 4.5 mmol/L (3.5-5.1) Chloride Level 95 mmol/L (98-107) 96 mmol/L (98-107) Carbon Dioxide Level 25 mmol/L (21-32) 26 mmol/L (21-32) Anion Gap 10 (6-14) 9 (6-14) Blood Urea Nitrogen 32 mg/dL (8-26) 32 mg/dL (8-26) Creatinine 0.8 mg/dL (0.7-1.3) 0.8 mg/dL (0.7-1.3) Estimated GFR (Cockcroft-Gault) 91.9 91.9 BUN/Creatinine Ratio 40 (6-20) Glucose Level 170 mg/dL (70-99) 146 mg/dL (70-99) Calcium Level 7.7 mg/dL (8.5-10.1) 7.8 mg/dL (8.5-10.1) Total Bilirubin 0.2 mg/dL (0.2-1.0) Aspartate Amino Transf (AST/SGOT) 79 U/L (15-37) Alanine Aminotransferase (ALT/SGPT) 33 U/L (16-63) Alkaline Phosphatase 42 U/L (46-116) Total Protein 5.3 g/dL (6.4-8.2) Albumin 2.0 g/dL (3.4-5.0) Albumin/Globulin Ratio 0.6 (1.0-1.7) Microbiology Micro Microbiology 10/14/19 Blood Culture - Preliminary, Resulted NO GROWTH AFTER 2 DAYS... Physical Exams HEENT: Neck Supple W Full Motion Chest: Symmetric Lungs: Other (diminished bases) Heart: RRR Abdomen: Soft N/T Extremities: No Edema Neurology: alert, oriented, follow commands Assessment Assessment 1. Weakness, near syncope in the setting of hypotension/hypovolemia. improved 2. Dyspnea; multifactorial with CAP, AE COPD, and mild CHF. 3. NSTEMI; peak 1.4. Possibly type II, demand ischemia, but type I cannot be ruled out. No further chest pain. Will await echo 4. Mild acute on chronic systolic CHF; Echo showed mildly decreased LV systolic function with an EF of 40-45%. 5. CAD s/p CABG 2007. 6. H/o hypertension with hypotension upon arrival; resolved 7. Hyperlipidemia; statin therapy 8. Diabetes, II Recommendations Continue secondary prevention Lasix PRN Ongoing antibiotic therapy Given CAD, chest pain, and mildly decreased LV systolic function on repeat echo, recommend [facility] for definitive evaluation. R/b/a discussed with patient and daughter and they are agreeable. Will plan to transfer to [facility] for LHC in am. NPO p [place] Supportive care Additional records obtained form [facility] Echo 11/12/2018 Mild LVH Normal LV systolic function; EF 55-60% Grade 1, mild diastolic dysfunction The left atrium is mildly elevated The RV systolic function is normal Trace aortic regurgitation Trace to mild mitral valve regurgitation Trace to mild tricuspid regurgitation Estimated PAP 43mm Hg SILAS ARDON APRN Oct 17, 2019 07:55
[2019-10-17] MEDS: TORSEMIDE 20 MG TABLET. PO SCH (09:41)
[2019-10-17] MEDS: CARVEDILOL 12.5 MG TABLET PO SCH ×2 (09:42→17:53)
[2019-10-17] MEDS: MAGNESIUM OXIDE 400 MG TABLET PO SCH (09:43)
[2019-10-17] MEDS: OMEGA-3 FATTY ACIDS/FISH OIL 1,000 MG CAPSULE. PO SCH (09:43)
[2019-10-17] MEDS: CHOLECALCIFEROL (VITAMIN D3) 1,000 UNIT TABLET PO SCH (09:43)
[2019-10-17] MEDS: ALLOPURINOL 300 MG TABLET. PO SCH (09:43)
[2019-10-17] MEDS: LACTOBACILLUS RHAMNOSUS GG 1 CAPSULE. PO SCH ×2 (09:44→19:52)
[2019-10-17] MEDS: ASPIRIN 81 MG TAB.CHEW PO SCH (09:44)
[2019-10-17] MEDS: GABAPENTIN 300 MG CAPSULE. PO SCH ×3 (09:44→19:52)
[2019-10-17] MEDS: AZITHROMYCIN 250 MG TABLET. PO SCH (09:44)
[2019-10-17] MEDS: metFORMIN 500 MG TABLET PO SCH (09:44)
[2019-10-17] MEDS: methylPREDNISolone SOD SUCC PF 40 MG/ML VIAL. IV SCH (09:45)
[2019-10-17] MEDS: BUDESONIDE 0.5 MG/2 ML NEBU NEB SCH ×2 (11:17→21:23)
--- NOTE | 2019-10-17 19:38 | PN ---
DATE: SUBJECTIVE: The patient is resting comfortably in his recliner, in no apparent distress. On questioning him, he denied any complaint, in particular any chest pain or shortness of breath. He said that he could not sleep last night because he has been coughing the whole night and sleeping about 4:00 in the morning. When I examined him, he definitely looks much better today. He is not tachypneic, not using his accessory muscles, is not in tripod position. He was pale, but no jaundice, cyanosis or thyromegaly. No jugular venous distention. No limb edema. PHYSICAL EXAMINATION: VITAL SIGNS: His heart rate was 81, blood pressure 116/53, temperature 97.5, respiratory rate was 22 and oxygen saturation was 95% on 3 liters of oxygen. HEAD, EYES, EARS, NOSE AND THROAT: Showed normocephalic, atraumatic. NECK: Supple. HEART: Showed normal first and second heart sounds. No gallop or murmur. CHEST: Showed central trachea, equally reduced expansion, reduced air entry, vesicular sounds with bilateral crepitation posteriorly. Few scattered rhonchi. ABDOMEN: Distended, soft, nontender. No guarding or rigidity. No organomegaly. All hernial orifices intact. Bowel sounds present. NEUROLOGIC: Neurologically, he is hard of hearing. Otherwise, all cranial nerves are intact. He moves extremities without difficulty. His intake over the last 24 hours was 2365, output was 725. LABORATORY DATA: Showed a serum sodium 131, potassium 4.5, chloride 96, bicarbonate 26, anion gap of 9, BUN 32, creatinine 0.8, estimated GFR was 92 mL per minute. Her glucose 146, calcium was 7.8. Total bilirubin, AST, ALT, alkaline phosphatase were normal. Total protein was 5.3, albumin 2. ASSESSMENT: 1. Marked shortness of breath due to; A. Community-acquired pneumonia. B. Acute chronic obstructive pulmonary disease exacerbation. C. Acute congestive heart failure. 2. Non-ST segment elevation myocardial infarction with troponin peaking at 1.4. The patient has acute on chronic systolic congestive heart failure. Echocardiogram showed mildly decreased left ventricular systolic function with an ejection fraction of 40-45%, coronary artery disease, status post coronary artery bypass graft. Continue current secondary prevention measures. 3. Hypertension. 4. Hyperlipidemia. 5. Type 2 diabetes. PLAN: To transfer the patient tomorrow morning to [facility] for cardiac catheterization. DEIDRE HANEY MD DR: HUMBERTO/amy JOB#: [id number] / [id number]
[2019-10-17] MEDS: ATORVASTATIN CALCIUM 20 MG TABLET PO SCH (19:52)
[2019-10-17] MEDS: TAMSULOSIN 0.4 MG CAP.ER.24H. PO SCH (19:52)
[2019-10-17] MEDS: CEFDINIR 300 MG CAPSULE PO SCH (19:52)
[2019-10-17] MEDS: MONTELUKAST 10 MG TABLET. PO SCH (19:52)
[2019-10-18 04:40] VITALS: BP 161/68
[2019-10-18] MEDS: IPRATRPIUM/ALBUTEROL 0.5/2.5MG 3 ML NEBU. NEB SCH (05:02)
[2019-10-18 06:35] VITALS: BP 152/73
[2019-10-18 06:38] LABS: BASO % 0 % (0-3); EOS % 0 % (0-3); HEMATOCRIT 30.8 % (39.0-53.0); HEMOGLOBIN 10.1 g/dL (13.0-17.5); LYMPH # 0.3 x10^3/uL (1.0-4.8); LYMPH % 4 % (24-48); MEAN CORPUSCULAR HEMOGLOBIN 30 pg (25-35); MEAN CORPUSCULAR HGB CONC 33 g/dL (31-37); MEAN CORPUSCULAR VOLUME 92 fL (79-100); MONO # 0.4 x10^3/uL (0.0-1.1); MONO % 5 % (0-9); NEUT % 91 % (31-73); PLATELET COUNT 264 x10^3/uL (140-400); RED BLOOD COUNT 3.36 x10^6/uL (4.30-5.70); RED CELL DISTRIBUTION WIDTH 14.8 % (11.5-14.5); WHITE BLOOD COUNT 7.7 x10^3/uL (4.0-11.0)
[2019-10-18 06:51] LABS: ALBUMIN 2.1 g/dL (3.4-5.0); ALBUMIN/GLOBULIN RATIO 0.6 (1.0-1.7); CALCIUM 7.8 mg/dL (8.5-10.1); CREATININE 0.7 mg/dL (0.7-1.3); GFR 107.2; POTASSIUM 4.4 mmol/L (3.5-5.1); TOTAL BILIRUBIN 0.2 mg/dL (0.2-1.0); TOTAL PROTEIN 5.5 g/dL (6.4-8.2)
[2019-10-18 07:01] LABS: % LYMPHS 4 % (24-48); % MONOS 4 % (0-10); % SEGS 92 % (35-66); PLT ESTIMATE ADEQUATE (ADEQUATE); TOXIC GRANULATION SLIGHT
[2019-10-18 07:02] LABS: ANISOCYTOSIS SLIGHT
[2019-10-18] MEDS: CEFDINIR 300 MG CAPSULE PO SCH (08:42)
[2019-10-18 08:43] VITALS: BP 152/73
[2019-10-18] MEDS: TORSEMIDE 20 MG TABLET. PO SCH (08:43)
[2019-10-18] MEDS: GABAPENTIN 300 MG CAPSULE. PO SCH (08:43)
[2019-10-18] MEDS: AZITHROMYCIN 250 MG TABLET. PO SCH (08:43)
[2019-10-18] MEDS: ASPIRIN 81 MG TAB.CHEW PO SCH (08:43)
[2019-10-18] MEDS: LACTOBACILLUS RHAMNOSUS GG 1 CAPSULE. PO SCH (08:43)
[2019-10-18] MEDS: CARVEDILOL 12.5 MG TABLET PO SCH (08:43)
[2019-10-18] MEDS: ALLOPURINOL 300 MG TABLET. PO SCH (08:43)
[2019-10-18] MEDS: CHOLECALCIFEROL (VITAMIN D3) 1,000 UNIT TABLET PO SCH (08:44)
[2019-10-18] MEDS: MAGNESIUM OXIDE 400 MG TABLET PO SCH (08:44)
[2019-10-18] MEDS: OMEGA-3 FATTY ACIDS/FISH OIL 1,000 MG CAPSULE. PO SCH (08:44)
[2019-10-18] MEDS: BUDESONIDE 0.5 MG/2 ML NEBU NEB SCH (08:53)
[2019-10-18] MEDS ORDERED: predniSONE 20 MG TABLET PO SCH (09:00)
== END 2019-10-18 09:00 | disposition short-term general hospital (02) | DRG 280 ==
LOC: ER 09:37 → ICU 12:22
PROVIDERS: ADMIT Internal Medicine; ATTEND Internal Medicine
DX: I21.4 Non-ST elevation (NSTEMI) myocardial infarction (principal); G93.41 Metabolic encephalopathy; J18.9 Pneumonia, unspecified organism; J96.01 Acute respiratory failure with hypoxia; I50.43 Acute on chronic combined systolic (congestive) and diastolic (congestive) heart failure; J44.0 Chronic obstructive pulmonary disease with (acute) lower respiratory infection; J44.1 Chronic obstructive pulmonary disease with (acute) exacerbation; E11.9 Type 2 diabetes mellitus without complications; E78.5 Hyperlipidemia, unspecified; E86.1 Hypovolemia; I11.0 Hypertensive heart disease with heart failure; I25.10 Atherosclerotic heart disease of native coronary artery without angina pectoris; I25.2 Old myocardial infarction; I25.5 Ischemic cardiomyopathy; N40.0 Benign prostatic hyperplasia without lower urinary tract symptoms; R29.6 Repeated falls; S00.81XA Abrasion of other part of head, initial encounter; Z82.49 Family history of ischemic heart disease and other diseases of the circulatory system; Z82.5 Family history of asthma and other chronic lower respiratory diseases; Z87.440 Personal history of urinary (tract) infections; Z87.891 Personal history of nicotine dependence; Z90.49 Acquired absence of other specified parts of digestive tract; Z95.1 Presence of aortocoronary bypass graft; Z95.5 Presence of coronary angioplasty implant and graft; Z98.41 Cataract extraction status, right eye; Z98.42 Cataract extraction status, left eye; W18.39XA Other fall on same level, initial encounter; Y93.89 Activity, other specified; Y92.89 Other specified places as the place of occurrence of the external cause; Y99.8 Other external cause status
CPT/HCPCS: 36415; 36600; 70450; 70486; 71045; 72125; 80048; 80053; 80061; 81001; 82140; 82803; 83605; 83735; 83880; 84145; 84484; 85007; 85025; 85027; 85610; 85730; 87040; 87804; 93005; 93306; 94640; 96361; 96365; J0456; J0696; J1644; J2270; J2920; J7512; J7626; P9612; 97530; 99285-25; J7030

== ENCOUNTER 2019-10-19 14:26 | Inpatient (IN) | payer MEDICARE ==
[~2019-10-19] VITALS: Ht 177.8 cm; Wt 74.0 kg
[2019-10-22 14:47] VITALS: BP 136/66
[2019-10-22] MEDS ORDERED: GUAI-112 PO (16:09)
[2019-10-22] MEDS ORDERED: FURO40TA4 PO (16:09)
[2019-10-22] MEDS ORDERED: ALBU2.5V5 NEB (16:09)
[2019-10-22] MEDS ORDERED: LACT1POW11 PO (16:09)
[2019-10-22] MEDS ORDERED: BUDE0.5A11 IH (16:09)
[2019-10-22] MEDS ORDERED: TAMS0.4C97 PO (16:09)
[2019-10-22] MEDS ORDERED: CEFD300C PO (16:09)
[2019-10-22] MEDS ORDERED: CARV25TA2 PO (16:09)
[2019-10-22] MEDS ORDERED: ATOR40TA59 PO (16:09)
[2019-10-22] MEDS ORDERED: MONT10TA80 PO (16:09)
[2019-10-22] MEDS ORDERED: ISOS30TA4 PO (16:09)
--- NOTE | 2019-10-22 16:28 | NUR ---
Swing Bed Admission Patient Handbook for Snf given to patient. Nursing Problem: PT/OT EVAL AND TREAT, STATUS POST NSTEMI, CHF EXACERBATION Cognitive/Behavioral: Alert and oriented x 4, speech is clear, able to make wants and needs known and able to verbalize understanding of others. Pain: denies any pain at this time Respiratory Status: O2 3L VIA NC Continuous, also has at home .Crackles in bl bases ( expiratory ), Crackles inspiratory in RUL. SOB with exertion, respirations are even and unlabored, non productive wet cough present. Skin: Thin, fragile, pale and cold. Abrasion to forehead and scan to nose from fall. Bowel/Bladder Continence: Incontinent of bladder at times, wears disposable briefs. Continent of bowel movement . Last BM 10/20/2019. ADL Functional Status: x1 Assist with gait belt and walker, unsteady and weak. Fall(s) prior to admission? yes, multiple falls at home Admitted from? [facility]
[2019-10-22] MEDS: IPRATRPIUM/ALBUTEROL 0.5/2.5MG 3 ML NEBU. NEB SCH ×2 (17:00→21:07)
[2019-10-22] MEDS ORDERED: ALBUTEROL SULFATE 2.5 MG/3 ML NEBU. NEB PRN (18:00)
[2019-10-22 18:36] VITALS: BP 160/71
[2019-10-22] MEDS: GABAPENTIN 300 MG CAPSULE. PO SCH (21:00)
[2019-10-22] MEDS: BUDESONIDE 0.5 MG/2 ML NEBU IH SCH (21:07)
[2019-10-22] MEDS: TAMSULOSIN 0.4 MG CAP.ER.24H. PO SCH (21:26)
[2019-10-22] MEDS: guaiFENesin/PS-EPHED 600/60MG 1 TAB TAB.ER.12H PO SCH (21:26)
[2019-10-22] MEDS: MONTELUKAST 10 MG TABLET. PO SCH (21:27)
[2019-10-22] MEDS: ATORVASTATIN CALCIUM 20 MG TABLET PO SCH (21:27)
[2019-10-22] MEDS: CARVEDILOL 12.5 MG TABLET PO SCH (21:27)
[2019-10-22] MEDS ORDERED: CHOL200078 PO (23:36)
--- NOTE | 2019-10-23 04:06 | NUR ---
Swing Bed Nursing Note Nursing Problem: PT ADMITTED TO SNU FOR PT/OT STRENGTHENING AND RECONDITIONING, S/P NSTEMI WITH CARDIAC CATH, CHF EXACERBATION, AND WEAKNESS/FALLS. Cognitive/Behavioral: PT A/OX3, FORGETFUL AT TIMES. PT IS VERY [place], HAS BILATERAL HEARING AIDS. UPON ASSESSMENT, PT SITTING UP ON SIDE OF BED EATING SNACK INDEPENDENTLY. NO BEHAVIORS NOTED. Pain: PT DENIES ANY PAIN OR DISCOMFORT THIS SHIFT. Respiratory Status: LUNGS AUSCULTATED WITH COARSE BASES. MOIST COUGH NOTED WITH SMALL PINK SPUTUM EXPECTORATED. PT HAS COPD, WEARS 3L BY NC AT ALL TIMES. PT MORE SOA WITH EXERTION, BUT ALSO REPORTS SOA AT REST. UNABLE TO LIE FLAT, HOB ELEVATED AT 45 DEGREES. RT FOLLOWING PT FOR BREATHING TX QID. Skin: PT HAD FALL AT HOME PRIOR TO 10/14 ADMIT AND SUSTAINED EXTENSIVE ABRASIONS TO FACE, BUE AND BLE. 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 SKIN IS OTHERWISE THIN, DRY, AND FRAGILE/FRIABLE. COCCYX INTACT. Bowel/Bladder Continence: PT WEARING PULL UP FOR COMFORT. NOTED TO HAVE DRIBBLING OF BLADDER. VOIDED CLEAR, STRAW URINE IN TOILET. CONT OF BOWEL, LBM REPORTED 10/20/19. ADL Functional Status: PT INDEPENDENT WITH BED MOBILITY. ABLE TO SIT UP TO SIDE OF BED, BUT REQUIRES X1-2 BOOST FROM SITTING TO STANDING. USED WALKER AND GAIT BELT X1 ASSIST TO AMB TO BATHROOM. PT REQUESTED STAFF ASSIST IN PULLING DOWN BRIEF, BUT WAS ABLE TO PULL UP BY HIMSELF. PT CHANGED FROM GOWN TO THERMAL SHIRT WITH X1 ASSIST, DUE TO FEELING COLD. PT TOOK HS PILLS WHOLE, [id number]-TIME. TOLERATED WELL. DECLINED HS SNACK. PT REFUSED BATHING TONIGHT, PREFERS TO SHOWER IN AM.
[2019-10-23] MEDS: IPRATRPIUM/ALBUTEROL 0.5/2.5MG 3 ML NEBU. NEB SCH ×4 (05:58→21:06)
[2019-10-23 06:12] VITALS: BP 150/71
[2019-10-23 06:39] LABS: BASO % 0 % (0-3); EOS % 0 % (0-3); HEMATOCRIT 32.4 % (39.0-53.0); HEMOGLOBIN 10.7 g/dL (13.0-17.5); LYMPH # 0.8 x10^3/uL (1.0-4.8); LYMPH % 6 % (24-48); MEAN CORPUSCULAR HEMOGLOBIN 30 pg (25-35); MEAN CORPUSCULAR HGB CONC 33 g/dL (31-37); MEAN CORPUSCULAR VOLUME 91 fL (79-100); MONO # 1.1 x10^3/uL (0.0-1.1); MONO % 8 % (0-9); NEUT # 11.3 x10^3uL (1.8-7.7); NEUT % 85 % (31-73); PLATELET COUNT 453 x10^3/uL (140-400); RED BLOOD COUNT 3.57 x10^6/uL (4.30-5.70); RED CELL DISTRIBUTION WIDTH 15.2 % (11.5-14.5); WHITE BLOOD COUNT 13.2 x10^3/uL (4.0-11.0)
[2019-10-23 06:41] LABS: ALBUMIN 2.3 g/dL (3.4-5.0); ALBUMIN/GLOBULIN RATIO 0.7 (1.0-1.7); CALCIUM 7.9 mg/dL (8.5-10.1); CREATININE 0.5 mg/dL (0.7-1.3); POTASSIUM 3.7 mmol/L (3.5-5.1); TOTAL BILIRUBIN 0.6 mg/dL (0.2-1.0); TOTAL PROTEIN 5.4 g/dL (6.4-8.2)
[2019-10-23] MEDS: guaiFENesin/PS-EPHED 600/60MG 1 TAB TAB.ER.12H PO SCH (08:40)
[2019-10-23] MEDS: predniSONE 10 MG TABLET PO SCH (08:40)
[2019-10-23] MEDS: CEFDINIR 300 MG CAPSULE PO SCH ×2 (08:40→20:57)
[2019-10-23] MEDS: ISOSORBIDE MONONITRATE ER 30 MG TAB.ER.24H PO SCH (08:40)
[2019-10-23] MEDS: LACTOBACILLUS RHAMNOSUS GG 1 CAPSULE. PO SCH (08:40)
[2019-10-23] MEDS: CARVEDILOL 12.5 MG TABLET PO SCH ×2 (08:40→17:20)
[2019-10-23] MEDS: GABAPENTIN 300 MG CAPSULE. PO SCH ×3 (08:40→20:57)
[2019-10-23] MEDS: FUROSEMIDE 40 MG TABLET PO SCH (08:41)
[2019-10-23] MEDS: MAGNESIUM OXIDE 400 MG TABLET PO SCH (08:41)
[2019-10-23] MEDS: ALLOPURINOL 300 MG TABLET. PO SCH (08:41)
[2019-10-23] MEDS: ASPIRIN 81 MG TAB.CHEW PO SCH (08:41)
[2019-10-23] MEDS: CHOLECALCIFEROL (VITAMIN D3) 1,000 UNIT TABLET PO SCH (08:41)
[2019-10-23] MEDS: OMEGA-3 FATTY ACIDS/FISH OIL 1,000 MG CAPSULE. PO SCH (08:41)
[2019-10-23] MEDS ORDERED: TORSEMIDE 20 MG TABLET. PO SCH (09:00)
[2019-10-23] MEDS ORDERED: predniSONE 20 MG TABLET PO SCH (09:00)
[2019-10-23] MEDS: BUDESONIDE 0.5 MG/2 ML NEBU IH SCH ×2 (09:44→21:06)
--- NOTE | 2019-10-23 09:52 | NUR ---
Pt c/o SOB. Turned O2 from 3 to 4 L NC. PRN breathing tx administered. Pt saturation currently 95%.
--- NOTE | 2019-10-23 14:18 | NUR ---
Swing Bed Nursing Note Nursing Problem: PT ADMITTED TO SNU FOR PT/OT STRENGTHENING AND RECONDITIONING, S/P NSTEMI WITH CARDIAC CATH, CHF EXACERBATION, AND WEAKNESS/FALLS. Cognitive/Behavioral: PT A/OX3, FORGETFUL AT TIMES. PT IS VERY [place], HAS BILATERAL HEARING AIDS. UPON ASSESSMENT, PT SITTING UP ON SIDE OF BED EATING BREAKFAST INDEPENDENTLY. Pain: PT DENIES ANY PAIN OR DISCOMFORT THIS SHIFT. Respiratory Status: LUNGS AUSCULTATED WITH COARSE THROUGHOUT. MOIST COUGH NOTED WITH SMALL PINK SPUTUM EXPECTORATED. PT HAS COPD, WEARS 3L BY NC AT ALL TIMES. PT MORE SOA WITH EXERTION, BUT ALSO REPORTS SOA AT REST. UNABLE TO LIE FLAT, HOB ELEVATED AT 45 DEGREES. RT FOLLOWING PT FOR BREATHING TX QID. Skin: PT HAD FALL AT HOME PRIOR TO 10/14 ADMIT AND SUSTAINED EXTENSIVE ABRASIONS TO FACE, BUE AND BLE. 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 SKIN IS OTHERWISE THIN, DRY, AND FRAGILE/FRIABLE. COCCYX INTACT. Bowel/Bladder Continence: PT WEARING PULL UP FOR COMFORT. NOTED TO HAVE DRIBBLING OF BLADDER. VOIDED CLEAR, STRAW URINE IN TOILET. CONT OF BOWEL, LBM REPORTED 10/20/19. ADL Functional Status: PT INDEPENDENT WITH BED MOBILITY. ABLE TO SIT UP TO SIDE OF BED, BUT REQUIRES X1-2 BOOST FROM SITTING TO STANDING. USED WALKER AND GAIT BELT X1 ASSIST TO AMB TO BATHROOM. PT REQUESTED STAFF ASSIST IN PULLING DOWN BRIEF, BUT WAS ABLE TO PULL UP BY HIMSELF. PT CHANGED FROM GOWN TO THERMAL SHIRT WITH X1 ASSIST, DUE TO FEELING COLD. PT TOOK HS PILLS WHOLE, OPP-PS-L-TIME. TOLERATED WELL. DECLINED HS SNACK. PT REFUSED BATHING TONIGHT, PREFERS TO SHOWER IN AM.
[2019-10-23 14:21] LABS: % BANDS 1 % (0-9); % LYMPHS 10 % (24-48); % MONOS 4 % (0-10); % SEGS 85 % (35-66)
[2019-10-23 14:22] LABS: PLT ESTIMATE INCREASED (ADEQUATE)
--- NOTE | 2019-10-23 16:18 | HP ---
ADMIT DATE: 10/23/2019 HISTORY OF PRESENT ILLNESS: The patient is an 84-year-old male patient who was transferred yesterday from [facility]. He was admitted there as he has non-ST segment elevation myocardial infarction and he underwent cardiac catheterization, which basically was unremarkable, which showed that his grafts are patent and according to the benefits director, has non-ST segment elevation myocardial infarction, probably type 2 demand ischemia and recommended continuation of aggressive medical treatment and has continued to be debilitated and deconditioned, the decision was made to transfer him to swing bed to continue the physical therapy. PAST MEDICAL HISTORY: Significant for hypertension, type 2 diabetes mellitus, coronary artery disease, status post myocardial infarction treated with PTCA and stent deployment, eventually had an open heart surgery about 8 years ago. He is known to have hyperlipidemia, chronic obstructive pulmonary disease, recurrent urinary tract infection, benign prostatic hypertrophy, congestive heart failure, ischemic cardiomyopathy, most recent admission he had non-ST segment elevation myocardial infarction with acute on chronic systolic congestive heart failure as prior echocardiograms done at [facility]. PAST SURGICAL HISTORY: Significant for PCI and stent deployment, coronary artery bypass graft surgery, appendectomy, umbilical hernia repair, bilateral cataract extraction, partial right fourth and fifth toe amputation and transurethral resection of the prostate x 2. ALLERGIES: HE IS ALLERGIC TO CODEINE, SULFAMETHOXAZOLE AND TRIMETHOPRIM. FAMILY HISTORY: He has one brother younger, known to have sick sinus syndrome, for which she has a permanent pacemaker. His other 4 brothers are all . One sister because of coronary artery disease. His father at age of 92 because of chronic obstructive pulmonary disease and myocardial infarction. His mother at age of 56 because of myocardial infarction. SOCIAL HISTORY: He is , lives currently with his daughter. He is an ex-smoker, quit 20 years ago. He also used to be a heavy drinker, but quit about 3 years ago. 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 He has 3 daughters, live around this area. REVIEW OF SYSTEMS: As per history of present illness. MEDICATIONS: He is currently on following medications: He is on vitamin D 20346 international unit once a day, cefdinir 400 mg twice a day, prednisone 40 mg tapering fashion. Lactobacillus rhamnosus 1 capsule once a day, isosorbide mononitrate 30 mg daily, furosemide 40 mg daily, magnesium oxide 400 mg daily, fish oil 1000 mg once a day, atorvastatin calcium 40 mg at bedtime, tamsulosin 0.4 mg at bedtime, Singulair 10 mg at bedtime, guaifenesin 600 mg twice a day, Pulmicort 0.5 mg twice a day, gabapentin 300 mg 3 times a day, albuterol sulfate 2.5 mg every 6 hours, carvedilol 12.5 mg twice a day and DuoNeb in 3 mL by nebulizer 4 times a day. PHYSICAL EXAMINATION: GENERAL: When I examined him this afternoon, he was resting slightly propped up in bed, in no apparent respiratory distress, pale, but no jaundice, cyanosis, or thyromegaly. No jugular venous distension. No limb edema. VITAL SIGNS: His heart rate was 71, blood pressure was 150/71, temperature 97.5, respiratory rate was 20, and oxygen saturation was 96% on 3 liters of oxygen. HEAD, EYES, EARS, NOSE AND THROAT: Showed normocephalic, atraumatic. NECK: Supple. HEART: Showed normal first and second heart sounds. No gallop, rub or murmur. CHEST: Clear to auscultation. No crepitation or rhonchi. ABDOMEN: Distended, soft, nontender. No guarding or rigidity. No organomegaly. All hernial orifices intact. Bowel sounds normal. NEUROLOGIC: He was hard of hearing, otherwise all his cranial nerves are intact. EXTREMITIES: He moves extremities without difficulty, ambulates with a walker. LABORATORY DATA: His lab work showed a white cell count of 13,000, hemoglobin 10, hematocrit 32, MCV 91, and platelet count of 453,000. His chemistry showed a serum sodium 129, potassium 3.7, chloride 89, bicarbonate 36, anion gap of 4, BUN 19, creatinine 0.5, estimated GFR was 58 mL per minute. His glucose is 110, calcium was 7.9. Total bilirubin, AST, ALT, alkaline phosphatase were normal. Total protein 5.4, albumin 2.3. ASSESSMENT AND PLAN: In summary, this is an 84-year-old male patient who was admitted originally with shortness of breath and chest pain and was found to have markedly elevated troponin and was diagnosed with non-ST segment elevation myocardial infarction. At that time, he was also admitted with [id number] hypoxic respiratory failure, acute on chronic systolic congestive heart failure and community-acquired pneumonia. A decision was made to transfer him to as his echocardiogram showed that his ejection fraction was low at 40%. A decision was made to transfer him to [facility] where he underwent catheterization, which showed that all his grafts are patent and therefore, a decision was made to admit him to swing bed to continue with medical treatment. Continue with physical and occupational therapy. DEIDRE HANEY MD DR: HUMBERTO/amy JOB#: [id number] / [id number]
[2019-10-23 18:06] VITALS: BP 105/59
[2019-10-23] MEDS: ATORVASTATIN CALCIUM 20 MG TABLET PO SCH (20:56)
[2019-10-23] MEDS: TAMSULOSIN 0.4 MG CAP.ER.24H. PO SCH (20:57)
[2019-10-23] MEDS: MONTELUKAST 10 MG TABLET. PO SCH (20:57)
--- NOTE | 2019-10-23 22:41 | NUR ---
Swing Bed Nursing Note Nursing Problem: PT ADMITTED FOR PT/OT STRENGTHENING AND RECONDITIONING, S/P NSTEMI WITH CARDIAC CATH, CHF EXACERBATION, PNEUMONIA AND WEAKNESS/FALLS. Cognitive/Behavioral: PT A/OX3, FORGETFUL AT TIMES. PT IS VERY [place], HAS BILATERAL HEARING AIDS. UPON ASSESSMENT, PT LAYING DOWN IN BED WATCHING TV. NO BEHAVIORS NOTED. Pain: PT DENIES ANY PAIN OR DISCOMFORT THIS SHIFT. Respiratory Status: LUNGS AUSCULTATED WITH COARSE/WHEEZY. MOIST COUGH NOTED. PT HAS COPD, WEARS 3L BY NC AT ALL TIMES. PT WAS ON 4L AT SHIFT CHANGE, REPORTING SHORTNESS OF BREATH AFTER GOING TO THE BATHROOM REQUESTING HIS OXYGEN TO BE TURNED UP MORE. OXYGEN LEVEL CHECKED AND WAS 97%. OXYGEN TURNED BACK DOWN TO 3L, RT ON THE UNIT TO ADMINISTER BREATHING TREATMENT. REEDUCATED PT ON THE DANGERS OF GETTING TO MUCH OXYGEN WITH HIS COPD. WILL CONTINUE TO MONITOR HIS O2 LEVELS. UNABLE TO LIE FLAT, HOB ELEVATED AT 45 DEGREES. Skin: PT HAD FALL AT HOME PRIOR TO 10/14 ADMIT AND SUSTAINED EXTENSIVE ABRASIONS TO FACE, BUE AND BLE. 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 SKIN IS OTHERWISE THIN, DRY, AND FRAGILE/FRIABLE. COCCYX INTACT. Bowel/Bladder Continence: PT WEARING PULL UP FOR COMFORT. NOTED TO HAVE DRIBBLING OF BLADDER. CONT OF BOWEL, LBM REPORTED 10/20/19. ADL Functional Status: PT INDEPENDENT WITH BED MOBILITY. ABLE TO SIT UP TO SIDE OF BED, BUT REQUIRES X1 BOOST FROM SITTING TO STANDING. USED WALKER AND GAIT BELT X1 ASSIST TO AMB TO BATHROOM. PT REQUESTED STAFF ASSIST IN PULLING DOWN BRIEF, BUT WAS ABLE TO PULL UP BY HIMSELF. PT CHANGED FROM GOWN TO THERMAL SHIRT WITH X1 ASSIST. PT TOOK HS PILLS WHOLE, [id number]-TIME. TOLERATED WELL. PT PREFERS TO SHOWER IN AM.
[2019-10-24 04:54] VITALS: BP 146/65
[2019-10-24] MEDS: IPRATRPIUM/ALBUTEROL 0.5/2.5MG 3 ML NEBU. NEB SCH ×4 (05:44→20:57)
[2019-10-24] MEDS: ISOSORBIDE MONONITRATE ER 30 MG TAB.ER.24H PO SCH (08:22)
[2019-10-24] MEDS: ASPIRIN 81 MG TAB.CHEW PO SCH (08:22)
[2019-10-24] MEDS: MAGNESIUM OXIDE 400 MG TABLET PO SCH (08:22)
[2019-10-24] MEDS: LACTOBACILLUS RHAMNOSUS GG 1 CAPSULE. PO SCH (08:22)
[2019-10-24] MEDS: ALLOPURINOL 300 MG TABLET. PO SCH (08:22)
[2019-10-24] MEDS: FUROSEMIDE 40 MG TABLET PO SCH (08:22)
[2019-10-24] MEDS: OMEGA-3 FATTY ACIDS/FISH OIL 1,000 MG CAPSULE. PO SCH (08:23)
[2019-10-24] MEDS: CARVEDILOL 12.5 MG TABLET PO SCH ×2 (08:23→17:34)
[2019-10-24] MEDS: predniSONE 10 MG TABLET PO SCH (08:23)
[2019-10-24] MEDS: CHOLECALCIFEROL (VITAMIN D3) 1,000 UNIT TABLET PO SCH (08:23)
[2019-10-24] MEDS: GABAPENTIN 300 MG CAPSULE. PO SCH ×3 (08:23→20:33)
[2019-10-24] MEDS: BUDESONIDE 0.5 MG/2 ML NEBU IH SCH ×2 (09:00→20:57)
[2019-10-24] MEDS: CEFDINIR 300 MG CAPSULE PO SCH ×2 (09:01→20:33)
--- NOTE | 2019-10-24 15:46 | NUR ---
SWING BED DOCUMENTATION NURSING PROBLEM: PT ADMITTED TO [facility] FOR PT/OT STRENGTHENING AND RECONDITIONING, S/P NSTEMI WITH CARDIAC CATH, CHF EXACERBATION, AND WEAKNESS/FALLS. COGNITIVE/BEHAVIORAL: PT IS A&O X4 TODAY BUT IS FORGETFUL. PT IS CALM, COOPERATIVE, AND COMPLIANT WITH CARES EXCEPT PT REFUSED TO COME DOWN FOR BREAKFAST TO DINING ROOM. PT DID COME DOWN FOR LUNCH. PAIN: PT DENIES PAIN. RESPIRATORY STATUS: PT IS ON 3L OF OXYGEN. PT LUNGS COURSE THIS MORNING. PT HAS A PRODUCTIVE COUGH BUT DOES NOT COUGH ANYTHING OUT AT THIS TIME. PT IS SOA WITH EXERTION. PT HAS BERATING TREATMENTS SCHEDULED. SKIN: PT SKIN IS DRY WITH OLD SCABS AND BRUISING FROM HX OF FALLS BEFORE ADMISSION. BOWEL AND BLADDER: LBM REPORTED WAS 10/20/2019. PT REFUSED PRUNE JUICE AT THIS TIME. PT WEARS BRIEF FOR DRIBBLING. PT IS ABLE TO KNOW WHEN HE NEEDS TO USE THE REST ROOM. ADL FUNCTIONAL STATUS: PT USES WALKER AND GAIT BELT WITH X1 ASSISTANCE TO GET TO THE RESTROOM. PT IS INDEPENDENT WITH HIS MEALS. PT IS INDEPENDENT IN THE BED. PT WAS ABLE TO PUT HIS OWN SWEATSHIRT ON AT LUNCH. PT IS X1 ASSIST FROM SITTING TO STANDING. PT WAS SITTING IN HIS WHEELCHAIR FOR BREAKFAST. EMMANUEL GODDARD.
[2019-10-24 18:38] VITALS: BP 108/64
[2019-10-24] MEDS: MONTELUKAST 10 MG TABLET. PO SCH (20:33)
[2019-10-24] MEDS: ATORVASTATIN CALCIUM 20 MG TABLET PO SCH (20:34)
[2019-10-24] MEDS: TAMSULOSIN 0.4 MG CAP.ER.24H. PO SCH (20:34)
--- NOTE | 2019-10-24 21:24 | NUR ---
Swing Bed Nursing Note Nursing Problem: PT ADMITTED FOR PT/OT STRENGTHENING AND RECONDITIONING, S/P NSTEMI WITH CARDIAC CATH, CHF EXACERBATION, PNEUMONIA AND WEAKNESS/FALLS. Cognitive/Behavioral: PT A/OX3, FORGETFUL AT TIMES. PT IS VERY [place], HAS BILATERAL HEARING AIDS. UPON ASSESSMENT, PT LAYING DOWN IN BED WATCHING TV. NO BEHAVIORS NOTED. Pain: PT DENIES ANY PAIN OR DISCOMFORT THIS SHIFT. Respiratory Status: LUNGS AUSCULTATED WITH COARSE/WHEEZY. MOIST COUGH NOTED. PT HAS COPD, WEARS 3L BY NC AT ALL TIMES. UNABLE TO LIE FLAT, HOB ELEVATED AT 45 DEGREES. Skin: PT HAD FALL AT HOME PRIOR TO 10/14 ADMIT AND SUSTAINED EXTENSIVE ABRASIONS TO FACE, BUE AND BLE. AREAS ARE NOW SCABBED OVER AND FLOOR LAYER TILE. SKIN IS OTHERWISE THIN, DRY, AND FRAGILE/FRIABLE. COCCYX INTACT. Bowel/Bladder Continence: PT WEARING PULL UP FOR COMFORT. NOTED TO HAVE DRIBBLING OF BLADDER. CONT OF BOWEL, LBM REPORTED 10/20/19. ADL Functional Status: PT INDEPENDENT WITH BED MOBILITY. ABLE TO SIT UP TO SIDE OF BED, BUT REQUIRES X1 BOOST FROM SITTING TO STANDING. USED WALKER AND GAIT BELT X1 ASSIST TO AMB TO BATHROOM. PT ABLE TO PULL PANTS DOWN/UP INDEPENDENTLY. PT TOOK HS PILLS WHOLE, [id number]-TIME.
[2019-10-25 04:37] VITALS: BP 142/70
[2019-10-25] MEDS: IPRATRPIUM/ALBUTEROL 0.5/2.5MG 3 ML NEBU. NEB SCH ×4 (05:37→22:07)
[2019-10-25] MEDS: ALLOPURINOL 300 MG TABLET. PO SCH (08:39)
[2019-10-25] MEDS: ASPIRIN 81 MG TAB.CHEW PO SCH (08:39)
[2019-10-25] MEDS: CARVEDILOL 12.5 MG TABLET PO SCH ×2 (08:39→17:16)
[2019-10-25] MEDS: ISOSORBIDE MONONITRATE ER 30 MG TAB.ER.24H PO SCH (08:39)
[2019-10-25] MEDS: LACTOBACILLUS RHAMNOSUS GG 1 CAPSULE. PO SCH (08:39)
[2019-10-25] MEDS: GABAPENTIN 300 MG CAPSULE. PO SCH ×3 (08:39→20:53)
[2019-10-25] MEDS: FUROSEMIDE 40 MG TABLET PO SCH (08:39)
[2019-10-25] MEDS: OMEGA-3 FATTY ACIDS/FISH OIL 1,000 MG CAPSULE. PO SCH (08:39)
[2019-10-25] MEDS: predniSONE 10 MG TABLET PO SCH (08:39)
[2019-10-25] MEDS: DOCUSATE SODIUM 100 MG CAPSULE PO SCH (08:40)
[2019-10-25] MEDS: MAGNESIUM OXIDE 400 MG TABLET PO SCH (08:40)
[2019-10-25] MEDS: CHOLECALCIFEROL (VITAMIN D3) 1,000 UNIT TABLET PO SCH (08:43)
[2019-10-25] MEDS: BUDESONIDE 0.5 MG/2 ML NEBU IH SCH ×2 (10:55→22:07)
--- NOTE | 2019-10-25 14:55 | NUR ---
Swing Bed Nursing Note Nursing Problem: PT ADMITTED FOR PT/OT STRENGTHENING AND RECONDITIONING, S/P NSTEMI WITH CARDIAC CATH, CHF EXACERBATION, PNEUMONIA AND WEAKNESS/FALLS. Cognitive/Behavioral: PT A/OX4, FORGETFUL AT TIMES. PT IS [place], HAS BILATERAL HEARING AIDS. PT DOES TRY TO PERSUADE STAFF TO INCREASE O2 FROM 3L TO 4L, EDUCATED IT IS NOT NEEDED TO BE ON 4L PATIENT O2 SAT IS WNL ON 3L. PATIENT ALSO REFUSES TO PULL UP PANTS AFTER BATHROOM USE AT TIMES. PATIENT EDUCATED ON OWN ABILITY AND NEED TO PULL PANTS UP BY SELF. Pain: PT DENIES ANY PAIN OR DISCOMFORT THIS SHIFT. Respiratory Status: LUNGS AUSCULTATED WITH COARSE/WHEEZY. MOIST COUGH NOTED. PT HAS COPD, WEARS 3L BY NC AT ALL TIMES. UNABLE TO LIE FLAT, HOB ELEVATED AT 45 DEGREES. Skin: PT HAD FALL AT HOME PRIOR TO 10/14 ADMIT AND SUSTAINED EXTENSIVE ABRASIONS TO FACE, BUE AND BLE. AREAS ARE NOW SCABBED OVER AND SATHYA. SKIN IS OTHERWISE THIN, DRY, AND FRAGILE/FRIABLE. COCCYX INTACT. Bowel/Bladder Continence: PT WEARING PULL UP FOR COMFORT. NOTED TO HAVE DRIBBLING OF BLADDER. CONT OF BOWEL, LBM REPORTED 10/20/19. ADL Functional Status: PT LIMITED X1 ASSIST WITH BED MOBILITY. REQUIRES X1 BOOST FROM SITTING TO STANDING. USED WALKER AND GAIT BELT X1 ASSIST TO AMB TO BATHROOM. PT ABLE TO PULL PANTS DOWN/UP INDEPENDENTLY. PT TOOK HS PILLS WHOLE, NJD-LT-X-TIME. ABLE TO EAT INDEPENDENTLY AFTER SET UP HELP. PATIENT REFUSED SHOWER THIS DAY.
[2019-10-25] MEDS: TAMSULOSIN 0.4 MG CAP.ER.24H. PO SCH (20:52)
[2019-10-25] MEDS: ATORVASTATIN CALCIUM 20 MG TABLET PO SCH (20:52)
[2019-10-25] MEDS: MONTELUKAST 10 MG TABLET. PO SCH (20:52)
--- NOTE | 2019-10-26 01:28 | NUR ---
Swing Bed Nursing Note Nursing Problem: PT ADMITTED FOR PT/OT STRENGTHENING AND RECONDITIONING, S/P NSTEMI WITH CARDIAC CATH, CHF EXACERBATION, PNEUMONIA AND WEAKNESS/FALLS. Cognitive/Behavioral: PT A/OX3, FORGETFUL AT TIMES. PT IS VERY [place], HAS BILATERAL HEARING AIDS. UPON ASSESSMENT, PT LAYING DOWN IN BED WATCHING TV. NO BEHAVIORS NOTED. Pain: PT DENIES ANY PAIN OR DISCOMFORT THIS SHIFT. Respiratory Status: LUNGS AUSCULTATED WITH COARSE/WHEEZY. MOIST COUGH NOTED. PT HAS COPD, WEARS 3L BY NC AT ALL TIMES. UNABLE TO LIE FLAT, HOB ELEVATED AT 45 DEGREES. Skin: PT HAD FALL AT HOME PRIOR TO 10/14 ADMIT AND SUSTAINED EXTENSIVE ABRASIONS TO FACE, BUE AND BLE. 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 SKIN IS OTHERWISE THIN, DRY, AND FRAGILE/FRIABLE. COCCYX INTACT. Bowel/Bladder Continence: PT WEARING PULL UP FOR COMFORT. NOTED TO HAVE DRIBBLING OF BLADDER. CONT OF BOWEL, LBM REPORTED 10/20/19. ADL Functional Status: PT INDEPENDENT WITH BED MOBILITY. ABLE TO SIT UP TO SIDE OF BED, BUT REQUIRES X1 BOOST FROM SITTING TO STANDING. USED WALKER AND GAIT BELT X1 ASSIST TO AMB TO BATHROOM. PT ABLE TO PULL PANTS DOWN/UP INDEPENDENTLY. PT TOOK HS PILLS WHOLE, ALH-PZ-H-TIME.
[2019-10-26] MEDS: IPRATRPIUM/ALBUTEROL 0.5/2.5MG 3 ML NEBU. NEB SCH ×4 (04:47→20:52)
[2019-10-26 05:21] VITALS: BP 148/75
[2019-10-26] MEDS: BUDESONIDE 0.5 MG/2 ML NEBU IH SCH ×2 (09:00→20:52)
[2019-10-26] MEDS: GABAPENTIN 300 MG CAPSULE. PO SCH ×3 (09:07→21:30)
[2019-10-26] MEDS: ASPIRIN 81 MG TAB.CHEW PO SCH (09:07)
[2019-10-26] MEDS: predniSONE 10 MG TABLET PO SCH (09:07)
[2019-10-26] MEDS: CHOLECALCIFEROL (VITAMIN D3) 1,000 UNIT TABLET PO SCH (09:07)
[2019-10-26] MEDS: LACTOBACILLUS RHAMNOSUS GG 1 CAPSULE. PO SCH (09:07)
[2019-10-26] MEDS: ALLOPURINOL 300 MG TABLET. PO SCH (09:07)
[2019-10-26] MEDS: CARVEDILOL 12.5 MG TABLET PO SCH ×2 (09:08→16:00)
[2019-10-26] MEDS: MAGNESIUM OXIDE 400 MG TABLET PO SCH (09:08)
[2019-10-26] MEDS: DOCUSATE SODIUM 100 MG CAPSULE PO SCH (09:08)
[2019-10-26] MEDS: ISOSORBIDE MONONITRATE ER 30 MG TAB.ER.24H PO SCH (09:08)
[2019-10-26] MEDS: FUROSEMIDE 40 MG TABLET PO SCH (09:08)
[2019-10-26] MEDS: OMEGA-3 FATTY ACIDS/FISH OIL 1,000 MG CAPSULE. PO SCH (09:08)
[2019-10-26 18:33] VITALS: BP 109/61
[2019-10-26] MEDS: MONTELUKAST 10 MG TABLET. PO SCH (21:29)
[2019-10-26] MEDS: TAMSULOSIN 0.4 MG CAP.ER.24H. PO SCH (21:30)
[2019-10-26] MEDS: ATORVASTATIN CALCIUM 20 MG TABLET PO SCH (21:30)
[2019-10-27] MEDS: IPRATRPIUM/ALBUTEROL 0.5/2.5MG 3 ML NEBU. NEB SCH ×4 (04:45→21:09)
--- NOTE | 2019-10-27 05:41 | NUR ---
Swing Bed Nursing Note Nursing Problem: PT/OT, post admission CHF, falls. Cognitive/Behavioral: A&O x3, forgetful; [place], bilateral hearing aids Pain: pt denies pain Respiratory Status: Wheezing, wet cough intermittently, 3L via Nasal Cannula. PT HAS COPD, WEARS 3L BY NC AT ALL TIMES. UNABLE TO LIE FLAT, HOB ELEVATED AT 45 DEGREES. Skin: PT HAD FALL AT HOME PRIOR TO 10/14 ADMIT AND SUSTAINED EXTENSIVE ABRASIONS TO FACE, BUE AND BLE. AREAS ARE NOW SCABBED OVER AND SATHYA. SKIN IS OTHERWISE THIN, DRY, AND FRAGILE/FRIABLE. COCCYX INTACT. Bowel/Bladder Continence: PT WEARING PULL UP FOR COMFORT. NOTED TO HAVE DRIBBLING OF BLADDER. CONT OF BOWEL, LBM REPORTED 10/20/19. ADL Functional Status: PT INDEPENDENT WITH BED MOBILITY. ABLE TO SIT UP TO SIDE OF BED, BUT REQUIRES X1 BOOST FROM SITTING TO STANDING. USED WALKER AND GAIT BELT X1 ASSIST TO AMB TO BATHROOM. PT ABLE TO PULL PANTS DOWN/UP INDEPENDENTLY. PT TOOK HS PILLS WHOLE, [id number]-TIME. Addendum: 10/27/19 at 0550 by GUERLINE WU RN Swing Bed Nursing Note Nursing Problem: PT/OT, post admission CHF, falls. Cognitive/Behavioral: A&O x3, forgetful; [place], bilateral hearing aids Pain: pt denies pain Respiratory Status: Wheezing, wet cough intermittently, 3L via Nasal Cannula always; HOB 45 degrees Skin: PT HAD FALL AT HOME PRIOR TO 10/14 ADMIT AND SUSTAINED EXTENSIVE ABRASIONS TO FACE, BUE AND BLE. AREAS ARE NOW SCABBED OVER AND SATHYA. Skin is pale, thin, fragile, intact otherwise. Bowel/Bladder Continence: Continent of B&B, occasional dribbling LBM 10/20/19. ADL Functional Status: Bed mobility independent; x1 assist with gait belt and walker to toilet. PT able to pull pants up and down independently. Takes PO meds, 1 pill at a time with water.
[2019-10-27 06:06] VITALS: BP 120/64
[2019-10-27] MEDS: ALLOPURINOL 300 MG TABLET. PO SCH (08:48)
[2019-10-27] MEDS: CHOLECALCIFEROL (VITAMIN D3) 1,000 UNIT TABLET PO SCH (08:48)
[2019-10-27] MEDS: CARVEDILOL 12.5 MG TABLET PO SCH ×2 (08:48→17:19)
[2019-10-27] MEDS: MAGNESIUM OXIDE 400 MG TABLET PO SCH (08:49)
[2019-10-27] MEDS: ISOSORBIDE MONONITRATE ER 30 MG TAB.ER.24H PO SCH (08:49)
[2019-10-27] MEDS: predniSONE 10 MG TABLET PO SCH (08:49)
[2019-10-27] MEDS: GABAPENTIN 300 MG CAPSULE. PO SCH ×3 (08:49→20:41)
[2019-10-27] MEDS: ASPIRIN 81 MG TAB.CHEW PO SCH (08:49)
[2019-10-27] MEDS: FUROSEMIDE 40 MG TABLET PO SCH (08:50)
[2019-10-27] MEDS: DOCUSATE SODIUM 100 MG CAPSULE PO SCH (08:50)
[2019-10-27] MEDS: OMEGA-3 FATTY ACIDS/FISH OIL 1,000 MG CAPSULE. PO SCH (08:50)
[2019-10-27] MEDS: LACTOBACILLUS RHAMNOSUS GG 1 CAPSULE. PO SCH (08:51)
[2019-10-27] MEDS: BUDESONIDE 0.5 MG/2 ML NEBU IH SCH ×2 (09:00→21:09)
[2019-10-27 11:50] LABS: CREATININE 0.6 mg/dL (0.7-1.3); POTASSIUM 3.5 mmol/L (3.5-5.1)
--- NOTE | 2019-10-27 16:59 | NUR ---
Swing Bed Nursing Note Nursing Problem: PT ADMITTED FOR PT/OT STRENGTHENING AND RECONDITIONING, S/P NSTEMI WITH CARDIAC CATH, CHF EXACERBATION, PNEUMONIA AND WEAKNESS/FALLS. Cognitive/Behavioral: PT A/OX4, FORGETFUL AT TIMES. PT IS [place], HAS BILATERAL HEARING AIDS. PT DOES TRY TO PERSUADE STAFF TO INCREASE O2 FROM 3L TO 4L, EDUCATED IT IS NOT NEEDED TO BE ON 4L PATIENT O2 SAT IS WNL ON 3L. PATIENT ALSO REFUSES TO PULL UP PANTS AFTER BATHROOM USE AT TIMES. PATIENT EDUCATED ON OWN ABILITY AND NEED TO PULL PANTS UP BY SELF. Pain: PT DENIES ANY PAIN OR DISCOMFORT THIS SHIFT. Respiratory Status: LUNGS AUSCULTATED WITH COARSE/WHEEZY. MOIST COUGH NOTED. PT HAS COPD, WEARS 3L BY NC AT ALL TIMES. UNABLE TO LIE FLAT, HOB ELEVATED AT 45 DEGREES. Skin: PT HAD FALL AT HOME PRIOR TO 10/14 ADMIT AND SUSTAINED EXTENSIVE ABRASIONS TO FACE, BUE AND BLE. AREAS ARE NOW SCABBED OVER AND SATHYA. SKIN IS OTHERWISE THIN, DRY, AND FRAGILE/FRIABLE. COCCYX INTACT. Bowel/Bladder Continence: PT WEARING PULL UP FOR COMFORT. NOTED TO HAVE DRIBBLING OF BLADDER. CONT OF BOWEL, LBM REPORTED 10/20/19. ADL Functional Status: PT LIMITED X1 ASSIST WITH BED MOBILITY. REQUIRES X1 BOOST FROM SITTING TO STANDING. USED WALKER AND GAIT BELT X1 ASSIST TO AMB TO BATHROOM. PT ABLE TO PULL PANTS DOWN/UP INDEPENDENTLY. PT TOOK HS PILLS WHOLE, VNP-UQ-Z-TIME. ABLE TO EAT INDEPENDENTLY AFTER SET UP HELP. PATIENT REFUSED SHOWER THIS DAY.
[2019-10-27 17:37] VITALS: BP 157/77
[2019-10-27] MEDS: TAMSULOSIN 0.4 MG CAP.ER.24H. PO SCH (20:41)
[2019-10-27] MEDS: ATORVASTATIN CALCIUM 20 MG TABLET PO SCH (20:41)
[2019-10-27] MEDS: MONTELUKAST 10 MG TABLET. PO SCH (20:41)
--- NOTE | 2019-10-28 00:07 | NUR ---
Swing Bed Nursing Note Nursing Problem: PT ADMITTED FOR PT/OT STRENGTHENING AND RECONDITIONING, S/P NSTEMI WITH CARDIAC CATH, CHF EXACERBATION, PNEUMONIA AND WEAKNESS/FALLS. Cognitive/Behavioral: PT A/OX4, FORGETFUL AT TIMES. PT IS [place], HAS BILATERAL HEARING AIDS. PT DOES TRY TO PERSUADE STAFF TO INCREASE O2 FROM 3L TO 4L, EDUCATED IT IS NOT NEEDED TO BE ON 4L PATIENT O2 SAT IS WNL ON 3L. PT WAS ABLE TO TAKE DOWN AND PULL UP PANTS AFTER BATHROOM USE AT TIMES. Pain: PT DENIES ANY PAIN OR DISCOMFORT THIS SHIFT. Respiratory Status: LUNGS AUSCULTATED WITH COARSE/WHEEZY. MOIST COUGH NOTED. PT HAS COPD, WEARS 3L BY NC AT ALL TIMES. UNABLE TO LIE FLAT, HOB ELEVATED AT 45 DEGREES. Skin: PT HAD FALL AT HOME PRIOR TO 10/14 ADMIT AND SUSTAINED EXTENSIVE ABRASIONS TO FACE, BUE AND BLE. AREAS ARE NOW SCABBED OVER AND WASHCLOTH FOLDER. SKIN IS OTHERWISE THIN, DRY, AND FRAGILE/FRIABLE. COCCYX INTACT. Bowel/Bladder Continence: PT WEARING PULL UP FOR COMFORT. NOTED TO HAVE DRIBBLING OF BLADDER. CONT OF BOWEL, LBM 10/27/19. ADL Functional Status: PT LIMITED X1 ASSIST WITH BED MOBILITY. REQUIRES X1 BOOST FROM SITTING TO STANDING. USED WALKER AND GAIT BELT X1 ASSIST TO AMB TO BATHROOM. PT ABLE TO PULL PANTS DOWN/UP INDEPENDENTLY. PT TOOK HS PILLS WHOLE, WRP-DR-Z-TIME. ABLE TO EAT INDEPENDENTLY AFTER SET UP HELP.
[2019-10-28] MEDS: IPRATRPIUM/ALBUTEROL 0.5/2.5MG 3 ML NEBU. NEB SCH ×4 (04:42→21:00)
[2019-10-28 06:24] VITALS: BP 123/70
[2019-10-28 06:39] LABS: CREATININE 0.4 mg/dL (0.7-1.3); GFR 204.4; POTASSIUM 3.7 mmol/L (3.5-5.1)
[2019-10-28] MEDS: BUDESONIDE 0.5 MG/2 ML NEBU IH SCH ×2 (09:49→21:00)
[2019-10-28] MEDS: GABAPENTIN 300 MG CAPSULE. PO SCH ×3 (10:25→21:20)
[2019-10-28] MEDS: CARVEDILOL 12.5 MG TABLET PO SCH ×2 (10:26→17:33)
[2019-10-28] MEDS: ISOSORBIDE MONONITRATE ER 30 MG TAB.ER.24H PO SCH (10:27)
[2019-10-28] MEDS: predniSONE 10 MG TABLET PO SCH (10:27)
[2019-10-28] MEDS: OMEGA-3 FATTY ACIDS/FISH OIL 1,000 MG CAPSULE. PO SCH (10:27)
[2019-10-28] MEDS: LACTOBACILLUS RHAMNOSUS GG 1 CAPSULE. PO SCH (10:27)
[2019-10-28] MEDS: DOCUSATE SODIUM 100 MG CAPSULE PO SCH (10:27)
[2019-10-28] MEDS: ASPIRIN 81 MG TAB.CHEW PO SCH (10:27)
[2019-10-28] MEDS: ALLOPURINOL 300 MG TABLET. PO SCH (10:27)
[2019-10-28] MEDS: CHOLECALCIFEROL (VITAMIN D3) 1,000 UNIT TABLET PO SCH (10:27)
[2019-10-28] MEDS: MAGNESIUM OXIDE 400 MG TABLET PO SCH (10:28)
[2019-10-28] MEDS ORDERED: methylPREDNISolone SOD SUCC PF 125 MG/2 ML VIAL. IV ONE (14:45)
[2019-10-28] MEDS ORDERED: ENOXAPARIN 40 MG/0.4 ML SYRINGE. SQ SCH (15:00)
--- NOTE | 2019-10-28 15:31 | RAD ---
CHEST AP ONLY Clinical Indication: Worsening shortness of breath Comparison: 10/14/2019 Portable Chest X-ray Exam. Findings: Upright frontal views of the chest were obtained. Sternal wires and mediastinal clips are present. The cardiomediastinal silhouette is normal. No focal consolidation. Interstitial thickening in the lung marino noted. Linear scarring or atelectasis in the retrocardiac region is present. Minimal right basilar atelectasis or infiltrate is present. There is no pneumothorax. Minimal blunting of the right costophrenic angle which may represent a small pleural effusion is noted. Bony structures unremarkable. IMPRESSION: Small right pleural effusion with new adjacent basilar atelectasis or infiltrate. Interval follow-up to assess resolution recommended. Electronically signed by: Adam Rice MD (10/28/2019 3:28 PM) [id number]
--- NOTE | 2019-10-28 16:01 | NUR ---
Pt complaint of shortness of air. RT noted that pt's O2 sat was only in low 90s with 3 L 02. Pt is now on 4L 0xygen and saturations are now 95%-100%. Pt has been hesitate to comply with PT\\OT. Says he can't breathe when he is doing the therapy. RN encouraged pt to breathe through nose and not through mouth. Pt also has had "rattling" while breathing. Per 's orders, 22 gauge peripheral IV inserted, gave 125mL IVP over 2 min, gave 40mg Lovenox subcu injection, chest x-ray also ordered. Will continue to monitor and assess as necessary. Now awaiting chest x-ray results.
--- NOTE | 2019-10-28 18:00 | NUR ---
Thrush noted on pt's tongue, is aware. Ordered Nystatin swish and swallow per 's order.
[2019-10-28 18:10] VITALS: BP 126/66
--- NOTE | 2019-10-28 18:19 | NUR ---
Swing Bed Nursing Note Patient Handbook for Retirement given to patient. Nursing Problem: PT/OT Eval and Treat, Post NSTEMI, CHG exacerbation, Pneumonia Cognitive/Behavioral: Alert and Oriented x 4. Pain: None reported this shift. Respiratory Status: 02 4L, nasal cannula, Rattling upon respirations Skin: intact, friable, 22g peripheral IV in RAC, Saline Locked. Bowel/Bladder Continence: Cont x2. ADL Functional Status: Pt uses wheelchair. Pt does participate in ADLs but states "I can't breathe." Pt is a x1 assist upon dressing and toileting. Pt uses wheelchair on unit to go down to dining room and to perform ADLs
[2019-10-28] MEDS ORDERED: NYSTATIN 100,000 UNITS/ML ORAL SUSPENSION 60ML BOTTLE. SWSW ONE (21:00)
[2019-10-28] MEDS: TAMSULOSIN 0.4 MG CAP.ER.24H. PO SCH (21:19)
[2019-10-28] MEDS: methylPREDNISolone SOD SUCC PF 40 MG/ML VIAL. IV SCH (21:20)
[2019-10-28] MEDS: ATORVASTATIN CALCIUM 20 MG TABLET PO SCH (21:20)
[2019-10-28] MEDS: MONTELUKAST 10 MG TABLET. PO SCH (21:20)
--- NOTE | 2019-10-29 00:42 | NUR ---
Swing Bed Nursing Note Patient Handbook for Half-Way given to patient. Nursing Problem: PT/OT Eval and Treat, Post NSTEMI, CHG exacerbation, Pneumonia Cognitive/Behavioral: Alert and Oriented x 4. Pleasant and cooperative. Pain: None reported this shift. Respiratory Status: 02 4L, nasal cannula, Coarse and wheezy. Solu Medrol started. Skin: Intact, friable, 22g peripheral IV in RAC, Saline Locked. Bowel/Bladder Continence: Continent of BM, brief for dribbling, LBM 10/27/19 ADL Functional Status: Pt is a x1 assist with gait belt and walker when ambulating. Pt is x1 assist with toileting and evening ADLs. Pt is independent with bed mobility.
--- NOTE | 2019-10-29 01:23 | PN ---
DATE: 10/28/2019 SUBJECTIVE: The patient is resting slightly propped up, complaining of shortness of breath. He has used pursed lip breathing, asking for steroids to help him breath. He denied any chest pain. PHYSICAL EXAMINATION: GENERAL: When I saw him this morning, he was pale, but no jaundice, cyanosis or thyromegaly. No jugular venous distention. Mild bilateral lower limb edema. VITAL SIGNS: His heart rate was 73, blood pressure was 123/70, temperature was 97.5, respiratory rate 24 and oxygen saturation was 87% on 3 liters of oxygen; however, when I saw him myself, he was 98% on 4 liters of oxygen. HEAD, EYES, EARS, NOSE AND THROAT: Showed normocephalic, atraumatic. NECK: Supple. HEART: Showed normal first and second heart sounds. No gallop or murmur. CHEST: Shows central trachea, equally reduced expansion, reduced air entry, vesicular sounds with scattered rhonchi bilaterally. ABDOMEN: Slightly distended, soft, nontender. NEUROLOGIC: He was awake, alert, responding appropriately. All cranial nerves are intact. He moves extremities without difficulty, although he is mostly bedbound. LABORATORY DATA: This morning, his most recent white cell count was 13,200, hemoglobin 10.7, hematocrit 32, MCV 91, and platelet count of 453,000. His chemistry showed serum sodium slightly up ____, potassium 3.7, chloride 83, bicarbonate 34, anion gap of 4, BUN 12, creatinine 0.4, estimated GFR was 204 mL per minute, his glucose was 100, calcium was 7. His TSH is normal at 2.159 and morning cortisol was 21.86 mcg/dL. PLAN: My plan is to restart him on IV Solu-Medrol 125 mg stat and then 40 mg every 8 hours. Continue with DuoNeb. Continue the other medication. I discontinued his Lasix and will continue with fluid restriction of about 1000 mL. DEIDRE HANEY MD DR: HUMBERTO/amy JOB#: [id number] / [id number]
[2019-10-29] MEDS: IPRATRPIUM/ALBUTEROL 0.5/2.5MG 3 ML NEBU. NEB SCH (05:27)
[2019-10-29] MEDS: methylPREDNISolone SOD SUCC PF 40 MG/ML VIAL. IV SCH (05:57)
[2019-10-29 06:05] VITALS: BP 169/71
[2019-10-29 06:31] LABS: HEMATOCRIT 30.2 % (39.0-53.0); HEMOGLOBIN 10.2 g/dL (13.0-17.5); RED BLOOD COUNT 3.37 x10^6/uL (4.30-5.70); RED CELL DISTRIBUTION WIDTH 15.4 % (11.5-14.5); WHITE BLOOD COUNT 12.3 x10^3/uL (4.0-11.0)
[2019-10-29 06:43] LABS: ALBUMIN 2.1 g/dL (3.4-5.0); ALBUMIN/GLOBULIN RATIO 0.6 (1.0-1.7); CALCIUM 7.4 mg/dL (8.5-10.1); CREATININE 0.5 mg/dL (0.7-1.3); POTASSIUM 4.2 mmol/L (3.5-5.1); TOTAL BILIRUBIN 0.7 mg/dL (0.2-1.0); TOTAL PROTEIN 5.4 g/dL (6.4-8.2)
--- NOTE | 2019-10-29 07:42 | NUR ---
Nursing notes: Patient sodium level 116. Dr. Caraballo called and orders received to discharge patient from skilled unit and admit to ICU. Patient made aware of lab levels and need to go to ICU. Patient gave verbal understanding. Patient ambulated off unit to ICU in w/c propelled by staff, all patient belongings sent with patient. No concerns at this time.
== END 2019-10-29 07:51 | disposition short-term general hospital (02) | DRG 280 ==
LOC: LND 10-22 14:31
PROVIDERS: ADMIT Internal Medicine; ATTEND Internal Medicine
DX: R07.9 Chest pain, unspecified (principal); I21.4 Non-ST elevation (NSTEMI) myocardial infarction; J96.21 Acute and chronic respiratory failure with hypoxia; J18.9 Pneumonia, unspecified organism; I50.22 Chronic systolic (congestive) heart failure; I11.0 Hypertensive heart disease with heart failure; E11.9 Type 2 diabetes mellitus without complications; E78.5 Hyperlipidemia, unspecified; I25.10 Atherosclerotic heart disease of native coronary artery without angina pectoris; I25.2 Old myocardial infarction; I25.5 Ischemic cardiomyopathy; J44.9 Chronic obstructive pulmonary disease, unspecified; N40.0 Benign prostatic hyperplasia without lower urinary tract symptoms; Z82.49 Family history of ischemic heart disease and other diseases of the circulatory system; Z82.5 Family history of asthma and other chronic lower respiratory diseases; Z87.440 Personal history of urinary (tract) infections; Z87.891 Personal history of nicotine dependence; Z95.1 Presence of aortocoronary bypass graft; Z95.5 Presence of coronary angioplasty implant and graft; Z98.41 Cataract extraction status, right eye; Z98.42 Cataract extraction status, left eye; Z79.899 Other long term (current) drug therapy; Z88.2 Allergy status to sulfonamides; Z88.8 Allergy status to other drugs, medicaments and biological substances; Z91.048 Other nonmedicinal substance allergy status
CPT/HCPCS: 36415; 71045; 80048; 80053; 82533; 82947; 84443; 85007; 85025; 85027; 94640; 94760; J1650; J2920; J2930; J7512; J7613; J7626; 97110; 97112; 97116; 97530; 97535

== ENCOUNTER 2019-10-29 07:42 | Inpatient (IN) | payer MEDICARE ==
[2019-10-29] VITALS (12 sets, daily range): BP systolic 123–163; BP diastolic 52–68
[~2019-10-29] VITALS: Ht 177.8 cm; Wt 73.5 kg
[~2019-10-29 07:42] MED LIST changes: +ALBU2.5V5 NEB; +ATOR40TA59 PO; +BUDE0.5A11 IH; +CHOL200078 PO; +FURO40TA4 PO; +GUAI-112 PO; +ISOS30TA4 PO; +LACT1POW11 PO; +MONT10TA80 PO; +TAMS0.4C97 PO
[2019-10-29] MEDS ORDERED: SODIUM CHLORIDE 3 % PREMIX 500 ML IV ONE ×3 (08:30→19:45)
--- NOTE | 2019-10-29 08:32 | PDOC ---
CARDIO Progress Notes Date & Time Date of Service DATE: 10/29/19 TIME: 08:29 Time of Evaluation 08:29 Subjective Notes Sitting up at bedside. Reports chronic SOA, no worse than usual currently, no dizziness, confusion, chest pain, or nausea/vomiting Vitals Weight Weight [ ] Physical Exams HEENT: Neck Supple W Full Motion Chest: Symmetric Lungs: Other (fine RLL crackles) Heart: S1S2, RRR Abdomen: Soft N/T Extremities: Other (1+ bilateral LE edema ) Neurology: alert, oriented, follow commands Assessment Assessment Continuum of care Please see consult 10/15/19 for further details HPI: This is an 84 yo male who was treated recently at [facility] for community acquired pneumonia (concerns for possible aspiration), AE COPD, acute on chronic systolic CHF (LVEF 40-45%), and NSTEMI with a troponin peak of 1.4. Due to episode of chest pain elevated troponin, patient was transferred to [facility] for cardiac cath. Coronary angiogram revealed patent saphenous vein graft to the right coronary artery and saphenous vein graft to the left anterior descending artery. NSTEMI most probable type II, demand ischemia as there were no lesions needing intervention. Patient was discharged to [facility] rehab facility. Sodium level noted to be critically low 10/26. Was apparently drinking excessive amounts of water on the rehab unit. Was place on fluid restriction. Repeat labs this morning showing critically low Na level at 116. Was also complaining of some shortness of breath. Was transferred to ICU for further workup/treatment. Assessment 1. Hyponatremia; 116. Excessive water intake 2. Dyspnea; multifactorial with AE COPD, CHD, and ? aspiration PNA. 3. CAD; s/p CABG. Recent cath with patent grafts. 4. Mild acute on chronic systolic CHF; appears fairly well compensated from a HF standpoint 5. Cardiomyopathy, non-ischemic; Echo 09/2019 with LVEF 40-45% 6. Hypertension; controlled 7. Hyperlipidemia: Statin therapy 8. Diabetes, II 9. Recommendations Continue current secondary prevention measures Fluid restriction; d/w with patient. Reports he needs water to wash every bite of food down due to difficulty swallowing. for swallow evaluation Supportive care SILAS ARDON APRN Oct 29, 2019 08:32
[2019-10-29] MEDS: IPRATRPIUM/ALBUTEROL 0.5/2.5MG 3 ML NEBU. NEB SCH ×2 (09:14→15:16)
--- NOTE | 2019-10-29 11:53 | NUR ---
Order Verified Yes Consent signed Yes Previous PICC placement No Past Medical/Surgical history and current diagnosis reviewed Yes Patient Medical /Surgical History Related to PICC line placement None Special considerations for PICC line placement right arm has large scab and healing from old skin tear in location where dressing would be for picc. Used left arm for picc placement PICC placement indication Caustic medication class drug usage, Name of PICC Nurse Ann Powers RN
--- NOTE | 2019-10-29 11:56 | NUR ---
Procedure: Following complete explanation of the PICC procedure including the indications, risks, and potential complications, informed consent was obtained. The possibility for infection was discussed along with signs, symptoms, and prevention. All the patient's questions were answered. IV Device Protocol was used. Written and verbal patient education was provided. Hand hygiene performed. Standardized central line checklist was utilized. The patient was placed in the supine position, the left arm was prepped with chlorhexidine and patient draped with maximum sterile barrier. 1.5 mL 1% lidocaine was infiltrated into the skin to provide local anesthesia. A thorough assessment of left upper extremity completed. Using real-time ultrasound guidance and standardized micro puncture set, the basilic vein was punctured and a peel away sheath was placed using the modified Seldinger technique. A tip location device was used to ensure adequate catheter placement. The catheter was secured using a securement device and an antimicrobial patch was applied directly on the insertion site followed by a transparent dressing. All ports withdraw blood and flush without resistance. Patient tolerated the procedure without apparent complication. A double Lumen Power PICC placement successful and uncomplicated. Placement verified by EKG tip confirmation system with greem p wave and ekg observed. Tip located in the low SVC per 3CG Complications: None
--- NOTE | 2019-10-29 13:23 | HP ---
ADMIT DATE: 10/29/2019 HISTORY OF PRESENT ILLNESS: The patient is an 84-year-old male patient who was transferred from swing bed to acute care as serum sodium has dramatically worsened and this morning his serum sodium is down to 116 from 121 yesterday. I did discontinue his Lasix and instituted severe fluid restriction. Unfortunately, sodium continued to drop down. 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 The patient himself was complaining of shortness of breath and we did start him on Solu-Medrol yesterday and he is feeling generally much better. PAST MEDICAL HISTORY: Significant for hypertension, type 2 diabetes mellitus, coronary artery disease, status post myocardial infarction treated with PTCA and stent deployment, eventually had an open heart surgery about 8 years ago. He is known to have hyperlipidemia, chronic obstructive pulmonary disease, recurrent urinary tract infection, benign prostatic hypertrophy, congestive heart failure due to ischemic cardiomyopathy, recently has non-ST segment elevation myocardial infarction and underwent cardiac catheterization, which showed all his grafts are patent. His echocardiogram showed an ejection fraction of 40%. 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 ALLERGIES: HE IS ALLERGIC TO CODEINE, SULFAMETHOXAZOLE AND TRIMETHOPRIM. FAMILY HISTORY: He has one brother younger, known to have sick sinus syndrome treated with permanent pacemaker. His other 4 brothers are , one sister , all because of coronary artery disease. His father at the age of 92 because of chronic obstructive pulmonary disease and myocardial infarction. Mother at age of 56 because of myocardial infarction. SOCIAL HISTORY: He is , lives currently with his daughter. He is an ex-smoker, quit 20 years ago. He also used to be a heavy drinker, but quit about 3 years ago. He used to work for an [employer] company, currently retired since 1994. He has 3 daughters who live around this area. REVIEW OF SYSTEMS: As per history of present illness. MEDICATIONS: He is currently on following medications. Albuterol sulfate 2.5 mg 3 mL by nebulizer every 6 hours, allopurinol 300 mg once a day, aspirin 81 mg once a day, Pulmicort 0.5 mg 2 mL by nebulizer twice a day. I have discontinued his Lasix. Continued his gabapentin. He is on DuoNeb by nebulizer 4 times a day, isosorbide mononitrate extended release 30 mg once a day, Singulair 10 mg at bedtime. He is on tamsulosin 0.4 mg at bedtime. He is on atorvastatin 40 mg at bedtime, carvedilol 12.5 mg twice a day, cholecalciferol 1000 units daily, fish oil 1200 mg daily. He is on lactobacillus rhamnosus 1 capsule twice a day and his magnesium oxide 400 mg twice a day. He should be on Solu-Medrol 40 mg IV q. 8 hourly. PHYSICAL EXAMINATION: GENERAL: When I examined him this afternoon, he was sitting at the edge of the bed, eating his lunch comfortably, in no apparent distress. He denied any complaint. When I examined him, he was somewhat pale, but no jaundice, cyanosis or thyromegaly. No jugular venous distention. No lower limb edema. VITAL SIGNS: His heart rate was 75, blood pressure 146/64, temperature was 98.4, respiratory rate 20, and oxygen saturation was 91% on 3 liters of oxygen by nasal cannula. HEAD, EYES, EARS, NOSE AND THROAT: Showed normocephalic, atraumatic. NECK: Supple. HEART: Showed normal first and second heart sounds. No gallop or murmur. CHEST: Showed central trachea, equally reduced expansion, reduced air entry, vesicular sounds, bilateral basal crepitation, very few scattered rhonchi. ABDOMEN: Distended, soft, nontender. NEUROLOGIC: He is awake, alert, very hard of hearing, but otherwise all his cranial nerves are intact. EXTREMITIES: He moves extremities without difficulty. LABORATORY DATA: As of this morning showed a white cell count 12,300, hemoglobin 10, hematocrit 30, MCV 90 and platelet count 309,000. His chemistry showed a serum sodium of 116, potassium 4.2, chloride 81, bicarbonate 29, anion gap of 6, BUN 12, creatinine 0.5, estimated GFR was 158 mL per minute. His BUN was 24, and glucose 158. His calcium was 7.4. Total bilirubin, AST, ALT, alkaline phosphatase were normal. ASSESSMENT AND PLAN: In summary, this is an 84-year-old male patient who was admitted with severe hyponatremia. Serum sodium 116 mEq per liter. This despite the fact that we have discontinued his furosemide and torsemide and started him on severe fluid restriction. He was admitted to the ICU to be closely monitored. We started him on 3% hypertonic saline to go at 20 mL per hour for a total of 100 mL. We will check his serum sodium at the end of 100 mL infusion. Our aim is to correct his sodium slowly. Meanwhile, we will continue with fluid restriction. DEIDRE HANEY MD DR: HUMBERTO/amy JOB#: [id number] / [id number]
[2019-10-29] MEDS: GABAPENTIN 300 MG CAPSULE. PO SCH ×2 (14:00→20:43)
[2019-10-29] MEDS: ALLOPURINOL 300 MG TABLET. PO SCH (15:00)
[2019-10-29] MEDS: MAGNESIUM OXIDE 400 MG TABLET PO SCH (15:00)
[2019-10-29] MEDS: CHOLECALCIFEROL (VITAMIN D3) 1,000 UNIT TABLET PO SCH (15:00)
[2019-10-29 15:35] LABS: CALCIUM 7.4 mg/dL (8.5-10.1); CREATININE 0.6 mg/dL (0.7-1.3); POTASSIUM 3.7 mmol/L (3.5-5.1)
[2019-10-29] MEDS: methylPREDNISolone SOD SUCC PF 40 MG/ML VIAL. IV SCH ×2 (16:57→21:47)
[2019-10-29] MEDS: CARVEDILOL 12.5 MG TABLET PO SCH (16:57)
[2019-10-29] MEDS: valACYclovir 500 MG TABLET. PO SCH ×2 (16:57→20:43)
[2019-10-29] MEDS: ISOSORBIDE MONONITRATE ER 30 MG TAB.ER.24H PO SCH (16:58)
[2019-10-29] MEDS: MONTELUKAST 10 MG TABLET. PO SCH (20:43)
[2019-10-29] MEDS: TAMSULOSIN 0.4 MG CAP.ER.24H. PO SCH (20:43)
[2019-10-29] MEDS: ATORVASTATIN CALCIUM 20 MG TABLET PO SCH (20:44)
[2019-10-29] MEDS: NYSTATIN 100,000 UNITS/ML ORAL SUSPENSION 60ML BOTTLE. SWSW SCH (20:44)
[2019-10-29] MEDS: guaiFENesin/PS-EPHED 600/60MG 1 TAB TAB.ER.12H PO SCH (20:45)
[2019-10-29] MEDS: BUDESONIDE 0.5 MG/2 ML NEBU IH SCH (21:46)
[2019-10-30] VITALS (12 sets, daily range): BP systolic 117–150; BP diastolic 49–75
[2019-10-30] MEDS: ALBUTEROL SULFATE 2.5 MG/3 ML NEBU. NEB PRN (03:06)
--- NOTE | 2019-10-30 05:07 | NUR ---
PATIENT RESTING THROUGH THE NIGHT. SODIUM RECHECKED, TRENDING UPWARDS. SOA AT NOC. O2 TITRATED ACCORDINGLY. ENCOURAGED TO COUGH FREQUENTLY.
[2019-10-30] MEDS: methylPREDNISolone SOD SUCC PF 40 MG/ML VIAL. IV SCH ×3 (06:11→21:11)
[2019-10-30 06:18] LABS: HEMATOCRIT 26.4 % (39.0-53.0); RED BLOOD COUNT 2.91 x10^6/uL (4.30-5.70); RED CELL DISTRIBUTION WIDTH 15.6 % (11.5-14.5); WHITE BLOOD COUNT 11.4 x10^3/uL (4.0-11.0)
[2019-10-30 06:37] LABS: ALBUMIN 1.9 g/dL (3.4-5.0); ALBUMIN/GLOBULIN RATIO 0.7 (1.0-1.7); CALCIUM 7.4 mg/dL (8.5-10.1); CREATININE 0.4 mg/dL (0.7-1.3); GFR 204.4; POTASSIUM 3.5 mmol/L (3.5-5.1); TOTAL BILIRUBIN 0.7 mg/dL (0.2-1.0); TOTAL PROTEIN 4.8 g/dL (6.4-8.2)
[2019-10-30] MEDS: guaiFENesin/PS-EPHED 600/60MG 1 TAB TAB.ER.12H PO SCH ×2 (09:00→21:11)
[2019-10-30] MEDS: BUDESONIDE 0.5 MG/2 ML NEBU IH SCH ×2 (09:17→20:52)
[2019-10-30] MEDS: ISOSORBIDE MONONITRATE ER 30 MG TAB.ER.24H PO SCH (09:57)
[2019-10-30] MEDS: LACTOBACILLUS RHAMNOSUS GG 1 CAPSULE. PO SCH (09:57)
[2019-10-30] MEDS: GABAPENTIN 300 MG CAPSULE. PO SCH ×3 (09:57→21:11)
[2019-10-30] MEDS: CHOLECALCIFEROL (VITAMIN D3) 1,000 UNIT TABLET PO SCH (10:04)
[2019-10-30] MEDS: CARVEDILOL 12.5 MG TABLET PO SCH ×2 (10:04→17:36)
[2019-10-30] MEDS: ALLOPURINOL 300 MG TABLET. PO SCH (10:04)
[2019-10-30] MEDS: OMEGA-3 FATTY ACIDS/FISH OIL 1,000 MG CAPSULE. PO SCH (10:04)
[2019-10-30] MEDS: MAGNESIUM OXIDE 400 MG TABLET PO SCH (10:04)
[2019-10-30] MEDS: valACYclovir 500 MG TABLET. PO SCH ×2 (10:06→21:11)
[2019-10-30] MEDS: NYSTATIN 100,000 UNITS/ML ORAL SUSPENSION 60ML BOTTLE. SWSW SCH ×4 (10:07→21:10)
[2019-10-30] MEDS ORDERED: DEXTROSE 50% 25 GM / 50ML DISP.SYRIN. IV PRN (15:45)
[2019-10-30] MEDS ORDERED: CONTRAST GIVEN MC PRN (16:00)
[2019-10-30] MEDS ORDERED: IOHEXOL 350 MG/ML 100 ML VIAL. IV ONE (16:00)
--- NOTE | 2019-10-30 17:50 | RAD ---
STUDY: CT angiography of the chest INDICATION: Worsening shortness of breath. COMPARISON: CT chest 08/24/2019 TECHNIQUE: Helical CT angiography of the chest performed after the intravenous administration of 100 cc Omnipaque 350. Coronal and sagittal 3D MIP reconstructions were obtained. One or more of the following individualized dose reduction techniques were utilized for this examination: 1. Automated exposure control 2. Adjustment of the mA and/or kV according to patient size 3. Use of iterative reconstruction technique. FINDINGS: Extensive calcified and noncalcified atheromatous plaque involving the visualized aorta and aortic branch vessels as well as the coronary arteries. No aneurysm or dissection has developed in the interim. The adequately evaluated pulmonary arteries are patent. No change in the main pulmonary artery caliber. Status post median sternotomy for coronary artery bypass grafting. No pericardial effusion. Scattered granulomas. No newly seen concerning mediastinal or hilar lymph nodes based on size. Worsened appearance of the lungs with scattered consolidative opacities new from the prior and most extensive at the right more so than left lower lobes and to a lesser degree within the right middle lobe and lingula. Superimposed basilar volume loss. Soft tissue prominence at the right more so than left lower lobes along the bronchovascular structures to the hilum and scattered areas of small airway opacification with wall thickening. Trace amount of right more so than left pleural fluid. Background chronic lung changes. No pneumothorax. No newly seen abnormality throughout the visualized neck or axilla. Gallstones noted. Mild colonic wall thickening and faint pericolonic fatty stranding at the splenic flexure. More conspicuous superior endplate height loss at T12, image 89 series 3. IMPRESSION: 1. No newly seen aortic aneurysm or dissection. The adequately evaluated pulmonary arteries are patent as well. 2. Worsened appearance of the lungs from the 08/24/2019 comparison with multifocal consolidative opacities involving the right lower lobe more so than left lower lobes as well as involving the right middle lobe and lingula. Areas of superimposed volume loss and a trace amount of bilateral pleural fluid. Bronchial wall thickening and scattered small airway opacification at the lower lobes. The appearance is most compatible with a multifocal pneumonia given the short time period from the comparison. 3. More conspicuous superior endplate height loss at T12 from the comparison though appearing more like a Schmorl's node than a mild compression fracture. Recommend correlation for localized tenderness. 4. Mild wall thickening and faint pericolonic inflammation at the splenic flexure could represent a mild nonspecific colitis. Electronically signed by: SHAWANDA BROWN MD (10/30/2019 5:47 PM) [id number]
[2019-10-30] MEDS: INSULIN LISPRO 300 UNITS/3 ML VIAL. SQ SCH (17:51)
[2019-10-30] MEDS: PIPERACILLIN/TAZOBACTAM 3.375 GM in IV NORMAL SALINE 50ML 50 ML IV SCH ×2 (19:45→23:31)
[2019-10-30] MEDS ORDERED: VANCOMYCIN 1.75 GM in IV NORMAL SALINE 500ML 500 ML IV ONE (20:00)
[2019-10-30] MEDS: VANCOMYCIN PER PHARMACY MC PRN ×2 (20:25→20:42)
--- NOTE | 2019-10-30 20:26 | RAD ---
STUDY: VENOUS LOWER EXT BILATERAL INDICATION: Lower extremity swelling. TECHNIQUE: Color-flow and pulsed wave duplex ultrasound with compression of venous structures of the bilateral lower extremities. COMPARISON: 09/06/2019. FINDINGS: Duplex ultrasound with compression of the deep venous structures of the bilateral lower extremities from the common femoral vein through the popliteal vein is negative for DVT. The posterior tibial and peroneal veins are segmentally visualized and patent where seen. Normal venous waveforms and augmentation are noted throughout. Redemonstrated cystic focus at the right popliteal fossa most consistent with a Woodward's cyst. IMPRESSION: 1. No deep venous thrombosis seen throughout either lower extremity. 2. Right popliteal fossa Woodward's cyst which was also noted on the 09/06/2019 comparison. Electronically signed by: SHAWANDA BROWN MD (10/30/2019 8:23 PM) [id number]
--- NOTE | 2019-10-30 20:42 | NUR ---
Pharmacy Vancomycin Dosing Note S:Consulted to monitor and dose vancomycin started 10/30/19. O:ANASTASIA MARMOLEJO is a 84 year old M with Pneumonia, . Height: 5 feet, 10 inches Weight: 73.7 kg Leslie Body Weight: Adjusted Body Weight: Dosing Weight: Actual Other Antibiotics: ZOSYN LABS: Last BUN: 13 Last Creatinine: 0.4 Creatinine Clearance: 56 Last WBC: 11.4 Last Procalcitonin: Tmax (past 24 hours): Microbiology: I/O: Drug Levels: Last level: on at Last dose given at Vancomycin Dosing: Loading Dose: 1750 mg x1 Dosing Weight: Actual Target Trough: 15-20 A: Based on: HT, WT AND RENAL FXB P: 1. Begin Vancomycin 1000 mg IV q12h 2. Follow up Trough level on 11/01/19 at 0730 3. Pharmacy will continue to monitor, follow and adjust therapy as needed. JOSE BLACKWELL, [facility], 10/30/19 [id number]
[2019-10-30] MEDS: MONTELUKAST 10 MG TABLET. PO SCH (21:11)
[2019-10-30] MEDS: TAMSULOSIN 0.4 MG CAP.ER.24H. PO SCH (21:11)
[2019-10-30] MEDS: ATORVASTATIN CALCIUM 20 MG TABLET PO SCH (21:11)
--- NOTE | 2019-10-30 22:33 | PN ---
DATE: 10/30/2019 SUBJECTIVE: The patient is resting, slightly propped up in bed, in no apparent respiratory distress, continues to be weak, short of breath with minimal exertion. His sodium is improving slowly. His serum sodium today is 122 after receiving 200 mL of 3% hypertonic saline. He continues to be in fluid restriction. PHYSICAL EXAMINATION: GENERAL: When I examined him this afternoon, he was definitely pale, cushingoid, but not jaundiced, cyanosis or thyromegaly. No jugular venous distention, but mild bilateral lower limb edema. VITAL SIGNS: Her heart rate was 70, blood pressure was 142/55, temperature was 97.9, respiratory rate was 14 and oxygen saturation was 98% on 3 liters of oxygen. HEAD, EYES, EARS, NOSE AND THROAT: Showed normocephalic, atraumatic. NECK: Supple. HEART: Showed normal first and second heart sounds. No gallop, rub or murmur. CHEST: Showed central trachea and equal bilateral chest expansion, air entry, and vesicular sounds, bilateral basal crepitation, few scattered rhonchi. ABDOMEN: Distended, soft, nontender. NEUROLOGIC: He is very hard of hearing, but otherwise all his cranial nerves are intact. He moves extremities without difficulty. His intake over the last 24 hours was 750, output was 850. LABORATORY DATA: Serum sodium today was 122, potassium 3.5, chloride 87, bicarbonate 32, anion gap of 3, BUN 13, creatinine 0.4, estimated GFR was 104 mL per minute. His glucose was 157, calcium was 7.4. Total bilirubin, AST, ALT, alkaline phosphatase were normal. Total protein was 4.8, albumin was 1.9. His white cell count was 11,400, hemoglobin 9, hematocrit 26, MCV 91 and platelet count 234,000. ASSESSMENT: Severe hyponatremia with serum sodium of 116 mEq per liter. He was continued on fluid restriction. We have discontinued his furosemide. I did start him on 3% hypertonic saline and so far he has received about 200 mL. His serum sodium has risen from 116 to 122. Other problems include hypertension, type 2 diabetes mellitus, coronary artery disease, status post myocardial infarction, treated with percutaneous transluminal coronary angioplasty and stent deployment, eventually had open heart surgery about 8 years ago, hyperlipidemia, chronic obstructive pulmonary disease, recurrent urinary tract infection, benign prostatic hypertrophy, congestive heart failure due to ischemic cardiomyopathy, recently had non-ST segment elevation myocardial infarction and underwent cardiac catheterization, which showed that all his grafts were patent. His echocardiogram showed ejection fraction of 40%. PLAN: My plan is to continue with fluid restriction, continue with hypertonic saline. We will give him another 100 mL and he was evaluated by the Speech Therapy, who does not think that he has problem with oropharyngeal dysphagia. He might have esophageal dysphagia and recommended esophagogram. I have also arranged for him to have CT angio of the chest. Meanwhile, we will start him on low dose sliding scale insulin. DEIDRE HANEY MD DR: HUMBERTO/amy JOB#: [id number] / [id number]
--- NOTE | 2019-10-30 23:07 | PDOC ---
SUBJECTIVE Subjective: No new events overnight. Denies any chest pain. Dyspnea improving. Having bowel movements. OBJECTIVE Vital Signs/I&O Vital Signs Date Time Temp Pulse Resp B/P (MAP) Pulse Ox O2 Delivery O2 Flow Rate FiO2 10/30/19 21:00 97.9 72 33 117/49 (71) 97 Nasal Cannula 4.0 I & O 10/29/19 10/29/19 10/30/19 14:59 22:59 06:59 Intake Total 300 ml 400 ml 50 ml Output Total 600 ml 255 ml Balance 300 ml -200 ml -205 ml Physical Exam Constitutional: Well developed, well nourished, no acute distress, non-toxic appearance. HENT: Normocephalic, atraumatic, bilateral external ears normal, oropharynx moist, no oral exudates, nose normal. Eyes: PER, EOMI, conjunctiva normal, no discharge. Neck: Normal range of motion, no tenderness, supple, no stridor. Cardiovascular: JVP elevated. No carotid bruit. Nor precordial pulsations or heaves. S1 N,S2N. No murmurs. No rubs or clicks. Thorax and Lungs: Normal respiration. Normal chest expansion. Normal to percuss. Decreased breath sounds. . No wheeze. Abdomen: Bowel sounds normal, soft, no tenderness, no masses, no pulsatile masses. Skin: Warm, dry, no erythema, no rash. Back: No tenderness, no CVA tenderness. Extremities: Intact distal pulses, no tenderness, no cyanosis, no clubbing, ROM intact, 2+ edema Neurologic: Alert and oriented X 3, normal motor function, normal sensory function, no focal deficits noted. Psychologic: Affect normal, judgement normal, mood normal. Lab Laboratory Tests Test 10/30/19 05:41 10/30/19 17:25 10/30/19 20:20 White Blood Count 11.4 x10^3/uL (4.0-11.0) H Red Blood Count 2.91 x10^6/uL (4.30-5.70) L Hemoglobin 9.0 g/dL (13.0-17.5) L Hematocrit 26.4 % (39.0-53.0) L Mean Corpuscular Volume 91 fL (79-100) Mean Corpuscular Hemoglobin 31 pg (25-35) Mean Corpuscular Hemoglobin Concent 34 g/dL (31-37) Red Cell Distribution Width 15.6 % (11.5-14.5) H Platelet Count 234 x10^3/uL (140-400) Sodium Level 122 mmol/L (136-145) L Potassium Level 3.5 mmol/L (3.5-5.1) Chloride Level 87 mmol/L (98-107) L Carbon Dioxide Level 32 mmol/L (21-32) Anion Gap 3 (6-14) L Blood Urea Nitrogen 13 mg/dL (8-26) Creatinine 0.4 mg/dL (0.7-1.3) L Estimated GFR (Cockcroft-Gault) 204.4 BUN/Creatinine Ratio 33 (6-20) H Glucose Level 157 mg/dL (70-99) H Calcium Level 7.4 mg/dL (8.5-10.1) L Total Bilirubin 0.7 mg/dL (0.2-1.0) Aspartate Amino Transferase (AST) 14 U/L (15-37) L Alanine Aminotransferase (ALT) 11 U/L (16-63) L Alkaline Phosphatase 57 U/L (46-116) Total Protein 4.8 g/dL (6.4-8.2) L Albumin 1.9 g/dL (3.4-5.0) L Albumin/Globulin Ratio 0.7 (1.0-1.7) L Glucose (Fingerstick) 183 mg/dL (70-99) H 222 mg/dL (70-99) H MEDICATIONS Medications Current Medications Medications (Trade) Dose Ordered Sig/Shirley Route PRN Reason Start Time Stop Time Status Last Admin Dose Admin Fish Oil (Fish Oil) 1,000 mg DAILY PO 10/30/19 09:00 10/30/19 10:04 Lactobacillus Rhamnosus (Culturelle) 1 cap DAILY PO 10/30/19 09:00 10/30/19 09:57 Iohexol (Omnipaque 350 Mg/ml) 100 ml 1X ONCE IV 10/30/19 16:00 10/30/19 16:01 DC 10/30/19 16:00 Insulin Human Lispro (HumaLOG) 0-5 UNITS TIDWMEALS SQ 10/30/19 17:00 10/30/19 17:51 Vancomycin HCl (Vanco Per Pharmacy) 1 each PRN DAILY PRN MC SEE COMMENTS 3/11/20 18:30 10/30/19 20:42 Piperacillin Sod/ Tazobactam Sod 3.375 gm/Sodium Chloride 50 ml @ 100 mls/hr Q6HRS IV 10/30/19 19:00 10/30/19 19:45 Vancomycin HCl 1.75 gm/Sodium Chloride 500 ml @ 250 mls/hr 1X ONCE IV 10/30/19 20:00 10/30/19 21:59 DC 10/30/19 19:58 PLAN Plan 1. CAD with patent grafts 2. Hyponatremia - suspect due to hypervolemic hyponatremia. -Plan for labs including uosm, serum osm and urine electrolytes. Continue free water restriction, may need lasix tomorrow. Supportive care. LEONIE DE OLIVEIRA MD Oct 30, 2019 23:07
[2019-10-31] VITALS (11 sets, daily range): BP systolic 102–165; BP diastolic 51–80
[2019-10-31] MEDS: PIPERACILLIN/TAZOBACTAM 3.375 GM in IV NORMAL SALINE 50ML 50 ML IV SCH ×3 (05:30→18:00)
[2019-10-31] MEDS: methylPREDNISolone SOD SUCC PF 40 MG/ML VIAL. IV SCH ×2 (05:30→17:14)
[2019-10-31 06:22] LABS: HEMATOCRIT 26.6 % (39.0-53.0); RED BLOOD COUNT 2.9 x10^6/uL (4.30-5.70); RED CELL DISTRIBUTION WIDTH 15.6 % (11.5-14.5); WHITE BLOOD COUNT 10.1 x10^3/uL (4.0-11.0)
[2019-10-31 06:38] LABS: ALBUMIN 1.8 g/dL (3.4-5.0); ALBUMIN/GLOBULIN RATIO 0.6 (1.0-1.7); CALCIUM 7.2 mg/dL (8.5-10.1); CREATININE 0.4 mg/dL (0.7-1.3); GFR 204.4; POTASSIUM 4.1 mmol/L (3.5-5.1); TOTAL BILIRUBIN 0.4 mg/dL (0.2-1.0); TOTAL PROTEIN 4.6 g/dL (6.4-8.2)
[2019-10-31] MEDS ORDERED: VANCOMYCIN 1 GM in IV NORMAL SALINE 250ML 250 ML IV SCH (08:00)
[2019-10-31] MEDS: guaiFENesin/PS-EPHED 600/60MG 1 TAB TAB.ER.12H PO SCH (09:00)
[2019-10-31] MEDS: LACTOBACILLUS RHAMNOSUS GG 1 CAPSULE. PO SCH (09:30)
[2019-10-31] MEDS: MAGNESIUM OXIDE 400 MG TABLET PO SCH (09:30)
[2019-10-31] MEDS: CHOLECALCIFEROL (VITAMIN D3) 1,000 UNIT TABLET PO SCH (09:30)
[2019-10-31] MEDS: ALLOPURINOL 300 MG TABLET. PO SCH (09:30)
[2019-10-31] MEDS: CARVEDILOL 12.5 MG TABLET PO SCH ×2 (09:30→17:00)
[2019-10-31] MEDS: ISOSORBIDE MONONITRATE ER 30 MG TAB.ER.24H PO SCH (09:30)
[2019-10-31] MEDS: GABAPENTIN 300 MG CAPSULE. PO SCH ×2 (09:31→14:00)
[2019-10-31] MEDS: valACYclovir 500 MG TABLET. PO SCH (09:31)
[2019-10-31] MEDS: OMEGA-3 FATTY ACIDS/FISH OIL 1,000 MG CAPSULE. PO SCH (09:31)
[2019-10-31] MEDS: NYSTATIN 100,000 UNITS/ML ORAL SUSPENSION 60ML BOTTLE. SWSW SCH ×3 (09:47→17:00)
[2019-10-31] MEDS: INSULIN LISPRO 300 UNITS/3 ML VIAL. SQ SCH ×3 (10:00→17:00)
[2019-10-31] MEDS: BUDESONIDE 0.5 MG/2 ML NEBU IH SCH (10:40)
--- NOTE | 2019-10-31 10:41 | PDOC ---
CARDIO Progress Notes Date & Time Date of Service DATE: 10/31/19 TIME: 10:39 Time of Evaluation 10:39 Subjective Notes more short of breath this am Vitals Vitals Vital Signs Date Time Temp Pulse Resp B/P (MAP) Pulse Ox O2 Delivery O2 Flow Rate FiO2 10/31/19 09:30 64 140/59 10/31/19 06:00 11 92 Nasal Cannula 4.0 10/31/19 04:00 98.1 Weight Weight [ ] Input and Output I.O. Intake and Output 10/31/19 07:00 Intake Total 740 ml Output Total 200 ml Balance 540 ml Intake Oral 740 ml Output Urine Total 200 ml # Voids 2 # Bowel Movements 1 Laboratory Labs Laboratory Tests Test 10/29/19 15:15 10/29/19 21:50 10/30/19 05:41 10/30/19 17:25 Sodium Level 117 mmol/L (136-145) 120 mmol/L (136-145) 122 mmol/L (136-145) Potassium Level 3.7 mmol/L (3.5-5.1) 3.5 mmol/L (3.5-5.1) Chloride Level 82 mmol/L (98-107) 87 mmol/L (98-107) Carbon Dioxide Level 31 mmol/L (21-32) 32 mmol/L (21-32) Anion Gap 4 (6-14) 3 (6-14) Blood Urea Nitrogen 13 mg/dL (8-26) 13 mg/dL (8-26) Creatinine 0.6 mg/dL (0.7-1.3) 0.4 mg/dL (0.7-1.3) Estimated GFR (Cockcroft-Gault) 128.0 204.4 Glucose Level 243 mg/dL (70-99) 157 mg/dL (70-99) Calcium Level 7.4 mg/dL (8.5-10.1) 7.4 mg/dL (8.5-10.1) White Blood Count 11.4 x10^3/uL (4.0-11.0) Red Blood Count 2.91 x10^6/uL (4.30-5.70) Hemoglobin 9.0 g/dL (13.0-17.5) Hematocrit 26.4 % (39.0-53.0) Mean Corpuscular Volume 91 fL (79-100) Mean Corpuscular Hemoglobin 31 pg (25-35) Mean Corpuscular Hemoglobin Concent 34 g/dL (31-37) Red Cell Distribution Width 15.6 % (11.5-14.5) Platelet Count 234 x10^3/uL (140-400) BUN/Creatinine Ratio 33 (6-20) Total Bilirubin 0.7 mg/dL (0.2-1.0) Aspartate Amino Transf (AST/SGOT) 14 U/L (15-37) Alanine Aminotransferase (ALT/SGPT) 11 U/L (16-63) Alkaline Phosphatase 57 U/L (46-116) Total Protein 4.8 g/dL (6.4-8.2) Albumin 1.9 g/dL (3.4-5.0) Albumin/Globulin Ratio 0.7 (1.0-1.7) Glucose (Fingerstick) 183 mg/dL (70-99) Test 10/30/19 20:20 10/31/19 05:30 10/31/19 09:16 Glucose (Fingerstick) 222 mg/dL (70-99) 159 mg/dL (70-99) White Blood Count 10.1 x10^3/uL (4.0-11.0) Red Blood Count 2.90 x10^6/uL (4.30-5.70) Hemoglobin 9.0 g/dL (13.0-17.5) Hematocrit 26.6 % (39.0-53.0) Mean Corpuscular Volume 92 fL (79-100) Mean Corpuscular Hemoglobin 31 pg (25-35) Mean Corpuscular Hemoglobin Concent 34 g/dL (31-37) Red Cell Distribution Width 15.6 % (11.5-14.5) Platelet Count 186 x10^3/uL (140-400) Sodium Level 127 mmol/L (136-145) Potassium Level 4.1 mmol/L (3.5-5.1) Chloride Level 93 mmol/L (98-107) Carbon Dioxide Level 31 mmol/L (21-32) Anion Gap 3 (6-14) Blood Urea Nitrogen 14 mg/dL (8-26) Creatinine 0.4 mg/dL (0.7-1.3) Estimated GFR (Cockcroft-Gault) 204.4 BUN/Creatinine Ratio 35 (6-20) Glucose Level 145 mg/dL (70-99) Calcium Level 7.2 mg/dL (8.5-10.1) Total Bilirubin 0.4 mg/dL (0.2-1.0) Aspartate Amino Transf (AST/SGOT) 15 U/L (15-37) Alanine Aminotransferase (ALT/SGPT) 11 U/L (16-63) Alkaline Phosphatase 56 U/L (46-116) Total Protein 4.6 g/dL (6.4-8.2) Albumin 1.8 g/dL (3.4-5.0) Albumin/Globulin Ratio 0.6 (1.0-1.7) Physical Exams HEENT: Neck Supple W Full Motion Chest: Symmetric Lungs: Other (diminished upper crackles ) Heart: S1S2, RRR Abdomen: Soft N/T Extremities: Other (2+ bilateral LE edema ) Neurology: alert, oriented, follow commands Assessment Assessment 1. Hyponatremia; improved. Suspected due to hypervolemia due to excessive free water intake. 2. Dyspnea; multifactorial with AE COPD, CHF 3. CAD; s/p CABG. Recent cath with patent grafts. 4. Acute on chronic systolic CHF; decompensated 5. Cardiomyopathy, non-ischemic; Echo 09/2019 with LVEF 40-45% 6. Hypertension; controlled 7. Hyperlipidemia: Statin therapy 8. Diabetes, II 9. Recommendations Needs diuresis. Will give IV Lasix now Place on BiPAP CXR ongoing fluid restriction Supportive care SILAS ARDON APRN Oct 31, 2019 10:41
[2019-10-31] MEDS: ALBUTEROL SULFATE 2.5 MG/3 ML NEBU. NEB PRN (11:05)
[2019-10-31] MEDS ORDERED: FUROSEMIDE 40 MG/4 ML VIAL IVP ONE (11:30)
[2019-10-31] MEDS ORDERED: FUROSEMIDE 100 MG/10 ML VIAL IVP ONE (11:40)
[2019-10-31] MEDS ORDERED: NITROGLYCERIN OINT 1 GM PACKET. TP ONE (11:40)
--- NOTE | 2019-10-31 12:12 | RAD ---
AP portable chest radiograph 10/31/2019 Clinical History: Shortness of breath. Two AP erect portable digital radiographs of the chest wereobtained. Comparison study is dated 10/28/2019. A left arm PICC is been placed. The tip of this catheter extends to overlie the superior vena cava. The patient is post CABG procedure. The cardiac silhouette is normal in size. Atherosclerotic calcification thoracic aorta is noted. Patchy areas of infiltrate/atelectasis is seen involving the right lower lobe which has increased since previous examination. Areas of subsegmental atelectasis and/or infiltrate is seen on the left lower lobe essentially unchanged. There is a small left pleural effusion. No pneumothorax is noted. The osseous structures are unchanged. Impression: Increasing right lower lobe atelectasis and/or infiltrate. Electronically signed by: Teodoro Goodson MD (10/31/2019 12:10 PM) [facility] [place]
[2019-10-31 14:01] LABS: BGAS PH 7.45 (7.35-7.46)
--- NOTE | 2019-10-31 18:14 | NUR ---
[facility] called at this time, states they will be in route to transfer patient to . Patient will be placed on CPAP machine, confirmed with Dr Caraballo and EMS.
--- NOTE | 2019-10-31 18:35 | NUR ---
EMS notified that they would arrive around 7pm due to shift change, family notified.
--- NOTE | 2019-10-31 19:16 | DS ---
DATE OF DISCHARGE: DISCHARGE TRANSFER SUMMARY HOSPITAL COURSE: The patient is an 84-year-old male patient who was originally admitted to [facility] with shortness of breath. At that time, he was diagnosed with non-ST segment elevation myocardial infarction as his left ventricular systolic function was low. He was taken to the [facility] where he underwent cardiac catheterization, which showed that all his grafts are patent and according to the applications sales representative that he has non-ST segment myocardial infarction, probably type 2 demand ischemia and recommended continuation of aggressive medical treatment, has continued to be debilitated and deconditioned. After that, we transferred him to swing bed to continue physical and occupational therapy. At that time, we continued treatment with Lasix and he did have hyponatremia with serum sodium was 118 and therefore I discontinued his Lasix and started him on a fluid restriction of 1000 mL. Unfortunately, sodium dropped down to further to 116 and therefore, a decision was made to transfer him to the ICU with severe hyponatremia, likely due to syndrome of inappropriate antidiuretic hormone as his TSH was normal at 2.159 and his cortisol was 21.86. We continued with fluid restriction and we started him on hypertonic saline and in fact, his serum sodium has gradually improved from 117, 120, 122 and today was 127. He received a total of 300 mL of this hypertonic saline. Unfortunately, he continued to be extremely short of breath and I did actually CT angio of the chest yesterday to rule out the possibility of pulmonary emboli and CT scan showed no newly seen aortic aneurysm or dissection. The adequately evaluated pulmonary arteries are patent as well. There is worsened appearance of the lung from 08/24/2019, comparison with multifocal consolidative opacities involving the right lower lobe, more so than left lower lobe as well involving the right middle lobe and lingula. Areas of superimposed volume loss and a trace amount of bilateral pleural effusion, bronchial wall thickening and scattered small airway opacification of the lower lobes. This is most compatible with multifocal pneumonia given the short time period for the comparison more conspicuous superior endplate height loss at T12 from the comparison, though appearing more likely a Schmorl's node than a mild compression fracture. There is mild wall thickening and faint pericolonic inflammation at the splenic flexure could represent some mild nonspecific colitis. We did also venous Doppler ultrasound of both lower extremities showed no evidence of deep vein thrombosis, seen throughout either lower extremity. He has right popliteal fossa Woodward cyst, which was also noted in the previous exam. We did start him on IV vancomycin and Zosyn for healthcare-associated pneumonia. Unfortunately, the patient continued to have severe shortness of breath and this morning, he became extremely hypoxic, tachypneic and therefore, he was started on BiPAP machine and his oxygen saturation has improved from 89% on 5 liters of oxygen to 97% on BiPAP machine with an FiO2 of 40%. We did actually do blood gases showed that his pH was 7.45, pCO2 of 46, pO2 of 84, bicarbonate 32, and his oxygen saturation was 97% on FiO2 of 40%. PHYSICAL EXAMINATION: GENERAL: When I saw him this afternoon, he looked pale, but no jaundice, cyanosis or thyromegaly. No jugular venous distention. No limb edema. VITAL SIGNS: Her heart rate was 78, blood pressure was 111/51, temperature was 98.4, respiratory rate was 14 and oxygen saturation was 97%. HEAD, EYES, EARS, NOSE AND THROAT: Showed normocephalic, atraumatic. NECK: Supple. HEART: Showed normal first and second heart sounds. No gallop or murmur. CHEST: Shows central trachea, equally reduced expansion, reduced air entry, vesicular breath sounds, bilateral basal crepitation, few scattered rhonchi. ABDOMEN: Distended, soft, nontender. NEUROLOGIC: He was awake, alert, responding appropriately. All cranial nerves intact. EXTREMITIES: He moves extremities without difficulty. LABORATORY DATA: This morning showed a serum sodium of 127, potassium 4.1, chloride 93, bicarbonate 31, anion gap of 3, BUN 14, creatinine 0.4, estimated GFR was 204 mL per minute. His glucose 145, calcium was 7.2. Total bilirubin, AST, ALT, alkaline phosphatase were normal. Total protein was 4.6, albumin was 1.8. Urinalysis showed the urine sodium was less than 20. Urine potassium was 20.7 and urine chloride was 20. His chest x-ray showed that there is increasing right lower lobe atelectasis and infiltrate. Given that he basically continued to deteriorate, I spoke with Renée Chavez, the nurse practitioner for the [facility] and the patient was accepted and was transferred to the ICU of [facility]. Dr. Pereyra was the hospitalist who accepted him. The patient was discharged to [facility] to continue on Mucinex 600 mg twice a day, linezolid 600 mg twice a day, Zosyn 3.375 g IV q. 6 hourly. He was on Humalog insulin as insulin sliding scale 3 times a day with meals, lactobacillus rhamnosus 1 capsule once a day, fish oil 1000 mg once a day, nystatin swish and swallow 5 mL 4 times a day, atorvastatin 40 mg at bedtime, tamsulosin 0.4 mg at bedtime, montelukast 10 mg at bedtime, Pulmicort 0.5 mg twice a day, albuterol sulfate 2.5 mg every 6 hours, carvedilol 12.5 mg twice a day, magnesium oxide 400 mg daily, vitamin D 1000 International Unit once a day, isosorbide mononitrate 30 mg daily, allopurinol 300 mg once a day, methylprednisone sodium succinate 40 mg IV every 8 hours and gabapentin 300 mg 3 times a day. FINAL DISCHARGE DIAGNOSES: 1. Hyponatremia, likely due to inappropriate antidiuretic hormone, treated with fluid restriction and hypertonic saline improving. Her sodium has risen from 116-127. 2. Shortness of breath, likely due to multifactorial including acute exacerbation of chronic obstructive pulmonary disease, aspiration pneumonia and congestive heart failure. 3. Coronary artery disease, status post coronary artery bypass graft, recent catheterization showed patent grafts, acute on chronic systolic congestive heart failure, decompensated, cardiomyopathy, nonischemic, echocardiogram done at the beginning of September showed left ventricular ejection fraction was 40-45%, hypertension, well controlled, hyperlipidemia and diabetes. The patient was treated with IV Lasix today together with also started on BiPAP machine, continue with the fluid restriction and was transferred to [facility] to consult the cardiology team, campus interviews intern as well as the Infectious Disease. DEIDRE HANEY MD DR: HUMBERTO/amy JOB#: [id number] / [id number]
--- NOTE | 2019-10-31 19:51 | NUR ---
Nurse was in the patients room majority of the morning. No increased SOA was observed by the RN. RT had administered a breathing treatment prior to a PT session in which RT stated she did not observed an increase in SOA or respiratory distress. PT arrived soon after RT treatment to implement a therapy session. This RN went in to round on patient after PT treatment in which the patient was experiencing an episode of increased SOA. Patient has just completed an infusion of Vanco prior to PT visit. RN assessed the patient and increased oxygen to 5L NC, attempted to orally suction any possible secretions with no success. RN called RT for assistance with the patient. An albuterol breathing treatment was administered which did not relieve his symptoms. This RN and RT informed patient he needed to be placed on a BIPAP but patient was resistant at first to the BIPAP but a discussion was had about code status and intubation desires, patient then stated he would wear the BIPAP. Patients daughter Kaylen, who is DPOA, was called during the episode to be informed of the patients change in condition, Kaylen spoke with Negrita BENITEZ and Nathalia TERAN on the phone. Kaylen arrived on the unit about an hour later. Dr. Caraballo was on the unit when Kaylen arrived and after discussing the patients status and plan of care, Kaylen and the patient made a request for the patient to be transferred to [facility]. The patient was also given Lasix during the episode and a Zhang catheter was placed. Patients respiratory status stabilized with the BIPAP/Lasix. Transfer arrangements were begun with [facility] accepting the patient later on in the afternoon to ICU with bed number [id number]. EMS was called for transportation and report was called to Gabe Charge Nurse ICU at [facility]. Patient left the unit via EMS at 1950.
[2019-10-31] MEDS ORDERED: LINEZOLID 600 MG TABLET PO SCH (21:00)
--- NOTE | 2019-11-01 06:43 | EKG ---
[address] [address] Test Date: 2019-10-31 Test Time: 13:34:40 Pat Name: ANASTASIA MARMOLEJO Department: Room: [facility] Gender: M [employer] Tester: : [id number] Requested By: DEIDRE HANEY Order Number: [id number] Reading MD: Measurements Intervals [place] Rate: P: GA: QRS: QRSD: T: QT: QTc: Interpretive Statements
[2019-11-06 12:07] LABS: SODIUM, URINE <20 mmol/L (Not Estab.); UR POTASSIUM 20.7 mmol/L (Not Estab.); URINE OSMOLALITY 735 mOsmol/kg (.)
== END 2019-10-31 19:56 | disposition short-term general hospital (02) | DRG 177 ==
LOC: ICU 07:55
PROVIDERS: ADMIT Internal Medicine; ATTEND Internal Medicine
PROC: 5A09357 Assistance with Respiratory Ventilation, Less than 24 Consecutive Hours, Continuous Positive Airway Pressure (ICD-10-PCS; principal; 2019-10-31)
DX: J69.0 Pneumonitis due to inhalation of food and vomit (principal); I50.23 Acute on chronic systolic (congestive) heart failure; E22.2 Syndrome of inappropriate secretion of antidiuretic hormone; I42.9 Cardiomyopathy, unspecified; J44.1 Chronic obstructive pulmonary disease with (acute) exacerbation; E03.9 Hypothyroidism, unspecified; E11.9 Type 2 diabetes mellitus without complications; I25.10 Atherosclerotic heart disease of native coronary artery without angina pectoris; I25.2 Old myocardial infarction; E78.5 Hyperlipidemia, unspecified; I11.0 Hypertensive heart disease with heart failure; I25.5 Ischemic cardiomyopathy; M71.20 Synovial cyst of popliteal space [Baker], unspecified knee; N40.0 Benign prostatic hyperplasia without lower urinary tract symptoms; R09.02 Hypoxemia; Z98.42 Cataract extraction status, left eye; Z98.41 Cataract extraction status, right eye; Z95.5 Presence of coronary angioplasty implant and graft; Z95.1 Presence of aortocoronary bypass graft; Z87.891 Personal history of nicotine dependence; Z87.440 Personal history of urinary (tract) infections; Z82.5 Family history of asthma and other chronic lower respiratory diseases; Z82.49 Family history of ischemic heart disease and other diseases of the circulatory system; Z88.5 Allergy status to narcotic agent; Z88.2 Allergy status to sulfonamides
CPT/HCPCS: 36415; 71045; 71275; 80048; 80053; 82436; 82803; 82947; 83930; 83935; 84133; 84145; 84295; 84300; 85027; 93005; 93970; 94640; 94660; J1815; J2543; J2920; J3370; J3490; J7040; J7050; J7613; J7626; Q9967; 92610; 97530